=== PATIENT | male | born 1970 | race Caucasian/White ===

== ENCOUNTER 2022-08-05 12:14 | Emergency (ER) | payer BC, SELFPAY ==
[2022-08-05 12:19] VITALS: BP 175/90; PULSE 78; RESP 18; TEMP 36.6; O2SAT 98; BMI 24.3
--- NOTE | 2022-08-05 12:26 | ED.WOUNDLAC1 ---
HPI - Wound/Laceration General Chief Complaint: Wound/Laceration Stated Complaint: LACERATION Time Seen by Provider: 08/05/22 12:23 Source: patient Mode of arrival: walk-in Limitations: no limitations History of Present Illness HPI narrative: 52-year-old male presents for laceration to his right knee. He accidentally cut his knee when he tripped and his knee hit a non-running chainsaw. It's been a long time since his last tetanus shot, more than ten years. No other injuries were ssustained. He describes no significant pain. Related Data Home Medications Medication Instructions Recorded Confirmed No Known Home Medications 08/05/22 08/05/22 Allergies Allergy/AdvReac Type Severity Reaction Status Date / Time No Known Drug Allergies Allergy Verified 08/05/22 12:21 Review of Systems ROS Narrative A ten point review of systems is negative except as noted above. Exam Narrative Exam Narrative: Nurses note and vital signs reviewed and patient is not hypoxic. General: The patient appears well and in no apparent distress. Patient is resting comfortably on cart. Skin: Warm, dry, no pallor noted. There is no rash noted. Head: Normocephalic, atraumatic Eye: Normal conjunctiva, no drainage Ears, Nose, Mouth, and Throat: oral mucosa is moist. Nares patent. Cardiovascular: Regular Rate and Rhythm Respiratory: Patient is in no distress, no accessory muscle use, lungs are clear to auscultation, no wheezing, rales or rhonchi Back: non-tender GI: nontender Musculoskeletal: on the anterior right knee are three associated lacerations. Two are quite superficial and don't require closure. The 3rd is approximately 2 cm in length and is gaping slightly. No active bleeding or foreign body noted. Neurological: A&O, normal speech Psychiatric: Cooperative Constitutional Vital Signs - 24 hr 08/05/22 12:19 Temperature 98 F Pulse Rate [Monitor] 78 Respiratory Rate 18 Blood Pressure [Left Arm] 175/90 H Pulse Oximetry 98 Oxygen Delivery Method Room Air Course Vital Signs Vital signs: Vital Signs Temperature 98 F 08/05/22 12:19 Pulse Rate 78 08/05/22 12:19 Respiratory Rate 18 08/05/22 12:19 Blood Pressure 175/90 H 08/05/22 12:19 Pulse Oximetry 98 08/05/22 12:19 Oxygen Delivery Method Room Air 08/05/22 12:19 Temperature 98 F 08/05/22 12:19 Pulse Rate 78 08/05/22 12:19 Respiratory Rate 18 08/05/22 12:19 Blood Pressure 175/90 H 08/05/22 12:19 Pulse Oximetry 98 08/05/22 12:19 Oxygen Delivery Method Room Air 08/05/22 12:19 MDM - Wound/Laceration MDM Narrative Medical decision making narrative: the wound has been repaired. Sutures are to be removed in 7-10 days. Tetanus status updated today. Treatment diagnosis and follow-up were discussed with the patient. Differential Diagnosis Differential diagnosis: Likely laceration and other (skin avulsion, foreign body) Discharge Plan Discharge Chief Complaint: Wound/Laceration Clinical Impression: Laceration Patient Disposition: Home, Self-Care Time of Disposition Decision: 12:59 Condition: Good Mode of Transportation: Private Vehicle Prescriptions / Home Meds: No Action No Known Home Medications Instructions: Laceration (ED) Additional Instructions: sutures to be removed in 7-10 days. Stand Alone Forms: Portal Instructions Referrals: Physician,Non-Staff, MD [Primary Care Provider] - 1 week Procedures ED Laceration Laceration Laceration 1: Site: lower extremity Side (if applicable): right Size (cm): 2 Description: linear Depth: simple, single layer Anesthetic used: lidocaine 1% Anesthesia technique: local infiltration Amount (ml): 5 Pre-repair: wound explored and deep structures intact Skin layer closed with: other (Prolene) Size (cm): 4-0 Number of sutures: 4 Technique: simple, interrupted Additional comments: the patient tolerated the procedure well.
[2022-08-05] MEDS: ADACEL DIPH,PERTUSS(ACELL),TET VAC/PF 0.5 ML ADULT SYRINGE IM (12:32)
== END 2022-08-05 13:29 | disposition home or self-care (01) ==
PROVIDERS: Emergency Provider Emergency Medicine
DX: S81.011A Laceration without foreign body, right knee, initial encounter (principal); Z23 Encounter for immunization; W01.111A Fall on same level from slipping, tripping and stumbling with subsequent striking against power tool or machine, initial encounter
CPT/HCPCS: 12001; 90471; 90715; 99283

== ENCOUNTER 2024-05-19 16:53 | Emergency (ER) | payer OTHER, SELFPAY ==
[2024-05-19] VITALS (34 sets, daily range): BP systolic 126–168; BP diastolic 81–141; PULSE 80–117; TEMP 36.7; O2SAT 95–99; BMI 25.1
--- NOTE | 2024-05-19 17:03 | ECG_ITS ---
[facility] Test Date: 2024-05-19 Pat Name: AMANDA DAVIES SR Department: Room: - Gender: Male [employer]: : 1970 Requested By: [id number] Order Number: [id number] Reading MD: PEDRO BOYD M.D. Measurements Intervals [place] Rate: 111 P: 62 CT: 166 QRS: 55 QRSD: 88 T: 52 QT: 326 QTc: 392 Interpretive Statements 1120 Sinus tachycardia 9140 abnormal rhythm ECG No previous ECG available for comparison Electronically Signed On 05-19-2024 20:02:30 EDT by PEDRO BOYD M.D.
--- NOTE | 2024-05-19 17:04 | ED.GENADUL1 ---
HPI HPI - General Adult General Chief complaint: Arrhythmia/Palpitations Stated complaint: AFIB Time Seen by Provider: 05/19/24 16:54 History of Present Illness HPI narrative: 53-year-old male presents to the emergency for chief complaint of palpitations. He was driving home from [place] when he experienced a sensation that his chest was rocking and his heart rate was fast. 5 years ago he had been diagnosed with atrial fibrillation and had cardiac ablation. He has had no problems since then. He states he feels better now but the rocking sensation is gone. He does not take any medications and does not see a family doctor. Related Data Home Medications ?Medication ?Instructions ?Recorded ?Confirmed No Known Home Medications 08/05/22 08/05/22 Allergies Allergy/AdvReac Type Severity Reaction Status Date / Time No Known Drug Allergies Allergy Verified 08/05/22 12:21 Opioid HPI Opioid Management Most Recent Opioid Data: Last Pain Scale 2 08/05/22 12:27 08/05/22 Review of Systems ROS Narrative A ten point review of systems is negative except as noted above. Exam Narrative Exam Narrative: Nurses note and vital signs reviewed and patient is not hypoxic. General: The patient appears well and in no apparent distress. Patient is resting comfortably on cart. Skin: Warm, dry, no pallor noted. There is no rash noted. Head: Normocephalic, atraumatic Eye: Normal conjunctiva, no drainage Ears, Nose, Mouth, and Throat: oral mucosa is moist. Nares patent. Cardiovascular: Regular Rate and Rhythm, mildly tachycardic Respiratory: Patient is in no distress, no accessory muscle use, lungs are clear to auscultation, no wheezing, rales or rhonchi Back: non-tender GI: Soft and nontender Musculoskeletal: The patient has no evidence of calf tenderness, no pitting edema, symmetrical pulses noted bilaterally Neurological: A&O, normal speech Psychiatric: Cooperative Constitutional Vital Signs, click to edit/add: Last Vital Signs Temp 98.0 F 05/19/24 16:58 Pulse 90 05/19/24 18:40 Resp 14 05/19/24 18:40 BP 139/95 H 05/19/24 18:35 Pulse Ox 97 05/19/24 18:40 O2 Del Method Room Air 05/19/24 16:58 Course Vital Signs Vital signs: Vital Signs Temperature 98.0 F 05/19/24 16:58 Pulse Rate 117 H 05/19/24 16:58 Respiratory Rate 18 05/19/24 16:58 Blood Pressure 168/114 H 05/19/24 16:58 Pulse Oximetry 97 05/19/24 16:58 Oxygen Delivery Method Room Air 05/19/24 16:58 Temperature 98.0 F 05/19/24 16:58 Pulse Rate 90 05/19/24 18:40 Respiratory Rate 14 05/19/24 18:40 Blood Pressure 139/95 H 05/19/24 18:35 Pulse Oximetry 97 05/19/24 18:40 Oxygen Delivery Method Room Air 05/19/24 16:58 Medical Decision Making MDM Narrative Medical decision making narrative: The patient was in sinus tachycardia with a rate of about 115 upon arrival and that has since come down to the 80-90 range. Initial troponin was in the high normal range but then tripled to 175. He was given aspirin and heparin and I spoke to Dr. Benson and the patient will be transferred to [facility] with expectation for heart catheterization tomorrow. Treatment diagnosis and disposition were discussed with the patient. Differential Diagnosis Differential Diagnosis: Atrial fibrillation, atrial flutter, SVT, NSTEMI, STEMI Lab Data Lab results reviewed: Yes I reviewed the patient's lab results Labs: Lab Results 05/19/24 05/19/24 Range/Units 17:10 18:09 WBC 6.9 (4.0-11.0) 10^3/uL RBC 5.70 (4.70-6.10) 10^6/uL Hgb 16.6 (14.0-18.0) g/dL Hct 47.8 (42.0-54.0) % MCV 83.9 (80.0-94.0) fL MCH 29.1 (25.9-34.0) pg MCHC 34.7 (29.9-35.2) g/dL RDW 12.1 (11.0-15.0) % Plt Count 285 (150-450) 10^3/uL MPV 9.3 L (9.5-13.5) fL Neut % (Auto) 59.8 (43.0-75.0) % Lymph % (Auto) 28.4 (20.5-60.0) % [place] % (Auto) 9.8 (1.7-12.0) % Eos % (Auto) 1.6 (0.9-7.0) % Baso % (Auto) 0.4 (0.2-2.0) % Neut # (Auto) 4.1 (1.4-6.5) 10^3/uL Lymph # (Auto) 2.0 (1.2-3.8) 10^3/uL [place] # (Auto) 0.7 (0.3-0.8) 10^3/uL Eos # (Auto) 0.1 (0.0-0.7) 10^3/uL Baso # (Auto) 0.0 (0.0-0.1) 10^3/uL Abs Immat Gran (auto) 0.00 (0.00-0.03) 10^3/uL Imm/Tot Granulo (auto) 0.0 (0.0-0.5) % Sodium 141 (136-145) mmol/L Potassium 3.5 (3.5-5.1) mmol/L Chloride 104 (98-107) mmol/L Carbon Dioxide 31.4 (21.0-32.0) mmol/L Anion Gap 9.1 BUN 12.0 (7.0-18.0) mg/dL Creatinine 1.10 (0.70-1.30) mg/dL Est GFR ( Amer) >60 (>=60 mL/min/1.73m^2) Est GFR (Non-Af Amer) >60 (>=60 mL/min/1.73m^2) BUN/Creatinine Ratio 10.9 Glucose 94 (74-106) mg/dL Calcium 9.4 (8.5-10.1) mg/dL Troponin I High Sens 57.7 175.4 H* (4.0-76.1) pg/mL Imaging Data Chest x-ray: Radiologist's impression: No acute cardiopulmonary process ECG Data Attestation: I personally reviewed and interpreted this ECG as follows: (EKG on my interpretation shows sinus tachycardia without acute change, rate 111) Critical Care Time Critical Care Time Critical Care Time: Yes Total Critical Care Time: 40 Attestation: Due to the high probability of sudden and clinically significant deterioration in the patient's condition he/she required the highest level of my preparedness to intervene urgently I provided critical care time including documentation time, medication orders and management, reevaluation, vital sign assessment, ordering and reviewing of lab tests, ordering and reviewing of x-ray studies, and admission orders. Aggregate critical care time is 40 minutes including only time during which I was engaged in work directly related to his/her care and did not include time spent treating other patients simultaneously. Discharge Plan Discharge Chief Complaint: Arrhythmia/Palpitations Clinical Impression: Non-ST elevation MT (NSTEMI) Patient Disposition: [facility] Time of Disposition Decision: 18:46 Discharge Location: [facility] Condition: Fair Mode of Transportation: EMS
[2024-05-19 17:17] LABS: Basophils Percent Auto 0.4 % (0.2-2.0); Eosinophils Absolute Auto 0.1 10^3/uL (0.0-0.7); Eosinophils Percent Auto 1.6 % (0.9-7.0); Hematocrit 47.8 % (42.0-54.0); Hemoglobin 16.6 g/dL (14.0-18.0); Lymphocytes Percent Auto 28.4 % (20.5-60.0); Mean Corpuscular HGB Conc 34.7 g/dL (29.9-35.2); Mean Corpuscular Hemoglobin 29.1 pg (25.9-34.0); Mean Corpuscular Volume 83.9 fL (80.0-94.0); Mean Platelet Volume 9.3 fL (9.5-13.5); Monocytes Absolute Auto 0.7 10^3/uL (0.3-0.8); Monocytes Percent Auto 9.8 % (1.7-12.0); Neutrophils Absolute Auto 4.1 10^3/uL (1.4-6.5); Neutrophils Percent Auto 59.8 % (43.0-75.0); Platelet Count 285 10^3/uL (150-450); Red Cell Distribution Width 12.1 % (11.0-15.0); White Blood Count 6.9 10^3/uL (4.0-11.0)
[2024-05-19 17:37] LABS: Anion Gap 9.1; BUN Creatinine Ratio 10.9; Calcium 9.4 mg/dL (8.5-10.1); Carbon Dioxide 31.4 mmol/L (21.0-32.0); Chloride 104 mmol/L (98-107); Estimated GFR (African America >60 (>=60 mL/min/1.73m^2); Estimated GFR (Non-African Ame >60 (>=60 mL/min/1.73m^2); Glucose 94 mg/dL (74-106); Potassium 3.5 mmol/L (3.5-5.1); Sodium 141 mmol/L (136-145)
[2024-05-19 17:39] LABS: Troponin I High Sensitivity 57.7 pg/mL (4.0-76.1)
[2024-05-19 18:31] LABS: Troponin I High Sensitivity 175.4 pg/mL (4.0-76.1)
[2024-05-19 19:00] LABS: INR 0.99; Prothrombin Time 10.5 sec (9.0-11.6)
[2024-05-19 19:01] LABS: Partial Thromboplastin Time 30.1 sec (22.3-36.2)
[2024-05-19] MEDS: ASPIRIN 81 MG TAB.CHEW 324 MG PO (19:15)
[2024-05-19] MEDS: HEPARIN SODIUM (PORCINE) 5,000 UNIT/ML VIAL 4000 UNIT IV (19:16)
[2024-05-19] MEDS: HEPARIN SODIUM,PORCINE/D5W 25,000 UNIT/500 ML IV.SOLN 17.962 UNIT IV (19:17)
== END 2024-05-19 22:15 | disposition short-term general hospital (02) ==
PROVIDERS: Emergency Medicine; Emergency Provider Emergency Medicine
DX: I21.4 Non-ST elevation (NSTEMI) myocardial infarction (principal); I48.91 Unspecified atrial fibrillation
CPT/HCPCS: 36415; 71045; 80048; 84484; 85025; 85610; 85730; 93005; 96374; 99285; J1644

== ENCOUNTER 2024-06-30 06:01 | Outpatient (OUT) | payer OTHER, SELFPAY ==
--- OUTSIDE RECORDS SUMMARY | 2024-06-30 06:05 | XMS_ITS | CCD ---
Author Organization [facility] Care Team Providers Care Television Announcer Name Role Phone NO FAMILY, PHYSICIAN Primary Care Provider Unava ilable DO Jose Turk Attending Provider [phone] DO Shelby Steele Primary Care Provider Jose Turk Unavailable DO Shelby Steele Primary Care Provider [phone] DO Jose Turk Attending Provider Jose Turk Admitting Unavailable Sehlby Steele Primary Care Unavailable Jose Turk Attending Unavailable Jose Turk Admitting Unavailable NO FAMILY, PHYSICIAN Primary Care Unavailable Jose Turk Attending Unavailable Jose Turk Admitting Unavailable Shelby Steele Primary Care Unavailable Jose Turk Attending Unavailable Jose Turk Attending Unavailable Shelby Steele Primary Care Unavailable Jose Turk Admitting Unavailable Teri Lares Unavailable BEAU DEWITT Referring Unavailable SKYE SANCHEZ Admitting Unavailable MEREDITH DONIS Consulting Unavailable MEREDITH DONIS Attending Unavailable JORGE WHALEY Referring Unavailable MEREDITH DONIS Referring Unavailable MEREDITH DONIS Referring Unavailable ANGELI CONTRERAS Referring Unavailable LESLIE RODNEY Attending Unavailable Medications Current Medications Medication Drug Class(es) Dates Sig (Normalized) Sig (Original) oxyCODONE hydrochloride 5 mg oral capsule (1 source) Opioid Agonist Start: 03-20-2022 take 5 mg by mouth every four to six hours Oxycodone Active 5 MG PO EVERY 4-6 HOURS 30 March 20, 2022 Completed/Discontinued Medications Medication Drug Class(es) Dates Sig (Normalized) Sig (Original) naproxen 500 mg oral tablet (7 sources) Nonsteroidal Anti-inflammatory Drug take 1 tablet by mouth twice daily Naproxen 500 MG take 1 tablet Oral Twice a day for 30 Days Not-Taking triamcinolone acetonide 40 mg/ml injectable suspension (6 sources) Corticosteroid Start: 11-20-2021 Kenalog-40 Nov, 40 mg Problems Problem Classification Problem Date Documented Date Episodic/Chronic Acute myocardial infarction (2 sources) Non-ST elevation (NSTEMI) myocardial infarction; Translations: [Non-ST elevation (NSTEMI) myocardial infarction] Onset: 05-19-2024 Chronic Cardiac dysrhythmias (2 sources) Paroxysmal atrial fibrillation; Translations: [Paroxysmal atrial fibrillation] Onset: 05-19-2024 Chronic Disorders of lipid metabolism (2 sources) Mixed hyperlipidemia; Translations: [Mixed hyperlipidemia] Onset: 05-26-2024 Chronic Joint disorders and dislocations; trauma-related (12 sources) Derangement of left knee; Translations: [Unspecified internal derangement of left knee] Chronic Joint disorders and dislocations; trauma-related (4 sources) Other tear of lateral meniscus, current injury, left knee, initial encounter Episodic Nonspecific chest pain (2 sources) Chest pain, unspecified; Translations: [Chest pain, unspecified] Onset: 05-19-2024 Episodic Other injuries and conditions due to external causes (5 sources) Unspecified injury of left lower leg, initial encounter Episodic Other screening for suspected conditions (not mental disorders or infectious disease) (4 sources) Abnormal findings on diagnostic imaging of other parts of musculoskeletal system Episodic Residual codes; unclassified (1 source) History of arthroscopy of knee joint; Translations: [Other specified postprocedural states] 03-20-2022 Episodic Residual codes; unclassified (4 sources) Other specified postprocedural states; Translations: [Other specified postprocedural states] Onset: 03-20-2022 Episodic Unclassified (1 source) Other tear of medial meniscus, current injury, left knee, initial encounter; Translations: [Other tear of medial meniscus, current injury, left knee, initial encounter] Onset: 03-20-2022 Unclassified (1 source) Encounter for preprocedural laboratory examination; Translations: [Encounter for preprocedural laboratory examination] Onset: 03-09-2022 Unclassified (1 source) Unspecified internal derangement of left knee; Translations: [Unspecified internal derangement of left knee] Onset: 11-15-2021 Unclassified (1 source) Unspecified injury of left lower leg, initial encounter; Translations: [Unspecified injury of left lower leg, initial encounter] Onset: 11-08-2021 Results Test Name Value Interpretation Reference Range Facility 37on 05-26-2024 37 *Cut atorvastatin down to 40mg daily. You can cut your current prescription of 80mg in half. When this is used up, start the new prescription. *Increase metoprolol to 50mg daily. You can take 2 tablets of your current 25mg prescription until this is used up. *Have follow-up labs in 6-8 weeks. Normal [facility] Office Visiton 05-26-2024 Follow-up visit [id number] Fer Kuhn Sr. 1970 M Date Provider Department Center 05/26/2024 [facility] Family History Problem Relation Age of Onset COPD Mother Cancer Father Stroke Brother Family Status - Relation Status Age at Mother Father Sister Alive Brother Alive Level of Service:36451 DE OFFICE/OUTPATIENT ESTABLISHED MOD MDM 30 MIN Reason for Visit and Comments: Hospital Follow-up [832] Atrial Fibrillation [80] Normal [facility] 30on 05-21-2024 30 The patient is Moderately Stable - Low risk of patient condition declining or worsening The patient's goals for the shift include comfort and rest The clinical goals for the shift include stable VS Problem: Pain - Adult Goal: Verbalizes/displays adequate comfort level or baseline comfort level Outcome: Progressing Problem: Safety - Adult Goal: Free from fall injury Outcome: Progressing Problem: Discharge Planning Goal: Discharge to home or other facility with appropriate resources Outcome: Progressing Normal [facility] BASIC METABOLIC PANELon 05-12 Anion gap [Moles/Vol] 7 mmol/L Normal 7-20 [facility] Comment on above: Performed By: #### L [id number] #### [facility] ([facility]) [address] [place] [address] Calcium [Mass/Vol] 8.7 mg/dL Normal 8.6-10.3 [facility] Comment on above: Performed By: #### L [id number] #### [facility] ([facility]) [address] [place] [address] Chloride [Moles/Vol] 105 mmol/L Normal 98-107 [facility] Comment on above: Performed By: #### L [id number] #### [facility] ([facility]) [address] [place] [address] CO2 [Moles/Vol] 29 mmol/L Normal 21-31 [facility] Comment on above: Performed By: #### L [id number] #### [facility] ([facility]) [address] [place] [address] Creatinine [Mass/Vol] 1.14 mg/dL Normal 0.70-1.30 [facility] Comment on above: Performed By: #### L [id number] #### [facility] ([facility]) [address] [place] [address] GLOMERULAR FILTRATION RATE ML/MIN/1.73 SQ M.PREDICTED 76.4 mL/min/1.73m*2 Normal >60.0 [facility] Comment on above: Result Comment: The [facility]???s estimated glomerular filtration rate (eGFR) will no longer include consideration of race in its calculation. The National Kidney Foundation???s eGFR Task Force developed new recommendations for the estimation of the glomerular filtration rate in the [place] They recommend immediate implementation of the new equation refit without the race variable in all laboratories because the calculation does not include race. In addition to not including race in the calculation and reporting, it included diversity in its development, and has acceptable performance characteristics and potential consequences that do not disproportionately affect any one group of individuals. Performed By: #### L [id number] #### [facility] ([facility]) [address] [place] [address] Glucose [Mass/Vol] 79 mg/dL Normal 70-100 [facility] Comment on above: Performed By: #### L [id number] #### [facility] ([facility]) [address] [place] [address] Potassium [Moles/Vol] 4.1 mmol/L Normal 3.5-5.1 [facility] Comment on above: Performed By: #### L [id number] #### [facility] ([facility]) [address] [place] [address] Sodium [Moles/Vol] 137 mmol/L Normal 136-145 [facility] Comment on above: Performed By: #### L [id number] #### [facility] ([facility]) [address] [place] [address] Urea nitrogen [Mass/Vol] 17 mg/dL Normal 7-25 [facility] Comment on above: Performed By: #### L [id number] #### [facility] ([facility]) [address] [place] [address] UREA NITROGEN/CREATININE (MASS RATIO) IN SER/PLAS 14.9 Normal [facility] Comment on above: Performed By: #### L [id number] #### [facility] ([facility]) [address] [place] [address] MAGNESIUMon 05-21-2024 Magnesium [Mass/Vol] 1.9 mg/dL Normal 1.9-2.7 [facility] Comment on above: Performed By: #### L [id number] #### [facility] ([facility]) [address] [place] [address] 30on 05-20-2024 30 The patient is Moderately Stable - Low risk of patient condition declining or worsening The patient's goals for the shift include comfort, rest The clinical goals for the shift include VSS, therapeutic heparin level Over the shift, the patient did make progress toward the following goals. Problem: Cardiovascular - Adult Goal: Maintains optimal cardiac output and hemodynamic stability Outcome: Progressing Flowsheets (Taken 05/20/20241824) Maintains optimal cardiac output and hemodynamic stability: Monitor blood pressure and heart rate Monitor urine output and notify Licensed Independent Practitioner for values outside of normal range Assess for signs of decreased cardiac output Goal: Absence of cardiac dysrhythmias or at baseline Outcome: Progressing Flowsheets (Taken 05/20/20241824) Absence of cardiac dysrhythmias or at baseline: Monitor cardiac rate and rhythm Assess for signs of decreased cardiac output Administer antiarrhythmia medication and electrolyte replacement as ordered Normal [facility] ANESon 05-20-2024 ANES - Attestation signed by Jorge Whaley MD at 05/20/2024 7:16 PM Mr. Kuhn was seen and evaluated by me. I agree with above with the addition that he has upper and lower dentures in place and Blu's test nl R. I have discussed with him the expected risks and he understands and consents to proceed. Patient: Fer Kuhn Procedure Information Date/Time: 05/20/241655 Procedure: Coronary angiography Location: [facility] / [facility] (Cath) Providers: Jorge Whaley MD Clinical information reviewed: Allergies Meds Physical Exam Airway Mallampati: III Cardiovascular Rhythm: regular Rate: normal (-) murmur Dental Pulmonary (-) decreased breath sounds Abdominal (-) obese Anesthesia Plan ASA 3 other (Conscious Sedation) intravenous induction Anesthetic plan and risks discussed with patient. Use of blood products discussed with patient who consented to blood products. Plan discussed with attending. Additional Equipment Requests Normal [facility] ANTI-XA (HEPARIN LEVEL)on HEPARIN UNFRACTIONATED (U/ML) IN PPP BY CHROMOGENIC METHOD 0.41 IU/mL Normal 0.3-0.7 [facility] Comment on above: Order Comment: Check anti-Xa level every 6 hours while on heparin infusion, or per protocol. Result Comment: Check roxaban and Apixaban will interfere with the anti Xa assay used to monitor UFH and LMWH. Performed By: #### L [id number] #### [facility] ([facility]) [address] [place] [address] HEPARIN UNFRACTIONATED (U/ML) IN PPP BY CHROMOGENIC METHOD 0.28 IU/mL Low 0.3-0.7 [facility] Comment on above: Order Comment: Check anti-Xa level every 6 hours while on heparin infusion, or per protocol. Result Comment: Melissa roxaban and Apixaban will interfere with the anti Xa assay used to monitor UFH and LMWH. Performed By: #### L [id number] #### [facility] ([facility]) [address] [place] [address] HEPARIN UNFRACTIONATED (U/ML) IN PPP BY CHROMOGENIC METHOD 0.23 IU/mL Low 0.3-0.7 [facility] Comment on above: Order Comment: Check anti-Xa level every 6 hours while on heparin infusion, or per protocol. Result Comment: Check roxaban and Apixaban will interfere with the anti Xa assay used to monitor UFH and LMWH. Performed By: #### L [id number] #### [facility] ([facility]) [address] [place] [address] APTTon 05-20-2024 ACTIVATED PARTIAL THROMBOPLASTIN TIME IN PPP BY COAGULATION ASSAY 40.8 Seconds High 25.0-35.0 [facility] Comment on above: Order Comment: Basel ine aPTT before initiating heparin infusion. Result Comment: Clin ical significance of the APTT is questionable in the presence of heparin. Performed By: #### L [id number] #### [facility] ([facility]) [address] [place] [address] BASIC METABOLIC PANELon Anion gap [Moles/Vol] 7 mmol/L Normal 7-20 [facility] Comment on above: Performed By: #### L [id number] #### [facility] ([facility]) [address] [place] [address] Calcium [Mass/Vol] 8.5 mg/dL Low 8.6-10.3 [facility] Comment on above: Performed By: #### L [id number] #### [facility] ([facility]) [address] [place] [address] Chloride [Moles/Vol] 109 mmol/L High 98-107 [facility] Comment on above: Performed By: #### L [id number] #### [facility] ([facility]) [address] [place] [address] CO2 [Moles/Vol] 28 mmol/L Normal 21-31 [facility] Comment on above: Performed By: #### L [id number] #### [facility] ([facility]) [address] [place] [address] Creatinine [Mass/Vol] 0.93 mg/dL Normal 0.70-1.30 [facility] Comment on above: Performed By: #### L [id number] #### [facility] ([facility]) [address] [place] [address] GLOMERULAR FILTRATION RATE ML/MIN/1.73 SQ M.PREDICTED 97.6 mL/min/1.73m*2 Normal >60.0 [facility] Comment on above: Result Comment: The [facility]???s estimated glomerular filtration rate (eGFR) will no longer include consideration of race in its calculation. The National Kidney Foundation???s eGFR Task Force developed new recommendations for the estimation of the glomerular filtration rate in the [place] They recommend immediate implementation of the new equation refit without the race variable in all laboratories because the calculation does not include race. In addition to not including race in the calculation and reporting, it included diversity in its development, and has acceptable performance characteristics and potential consequences that do not disproportionately affect any one group of individuals. Performed By: #### L [id number] #### [facility] ([facility]) [address] [place] [address] Glucose [Mass/Vol] 94 mg/dL Normal 70-100 [facility] Comment on above: Performed By: #### L [id number] #### [facility] ([facility]) [address] [place] [address] Potassium [Moles/Vol] 4.0 mmol/L Normal 3.5-5.1 [facility] Comment on above: Performed By: #### L [id number] #### [facility] ([facility]) [address] [place] [address] Sodium [Moles/Vol] 140 mmol/L Normal 136-145 [facility] Comment on above: Performed By: #### L [id number] #### [facility] ([facility]) [address] [place] [address] Urea nitrogen [Mass/Vol] 17 mg/dL Normal 7-25 [facility] Comment on above: Performed By: #### L [id number] #### [facility] ([facility]) [address] [place] [address] UREA NITROGEN/CREATININE (MASS RATIO) IN SER/PLAS 18.3 Normal [facility] Comment on above: Performed By: #### L [id number] #### [facility] ([facility]) [address] [place] [address] CBCon 05-20-2024 Erythrocyte distribution width (RBC) [Ratio] 12.3 % Normal 11.5-15.0 [facility] Comment on above: Performed By: #### L [id number] #### [facility] ([facility]) [address] [place] [address] ERYTHROCYTE MEAN CORPUSCULAR HEMOGLOBIN CONCENTRATION (G/DL) BY AUTOMATED 33.7 g/dL Normal 32.0-35.0 [facility] Comment on above: Performed By: #### L [id number] #### [facility] ([facility]) [address] [place] [address] Hematocrit (Bld) [Volume fraction] 43.9 % Normal 39.0-50.0 [facility] Comment on above: Performed By: #### L [id number] #### [facility] ([facility]) [address] [place] [address] Hemoglobin (Bld) [Mass/Vol] 14.8 g/dL Normal 13.0-17.0 [facility] Comment on above: Performed By: #### L [id number] #### [facility] ([facility]) [address] [place] [address] MCH (RBC) [Entitic mass] 29.1 pg Normal 27.0-33.0 [facility] Comment on above: Performed By: #### L [id number] #### [facility] ([facility]) [address] [place] [address] MCV (RBC) [Entitic vol] 86.2 fL Normal 82.0-98.0 [facility] Comment on above: Performed By: #### L [id number] #### [facility] ([facility]) [address] [place] [address] PLATELETS (10*3/UL) IN BLOOD AUTOMATED COUNT 244 10*3/uL Normal 150-400 [facility] Comment on above: Performed By: #### L [id number] #### [facility] ([facility]) [address] [place] [address] RBC (Bld) [#/Vol] 5.09 10*6/uL Normal 4.20-5.70 [facility] Comment on above: Performed By: #### L [id number] #### [facility] ([facility]) [address] [place] [address] WBC (Bld) [#/Vol] 4.96 10*3/uL Normal 4.00-10.60 [facility] Comment on above: Performed By: #### L [id number] #### [facility] ([facility]) [address] [place] [address] CBC WITH AUTO DIFFERENTIALon 05-20-2024 Basophils (Bld) [#/Vol] 0.04 10*3/uL Normal 0.00-0.20 [facility] Comment on above: Performed By: #### L [id number] #### [facility] ([facility]) [address] [place] [address] Basophils/100 WBC (Bld) 0.7 % Normal 0.0-1.0 [facility] Comment on above: Performed By: #### L [id number] #### [facility] ([facility]) [address] [place] [address] Eosinophils (Bld) [#/Vol] 0.16 10*3/uL Normal 0.00-0.50 [facility] Comment on above: Performed By: #### L [id number] #### [facility] ([facility]) [address] [place] [address] Eosinophils/100 WBC (Bld) 2.7 % Normal 0.0-6.0 [facility] Comment on above: Performed By: #### L [id number] #### [facility] ([facility]) [address] [place] [address] Erythrocyte distribution width (RBC) [Ratio] 12.4 % Normal 11.5-15.0 [facility] Comment on above: Performed By: #### L [id number] #### [facility] ([facility]) [address] [place] [address] ERYTHROCYTE MEAN CORPUSCULAR HEMOGLOBIN CONCENTRATION (G/DL) BY AUTOMATED 34.5 g/dL Normal 32.0-35.0 [facility] Comment on above: Performed By: #### L [id number] #### [facility] ([facility]) [address] [place] [address] Hematocrit (Bld) [Volume fraction] 42.3 % Normal 39.0-50.0 [facility] Comment on above: Performed By: #### L [id number] #### [facility] ([facility]) [address] [place] [address] Hemoglobin (Bld) [Mass/Vol] 14.6 g/dL Normal 13.0-17.0 [facility] Comment on above: Performed By: #### L [id number] #### [facility] ([facility]) [address] [place] [address] Immature granulocytes (Bld) [#/Vol] 0.01 10*3/uL Normal 0.00-0.20 [facility] Comment on above: Performed By: #### L [id number] #### [facility] ([facility]) [address] [place] [address] Immature granulocytes/100 WBC (Bld) 0.2 % Normal 0.0-1.0 [facility] Comment on above: Performed By: #### L [id number] #### [facility] ([facility]) [address] [place] [address] Lymphocytes (Bld) [#/Vol] 2.03 10*3/uL Normal 1.20-4.00 [facility] Comment on above: Performed By: #### L [id number] #### [facility] ([facility]) [address] [place] [address] Lymphocytes/100 WBC (Bld) 34.8 % Normal 20.0-45.0 [facility] Comment on above: Performed By: #### L [id number] #### [facility] ([facility]) [address] [place] [address] MCH (RBC) [Entitic mass] 29.4 pg Normal 27.0-33.0 [facility] Comment on above: Performed By: #### L [id number] #### [facility] ([facility]) [address] [place] [address] MCV (RBC) [Entitic vol] 85.3 fL Normal 82.0-98.0 [facility] Comment on above: Performed By: #### L [id number] #### [facility] ([facility]) [address] [place] [address] Monocytes (Bld) [#/Vol] 0.56 10*3/uL Normal 0.10-1.00 [facility] Comment on above: Performed By: #### L [id number] #### [facility] ([facility]) [address] [place] [address] Monocytes/100 WBC (Bld) 9.6 % Normal 5.0-12.0 [facility] Comment on above: Performed By: #### L [id number] #### [facility] ([facility]) [address] [place] [address] Neutrophils (Bld) [#/Vol] 3.04 10*3/uL Normal 1.60-7.60 [facility] Comment on above: Performed By: #### L [id number] #### [facility] ([facility]) [address] [place] [address] Neutrophils/100 WBC (Bld) 52.0 % Normal 40.0-72.0 [facility] Comment on above: Performed By: #### L [id number] #### [facility] ([facility]) [address] [place] [address] NRBC (PER 100 WBCS) BY AUTOMATED COUNT 0.0 % Normal 0 [facility] Comment on above: Performed By: #### L [id number] #### [facility] ([facility]) [address] [place] [address] PLATELETS (10*3/UL) IN BLOOD AUTOMATED COUNT 254 10*3/uL Normal 150-400 [facility] Comment on above: Performed By: #### L [id number] #### [facility] ([facility]) [address] [place] [address] RBC (Bld) [#/Vol] 4.96 10*6/uL Normal 4.20-5.70 [facility] Comment on above: Performed By: #### L [id number] #### [facility] ([facility]) [address] [place] [address] WBC (Bld) [#/Vol] 5.84 10*3/uL Normal 4.00-10.60 [facility] Comment on above: Performed By: #### L [id number] #### [facility] ([facility]) [address] [place] [address] COMPREHENSIVE METABOLIC PANE Robert 05-20-2024 Albumin [Mass/Vol] 4.0 g/dL Normal 3.5-5.7 [facility] Comment on above: Performed By: #### L [id number] #### [facility] ([facility]) [address] [place] [address] ALP [Catalytic activity/Vol] 56 U/L Normal 34-104 [facility] Comment on above: Performed By: #### L [id number] #### [facility] ([facility]) [address] [place] [address] ALT [Catalytic activity/Vol] 21 U/L Normal 7-52 [facility] Comment on above: Performed By: #### L [id number] #### [facility] ([facility]) [address] [place] [address] Anion gap [Moles/Vol] 11 mmol/L Normal 7-20 [facility] Comment on above: Performed By: #### L [id number] #### [facility] ([facility]) [address] [place] [address] AST [Catalytic activity/Vol] 22 U/L Normal 13-39 [facility] Comment on above: Performed By: #### L [id number] #### [facility] ([facility]) [address] [place] [address] Bilirubin [Mass/Vol] 0.3 mg/dL Normal 0.3-1.0 [facility] Comment on above: Performed By: #### L [id number] #### [facility] ([facility]) [address] [place] [address] Calcium [Mass/Vol] 8.9 mg/dL Normal 8.6-10.3 [facility] Comment on above: Performed By: #### L [id number] #### [facility] ([facility]) [address] [place] [address] Chloride [Moles/Vol] 106 mmol/L Normal 98-107 [facility] Comment on above: Performed By: #### L [id number] #### [facility] ([facility]) [address] [place] [address] CO2 [Moles/Vol] 27 mmol/L Normal 21-31 [facility] Comment on above: Performed By: #### L [id number] #### [facility] ([facility]) [address] [place] [address] Creatinine [Mass/Vol] 0.95 mg/dL Normal 0.70-1.30 [facility] Comment on above: Performed By: #### L [id number] #### [facility] ([facility]) [address] [place] [address] GLOMERULAR FILTRATION RATE ML/MIN/1.73 SQ M.PREDICTED 95.1 mL/min/1.73m*2 Normal >60.0 [facility] Comment on above: Result Comment: The [facility]???s estimated glomerular filtration rate (eGFR) will no longer include consideration of race in its calculation. The National Kidney Foundation???s eGFR Task Force developed new recommendations for the estimation of the glomerular filtration rate in the [place] They recommend immediate implementation of the new equation refit without the race variable in all laboratories because the calculation does not include race. In addition to not including race in the calculation and reporting, it included diversity in its development, and has acceptable performance characteristics and potential consequences that do not disproportionately affect any one group of individuals. Performed By: #### L [id number] #### [facility] ([facility]) [address] [place] [address] Glucose [Mass/Vol] 94 mg/dL Normal 70-100 [facility] Comment on above: Performed By: #### L [id number] #### [facility] ([facility]) [address] [place] [address] Potassium [Moles/Vol] 3.7 mmol/L Normal 3.5-5.1 [facility] Comment on above: Performed By: #### L [id number] #### [facility] ([facility]) [address] [place] [address] Protein [Mass/Vol] 6.4 g/dL Normal 6.0-8.3 [facility] Comment on above: Performed By: #### L [id number] #### [facility] ([facility]) [address] [place] [address] Sodium [Moles/Vol] 140 mmol/L Normal 136-145 [facility] Comment on above: Performed By: #### L [id number] #### [facility] ([facility]) [address] [place] [address] Urea nitrogen [Mass/Vol] 16 mg/dL Normal 7-25 [facility] Comment on above: Performed By: #### L [id number] #### [facility] ([facility]) [address] [place] [address] UREA NITROGEN/CREATININE (MASS RATIO) IN SER/PLAS 16.8 Normal [facility] Comment on above: Performed By: #### L [id number] #### [facility] ([facility]) [address] [place] [address] CONSULTon 05-20-2024 CONSULT - Attestation signed by Wally Benson MD at 05/20/2024 7:28 PM By using the attestations below, the signing clinician agrees that I have read and verify that the documentation has been personally reviewed by me and ensure that the documentation accurately reflects the encounter. GC: I personally saw this patient on the day of the encounter, performed the lane portion(s) of the service and participated in the management and confirm the resident's documentation. Please note there may be an additional personal documentation from me. Additional Comments: Transferred from [facility] due to chest pain and palpitations Elevated high-sensitivity troponin concerning for NSTEMI Uncontrolled Hypertension as well Will proceed with coronary angiogram for CAD evaluation Given palpitations, will plan to discharge with 30-day event monitor and outpatient follow-up with [place] [facility] labs including CBC, CMP, troponin all personally reviewed EKG personally reviewed Cardiology Consult Note Reason for Consult: heart palpitation HPI: Fer Kuhn is a 53 y.o. male with history of Atrial fibrillation no on blood thinner, hx of cardioversion 6-7 years ago. Presenting to the hospital with chest palpitation. Patient reports that he has a monthly episodes of chest palpitation that lasts few seconds and resolve by their own, however yesterday patient endorse chest palpiation that lasted up to 2 hours, associated with chest pain and shortness of breath, patient didn't check his heart rate. Patient reports he drinks 2 big cups of coffee on daily basis. No hs of CAD, ischemic cardiomyopathy. Patient high sensitivity troponin 57-->175-->220-->138, EKG sinus rhythm Cardiology ROS: Review of Systems Constitutional: Negative for activity change and fatigue. HENT: Negative for rhinorrhea. Eyes: Negative for pain. Respiratory: Negative for cough. Cardiovascular: Positive for chest pain and palpitations. Gastrointestinal: Negative for blood in stool and constipation. Musculoskeletal: Negative for back pain, gait problem and myalgias. Neurological: Negative for numbness. Psychiatric/Behaviora l: Negative for behavioral problems. Past Medical History He has no past medical history on file. Surgical History He has no past surgical history on file. Social History He reports that he has never smoked. He has never used smokeless tobacco. No history on file for alcohol use and drug use. Family History No family history on file. Allergies Patient has no known allergies. Medications No current outpatient medications No medications prior to admission. Last Recorded Vitals Patient Vitals for the past 24 hrs: BP Temp Temp src Pulse Resp SpO2 Height Weight 05/20/24 0815 137/77 37 ???C (98.6 ???F) Temporal 70 11 98 % -- -- 05/20/24 0500 -- -- -- -- -- -- -- 73.9 kg (163 lb) 05/20/24 0400 111/78 36.2 ???C (97.1 ???F) Temporal 70 (!) 9 98 % -- -- 05/19/24 2341 139/81 36.3 ???C (97.4 ???F) Temporal 80 15 98 % 1.727 m (5' 7.99 ) 73.9 kg (163 lb) Physical Examination: Physical Exam Constitutional: General: He is not in acute distress. Appearance: Normal appearance. He is normal weight. HENT: Mouth/Throat: Mouth: Mucous membranes are moist. Pharynx: Oropharynx is clear. Cardiovascular: Rate and Rhythm: Normal rate and regular rhythm. Pulses: Normal pulses. Heart sounds: Normal heart sounds. No murmur heard. Pulmonary: Effort: No respiratory distress. Breath sounds: No stridor. Abdominal: General: There is no distension. Tenderness: There is no abdominal tenderness. Musculoskeletal: Right lower leg: No edema. Left lower leg: No edema. Skin: Coloration: Skin is not jaundiced or pale. Neurological: General: No focal deficit present. Mental Status: He is alert and oriented to person, place, and time. Relevant Lab Results Encounter Date: 05/19/24 ECG 12 lead Result Value Ventricular Rate 78 Atrial Rate 78 DE Interval 176 QRS DURATION 88 QT Interval 372 QTC CALCULATION(BAZETT) 424 P [place] 66 R-[place] 28 T Wave [place] 37 Impression Normal sinus rhythm Normal ECG No previous ECGs available Confirmed by Aditya Simmons ([id number]) on 05/20/2024 9:43:50 AM No results found for: CKTOTAL , CKMB , CKMBINDEX , TROPONINI No echocardiogram results found for the past 12 months No nuclear medicine results found for the past 12 months Relevant Imaging Results ECG 12 lead Normal sinus rhythm Normal ECG No previous ECGs available Confirmed by Aditya Simmons ([id number]) on 05/20/2024 9:43:[address] elevation Myocardial infarctoin, High sensitivity troponin peaked at 220. Heart palpitation, unknown rhythm concern about SVT vs Afib as the patient have it recurrent, underwent Cardioversion (more content not included)... Normal [facility] HIGH SENSITIVITY TROPONIN Io n 05-20-2024 HS TROPONIN I (NG/L) 64 ng/L Critically high <20 [facility] Comment on above: Performed By: #### L [id number] #### [facility] ([facility]) [address] [place] [address] HS TROPONIN I (NG/L) 91 ng/L Critically high <20 [facility] Comment on above: Performed By: #### L [id number] #### [facility] ([facility]) [address] [place] [address] HS TROPONIN I (NG/L) 138 ng/L Critically high <20 [facility] Comment on above: Performed By: #### L [id number] #### [facility] ([facility]) [address] [place] [address] HS TROPONIN I (NG/L) 220 ng/L Critically high <20 [facility] Comment on above: Performed By: #### L [id number] #### [facility] ([facility]) [address] [place] [address] HPon 05-20-2024 HP - Attestation signed by Jorge Whaley MD at 05/20/2024 7:17 PM Agree with above. I have personally spoken with and examined Mr. Kuhn. H&P reviewed. The patient was examined and there are no changes to the H&P. Proceed with CORS for NSTEMI. Hernán Cedeño MD PGY-5 [employer] Program Technician [facility] Pager # [phone] Normal [facility] LIPID PANELon 05-20-2024 CHOL/HDL 4.1 mg/dL Normal [facility] Comment on above: Performed By: #### L [id number] #### [facility] ([facility]) [address] [place] [address] Cholesterol [Mass/Vol] 152 mg/dL Normal 120-200 [facility] Comment on above: Performed By: #### L [id number] #### [facility] ([facility]) [address] [place] [address] Magnesium [Mass/Vol] 72 mg/dL Normal <150 [facility] Comment on above: Result Comment: TRIG LYCERIDE REFERENCE RANGE: 20 YEARS AND OLDER CARDIOVASCULAR RISK LESS THAN 150 mg/dL LOW RISK 150 TO 199 mg/dL BORDERLINE RISK 200 mg/dL AND GREATER HIGH RISK Performed By: #### L [id number] #### [facility] ([facility]) [address] [place] [address] Magnesium [Mass/Vol] 101 mg/dL Normal 0-160 [facility] Comment on above: Performed By: #### L [id number] #### [facility] ([facility]) [address] [place] [address] Magnesium [Mass/Vol] 37 mg/dL Normal 23-92 [facility] Comment on above: Performed By: #### L [id number] #### [facility] ([facility]) [address] [place] [address] NON HDL CHOL. (LDL+VLDL) 115 Normal [facility] Comment on above: Performed By: #### L [id number] #### [facility] ([facility]) [address] [place] [address] TOTAL VLDL-C 14 mg/dL Normal 0-40 [facility] Comment on above: Performed By: #### L [id number] #### [facility] ([facility]) [address] [place] [address] MAGNESIUMon 05-20-2024 Magnesium [Mass/Vol] 2.0 mg/dL Normal 1.9-2.7 [facility] Comment on above: Performed By: #### L [id number] #### [facility] ([facility]) [address] [place] [address] Magnesium [Mass/Vol] 2.0 mg/dL Normal 1.9-2.7 [facility] Comment on above: Performed By: #### L [id number] #### [facility] ([facility]) [address] [place] [address] PHOSPHORUSon 05-20-2024 Magnesium [Mass/Vol] 4.3 mg/dL Normal 2.5-5.0 [facility] Comment on above: Performed By: #### L [id number] #### [facility] ([facility]) [address] [place] [address] PROTIME-INRon 05-20-2024 INR IN PPP BY COAGULATION ASSAY 0.92 Normal 0.90-1.10 [facility] Comment on above: Result Comment: ACCC P RECOMMENDED INR FOR WARFARIN THERAPY CONDITION INR PROPHYLAXIS OF VENOUS THROMBOSIS 2-3 (HIGH-RISK SURGERY) TREATMENT OF VENOUS THROMBOSIS 2-3 TREATMENT OF PULMONARY EMBOLISM 2-3 PREVENTION OF SYSTEMIC EMBOLISM: 2-3 ACUTE MYOCARDIAL INFARCTION TISSUE HEART VALVES VALVULAR HEART DISEASE ATRIAL FIBRILLATION RECURRENT SYSTEMIC EMBOLISM MECHANICAL HEART VALVE 2.5-3.5 FROM: ORAL ANTICOAGULANTS. MECHANISM OF ACTION, CLINICAL EFFECTIVENESS, AND OPTIMAL THERAPEUTIC RANGE. CHEST 1995;108:231S-246S. Performed By: #### L [id number] #### [facility] ([facility]) [address] [place] [address] PROTHROMBIN TIME (PT) IN PPP BY COAGULATION ASSAY 12.4 Seconds Normal 12.3-14.8 [facility] Comment on above: Performed By: #### L [id number] #### [facility] ([facility]) [address] [place] [address] TSH3 REFLEX TO FT4on 025 THYROTROPIN (MIU/L) IN SER/PLAS BY DETECTION LIMIT <= 0.05 MIU/L 2.41 mIU/L Normal 0.34-5.60 [facility] Comment on above: Performed By: #### L [id number] #### [facility] ([facility]) [address] [place] [address] NURSNOTEon 05-19-2024 NURSNOTE The procedure writer received a call from Marcia (ER nurse in [facility]) at 2140. The patient arrived at their ER at 4PM today ambulating with complaints of SOB and was tachy at 117-120 bpm. The patient has a history of Afib and cardiac ablation. Troponin was at 57.7 and was then rechecked- 175.4. ASA 324mg was given, hep gtt was started at 900 units/hr, 18 mL/hr. The patient has the ff VS: DE-86, O2 Sat-96-98% RA, T-98.0, RR-14-20. The patient stated no home meds. A&O X4. IV site at RA-20g. Patient will be picked up at around 2200. Normal [facility] Albumin [Mass/volume] in Ser um or PlasmaOrdered By: Jose Turk on 03-09-2022 Albumin [Mass/Vol] 4.0 g/dL 3.2-5.5 [facility] Basophils Auto (Bld) [#/Vol] Ordered By: Jose Turk on 03-09-2022 Basophils (Bld) [#/Vol] 0.0 10*3/uL 0.0-0.2 [facility] Basophils/100 WBC Auto (Bld) Ordered By: Jose Turk on 03-09-2022 Basophils/100 WBC (Bld) 0.7 % . [facility] Complete Blood Count Auto Di ffon 03-09-2022 Basophils (Bld) [#/Vol] 0.0 10*3/uL Normal 0.0-0.2 [facility] Comment on above: Result Comment: PERF ORMED BY: [place] [address] PATHOLOGIST ELECTROPLATING TECHNICIAN KELLY CID M.D. Performed By: #### C MP, CBC #### [address] Basophils/100 WBC (Bld) 0.7 % Normal . [facility] Comment on above: Performed By: #### C MP, CBC #### [address] Eosinophils (Bld) [#/Vol] 0.0 10*3/uL Normal 0.0-0.45 [facility] Comment on above: Performed By: #### C MP, CBC #### [address] Eosinophils/100 WBC (Bld) 0.9 % Normal . [facility] Comment on above: Performed By: #### C MP, CBC #### [address] Erythrocyte distribution width (RBC) [Ratio] 13.1 % Normal 12.0-14.8 [facility] Comment on above: Performed By: #### C MP, CBC #### [address] Hematocrit (Bld) [Volume fraction] 43.5 % Normal 38.8-50.0 [facility] Comment on above: Performed By: #### C MP, CBC #### [address] Hemoglobin (Bld) [Mass/Vol] 14.8 g/dL Normal 13.0-17.0 [facility] Comment on above: Performed By: #### C MP, CBC #### [address] [place] [address] [place] Lymphocytes (Bld) [#/Vol] 1.1 10*3/uL Normal 1.00-4.8 [facility] Comment on above: Performed By: #### C MP, CBC #### [facility] [address] Lymphocytes/100 WBC (Bld) 24.5 % Normal . [facility] Comment on above: Performed By: #### C MP, CBC #### [address] MCH (RBC) [Entitic mass] 29.2 pg Normal 27.5-35.2 [facility] Comment on above: Performed By: #### C MP, CBC #### [address] MCV (RBC) [Entitic vol] 85.8 fL Normal 83.5-101 [facility] Comment on above: Performed By: #### C MP, CBC #### [address] Mean Corpuscular HGB Conc 34.0 g/dL Normal 32.5-35.6 [facility] Comment on above: Performed By: #### C MP, CBC #### [address] Monocytes (Bld) [#/Vol] 0.5 10*3/uL Normal 0.0-0.8 [facility] Comment on above: Performed By: #### C MP, CBC #### [place] [address] [place] Monocytes/100 WBC (Bld) 10.5 % Normal . [facility] Comment on above: Performed By: #### C MP, CBC #### [address] Neutrophils (Bld) [#/Vol] 2.9 10*3/uL Normal 1.8-7.7 [facility] Comment on above: Performed By: #### C MP, CBC #### [place] [id number] [place] Neutrophils/100 WBC (Bld) 63.4 % Normal . [facility] Comment on above: Performed By: #### C MP, CBC #### [address] NRBC% 0.1 /100{WBC} Normal 0-0.5 [facility] Comment on above: Performed By: #### C MP, CBC #### [address] Platelet mean volume (Bld) [Entitic vol] 7.9 fL Normal 6.6-10.1 [facility] Comment on above: Performed By: #### C MP, CBC #### [address] Platelets (Bld) [#/Vol] 247 10*3/uL Normal 150-450 [facility] Comment on above: Performed By: #### C MP, CBC #### [address] RBC (Bld) [#/Vol] 5.07 10*6/uL Normal 3.90-5.60 [facility] Comment on above: Performed By: #### C MP, CBC #### [address] WBC (Bld) [#/Vol] 4.6 10*3/uL Normal 4.1-10.5 [facility] Comment on above: Performed By: #### C MP, CBC #### [address] Comprehensive Metabolic Pane robert 03-09-2022 Albumin [Mass/Vol] 4.0 g/dL Normal 3.2-5.5 [facility] Comment on above: Performed By: #### C MP, CBC #### [address] Albumin/Globulin [Mass ratio] 1.5 {ratio} Normal [facility] Comment on above: Performed By: #### C MP, CBC #### [address] ALP [Catalytic activity/Vol] 51 U/L Normal 32-92 [facility] Comment on above: Result Comment: PERF ORMED BY: [place] [address] PATHOLOGIST ELECTROPLATING TECHNICIAN KELLY CID M.D. Performed By: #### C MP, CBC #### [address] ALT [Catalytic activity/Vol] 15 U/L Normal 10-60 [facility] Comment on above: Performed By: #### C MP, CBC #### [address] Anion gap [Moles/Vol] 10.3 mmol/L Normal 6.0-15.0 [facility] Comment on above: Performed By: #### C MP, CBC #### [address] AST [Catalytic activity/Vol] 18 U/L Normal 10-42 [facility] Comment on above: Performed By: #### C MP, CBC #### [place] [address] [place] Bilirubin [Mass/Vol] 0.7 mg/dL Normal 0.3-1.2 [facility] Comment on above: Performed By: #### C MP, CBC #### [place] [address] [place] Calcium [Mass/Vol] 9.2 mg/dL Normal 8.2-10.2 [facility] Comment on above: Performed By: #### C MP, CBC #### [facility] [address] [place] [address] [place] Chloride [Moles/Vol] 102 mmol/L Normal 95-114 [facility] Comment on above: Performed By: #### C MP, CBC #### [place] [address] [place] CO2 [Moles/Vol] 28.8 mmol/L Normal 22.0-30.0 [facility] Comment on above: Performed By: #### C MP, CBC #### [facility] [address] Creatinine [Mass/Vol] 0.85 mg/dL Normal 0.64-1.27 [facility] Comment on above: Performed By: #### C MP, CBC #### [address] Estimated GFR ( Sherri > 60 Normal [facility] Comment on above: Result Comment: GFR estimated reference range: According to KDOQI guidelines, <60 ml/min/1.73m2 is sufficient to diagnose a patient with chronic kidney disease. Performed By: #### C MP, CBC #### [address] Estimated GFR (Non- Am > 60 Normal [facility] Comment on above: Performed By: #### C MP, CBC #### [address] Globulin (S) [Mass/Vol] 2.6 g/dL Normal [facility] Comment on above: Performed By: #### C MP, CBC #### [address] Glucose [Mass/Vol] 91 mg/dL Normal 70-100 [facility] Comment on above: Result Comment: [place] Glucose Reference Range is dependent on time and content of last meal. Glucose of more than 200 mg/dL in a nonstressed, ambulatory subject supports the diagnosis of Diabetes Mellitus. ADA recommended reference range Performed By: #### C MP, CBC #### [address] Potassium [Moles/Vol] 4.1 mmol/L Normal 3.5-5.1 [facility] Comment on above: Performed By: #### C MP, CBC #### [address] Protein [Mass/Vol] 6.6 g/dL Normal 6.1-7.9 [facility] Comment on above: Performed By: #### C MP, CBC #### [facility] [address] Sodium [Moles/Vol] 137 mmol/L Normal 136-146 [facility] Comment on above: Performed By: #### C MP, CBC #### [facility] [address] Urea nitrogen [Mass/Vol] 10 mg/dL Normal 9-23 [facility] Comment on above: Performed By: #### C MP, CBC #### [facility] [address] Creatinine and Glomerular fi ltration rate.predicted panel (S/P/Bld)Ordered By: Jose Turk on 03-09-2022 Creatinine [Mass/Vol] 0.85 mg/dL 0.64-1.27 [facility] ECG 12 lead ECGon 03-09-2022 ECG 12 lead ECG [facility] [place] [address] [place] [address] Electrocardiograph Report Signed Patient: Fer Kuhn MR#: [id number] 88 : 1970 Acct:[id number] Age/Sex: 51 / M ADM Date: 03/09/22 Loc: Room: Type: [facility] Attending Dr: Jose Turk DO Ordering Provider: Jose Turk DO Date of Service: 03/09/22 ECG/ECG 12 lead ECG: Pre op Copies to: Test Reason : Blood Pressure : / mmHG Vent. Rate : 059 BPM Atrial Rate : 059 BPM P-R Int : 164 ms QRS Dur : 090 ms QT Int : 404 ms P-R-T Axes : 057 059 060 degrees QTc Int : 399 ms Sinus bradycardia Otherwise normal ECG No previous ECGs available Confirmed by CARLOS WINTERS MD ([id number]) on 03/09/2022 3:28:54 PM Referred By: JONATHAN Electronically Signed By:CARLOS WINTERS MD Transcribed By: MUS Signed By Carlos Winters MD 0 03/09/22 1528 [facility] Eosinophils Auto (Bld) [#/Vo l]Ordered By: Jose Turk on 03-09-2022 Eosinophils (Bld) [#/Vol] 0.0 10*3/uL 0.0-0.45 [facility] Eosinophils/100 WBC Auto (Bl d)Ordered By: Jose Turk on 03-09-2022 Eosinophils/100 WBC (Bld) 0.9 % . [facility] Erythrocyte distribution wid th Auto (RBC) [Ratio]Ordered By: Jose Turk on 03-09-2022 Erythrocyte distribution width (RBC) [Ratio] 13.1 % 12.0-14.8 [facility] Estimated glomerular filtrat ion rate (GFR) non- AmericanOrdered By: Jose Turk on 03-09-2022 GFR/1.73 sq M.predicted among non-blacks MDRD (S/P/Bld) [Vol rate/Area] > 60 mL/Min [facility] Globulin Calc (S) [Mass/Vol] Ordered By: Jose Turk on 03-09-2022 Globulin (S) [Mass/Vol] 2.6 g/dL [facility] Hematocrit Auto (Bld) [Volum e fraction]Ordered By: Jose Turk on 03-09-2022 Hematocrit (Bld) [Volume fraction] 43.5 % 38.8-50.0 [facility] Hemoglobin [Mass/volume] in BloodOrdered By: Jose Turk on 03-09-2022 Hemoglobin (Bld) [Mass/Vol] 14.8 g/dL 13.0-17.0 [facility] Leukocytes [#/volume] correc caitlyn for nucleated erythrocytes in Blood by Automated counOrdered By: Jose Turk on 03-09-2022 WBC corrected for nucl RBC Auto (Bld) [#/Vol] 4.6 10*3/uL 4.1-10.5 [facility] Lymphocytes Auto (Bld) [#/Vo l]Ordered By: Jose Turk on 03-09-2022 Lymphocytes (Bld) [#/Vol] 1.1 10*3/uL 1.00-4.8 [facility] Lymphocytes/100 WBC Auto (Bl d)Ordered By: Jose Turk on 03-09-2022 Lymphocytes/100 WBC (Bld) 24.5 % . [facility] MCH Auto (RBC) [Entitic mass ]Ordered By: Jose Turk on 03-09-2022 MCH (RBC) [Entitic mass] 29.2 pg 27.5-35.2 [facility] MCHC Auto (RBC) [Mass/Vol]Or dered By: Jose Turk on 03-09-2022 MCHC (RBC) [Mass/Vol] 34.0 g/dL 32.5-35.6 [facility] MCV Auto (RBC) [Entitic vol] Ordered By: Jose Turk on 03-09-2022 MCV (RBC) [Entitic vol] 85.8 fL 83.5-101 [facility] Monocytes Auto (Bld) [#/Vol] Ordered By: Jose Turk on 03-09-2022 Monocytes (Bld) [#/Vol] 0.5 10*3/uL 0.0-0.8 [facility] Monocytes/100 WBC Auto (Bld) Ordered By: Jose Turk on 03-09-2022 Monocytes/100 WBC (Bld) 10.5 % . [facility] Neutrophils Auto (Bld) [#/Vo l]Ordered By: Jose Turk on 03-09-2022 Neutrophils (Bld) [#/Vol] 2.9 10*3/uL 1.8-7.7 [facility] Neutrophils/100 WBC Auto (Bl d)Ordered By: Jose Turk on 03-09-2022 Neutrophils/100 WBC (Bld) 63.4 % . [facility] No Panel InformationOrdered By: Jose Turk on 03-09-2022 Estimated GFR () > 60 mL/Min [facility] Comment on above: GFR estimated refere nce range: According to KDOQI guidelines, <60 ml/min/1.73m2 is sufficient to diagnose a patient with chronic kidney disease. Pharmacy Creatinine Clearance (Chem N/A [facility] Nucleated erythrocytes [Pres ence] in Blood by Automated countOrdered By: Jose Turk on 03-09-2022 Nucleated RBC Auto Ql (Bld) 0.1 /100{WBC} 0-0.5 [facility] Platelet mean volume Auto (B ld) [Entitic vol]Ordered By: Jose Turk on 03-09-2022 Platelet mean volume (Bld) [Entitic vol] 7.9 fL 6.6-10.1 [facility] Platelets Auto (Bld) [#/Vol] Ordered By: Jose Turk on 03-09-2022 Platelets (Bld) [#/Vol] 247 10*3/uL 150-450 [facility] Protein [Mass/volume] in Ser um or PlasmaOrdered By: Jose Turk on 03-09-2022 Protein [Mass/Vol] 6.6 g/dL 6.1-7.9 [facility] RBC Auto (Bld) [#/Vol]Ordere d By: Jose Turk on 03-09-2022 RBC (Bld) [#/Vol] 5.07 10*6/uL 3.90-5.60 [facility] Serum or plasma alanine wall otransferase measurement without P-5'-P (enzymatic activiOrdered By: Jose Turk on 03-09-2022 ALT No additional P-5'-P [Catalytic activity/Vol] 15 U/L 10-60 [facility] Serum or plasma albumin/glob ulin mass ratioOrdered By: Jose Turk on 03-09-2022 Albumin/Globulin [Mass ratio] 1.5 {ratio} [facility] Serum or plasma alkaline ovidio sphatase measurement (enzymatic activity/volume)Ordered By: Jose Turk on 03-09-2022 ALP [Catalytic activity/Vol] 51 U/L 32-92 [facility] Serum or plasma anion gap de terminationOrdered By: Jose Turk on 03-09-2022 Anion gap [Moles/Vol] 10.3 mmol/L 6.0-15.0 [facility] Serum or plasma aspartate am inotransferase measurement (enzymatic activity/volume)Ordered By: Jose Turk on 03-09-2022 AST [Catalytic activity/Vol] 18 U/L 10-42 [facility] Serum or plasma calcium tray urement (mass/volume)Ordered By: Jose Turk on 03-09-2022 Calcium [Mass/Vol] 9.2 mg/dL 8.2-10.2 [facility] Serum or plasma chloride johanna surement (moles/volume)Ordered By: Jose Turk on 03-09-2022 Chloride [Moles/Vol] 102 mmol/L 95-114 [facility] Serum or plasma glucose tray urement (mass/volume)Ordered By: Jose uTrk on 03-09-2022 Glucose [Mass/Vol] 91 mg/dL 70-100 [facility] Comment on above: ADA recommended refe rence rangeRandom Glucose Reference Range is dependent on time and content of last meal. Glucose of more than 200 mg/dL in a nonstressed, ambulatory subject supports the diagnosis of Diabetes Mellitus. Serum or plasma potassium me asurement (moles/volume)Ordered By: Jose Turk on 03-09-2022 Potassium [Moles/Vol] 4.1 mmol/L 3.5-5.1 [facility] Serum or plasma sodium measu rement (moles/volume)Ordered By: Jose Turk on 03-09-2022 Sodium [Moles/Vol] 137 mmol/L 136-146 [facility] Serum or plasma total biliru bin measurement (mass/volume)Ordered By: Jose Turk on 03-09-2022 Bilirubin [Mass/Vol] 0.7 mg/dL 0.3-1.2 [facility] Serum or plasma total carbon dioxide measurement (moles/volume)Ordered By: Jose Turk on 03-09-2022 CO2 [Moles/Vol] 28.8 mmol/L 22.0-30.0 [facility] Serum or plasma urea nitroge n measurement (mass/volume)Ordered By: Jose Turk on 03-09-2022 Urea nitrogen [Mass/Vol] 10 mg/dL 9-23 [facility] WBC Auto (Bld) [#/Vol]Ordere d By: Jose Turk on 03-09-2022 WBC (Bld) [#/Vol] 4.6 10*3/uL 4.1-10.5 [facility] MR knee LT wo conon 11-16-19 MR knee LT wo con [address] [place] [address] MRI Report Signed Patient: Fer Kuhn MR#: [id number] 88 : 1970 Acct:[id number] Age/Sex: 51 / M ADM Date: 11/15/21 Loc: [facility] Room: Type: [facility] CLI Attending Dr: Jose Turk DO Copies to: Jose Turk DO Ordering Provider: Jose Turk DO Date of Service: 11/15/21 MR/MR knee LT wo con: Internal derangement of left knee MRI the LEFTknee without contrast TECHNIQUE: Multiplanar T1 and T2-weighted imaging of the knee obtained without contrast HISTORY: LEFT knee injury November 04. LEFT knee effusion drained. Continued LEFT knee pain. The large joint effusion identified. Anterior and posterior cruciate ligaments are intact.. Vertical tear of the inner portion of the body of the lateral meniscus identified.. No articular defect of the cartilage identified.. No osteochondral defect identified. Focal bone marrow edema of the subarticular region of the medial tibial plateau identified. Patellar ligament and quadriceps tendon are intact. Spine/partial tear of the medial collateral ligament complex with adjacent edema present. No signal abnormality of the musculature or subcutaneous tissues identified. MR/MR knee LT wo con IMPRESSION: Large joint effusion. Vertical tear of the inner portion of the body of the lateral meniscus. Intact ACL and medial meniscus. Impression dictated by: Bautista Rodriguez M.D.11/15/2021 5:48 PM Dictation Location: [place] [address] Transcribed By: [facility] 11/15/211747 Dictated By: Bautista Rodriguez DO 11/15/211741 Signed By: 11/15/211747 Normal [facility] MR knee LT wo con [facility] V I O Other MR knee LT wo con [facility] V I O Other MR knee LT wo con 1111 [facility] V I O Other MR knee LT wo con [address] V I O Other MR knee LT wo con MRI Report [facility] [employer] Other MR knee LT wo con Signed [facility] [employer] Other MR knee LT wo con Patient: Fer Kuhn MR#: [id number] [employer] Other MR knee LT wo con 88 [facility] [employer] Other MR knee LT wo con : 1970 Acct:[id number] [employer] Other MR knee LT wo con Age/Sex: 51 / M ADM Date: 11/15/21 [employer] Other MR knee LT wo con Loc: [facility] Room: Type : [facility] [employer] Other MR knee LT wo con Attending Dr: Jose Turk DO [employer] Other MR knee LT wo con Copies to: Jose Turk DO [employer] Other MR knee LT wo con Ordering Provider: Jose Turk DO [employer] Other MR knee LT wo con Date of Service: 11/15/21 [employer] Other MR knee LT wo con MR/MR knee LT wo con: Internal derangement of left knee [employer] Other MR knee LT wo con MRI the LEFTknee without contrast [employer] Other MR knee LT wo con TECHNIQUE: Multiplanar T1 and T2-weighted imaging of the knee obtained without contrast [employer] Other MR knee LT wo con HISTORY: LEFT knee injury November 04. LEFT knee effusion drained. Continued LEFT knee pain. [employer] Other MR knee LT wo con The large joint effusion identified. [employer] Other MR knee LT wo con Anterior and posterior cruciate ligaments are intact.. [employer] Other MR knee LT wo con Vertical tear of the inner portion of the body of the lateral meniscus identified.. [employer] Other MR knee LT wo con No articular defect of the cartilage identified.. [employer] Other MR knee LT wo con No osteochondral defect identified. [employer] Other MR knee LT wo con Focal bone marrow edema of the subarticular region of the medial tibial plateau identified. [employer] Other MR knee LT wo con Patellar ligament an d quadriceps tendon are intact. [employer] Other MR knee LT wo con Spine/partial tear o f the medial collateral ligament complex with adjacent edema present. [employer] Other MR knee LT wo con No signal abnormalit y of the musculature or subcutaneous tissues identified. [employer] Other MR knee LT wo con MR/MR knee LT wo con [employer] Other MR knee LT wo con IMPRESSION: Large joint effusion. Vertical tear of the inner portion of the body of the lateral [employer] Other MR knee LT wo con meniscus. Intact ACL and medial meniscus. [employer] Other MR knee LT wo con Impression dictated by: Bautista Rodriguez M.D.11/15/2021 5:48 PM [employer] Other MR knee LT wo con Dictation Location: [place] [address] [employer] Other MR knee LT wo con Transcribed By: ERIC 11/15/21 174 [employer] Other MR knee LT wo con Dictated By: Bautista Rodriguez DO 11/15/21 174 [employer] Other MR knee LT wo con Signed By: [employer] Other MR knee LT wo con 11/15/21 174 [facility] [employer] Other XR knee LT 3Von 11-08-2021 XR knee LT 3V [facility] [employer] Other XR knee LT 3V [facility] [employer] Other XR knee LT 3V 1111 [facility] [employer] Other XR knee LT [place] [address] [facility] V I [employer] Other XR knee LT 3V XRay Report [facility] [email or web address] Other XR knee LT 3V Signed [employer] Other XR knee LT 3V Patient: Fer Kuhn MR#: [id number] [facility] V I [employer] Other XR knee LT 3V [address] [place] [employer] Other XR knee LT 3V : 1970 Acct:[id number] [place] [employer] Other XR knee LT 3V Age/Sex: 51 / M ADM Date: 11/08/21 [place] [employer] Other XR knee LT 3V Loc: [facility] Room: Type : [facility] [employer] Other XR knee LT 3V Attending Dr: Jose Turk DO [employer] Other XR knee LT 3V Copies to: Jose Turk DO [employer] Other XR knee LT 3V Ordering Provider: Jose Turk DO [employer] Other XR knee LT 3V Date of Service: 11/08/21 [employer] Other XR knee LT 3V XR/XR knee LT 3V - NOT FOR ER USE: Injury of left knee, initial encounter [employer] Other XR knee LT 3V LEFT KNEE - 3 views No rt [employer] Other XR knee LT 3V CLINICAL HISTORY: Left knee pain, patient was running and fell. [employer] Other XR knee LT 3V COMPARISON: Left kne e series 10/16/2021 [employer] Other XR knee LT 3V FINDINGS: [employer] Other XR knee LT 3V Knee joint effusion. No acute bony process. Joint spaces are maintained. [employer] Other XR knee LT 3V XR/XR knee LT 3V - NOT FOR ER USE [employer] Other XR knee LT 3V IMPRESSION: [employer] Other XR knee LT 3V KNEE JOINT EFFUSION WITHOUT ACUTE BONY PROCESS OR SIGNIFICANT DEGENERATIVE CHANGE. [employer] Other XR knee LT 3V Impression dictated by: Sudeep Plummer Jr., D.O.11/08/2021 12:23 PM [employer] Other XR knee LT 3V Dictation Location: [place] [address] [employer] Other XR knee LT 3V Transcribed By: PWS 11/08/21 [facility] [employer] Other XR knee LT 3V Dictated By: Sudeep Plummer Jr, DO 11/08/21 [facility] [employer] Other XR knee LT 3V Signed By: [employer] Other XR knee LT 3V 11/08/21 [facility] [employer] Other XR knee LT 3V - NOT FOR ER U Serge 11-08-2021 XR knee LT 3V - NOT FOR ER USE [facility] [place] [address] [place] [id number] XRay Report Signed Patient: Fer Kuhn MR#: [id number] 87 : 1970 Acct:[id number] Age/Sex: 51 / M ADM Date: 11/08/21 Loc: [facility] Room: Type: [facility] Attending Dr: Joes Turk DO Copies to: Jose Turk DO Ordering Provider: Jose Turk DO Date of Service: 11/08/21 XR/XR knee LT 3V - NOT FOR ER USE: Injury of left knee, initial encounter LEFT KNEE - 3 views CLINICAL HISTORY: Left knee pain, patient was running and fell. COMPARISON: Left knee series 10/16/2021 FINDINGS: Knee joint effusion. No acute bony process. Joint spaces are maintained. XR/XR knee LT 3V - NOT FOR ER USE IMPRESSION: KNEE JOINT EFFUSION WITHOUT ACUTE BONY PROCESS OR SIGNIFICANT DEGENERATIVE CHANGE. Impression dictated by: Sudeep Plummer Jr., D.O.11/08/2021 12:23 PM Dictation Location: [place] [address] Transcribed By: [facility] 11/08/21 1223 Dictated By: Sudeep Plummer Jr, DO 11/08/21 1222 Signed By: 11/08/21 1223 [facility] ED Note-Physicianon 01-23-20 ED Note-Physician Basic Information Time Seen: Eric Brannon PA-C 01/18/2020 17:50 Chief Complaint HX DDD-pain midline spine for several weeks. Feels like discs are Slipping . Denies pain in legs or weakness. Walking in room. History of Present Illness 49-year-old thin male presents emergency department chief complaint of lumbosacral back pain that has been ongoing for the past several weeks. Patient denies any traumatic injury, states that every now and then he will throw out his back but this has been longer than normal. He denies any numbness tingling paresthesia to the lower extremities, denies any weakness. Denies any difficulty with urination or defecation. Denies other signs or symptoms of a cauda equina syndrome. States that he sees his PCP Dr. Daley, but has never seen him for his back pain. He states that it normally goes away on its own. Rates pain a 7 on a scale of 1-10. Review of Systems A 10 point review of systems is negative except as noted above. Medical and Surgical History: Reviewed and noted Social history: Lives at home Tobacco: Denies Physical Exam Vitals & Measurements T: 36.6 ?C (Oral) HR: 69(Peripheral) RR: 18 BP: 164/112 SpO2: 97% HT: 173.0 cm HT: 173 cm WT: 76.5 kg WT: 76.5 kg BMI: 25.56 General: Alert and oriented, No acute distress, Comfortable in bed. Eye: Pupils are equal, round and reactive to light, Extraocular movements are intact. HENT: Normocephalic. Neck: Supple, Non-tender, No jugular venous distention. Respiratory: Respirations are non-labored, Symmetrical chest wall expansion, No chest wall tenderness, no wheezing rhonchi rales or rubs noted.. Cardiovascular: Normal rate, Regular rhythm, Good pulses equal in all extremities. Gastrointestinal: Soft, Non-tender, Non-distended, Normal bowel sounds. Musculoskeletal: Tenderness across the lumbosacral region, no point tenderness noted to the lumbar vertebral bodies. Normal range of motion, Normal strength. Neurologic: Alert, Oriented, Normal sensory, Normal motor function. Cognition and Speech: Oriented, Speech clear and coherent. Psychiatric: Cooperative, Appropriate mood & affect. Integumentary: Warm, Dry, [place] [facility] Decision Making Plain film x-rays of the lumbar spine showed no acute bony abnormality, patient will be started on naproxen, [place] and Robaxin. He is to return should new problems develop other problems arise, otherwise follow-up with his PCP for recheck. Assessment/Plan 1. Lumbosacral pain (M54.5: Low back pain) Orders: XR Spine Lumbosacral 2 or 3 Views Disposition Plan Patient Discharge Condition Stable Discharge Disposition Discharge home Discharge Prescription List Prescriptions naproxen 500 mg Tab, 500 mg= 1 tab(s), Oral, BID [place] 325 mg-5 mg oral tablet, 1 tab(s), Oral, q6hr, PRN Robaxin-750 oral tablet, 750 mg= 1 tab(s), Oral, TID Follow-up With When Contact Information Riley Link In 3 days 01/21/2020 EST Mark Potter, [address] [place] [address]- Business (1) Additional Instructions: Patient Education Back Pain, Adult Problem List/Past Medical History Ongoing Smoker Historical Ankle fracture Calcaneus fracture Procedure/Surgical History Right inguinal herniorrhaphy with extra large ProLoop plug and (11/18/2015), Abdominal hernia, Acute pneumothorax. Medications Inpatient No active inpatient medications Home diltiazem 240 mg/24 hours oral tablet, extended release, 240 mg= 1 tab(s), Oral, PRN naproxen 500 mg Tab, 500 mg= 1 tab(s), Oral, BID [place] 325 mg-5 mg oral tablet, 1 tab(s), Oral, q6hr, PRN Robaxin-750 oral tablet, 750 mg= 1 tab(s), Oral, TID Allergies No Known Allergies Social History Alcohol - Denies Alcohol Use, 01/18/2020 Substance Abuse - Denies Substance Abuse, 11/11/2015 Tobacco - High Risk, 01/18/2020 Oral, 01/18/2020 Oral, 09/04/2015 Family History Cardiac arrhythmia: Father. Malignant lymphoma: Father. Lab Results No qualifying data available. Diagnostic Results XR Spine Lumbosacral 2 or 3 Views * Preliminary * 01/18/20 19:19:09 NEGATIVE: 3 view lumbosacral back, no acute fracture dislocation, degenerative changes Read By: Eric Brannon PA-C [facility] Comment on above: Result Comment: Elec tronically Signed By: Eric Brannon PA-C\.br\Date and Time Signed: 01/19/20 22:46 EST\.br\Electronically Co-Signed By: Pedro Mcbride DO\.br\Date and Time Co-Signed: 01/22/20 23:32 EST Coding Summary.on 01-20-2020 Coding Summary. CODING DATE: 01/20/2020 FINAL [facility] STATUS: Home (Routine DC) PAYOR: Hedy APC DESCRIPTION 5522 Level 2 Imaging without Contrast ADMIT DX: REASON FOR VISIT DX: M54.5 Low back pain FINAL DX: PRINCIPAL: M54.5 Low back pain SECONDARY: F17.220 Nicotine dependence, chewing tobacco, uncomplicated PYMT PROC APC STAT DESCRIPTION DOCTOR NAME DATE NOTE: The code number assigned matches the documented diagnosis and / or procedure in the patient's chart. However, the narrative phrase printed from the coding software may appear abbreviated, or result in slightly different terminology. Coded By: Grecai Bocanegra Date Saved: 01/20/2020 02:23 pm [facility] Discharge Instructionson Discharge Instructions [id number] 1.00CD:127 Normal [facility] XR Spine Lumbosacral 2 or 3 Viewson 01-19-2020 XR Spine Lumbosacral 2 or 3 Views Exam Date/Time: 01/18/2020 19:13 EST Reason for Exam: Pain, Non Traumatic Report IMPRESSION: NEGATIVE LUMBOSACRAL SPINE SERIES, EXCEPT FOR MILD DEGENERATIVE DISC DISEASE AT L5-S1. CLINICAL HISTORY: Pain, Non Traumatic COMPARISON: NONE FINDINGS: 3 views of the lumbosacral spine demonstrate no evidence of a fracture, subluxation, bone or joint abnormality, except for mild degenerative disc disease at L5-S1 and mild degenerative hypertrophic spurs from multiple lumbar vertebral bodies. There is mild scoliosis of the thoracolumbar junction. FINAL REPORT Dictated: 01/19/2020 7:58 am Ld Calle M.D. Signed (Electronic Signature): 01/19/2020 7:58 am Signed by: Ld Calle M.D. Transcribed by: RADHA Technologist: LUCIUS Normal [facility] Consent for Treatmenton Consent for Treatment [id number] .[id number]:127 Normal [facility] ED Clinical Summaryon 2019 ED Clinical Summary [place] [id number] ED Clinical Summary Person Information Name: FER KUHN Sherri/[facility] Age: 49 Years : 1970 Sex: Male Language: Chinese PCP: Riley Daley DO Marital Status: Visit Id: Visit Reason: Back pain; LOW BACK PAIN Speciality: Acuity: 4 Enc Type: Emergency Med Service: Emergency Arrival: 01/18/2020 17:34:38 Discharge: 01/18/2020 19:32:02 LOS: 000 01:58 Checkin: 01/18/2020 17:34:38 Checkout: 01/18/2020 19:32:02 Dispo Type: Home (Routine DC) EVENTS: Event Name Event Status Request Date/Time Start Date/Time Complete Date/Time Arrive Complete 01/18/2020 17:34:38 01/18/2020 17:34:38 01/18/2020 17:34:38 Document Home Meds Request 01/18/2020 17:34:38 Triage Complete 01/18/2020 17:34:38 01/18/2020 18:00:51 01/18/2020 18:00:51 Bed Assign Complete 01/18/2020 17:47:23 01/18/2020 17:47:23 01/18/2020 17:47:23 Dr Exam Complete 01/18/2020 17:47:23 01/18/2020 17:50:23 01/18/2020 17:50:23 RN Exam Complete 01/18/2020 17:47:23 01/18/2020 18:03:16 01/18/2020 18:03:16 Registration Complete 01/18/2020 17:50:23 01/18/2020 17:59:07 01/18/2020 17:59:07 Dr Exam Complete 01/18/2020 17:53:12 01/18/2020 17:53:12 01/18/2020 17:53:12 Reg Complete Request 01/18/2020 17:59:07 X-Ray Complete 01/18/2020 18:40:10 01/18/2020 18:58:37 01/18/2020 19:13:20 Wet Read Request 01/18/2020 19:13:20 Discharge Complete 01/18/2020 19:22:20 01/18/2020 19:32:12 01/18/2020 19:32:12 Transfer Complete 01/18/2020 19:32:12 01/18/2020 19:32:12 01/18/2020 19:32:12 ADDRESS: [address] [address] [facility] [id number] PHYS DOC NOTES: MEDICAL INFORMATION: Prescriptions Given: New Medications Printed Prescriptions acetaminophen-hydroco done ([place] 325 mg-5 mg oral tablet) 1 Tablets By Mouth every 6 hours as needed for pain. Refills: 0. methocarbamol (Robaxin-750 oral tablet) 1 Tablets By Mouth 3 times a day for 7 Days. Refills: 0. naproxen (naproxen 500 mg Tab) 1 Tablets By Mouth 2 times a day. with food. Refills: 0. Medications to Continue with No Changes Other Medications diltiazem (diltiazem 240 mg/24 hours oral tablet, extended release) 1 Tablets By Mouth as needed Other (see comment). PATIENT EDUCATION INFORMATION: Instructions: Back Pain, Adult Follow up: With: Address: When: Riley Potter, [address] [place] [address] Business (1) In 3 days 01/21/2020 DIAGNOSIS: 1:Lumbosacral pain Normal [facility] ED Note-Nursingon 01-18-2020 ED Note-Nursing Report recvd from ELLIS Han, care assumed at this time. Normal [facility] ED Patient Education Noteon 01-18-2020 ED Patient Education Note Family Medicine Back Pain, Adult Low back pain is very common. About 1 in 5 people have back pain.?The cause of low back pain is rarely dangerous. The pain often gets better over time.?About half of people with a sudden onset of back pain feel better in just 2 weeks. About 8 in 10 people feel better by 6 weeks. CAUSES Some common causes of back pain include: ? Strain of the muscles or ligaments supporting the spine. ? Wear and tear (degeneration) of the spinal discs. ? Arthritis. ? Direct injury to the back. DIAGNOSIS Most of the time, the direct cause of low back pain is not known.?However, back pain can be treated effectively even when the exact cause of the pain is unknown.?Answering your caregiver's questions about your overall health and symptoms is one of the most accurate ways to make sure the cause of your pain is not dangerous. If your caregiver needs more information, he or she may order lab work or imaging tests (X-rays or MRIs).?However, even if imaging tests show changes in your back, this usually does not require surgery. HOME CARE INSTRUCTIONS For many people, back pain returns.?Since low back pain is rarely dangerous, it is often a condition that people can learn to manage?on their own. ? Remain active. It is stressful on the back to sit or tipple engineer one place. Do not sit, drive, or tipple engineer one place for more than 30 minutes at a time. Take short walks on level surfaces as soon as pain allows.?Try to increase the length of time you walk each day. ? Do not stay in bed.?Resting more than 1 or 2 days can delay your recovery. ? Do not avoid exercise or work.?Your body is made to move.?It is not dangerous to be active, even though your back may hurt.?Your back will likely heal faster if you return to being active before your pain is gone. ? Pay attention to your body when you ?bend and lift. Many people have less discomfort?when lifting if they bend their knees, keep the load close to their bodies,?and avoid twisting. Often, the most comfortable positions are those that put less stress on your recovering back. ? Find a comfortable position to sleep. Use a firm mattress and lie on your side with your knees slightly bent. If you lie on your back, put a pillow under your knees. ? Only take zdbr-wtk-xdbzsdc or prescription medicines as directed by your caregiver. Lplr-kbl-zgjzkgf medicines to reduce pain and inflammation are often the most helpful.?Your caregiver may prescribe muscle relaxant drugs.?These medicines help dull your pain so you can more quickly return to your normal activities and healthy exercise. ? Put ice on the injured area. ? Put ice in a plastic bag. ? Place a towel between your skin and the bag. ? Leave the ice on for 15-20 minutes, 03-04 times a day for the first 2 to 3 days. After that, ice and heat may be alternated to reduce pain and spasms. ? Ask your caregiver about trying back exercises and gentle massage. This may be of some benefit. ? Avoid feeling anxious or stressed.?Stress increases muscle tension and can worsen back pain.?It is important to recognize when you are anxious or stressed and learn ways to manage it.?Exercise is a great option. SEEK MEDICAL CARE IF: ? You have pain that is not relieved with rest or medicine. ? You have pain that does not improve in 1 week. ? You have new symptoms. ? You are generally not feeling well. SEEK IMMEDIATE MEDICAL CARE IF: ? You have pain that radiates from your back into your legs. ? You develop new bowel or bladder control problems. ? You have unusual weakness or numbness in your arms or legs. ? You develop nausea or vomiting. ? You develop abdominal pain. ? You feel faint. Document Released: 01/28/2006 Document Revised: 07/29/2012 Document Reviewed: 06/01/2014 ExitCare? Patient Information ?2014 [employer]. This information is not intended to replace advice given to you by your health care provider. Make sure you discuss any questions you have with your health care provider. Normal [facility] ED Patient Summaryon 020 ED Patient Summary [address] [address] Patient Discharge Instructions Person Information Name: FER KUHN Age: 49 Years Arrival Date: 01/18/2020 17:34:38 Discharge Diagnosis: 1:Lumbosacral pain Primary Care Physician: Riley Daley DO Provider Information Primary Provider: Pedro Mcbride DO Advanced Bottom Hoop Driver:Eric Brannon PA-C The exam and treatment you received in the Emergency Department were for an urgent problem and are not intended as complete care. It is important that you follow up with a doctor, nurse practitioner, or physician?s hygiene assistant for ongoing care. If your symptoms become worse or you do not improve as expected and you are unable to reach your usual health care provider, you should return to the Emergency Department. We are available 24 hours a day. FER KUHN has been given the following list of patient education materials, prescriptions and follow-up instructions: Follow-up Instructions: With: Address: When: Riley Daley [address] [place] [address] Business (1) In 3 days 01/21/2020 In the event that this physician does not participate in your insurance network, please consult with your insurance company to find a nearby participating provider. Patient Education Materials: Back Pain, Adult A MESSAGE TO ALL PATIENTS REGARDING OPIOIDS PRESCRIPTION OPIOIDS: WHAT YOU NEED TO KNOW Prescription opioids can be used to help relieve bigypyit-aj-qlxalg pain and are often prescribed following a surgery or injury, or for certain health conditions. These medications can be an important part of the treatment but also come with serious risks. It is important to work with your healthcare provider to make sure you are getting the safest, most effective care. WHAT ARE THE RISKS AND SIDE EFFECTS OF OPIOID USE? Prescription opioids carry serious risks of addiction and overdose, especially with prolonged use. An opioid overdose, often marked by slowed breathing, can cause sudden . The use of prescription opioids can have a number of side effects as well, even when taken as directed: ? Tolerance?meaning you might need to take more of the medication for the same pain relief ? Physical dependence?meaning you have symptoms of withdrawal when a medication is stopped ? Increased sensitivity to pain ? Constipation ? Nausea, vomiting, and dry mouth ? Sleepiness and dizziness ? Confusion ? Depression ? Low levels of testosterone that can result in lower sex drive, energy, and strength ? Itching and sweating RISKS ARE GREATER WITH: ? History of drug misuse, substance use disorder, or overdose ? Mental health conditions (such as depression or anxiety) ? Sleep apnea ? Older age (65 years and older) ? Avoid alcohol while taking prescription opioids. Also, unless specifically advised by your health care provider, medications to avoid include: ? Benzodiazepines (such as Xanax or Valium) ? Muscle relaxants (such as Soma or Flexeril) ? Hypnotics (such as Ambien or Lunesta) ? Other prescription opioids KNOW YOUR OPTIONS Talk to your health care provider about ways to manage your pain that don?t involve prescription opioids. Some of these options may actually work better and have fewer risks and side effects. Options may include: ? Pain relievers such as acetaminophen, ibuprofen, and naproxen ? Some medication that are also used for depression or seizures ? Physical therapy and exercise ? Cognitive behavioral therapy, a psychological, goal-directed approach, in which patients learn how to modify physical, behavioral, and emotional triggers of pain and stress. IF YOU ARE PRESCRIBED OPIOIDS FOR PAIN: ? Never take opioids in greater amounts or more often than prescribed. ? Follow up with your primary health care provider. o Work together to create a plan on how to manage your pain. o Talk about ways to help manage your pain that don?t involve prescription opioids. o Talk about any and all concerns and side effects. ? Help prevent misuse and abuse o Never sell or share prescription opioids. o Never use another person?s prescription opioids. ? Store prescription opioids in a secure place and out of reach of others (this may include visitors, children, friends, and family). ? Safely dispose of unused prescription opioids: Find your community drug take-back program or your pharmacy mail-back program, or flush them down the toilet, following guidance from the Food and Drug Administration (www.fda.gov/Drugs/Re sourcesForYou). ? Visit www.cdc.gov/drugoverd ose to learn about the risks of opioids abuse and overdose. ? If you believe you may be struggling with addiction, tell your health skin care technician and ask for guidance or call [facility]?S National Helpline at 0-968-150-HELP. v Source: US Department of Health and Human Services/Center for Disease Control & Prevention [facility] Medications Given: Medication Dose Route No medications found. Medication Information: New Medications Printed Prescriptions acetaminophen-hydroco done ([place] 325 mg-5 mg oral tablet) 1 Tablets By Mouth every 6 hours as needed for pain. Refills: 0. methocarbamol (Robaxin-750 oral tablet) 1 Tablets By Mouth 3 times a day for 7 Days. Refills: 0. naproxen (naproxen 500 mg Tab) 1 Tablets By Mouth 2 times a day. with food. Refills: 0. Medications to Continue with No Changes Other Medications diltiazem (diltiazem 240 mg/24 hours oral tablet, extended release) 1 Tablets By Mouth as needed Other (see comment). Comment: Pharmacy Information: Thank you for choosing [facility] Patient Education Materials: Back Pain, Adult Low back pain is very common. About 1 in 5 people have back pain.?The cause of low back pain is rarely dangerous. The pain often gets better over time.?About half of people with a sudden onset of back pain feel better in just 2 weeks. About 8 in 10 people feel better by 6 weeks. CAUSES Some common causes of back pain include: ? Strain of the muscles or ligaments supporting the spine. ? Wear and tear (degeneration) of the spinal discs. ? Arthritis. ? Direct injury to the back. DIAGNOSIS Most of the time, the direct cause of low back pain is not known.?However, back pain can be treated effectively even when the exact cause of the pain is unknown.?Answering your caregiver's questions about your overall health and symptoms is one of the most accurate ways to make sure the cause of your pain is not dangerous. If your caregiver needs more information, he or she may order lab work or imaging tests (X-rays or MRIs).?However, even if imaging tests show changes in your back, this usually does not require surgery. HOME CARE INSTRUCTIONS For many people, back pain returns.?Since low back pain is rarely dangerous, it is often a condition that people can learn to manage?on their own. ? Remain active. It is stressful on the back to sit or tipple engineer one place. Do not sit, drive, or tipple engineer one place for more than 30 minutes at a time. Take short walks on level surfaces as soon as pain allows.?Try to increase the length of time you walk each day. ? Do not stay in bed.?Resting more than 1 or 2 days can delay your recovery. ? Do not avoid exercise or work.?Your body is made to move.?It is not dangerous to be active, even though your back may hurt.?Your back will likely heal faster if you return to being active before your pain is gone. ? Pay attention to your body when you ?bend and lift. Many people have less discomfort?when lifting if they bend their knees, keep the load close to their bodies,?and avoid twisting. Often, the most comfortable positions are those that put less stress on your recovering back. ? Find a comfortable position to sleep. Use a firm mattress and lie on your side with your knees slightly bent. If you lie on your back, put a pillow under your knees. ? Only take tcug-gsc-fzorivn or prescription medicines as directed by your caregiver. Ohkm-qfi-cjlazgs medicines to reduce pain and inflammation are often the most helpful.?Your caregiver may prescribe muscle relaxant drugs.?These medicines help dull your pain so you can more quickly return to your normal activities and healthy exercise. ? Put ice on the injured area. ? Put ice in a plastic bag. ? Place a towel between your skin and the bag. ? Leave the ice on for 15-20 minutes, 03-04 times a day for the first 2 to 3 days. After that, ice and heat may be alternated to reduce pain and spasms. ? Ask your caregiver about trying back exercises and gentle massage. This may be of some benefit. ? Avoid feeling anxious or stressed.?Stress increases muscle tension and can worsen back pain.?It is important to recognize when you are anxious or stressed and learn ways to manage it.?Exercise is a great option. SEEK MEDICAL CARE IF: ? You have pain that is not relieved with rest or medicine. ? You have pain that does not improve in 1 week. ? You have new symptoms. ? You are generally not feeling well. SEEK IMMEDIATE MEDICAL CARE IF: ? You have pain that radiates from your back into your legs. ? You develop new bowel or bladder control problems. ? You have unusual weakness or numbness in your arms or legs. ? You develop nausea or vomiting. ? You develop abdominal pain. ? You feel faint. Document Released: 01/28/2006 Document Revised: 07/29/2012 Document Reviewed: 06/01/2014 ExitCare? Patient Information ?2015 [employer] This information is not intended to replace advice given to you by your health care provider. Make sure you discuss any questions you have with your health care provider. KEKE Vazquez GARY L , have received the following patient education materials/instruction s and have verbalized understanding: Patient Education Materials: Back Pain, Adult Follow-up Instructions: With: Address: When: Riley Link [address], [address] [place] [address] Business (1) In 3 days 01/21/2020 Patient Signature Date Clinician/Nurse Signature Date 01/18/2020 19:32:14 Normal [facility] Vital Signs Date Time Vital Sign Value Performing Clinician Facility 05-02-2022 16:15-0400 Body height 172.72 cm Jose Turk Other [facility] Other 05-02-2022 16:15-0400 Body mass index (BMI) [Ratio] 24.33 kg/m2 Jose Turk Other [facility] Other 05-02-2022 16:15-0400 Body weight 72.58 kg Jose Turk Other [facility] Other 03-28-2022 15:15-0500 Body height 172.72 cm Jose Turk Other [facility] Other 03-28-2022 15:15-0500 Body mass index (BMI) [Ratio] 24.33 kg/m2 Jose Turk Other [facility] Other 03-28-2022 15:15-0500 Body weight 72.58 kg Jose Turk Other [facility] Other 03-20-2022 16:47-0500 Diastolic blood pressure 93 mm[Hg] DO Shelby Ivette Work Phone: [facility] 03-20-2022 16:47-0500 Heart rate 69 /min DO Shelby Ievtte Work Phone: [facility] 03-20-2022 16:47-0500 Respiratory rate 16 /min DO Shelby Ivette Work Phone: [facility] 03-20-2022 16:47-0500 SaO2% (BldA) [Mass fraction] 98 % DO Shelby Ivette Work Phone: [facility] 03-20-2022 16:47-0500 Systolic blood pressure 154 mm[Hg] DO Shelby Ivette Work Phone: [facility] 03-20-2022 15:34-0500 Body temperature 98 [degF] DO Shelby Ivette Work Phone: [facility] 03-20-2022 15:34-0500 Inhaled oxygen flow rate 8 L/min DO Shelby Ivette Work Phone: [facility] 03-20-2022 13:26-0500 Body height 171.45 cm DO Shelby Ivette Work Phone: [facility] 03-20-2022 13:26-0500 Body mass index (BMI) [Ratio] 24.8 kg/m2 DO Shelby Ivette Work Phone: [facility] 03-20-2022 13:26-0500 Body weight 73 kg DO Shelby Ivette Work Phone: [facility] 11-08-2021 10:30-0400 Body height 172.72 cm Jose Turk Other [facility] Other 11-08-2021 10:30-0400 Body mass index (BMI) [Ratio] 24.33 kg/m2 Jose Turk Other [facility] Other 11-08-2021 10:30-0400 Body weight 72.58 kg Jose Turk Other [facility] Other Encounters Encounter Date Encounter Type Care Provider Facility Start: 05-26-2024 End: 05-26-2024 ambulatory LESLIE RODNEY [facility] Start: 05-21-2024 Evaluation and management of inpatient JORGE WHALEY [facility] Start: 05-20-2024 Evaluation and management of inpatient MEREDITH [facility] Start: 05-20-2024 Evaluation and management of inpatient MEREDITH [facility] Start: 05-19-2024 End: 05-21-2024 Evaluation and management of inpatient BEAUKostas DEWITT [facility] Start: 05-02-2022 End: 05-02-2022 ambulatory Jose Turk Other [facility] Other Start: 05-02-2022 Postop follow up vis it related to original px Jose Jonathan [facility] Start: 04-17-2022 End: 04-17-2022 ambulatory Jose Turk Other [facility] Other Start: 04-17-2022 Postop follow up vis it related to original px Teri Lares [facility] Start: 04-17-2022 Telephone encounter Jose Turk [facility] Start: 03-28-2022 End: 03-28-2022 ambulatory Jose Turk Other [facility] Other Start: 03-28-2022 Postop follow up vis it related to original px Jose Jonathan [facility] Start: 03-20-2022 End: 03-20-2022 ambulatory Jose Turk Facility:[facility] Start: 03-20-2022 End: 03-20-2022 Admission to same day surgery center DO Shelby Ivette Work Phone: [facility] [place] Start: 03-20-2022 End: 03-20-2022 ambulatory DO Shelby C Ivette Work Phone: [facility] Work Phone: Start: 03-09-2022 End: 03-09-2022 ambulatory Jose Turk Facility:[facility] Start: 03-09-2022 End: 03-09-2022 Patient encounter procedure DO Shelby Ivette Work Phone: [facility] Work Phone: Start: 11-20-2021 End: 11-20-2021 ambulatory Jose Turk Other [facility] Other Start: 11-20-2021 Office outpatient visit 25 minutes Jose Turk [facility] Start: 11-15-2021 End: 11-15-2021 ambulatory Jose Turk Facility:[facility] Start: 11-15-2021 End: 11-15-2021 ambulatory PHYSICIAN NO [facility] Work Phone: Start: 11-15-2021 End: 11-15-2021 Patient encounter procedure PHYSICIAN NO [facility] [address] Start: 11-13-2021 End: 11-13-2021 ambulatory Jose Turk Other [facility] Other Start: 11-13-2021 Telephone encounter Jose Turk FP [facility] Start: 11-08-2021 Office outpatient ne w 45 minutes Jose Turk [facility] Start: 11-08-2021 End: 11-08-2021 ambulatory Jose Turk Facility:[facility] Start: 11-08-2021 End: 11-08-2021 ambulatory PHYSICIAN NO [facility] Work Phone: Start: 11-08-2021 End: 11-08-2021 Patient encounter procedure PHYSICIAN NO [facility] Procedures Date Procedure Procedure Detail Performing Clinician Start: 03-20-2022 Arthroscopy of knee DO Shelby Steele Work Phone: Start: 11-15-2021 MRI of left knee PHYSIC JES NO [facility] Start: 11-08-2021 X-ray of left knee PHYS ICIAN NO FAMILY Plan of Treatment Date Care Activity Detail Author Start: 03-20-2022 [facility] Start: 03-20-2022 [facility] Patient referral [facility] Work Phone: Immunizations Immunization Date Immunization Notes Care Provider Tamir perdue 12-30-2020 COVID-19 Ad26.COV2.S (Michelle) DO Shelby Steele Work Phone: [facility] Payers Date Payer Category Payer Private Health Insurance [id number] 2021 Self-pay 2021 Unknown [id number] Private Health Insurance [employer] [id number] Unknown [id number] Unknown [id number] Unknown [id number] Unknown [id number] Social History Date Type Detail Facility Tobacco smoking status NHIS Unknown if ever smoked [facility] Work Phone: Start: 1970 Sex Assigned At Male F [facility] Sex Assigned At Sex Assigned At Bir th [facility] Other Goals Date Patient Goal Desired Activity /State Clinical Notes 11-08-2021 to 05-26-2024 Note Date & Type Note Facility 05-26-2024 Note Patient here for a 4 days follow up from [facility] for A-Fib. Patient states it was undetermined if he had an RI. Per patient no one really spoke to him after the heart cath. Only during the heart cath he was told no damage to the heart. Per patient he is not taking the aspirin due to no one telling him he need to. Patient state every now and then he feels a slight flutter in his chest. Patient denies SOB, chest pain, swelling in his legs. Patient has a 30 day monitor on. Review of Systems Constitutional: Negative. [facility] 05-26-2024 Note Cardiovascular Medic ine [facility] SUBJECTIVE Chief Complaint Patient presents with Hospital Follow-up Atrial Fibrillation Fer Kuhn Sr. is a 54 y.o. male here for follow-up after his recent admission to [facility]. HPI PMHx: a.fib with hx of cardioversion, NSTEMI with normal cors, HTN, HLD He overall has been doing well since his recent admission. He previously had a couple episodes of palpitations that have been short lived, lasted 30 seconds to 5minutes and resolve on their own. No recent episodes since wearing the event monitor. Denies c/o CP, dyspnea, orthopnea, PND, LE edema, dizziness/LH, syncope, bleeding issues. He is currently wearing his 30 day event monitor. Discharge Summary Final Discharge Diagnosis: NSTEMI Paroxsymal atrial fibrillation Admission Diagnosis: Chest pain [R07.9] Hospital course: History of Present Illness Fer Kuhn is an 53 y.o. male who came from home with past medical history of atrial fibrillation presents as a direct admission from [facility] with a chief complaint of palpitations and shortness of breath. Patient reports a history of afib s/p cardioversion and is no longer on anticoagulation. States that from time to time he will get palpitations in his chest that only last for a few minutes at a time. States that today the palpitations lasted for over 2 hours and were associated with chest pain, lightheadedness, dizziness, fatigue and left neck pain. States that the palpitations had subsided by the time he got to the emergency department. Once there, chest x-ray was completed showing no acute process. Labs are completed showing WBC 6.9, RBC 5.7, hemoglobin 16.6, hematocrit 47.8, sodium 141, potassium 3.5, chloride 104, BUN 12, creatinine 1.1, calcium 9.4, troponin 57.7 with a repeat troponin of 175.4. Patient was started on a heparin drip and transferred to [facility] for higher level of care. Patient does report having a cardiac catheterization on 15 years ago which was negative for any ischemia. States that he does not take any medications at this time. During my examination, patient states that he is having fatigue and still some dull pain in his chest. Heparin drip is been initiated. Hospital Course Patient was admitted and cardiology was consulted. Patient proceeded with an echo and cardiac catherization and results are per below. His lipid panl is within normal limits. Did discuss case with cardiology after cardiac catherization and they recommended an event monitor, toprol 25mg a day, eliquis and high intensity statin. Patient will follow up with cardiology. Surgical, Invasive or Diagnostic Procedures Done During Admission: Cardiac Cath Clinical Presentation: 53 y.o. Male with history of atrial fibrillation and a rise in troponin concerning for a non-ST elevation RI Final Impression: 1) Normal coronary arteries Procedures Performed: coronary angiogram, conscious sedation, ultrasound guidance for vascular access Procedure Description: The patient was brought to the cardiac catheterization lab in a fasting state. Informed written consent was obtained. he was prepped and draped in usual sterile fashion over the right wrist and bilateral groins. Time-out was performed. he was given Versed and fentanyl for sedation. 1% lidocaine was infiltrated over the right radial artery. A 6-[place] Terumo Glidesheath slender was placed in right radial artery. Radial anti-vasospasm cocktail of verapamil 2.5 mg was administered through the sheath. All catheter exchanges were made over the [employer]oneer Torque guidewire. Coronary angiogram was performed with a JL3.5 to engage the left main and a JR5 to engage the RCA. Coronary angiogram was performed in multiple orthogonal views. All catheters and wires were removed. The right radial sheath was removed and a TR band was applied to obtain hemostasis. Specimens Removed: None Complications: None Coronary Angiogram: Left main: Normal LAD: Normal LCX: Normal RCA: Normal Patient Active Problem List Diagnosis Chest pain Paroxysmal A-fib (CMS/HCC) NSTEMI (non-ST elevated myocardial infarction) (CMS/HCC) Arthritis of foot Closed fracture of calcaneus Current smoker Past Medical History: Diagnosis Date Abnormal ECG Arrhythmia Atrial fibrillation (CMS/HCC) Hyperlipidemia Myocardial infarction (CMS/HCC) Family History Problem Relation Name Age of Onset COPD Mother Cancer Father Stroke Brother Social History Tobacco Use Smoking status: Never Smokeless tobacco: Never Tobacco comments: chew Substance Use Topics Drug use: Never No Known Allergies Review of Systems Constitutional: Negative for chills, decreased appetite, fever, malaise/fatigue and weight gain. Cardiovascular: Negative for chest pain, dyspnea on exertion, irregular heartbeat, leg swelling, near-syncope, orthopnea, palpitations, paroxysmal (more content not included)... [facility] 05-21-2024 Note Hospital Medicine Discharge Summary Final Discharge Diagnosis: NSTEMI type 1 Paroxsymal atrial fibrillation Admission Diagnosis: Chest pain [R07.9] Hospital course: History of Present Illness Fer Kuhn is an 53 y.o. male who came from home with past medical history of atrial fibrillation presents as a direct admission from [facility] with a chief complaint of palpitations and shortness of breath. Patient reports a history of afib s/p cardioversion and is no longer on anticoagulation. States that from time to time he will get palpitations in his chest that only last for a few minutes at a time. States that today the palpitations lasted for over 2 hours and were associated with chest pain, lightheadedness, dizziness, fatigue and left neck pain. States that the palpitations had subsided by the time he got to the emergency department. Once there, chest x-ray was completed showing no acute process. Labs are completed showing WBC 6.9, RBC 5.7, hemoglobin 16.6, hematocrit 47.8, sodium 141, potassium 3.5, chloride 104, BUN 12, creatinine 1.1, calcium 9.4, troponin 57.7 with a repeat troponin of 175.4. Patient was started on a heparin drip and transferred to [facility] for higher level of care. Patient does report having a cardiac catheterization on 15 years ago which was negative for any ischemia. States that he does not take any medications at this time. During my examination, patient states that he is having fatigue and still some dull pain in his chest. Heparin drip is been initiated. Hospital Course Patient was admitted and cardiology was consulted. Patient proceeded with an echo and cardiac catherization and results are per below. His lipid panl is within normal limits. Did discuss case with cardiology after cardiac catherization and they recommended an event monitor, toprol 25mg a day, eliquis and high intensity statin. Patient will follow up with cardiology. Surgical, Invasive or Diagnostic Procedures Done During Admission: Cardiac Cath Clinical Presentation: 53 y.o. Male with history of atrial fibrillation and a rise in troponin concerning for a non-ST elevation RI Final Impression: 1) Normal coronary arteries Procedures Performed: coronary angiogram, conscious sedation, ultrasound guidance for vascular access Procedure Description: The patient was brought to the cardiac catheterization lab in a fasting state. Informed written consent was obtained. he was prepped and draped in usual sterile fashion over the right wrist and bilateral groins. Time-out was performed. he was given Versed and fentanyl for sedation. 1% lidocaine was infiltrated over the right radial artery. A 6-[place] [employer] Glidesheath slender was placed in right radial artery. Radial anti-vasospasm cocktail of verapamil 2.5 mg was administered through the sheath. All catheter exchanges were made over the [employer] guidewire. Coronary angiogram was performed with a JL3.5 to engage the left main and a JR5 to engage the RCA. Coronary angiogram was performed in multiple orthogonal views. All catheters and wires were removed. The right radial sheath was removed and a TR band was applied to obtain hemostasis. Specimens Removed: None Complications: None Coronary Angiogram: Left main: Normal LAD: Normal LCX: Normal RCA: Normal Consultations During Admission: Cardiology Dear No primary care provider on file., Fer is advised to follow up with you within 1-2 weeks. Items to follow up in ambulatory setting: None Follow-up with: Cardiology Scheduled appointments: Future Appointments Date Time Provider Department Center 05/29/2024 3:40 PM Behzad Holguin MD [facility] [place] [facility] Your medication list START taking these medications Instructions Last Dose Given Next Dose Due apixaban 5 mg tablet Commonly known as: Eliquis Take 1 tablet (5 mg) by mouth two times daily. atorvastatin 80 mg tablet Commonly known as: Lipitor Take 1 tablet (80 mg) by mouth at bedtime. metoprolol succinate XL 25 mg 24 hr tablet Commonly known as: Toprol-XL Take 1 tablet (25 mg) by mouth in the morning. Do not crush or chew. Where to Get Your Medications These medications were sent to [facility] - [address] [place] [address] [place] [address], [facility] [address] apixaban 5 mg tablet atorvastatin 80 mg tablet metoprolol succinate XL 25 mg 24 hr tablet Fer has No Known Allergies. Disposition: Home or Self Care () Discharge Condition: Stable Code Status: Full Code Diagnostic Results Hematology: Results from last 7 days Lab Units 05/20/24 0556 05/20/24 0016 WBC AUTO 10*3/uL 4.96 5.84 HEMOGLOBIN g/dL 14.8 14.6 HEMATOCRIT % 43.9 42.3 MCV fL 86.2 85.3 PLATELETS AUTO 10*3/uL 244 254 INR -- 0.92 Chemistry: Results from last 7 days Lab Units 05/21/24 0505 05/20/24 0556 05/20/24 0016 (more content not included)... [facility] 05-20-2024 Note - cards consulted - cardiac cath today - currently on heparin drip [facility] 05-20-2024 Note - Patient reports hi story of A-fib s/p cardioversion, no longer on anticoagulation [facility] 05-20-2024 Note Hospital Medicine Daily Progress Note - 05/20/2024 1:09 PM; Room: [address] [place] [address] Admission: 05/19/2024 8:00 PM; Length of stay: 1 days THE HOSPITALIST TEAM PREFERS TO USE [employer] FOR NON-URGENT COMMUNICATION 7AM-7PM. IF I DO NOT RESPOND WITHIN 20 MINUTES OR URGENT MATTERS, PLEASE CALL THROUGH THE [facility]. FROM 7PM-7AM, PLEASE PAGE [phone](COVR). Code Status: Full Code Barriers to Discharge: cardiac cath Expected Discharge Date: 1 - 2 days Discharge Destination: home Overview Fer Kuhn is an 53 y.o. male who came from home with past medical history of atrial fibrillation presents as a direct admission from [facility] with a chief complaint of palpitations and shortness of breath. Patient reports a history of afib s/p cardioversion and is no longer on anticoagulation. States that from time to time he will get palpitations in his chest that only last for a few minutes at a time. States that today the palpitations lasted for over 2 hours and were associated with chest pain, lightheadedness, dizziness, fatigue and left neck pain. States that the palpitations had subsided by the time he got to the emergency department. Once there, chest x-ray was completed showing no acute process. Labs are completed showing WBC 6.9, RBC 5.7, hemoglobin 16.6, hematocrit 47.8, sodium 141, potassium 3.5, chloride 104, BUN 12, creatinine 1.1, calcium 9.4, troponin 57.7 with a repeat troponin of 175.4. Patient was started on a heparin drip and transferred to [facility] for higher level of care. Patient does report having a cardiac catheterization on 15 years ago which was negative for any ischemia. States that he does not take any medications at this time. During my examination, patient states that he is having fatigue and still some dull pain in his chest. Heparin drip is been initiated. Subjective Doing OK No complaints Cardiology at bedside as well Reports no chest pain this AM Physical Exam Visit Vitals BP 142/84 Pulse 63 Temp 37 ???C (98.6 ???F) (Temporal) Resp 12 Intake/Output Summary (Last 24 hours) at 05/20/2024 1309 Last data filed at 05/20/2024 0553 Gross per 24 hour Intake 63.46 ml Output -- Net 63.46 ml Physical Exam Constitutional: Appearance: Normal appearance. HENT: Head: Normocephalic. Mouth/Throat: Mouth: Mucous membranes are moist. Eyes: Extraocular Movements: Extraocular movements intact. Pupils: Pupils are equal, round, and reactive to light. Cardiovascular: Rate and Rhythm: Normal rate and regular rhythm. Pulmonary: Effort: Pulmonary effort is normal. Abdominal: General: Abdomen is flat. Musculoskeletal: General: No swelling. Skin: General: Skin is warm. Neurological: General: No focal deficit present. Mental Status: He is alert. Estimated body mass index is 24.79 kg/m??? as calculated from the following: Height as of this encounter: 1.727 m (5' 7.99 ). Weight as of this encounter: 73.9 kg (163 lb). Assessment and Plan Assessment & Plan NSTEMI (non-ST elevated myocardial infarction) ([facility]) - cards consulted - cardiac cath today - currently on heparin drip Paroxysmal A-fib ([facility]) - Patient reports history of A-fib s/p cardioversion, no longer on anticoagulation VTE Prophylaxis: IV heparin Scheduled Meds aspirin, 81 mg, oral, Daily atorvastatin, 80 mg, oral, Nightly metoprolol succinate XL, 25 mg, oral, Daily heparin, 0-28 Units/kg/hr, Last Rate: 17 Units/kg/hr (05/20/24 1237) Pertinent Investigations Hematology: Results from last 7 days Lab Units 05/20/24 0556 05/20/24 0016 WBC AUTO 10*3/uL 4.96 5.84 HEMOGLOBIN g/dL 14.8 14.6 HEMATOCRIT % 43.9 42.3 MCV fL 86.2 85.3 PLATELETS AUTO 10*3/uL 244 254 INR -- 0.92 Chemistry: Results from last 7 days Lab Units 05/20/24 0556 05/20/24 0016 SODIUM mmol/L 140 140 POTASSIUM mmol/L 4.0 3.7 CHLORIDE mmol/L 109* 106 CO2 mmol/L 28 27 BUN mg/dL 17 16 CREATININE mg/dL 0.93 0.95 GLUCOSE mg/dL 94 94 MAGNESIUM mg/dL 2.0 2.0 CALCIUM mg/dL 8.5* 8.9 PHOSPHORUS mg/dL -- 4.3 Results from last 7 days Lab Units 05/20/24 0016 AST U/L 22 ALT U/L 21 ALK PHOS U/L 56 BILIRUBIN TOTAL mg/dL 0.3 Historical Values: (Includes values prior to this admission) Lab Results Component Value Date TSH 2.41 05/20/2024 HDL 37 05/20/2024 LDL 115 05/20/2024 No results found for: [id number] , IRON , TIBC , C3 , C4 , HARMONY , CANCA , ASO , PSA , CEA , CA125 , CA199 , AFP , CA153 Imaging ECG 12 lead Normal sinus rhythm Normal ECG When compared with ECG of 20-MAY-2024 00:04, No significant change was found ECG 12 lead Normal sinus rhythm Normal ECG No previous ECGs available Confirmed by Aditya Simmons ([id number]) on 05/20/2024 9:43:50 AM Discharge Planning Expected Discharge Disposition: Home or Self Care () Signed Meredith Donis DO Hospital Medicine 05/20/2024 1:09 PM [facility] 05-20-2024 Note Case was discussed w [employer] on 05/19/2024. I agree with the history, physical, assessment, and plan of care. I discussed the findings and therapeutic plan. I agree with the documentation, except for any updates below. Emily Bustillo MD [facility] 05-19-2024 Note Hospital Medicine History and Physical 05/20/2024 12:00 AM THE HOSPITALIST TEAM PREFERS TO USE [employer] FOR NON-URGENT COMMUNICATION 7AM-7PM. IF I DO NOT RESPOND WITHIN 20 MINUTES OR URGENT MATTERS, PLEASE CALL THROUGH THE [facility]. FROM 7PM-7AM, PLEASE PAGE [phone](COVR). Chief Complaint Direct admission from [facility] with CP History of Present Illness Fer Kuhn is an 53 y.o. male who came from home with past medical history of atrial fibrillation presents as a direct admission from [facility] with a chief complaint of palpitations and shortness of breath. Patient reports a history of afib s/p cardioversion and is no longer on anticoagulation. States that from time to time he will get palpitations in his chest that only last for a few minutes at a time. States that today the palpitations lasted for over 2 hours and were associated with chest pain, lightheadedness, dizziness, fatigue and left neck pain. States that the palpitations had subsided by the time he got to the emergency department. Once there, chest x-ray was completed showing no acute process. Labs are completed showing WBC 6.9, RBC 5.7, hemoglobin 16.6, hematocrit 47.8, sodium 141, potassium 3.5, chloride 104, BUN 12, creatinine 1.1, calcium 9.4, troponin 57.7 with a repeat troponin of 175.4. Patient was started on a heparin drip and transferred to [facility] for higher level of care. Patient does report having a cardiac catheterization on 15 years ago which was negative for any ischemia. States that he does not take any medications at this time. During my examination, patient states that he is having fatigue and still some dull pain in his chest. Heparin drip is been initiated. Review of System and Physical Exam Heart Rate: [80] 80 Resp: [15] 15 BP: (139)/(81) 139/81 Physical Exam Vitals reviewed. Constitutional: Appearance: He is normal weight. HENT: Head: Normocephalic. Nose: Nose normal. Mouth/Throat: Pharynx: Oropharynx is clear. Eyes: Conjunctiva/sclera: Conjunctivae normal. Cardiovascular: Rate and Rhythm: Normal rate and regular rhythm. Heart sounds: Normal heart sounds. Pulmonary: Effort: Pulmonary effort is normal. Breath sounds: Normal breath sounds. Abdominal: General: Abdomen is flat. Bowel sounds are normal. Musculoskeletal: General: Normal range of motion. Skin: General: Skin is warm and dry. Capillary Refill: Capillary refill takes less than 2 seconds. Neurological: General: No focal deficit present. Mental Status: He is alert and oriented to person, place, and time. Mental status is at baseline. Psychiatric: Mood and Affect: Mood normal. Review of Systems Constitutional: Positive for fatigue. Negative for appetite change, chills, diaphoresis and fever. HENT: Negative for congestion and dental problem. Respiratory: Positive for chest tightness. Negative for shortness of breath. Cardiovascular: Positive for chest pain and palpitations. Gastrointestinal: Negative for abdominal pain, constipation, diarrhea, nausea and vomiting. Genitourinary: Negative for difficulty urinating and dysuria. Musculoskeletal: Negative for arthralgias and back pain. Skin: Negative for color change and pallor. Neurological: Positive for dizziness and light-headedness. Negative for seizures, syncope, facial asymmetry, speech difficulty, numbness and headaches. Psychiatric/Behavioral: Negative for agitation and behavioral problems. Assessment and Plan Assessment & Plan Chest pain Paroxysmal A-fib ([facility]) -Troponin at outside hospital 57-> 175, will continue to trend -Echocardiogram in a.m. -IV heparin drip -EKG shows normal sinus rhythm -N.p.o. for cardiac cath -Patient reports history of A-fib s/p cardioversion, no longer on anticoagulation -Denies drug use, occasional alcohol use, endorses snuff tobacco use VTE Prophylaxis: IV heparin ----- Focus of this inpatient stay will remain on problems that need acute care setting for care. We will review available studies and will order additional labs, imaging and other studies as appropriate. As needed medicines are ordered as appropriate. VTE Prophylaxis will be ordered as appropriate. Please see above for management plan for individual hospital problems. Home medications are reviewed and will be continued as appropriate. Patient will be continued to be followed during this hospital stay by a member of [facility]. Past Medical History No past medical history on file. Past Surgical History No past surgical history on file. Social History Social History Socioeconomic History Marital status: Spouse name: Not on file Number of children: Not on file Years of education: Not on file Highest education level: Not on file Occupational History Not on file Tobacco Use Smoking status: Not on file Smokeless tobacco: Not on file Substance and Sexual Activ (more content not included)... [facility] 05-02-2022 Evaluation note Encounter Date Diagnosis Assessment Notes Apr, Injury of left knee, initial encounter (ICD-10 - S89.92XA) Apr, Internal derangement of left knee (ICD-10 - M23.92) Fer is here now about 6 week s/p left knee arthroscopy. Partial medial meniscectomy and chondroplasty. ACL tear was noted. Physical exam is benign today. He is advancing well and having no issues with the knee. Once again I will allow him to return to activity as tolerated without restrictions. Discussed an ACL deficient knee and recommended limiting sporting and pivoting activities. He verbalized understanding. I will plan to see him back in another 2 to 3 months to see how he has progressed with work. Patient instructed on gentle motion exercise as well as quadriceps and hamstring strengthening exericse. Discussed use of ice and heat for pain relief as well as elevation of the leg to prevent swelling. Instructed patient to progress activity as tolerated Apr, Bone marrow edema (ICD-10 - R93.7) Apr, Other tear of lateral meniscus of left knee as current injury, initial encounter (ICD-10 - S83.282A) Apr, Other specified postprocedural states (ICD-10 - Z98.890) [facility] Other 03-07-2023 Evaluation note* Encounter Date Diagnosis Assessment Notes Treatment Notes Treatment Clinical Notes Apr, Injury of left knee, initial encounter (ICD-10 - S89.92XA) Apr, Internal derangement of left knee (ICD-10 - M23.92) Apr, Bone marrow edema (ICD-10 - R93.7) Apr, Other tear of latera l meniscus of left knee as current injury, initial encounter (ICD-10 - S83.282A) Apr, Other specified postprocedural states (ICD-10 - Z98.890) Patient appears to be progressing well. Instructed on use of NSAID and LORETA wrap today. Continue to monitor for signs of infection, signs and symptoms reviewed with patient. Call with questions/concern s. [facility] Other 02-15-2023 Evaluation note* Encounter Date Diagnosis Assessment Notes Treatment Notes Treatment Clinical Notes Mar, Injury of left knee, initial encounter (ICD-10 - S89.92XA) Mar, Internal derangement of left knee (ICD-10 - M23.92) Fer is here now 1 week s/p left knee arthroscopy. Partial medial meniscectomy and chondroplasty. ACL tear was noted. Doing well today and sutures were removed. Physical exam is benign. Would continue to advance activities as tolerated. He can take anti-inflammatorie s as needed. PT offered but declined. Recommended limiting any pivoting activities to the left knee as he is ACL deficient. Follow-up as needed if he has any issues Mar, Bone marrow edema (ICD-10 - R93.7) Mar, Other tear of lateral meniscus of left knee as current injury, initial encounter (ICD-10 - S83.282A) Instructed on application of Neosporin to incision to help dryness. Sutures removed today under sterile conditions. Patient tolerated well with no adverse reactions. May allow incision to get wet in clean running water, no lovelace/garcia/stre ams. Discussed with patient to progress activity as tolerated. Mar, Other specified postprocedural states (ICD-10 - Z98.890) Mar, Other See orders for this visit as documented in the electronic medical record. [facility] Other 02-07-2023 History general Narrative - Reported* Type Description Date Surgical History Foot Surgery Surgical History Arthroscopic partial left media l meniscectomy 03/20/2022 [facility] Other 10-10-2022 Evaluation note* Encounter Date Diagnosis Assessment Notes Treatment Notes Treatment Clinical Notes Nov, Injury of left knee, initial encounter (ICD-10 - S89.92XA) Nov, Internal derangement of left knee (ICD-10 - M23.92) Fer presents with left knee pain and recurrent effusion. MRI revealed bony edema and lateral meniscus tear. At this juncture we have discussed the findings and diagnosis as well as personally reviewed appropriate imaging and performed interpretation of related testing and examination with the patient in office today. Today we discussed continued conservative treatment with aspiration and cortical zone injection versus knee arthroscopy. He elects ongoing conservative treatment. Today under sterile technique using the superolateral portal we once again aspirated the knee revealing 45 cc of normal-appearing joint fluid and then injected the knee with 4 cc of Marcaine 1 cc of Kenalog, he tolerated this well. Compressive wrap was applied and I recommend continued compression as well as icing to the area over the next couple weeks. Continued limited activities over the next 2 to 3 weeks. If feeling okay after 3 weeks can return to normal activity slowly. Plan for follow-up in 4 to 6 weeks for recheck The patient has been involved in our cooperative treatment plan and agrees to move forward with treatment at this time. Patient was prepped under steril conditions. Patient was then aspirated of approximately 45 mls of normal joint fluid under sterile conditions we then performed a 1/1cc marcaine / kenalog cortisone injection into the knee joint under sterile technique. Patient tolerated the injection well without adverse reaction. Dressing and compression wrapping was applied to knee. Instructed patient to continue to use a compression wrap and crutches. Prescription for naproxen sent into patients pharmacy Nov, Bone marrow edema (ICD-10 - R93.7) Nov, Other tear of lateral meniscus of left knee as current injury, initial encounter (ICD-10 - S83.282A) Nov, Other See orders for this visit as documented in the electronic medical record. [facility] Other 09-28-2022 Evaluation note* Encounter Date Diagnosis Assessment Notes Treatment Notes Treatment Clinical Notes Oct, Injury of left knee, initial encounter (ICD-10 - S89.92XA) Oct, Internal derangement of left knee (ICD-10 - M23.92) Fer presents with left knee pain after twisting injury with concern for medial meniscus tear. At this juncture we have discussed the findings and diagnosis as well as personally reviewed appropriate imaging and performed interpretation of related testing and examination with the patient in office today. Prior medical notes from the ED and history have been reviewed. We discussed his effusion today and possible aspiration which she agrees to. Under sterile technique the patient's left knee was aspirated via the superolateral portal revealing approximately 50 cc of normal-appearing joint fluid and then injected with 5 cc of lidocaine for pain control. We will move forward with MRI of the knee to evaluate for meniscal pathology. He can follow-up after MRI is complete for further treatment The patient has been involved in our cooperative treatment plan and agrees to move forward with treatment at this time. I have concern for meniscal tear based on the history of this condition and physical exam findings. This condition could require surgical treatment. An MRI will be necessary to plan futher treatment. Patient was prepped and knee was aspirated of approximately 52 mls of normal appearing joint fluid under sterile conditions. 5 ml of lidocane was injected into the knee joint. Dressing was applied to knee. Instructed in application of icing. Call with questions/concerns . Oct, Other See orders for this visit as documented in the electronic medical record. [facility] Other Evaluation noteNo assessment information available [facility] [employer] Work Phone: Evaluation noteNo [employer] Other History general Narrative - Reported* Type Description Date Surgical History Foot Surgery [employer] [facility] O Other Hospital Discharge instructions Additional Instructions Orthopedic surgery knee arthroscopy discharge You are to maintain weightbearing as tolerated with range of motion as tolerated to your operative leg. You should elevate the injured extremity for the next 48 to 72 hours, as often as possible. You should ice the surgical area, 20 minutes with ice on and then 20 minutes off, for 3 hours a day for the first week. You may remove your postoperative dressing 48 hours after surgery and then keep your incisions covered with a Band-Aid. Take your medications as prescribed. You may take Tylenol or ibuprofen [id number] as instructed. You should take aspirin 81 mg twice daily for 3 weeks for DVT prophylaxis. If you have any increasing pain, fever chills, or abnormal drainage or surgical wound problems you should call the office. Your follow-up should be scheduled with Dr. Turk's office at [facility]. Please call to confirm your follow-up appointment. Dr. Jose Turk [facility] [address] [place] [id number] [phone] Work Phone: Summary Purpose Family History No Family History Records Found Relationship Condition Age at Onset Recorded Date/T cecy Not Specified Chronic obstructive pulmonary disease Un known Arthritis Unknown father Malignant neoplasm Unknown Advance Directives No Advanced Directives Records Found Advance Directive Response Recorded Date/ Time Advance Directives No November 13, 2021 3:05pm Advance Directive Response Recorded Date/ Time Advance Directives No November 13, 2021 2:05pm Chief Complaint and Reason for Visit Chief Complaint [id number] internal derangement lt knee Chief Complaint Knee Pain Knee Pain Additional Source Comments (unrecognized sect ion and content) No Status Records FoundNo Status Records FoundNo Status Records Found INFORMATION SOURCE (unrecogn ized section and content) DATE CREATED AUTHOR 01/24/2020 Awan LIFT12 [facility] DATE CREATED AUTHOR AUTHOR'S ORGANIZ ATION 04/12/2022 [facility] DATE CREATED AUTHOR AUTHOR'S ORGANIZ ATION 06/06/2024 [facility] Care Teams (unrecognized sec tion and content) Team Status: Inactive Member Role Status Dates PHYSICIAN NO FAMILY Primary Care Provider Active Jose Turk , DO Attending Provider Active Team Status: Active Member Role Status Dates PHYSICIAN NO FAMILY Primary Care Provider Active Team Status: Inactive Member Role Status Dates Jose Turk , Attending Provider Active Shelby Steele , DO Primary Care Provider Active Team Status: Active Member Role Status Dates Shelby Steele , DO Primary Care Provider Active Team Status: Inactive Member Role Status Dates Shelby Steele , DO Primary Care Provider Active Jose Turk , DO Attending Provider Active Goals (unrecognized section and content) Goals may be documented in a n alternate sectionGoals may be documented in an alternate sectionNo InformationNo InformationNo InformationNo InformationNo InformationNo InformationNo Information REASON FOR VISIT (unrecogniz ed section and content) knee swellingRecheck Left Kn eeReview MRI ResultsLeft Knee Injury- order xrays if patient didnt bring FOR RECORDS PERTAINING TO PATIENTS WHO ARE OR HAVE BEEN ENROLLED IN A CHEMICAL DEPENDENCY/SUBSTANCEABUSE PROGRAM, SOME INFORMATION MAY BE OMITTED. This clinical summary was aggregated from multiple sources. Caution should be exercised in using it in the provision of clinical care. This summary normalizes information from multiple sources, and as a consequence, information in this document may materially change the coding, format and clinical context of patient data. In addition, data may be omitted in some cases. CLINICAL DECISIONS SHOULD BE BASED ON THE PRIMARY CLINICAL RECORDS. [facility]. provides no warranty or guarantee of the accuracy or completeness of information in this document.
[2024-06-30 08:03] LABS: Alanine Aminotransferase 26 U/L (16-63); Albumin Level 3.4 g/dL (3.4-5.0); Alkaline Phosphatase 67 U/L (46-116); Anion Gap 9.2; Aspartate Amino Transferase 23 U/L (15-37); BUN Creatinine Ratio 19.8; Bilirubin Total 0.5 mg/dL (0.2-1.0); Calcium 8.8 mg/dL (8.5-10.1); Carbon Dioxide 31.8 mmol/L (21.0-32.0); Chloride 106 mmol/L (98-107); Chol HDL Ratio 2.8; Cholesterol 130 mg/dL (<=200); Estimated GFR (African America >60 (>=60 mL/min/1.73m^2); Estimated GFR (Non-African Ame >60 (>=60 mL/min/1.73m^2); Globulin 3.3 g/dL; Glucose 101 mg/dL (74-106); HDL Cholesterol 47 mg/dL (40-60); LDL Cholesterol Calculated 72.4 mg/dL; Sodium 143 mmol/L (136-145); Total Protein 6.7 g/dL (6.4-8.2); Triglycerides 53 mg/dL (<=150); VLDL CHOLESTEROL 10.6 mg/dL
== END 2024-06-30 06:02 | disposition home or self-care (01) ==
LOC: LAB 06:03
PROVIDERS: Visit Provider Nurse Practitioner Family
DX: E78.2 Mixed hyperlipidemia (principal)
CPT/HCPCS: 36415; 80053; 80061

== ENCOUNTER 2024-07-18 06:35 | Outpatient (OUT) | payer OTHER, SELFPAY ==
--- OUTSIDE RECORDS SUMMARY | 2024-07-14 09:15 | XMS_ITS | Encounter Summary ---
Author Organization [facility] Address [address] [place] [address] Care Team Providers Care Tab Builder Name Role Phone Unavailable Primary Care Provider Unavailabl e Encounter Details Date Type Department Care Team ([facility] st Contact Info) Description 07/14/2024 9:15 AM EDT Office Visit [facility] [address] [place] [address] Blayne Chase MD [address] [place] [phone] Paroxysmal A-fib (CMS/HCC) (Primary Dx) Social History Tobacco Use Types Packs/Day Years Used Date Smoking Tobacco: Never Smokeless Tobacco: Never Comments:chew Alcohol Use Standard Drinks/Week Comments Not Asked 0 (1 standard drink = 0.6 oz pur e alcohol) occasional C Utilities Answer Date Recorded In the past 12 months has e [employer], gas, oil, or water [facility] threatened to shut off services in your home? No 05/20/2024 Humiliation, Afraid, Rape, and Kick questionnair e Answer Date Recorded Within the last year, have y ou been afraid of your partner or ex-partner? No 05/20/2024 Emotionally Abused Not on file 05/20/2024 Physically Abused Not on file 05/20/2024 Sexually Abused Not on file 05/20/2024 Overall Financial Resource Strain (CARDIA) Answe r Date Recorded How hard is it for you to pa y for the very basics like food, housing, medical care, and heating? Not hard at all 05/20/2024 Transportation Answer Date Recorded In the past 12 months, has l ack of transportation kept you from medical appointments or from getting medications? No 05/20/2024 Lack of Transportation (Non-Medical) Not on file 05/20/2024 Housing Stability Vital Sign Answer Calvin e Recorded In the last 12 months, was t here a time when you were not able to pay the mortgage or rent on time? No 05/20/2024 Number of Times Moved in the Last Year Not on fi le 05/20/2024 At any time in the past 12 m [facility], were you homeless or living in a custodial (including now)? No 05/20/2024 Hunger Vital Sign Answer Date Recorded Within the past 12 months, y ou worried that your food would run out before you got the money to buy more. Never true 05/21/19 25 Ran Out of Food in the Last Year Not on file 05/20/2024 Sex and Gender Information Value Date Recorded Sex Assigned at Male 05/20/2024 12:53 PM EDT Gender Identity Male 05/20/2024 12:53 PM EDT Sexual Orientation Heterosexual or Straight 10/2024 3:04 PM EDT documented as of this encounter Last Filed Vital Signs Vital Sign Reading Time Taken Comments Blood Pressure 140/88 07/14/2024 9:20 AM EDT Pulse 66 07/14/2024 9:20 AM EDT Temperature - - Respiratory Rate - - Oxygen Saturation 97% 07/14/2024 9:20 AM EDT Inhaled Oxygen Concentration - - Weight 76.2 kg (168 lb) 07/14/2024 9:20 AM EDT Height 170.2 cm (5' 7 ) 07/14/2024 9:20 AM EDT Body Mass Index 26.31 07/14/2024 9:20 AM EDT documented in this encounter Progress Notes * Blayne Chase MD - 07/14/2024 9:15 AM EDT Images from the original note were not included. [place] Electrophysiology Consult Note [place] [facility] - [facility] Reason for visit: Atrial fibrillation HPI: Fer Kuhn is a 54 y.o. year old with past medical history of CAD with a history of non-STEMI with cath revealing no obstructive lesions, hypertension, hyperlipidemia who was recently admitted from [facility] to [facility] with a history of atrial fibrillation. He does report a previous history of cardioversion on 09/05/2015 at [facility]. It is unclear as to why he was not on any blood thinners. When I reviewed the records it appeared that his initial presentation to the [place] ED showed sinus tachycardia but given there was troponin elevation he was transferred to [facility]. EKG on presentation at [facility] was sinus. He did complain of occasional palpitations and following his discharge from [facility] was placed on a 30-day event monitor 30d event monitor shows evidence of sinus pause that occurred on 05/29/2024 at 12:25 PM as well as on Jun 18 2024 at 5:46 PM other than this few episodes of nonsustained ventricular tachycardia was seen. And nonsustained atrial tachycardia but no atrial fibrillation was noted. He was symptomatic with dizzinss and near syncope PAST MEDICAL HISTORY Pneumothorax Atrial fibrillation (HCC) 09/05/15 PAST SURGICAL HISTORY HERNIA REPAIR HX CARDIAC CATH 2009 Comment Normal arteries, per the patient ANKLE SURGERY HX Comment Left CARDIOVERSION 09/05/15 PMH: Past Medical History: Diagnosis Date Abnormal ECG Arrhythmia Atrial fibrillation (CMS/HCC) Hyperlipidemia Myocardial infarction (CMS/HCC) PSH: Past Surgical History: Procedure Laterality Date CARDIAC CATHETERIZATION SH: Social Determinants of Health Tobacco Use: Low Risk (07/14/2024) Patient History Smoking Tobacco Use: Never Smokeless Tobacco Use: Never Passive Exposure: Not on file Alcohol Use: Not on file Financial Resource Strain: Low Risk (05/20/2024) Overall Financial Resource Strain (CARDIA) Difficulty of Paying Living Expenses: Not hard at all Food Insecurity: No Food Insecurity (05/20/2024) Hunger Vital Sign Worried About Running Out of Food in the Last Year: Never true Ran Out of Food in the Last Year: Not on file Transportation Needs: No Transportation Needs (05/20/2024) Transportation Lack of Transportation (Medical): No Lack of Transportation (Non-Medical): Not on file Physical Activity: Not on file Stress: Not on file Social Connections: Not on file Intimate Partner Violence: Unknown (05/20/2024) Humiliation, Afraid, Rape, and Kick questionnaire Fear of Current or Ex-Partner: No Emotionally Abused: Not on file Physically Abused: Not on file Sexually Abused: Not on file Depression: Not on file Housing Stability: Low Risk (05/20/2024) Housing Stability Vital Sign Unable to Pay for Housing in the Last Year: No Number of Times Moved in the Last Year: Not on file Homeless in the Last Year: No Utilities: Not At Risk (05/20/2024) [facility] Utilities Threatened with loss of utilities: No Health Literacy: Not on file Allergies: No Known Allergies Weight: 76.2kg Visit Vitals BP 140/88 (BP Location: Left arm, Patient Position: Sitting) Pulse 66 Ht 1.702 m (5' 7 ) Wt 76.2 kg (168 lb) SpO2 97% BMI 26.31 kg/m?? Smoking Status Never BSA 1.9 m?? Meds: Current Outpatient Medications on File Prior to Visit Medication Sig Dispense Refill apixaban (Eliquis) 5 mg tablet Take 1 tablet (5 mg) by mouth two times daily. 180 tablet 3 metoprolol succinate XL (Toprol-XL) 50 mg 24 hr tablet Take 1 tablet (50 mg) by mouth in the morning. Do not crush or chew. 90 tablet 1 atorvastatin (Lipitor) 40 mg tablet Take 1 tablet (40 mg) by mouth in the morning. (Patient not taking: Reported on 07/14/2024) 90 tablet 3 No current facility-administered medications on file prior to visit. ROS: Review of Systems Cardiovascular: Positive for palpitations. Neurological: Positive for dizziness. Physical Exam: Constitutional General Appearance: well-nourished, well-developed, appears stated age Level of Distress: comfortable Eyes FANY Neck Neck: supple, trachea midline Carotid Arteries: bilateral normal upstroke, no bruits Jugular Veins: normal jugular venous pressure Thyroid: not enlarged Lungs Respiratory Effort: unlabored Chest Exam: normal curvature, no thoracic deformity Auscultation: clear, no wheezing, no rales, no rhonchi Cardiovascular Chest wall: Rate And Rhythm: regular Heart Sounds: normal S1, normal s2, no gallop Systolic Murmur: not heard Diastolic Murmur: not heard Extremities: no cyanosis, no edema, no peripheral signs of emboli Peripheral Pulses Radial Pulse: normal Abdomen Inspection and Palpation: soft, non distended, no bruit, non tender Neurologic Gait: normal gait Labs: @LABRESULTS@ Lab Results Component Value Date HDL 37 05/20/2024 LDL CALC 101 05/20/2024 TRIGLYCERIDES 72 05/20/2024 TSH 2.41 05/20/2024 EKG: Encounter Date: 05/19/24 ECG 12 lead Result Value Ventricular Rate 67 Atrial Rate 67 FL Interval 172 QRS DURATION 86 QT Interval 414 QTC CALCULATION(BAZETT) 437 P [place] 69 R-[place] 35 T Wave [place] 37 Impression Normal sinus rhythm Normal ECG Confirmed by Aditya Simmons ([id number]) on 05/20/2024 6:35:50 PM Echo: 05/20/2024 Stress test: Coronary angiogram: @CATH@ Diagnostic Imaging: No images are attached to the encounter. Assessment and Plan: - near syncope with 30d event monitor revealing 4s pause. 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 We discussed the possibility of a leadless pacemaker versus a dual-chamber conventional transvenous pacemaker. After detailed discussion the patient has opted to proceed with a dual-chamber transvenous pacemaker. -Diagnosis of atrial fibrillation: Patient has history of what appears to be paroxysmal atrial fibrillation with a recent admission for the above that did not confirm the diagnosis as so far the EKG and event monitor has not revealed any A-fib. - History of non-STEMI with normal coronaries - Hypertension - Hyperlipidemia I discussed the procedure in length with figures to the patient and went over the risks, benefits and alternatives of the PPM implantation procedure. I stated to the patient that the risk can be classified as major and minor complications. The minor include discomfort over the incision site, erythema. The major complications include pneumothorax, hemothorax, thromboembolism including DVT stroke systemic emboli endorgan damage and even . We also discussed the possibility of lead perforationleading to pericardial effusion or tamponade which may or may not require surgical intervention as well as the possibility of valve damage. Overall the risk of these complications ranged anywhere from 1-5%. Patient verbalized understanding and have agreed to proceed with the procedure. Blayne Chase MD Cardiac Electrophysiology [facility] documented in this encounter Plan of Treatment Upcoming Encounters Date Type Department Care Team (Late st Contact Info) Description 07/23/2024 3:00 PM EDT Hospital Encounter [facility] [address] [place] [address] Blayne Chase MD [address] [place] [address] Sinus pause 07/23/2024 3:00 PM EDT - 07/23/2024 4:00 PM EDT Surgery [facility] [address] [place] [address] Blayne Chase MD [address] [place] [address] Implant PPM [[id number]] documented as of this encounter Visit Diagnoses Diagnosis Paroxysmal A-fib (CMS/HCC)- Primary Sinus pause- Primary Sinus pause documented in this encounter
--- OUTSIDE RECORDS SUMMARY | 2024-07-18 06:38 | XMS_ITS | Referral Summary ---
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 [address] [place] [address] Nancy Russo MA Encounter for pre-operative examination; Sinus pause 07/14/2024 9:15 AM EDT Office Visit [facility] [address] [place] [address] Blayne Chase MD Paroxysmal A-fib (CMS/HCC) (Primary Dx) 07/09/[address] [facility] [address] [place] [address] Margarita Laura MA 05/26/2024 2:40 PM EDT Office Visit [facility] [address] [place] [address] Sandra Bynum CNP Paroxysmal A-fib (CMS/HCC) (Primary Dx); Mixed hyperlipidemia; NSTEMI (non-ST elevated myocardial infarction) (CMS/HCC); Primary hypertension 05/19/2024 8:00 PM EDT - 05/21/2024 1:26 PM EDT Hospital Encounter [facility] [address] [place] [id number] Milton Fitch MD Schwarz, Stephanie, DO Chest pain (Primary Dx); NSTEMI (non-ST elevated myocardial infarction) (CMS/HCC); Paroxysmal A-fib (CMS/HCC) Discharge Disposition: Home or Self Care (01) 05/20/2024 Travel 05/20/2024 4:56 PM EDT - 05/20/2024 5:56 PM EDT Surgery [facility] [address] [place] [phone] Jorge Whaley MD Coronary angiography [22946 (CPT )] from Last 3 Months Allergies No known active allergies Medications Medication Sig Dispensed Refills Start Date End Date Status atorvastatin (Lipitor) 40 mg tabletIndications:Mi xed hyperlipidemia Take 1 tablet (40 mg) by mouth in the morning. 90 tablet 3 05/26/2024 Active Additional Information Patient not taking.Reported on 07/14/2024 apixaban (Eliquis) 5 mg tabletIndications:Pa roxysmal A-fib (CMS/HCC) Take 1 tablet (5 mg) by mouth two times daily. 180 tablet 3 05/26/2024 6 Active metoprolol succinate XL (Toprol-XL) 50 mg 24 hr tabletIndications:Pa roxysmal A-fib (CMS/HCC) Take 1 tablet (50 mg) by mouth in the morning. Do not crush or chew. 90 tablet 1 05/26/2024 5 Active Active Problems Problem Noted Date Diagnosed Date Sinus pause 07/14/2024 Current smoker 05/26/2024 Overview (05/26/2024): Added secondary to documentation in Social History. Chest pain 05/19/2024 Paroxysmal A-fib 05/19/2024 Assessment & Plan (05/20/2024 1:39 PM EDT): - Patient reports history of A-fib s/p cardioversion, no longer on anticoagulation NSTEMI (non-ST elevated myocardial infarction) 0 05/19/2024 Assessment & Plan (05/20/2024 1:39 PM EDT): - cards consulted - cardiac cath today - currently on heparin drip Closed fracture of calcaneus 11/12/2011 Arthritis of foot 02/21/2010 Social History Tobacco Use Types Packs/Day Years Used Date Smoking Tobacco: Never Smokeless Tobacco: Never Tobacco Cessation:Counseling Given: Not Answered Comments:chew Alcohol Use Standard Drinks/Week Comments Not Asked 0 (1 standard drink = 0.6 oz pur e alcohol) occasional [facility] Utilities Answer Date Recorded In the past 12 months has th e electric, gas, oil, or water company threatened to shut off services in your [...] any time in the past 12 m [facility], were you homeless or living in a prison (including now)? No 05/20/2024 Hunger Vital Sign [...] Heterosexual or Straight 10/2024 3:04 PM EDT Last Filed Vital Signs Vital Sign Reading Time Taken Comments Blood Pressure 140/88 07/14/2024 9:20 AM EDT Pulse 66 07/14/2024 9:20 AM EDT Temperature 36.9 C (98.4 F) 05/21/2024 11:46 AM EDT Respiratory Rate 16 05/21/2024 11:46 AM EDT Oxygen Saturation 97% 07/14/2024 9:20 AM EDT Inhaled Oxygen Concentration - - Weight 76.2 kg (168 lb) 07/14/2024 9:20 AM EDT Height 170.2 cm (5' 7 ) 07/14/2024 9:20 AM EDT Body Mass Index 26.31 07/14/2024 9:20 AM EDT Plan of Treatment Upcoming Encounters Date Type Department Care Team (Late st Contact Info) Description 07/23/2024 3:00 PM EDT Hospital Encounter [facility] Lab [address] [place] [phone] Blayne Chase MD [address] [place] [address] Sinus pause 07/23/2024 3:00 PM EDT - 07/23/2024 4:00 PM EDT Surgery [facility] Lab [address] [place] [phone] Blayne Chase MD [address] [place] [phone] Implant PPM [[id number]] Procedures Procedure Name Priority Date/Time Associated Diagnosis Comments CARDIAC EVENT MONITOR Routine 05/21/2024 12:42 PM EDT NSTEMI (non-ST elevated myocardial infarction) (CMS/HCC) MAGNESIUM Routine 05/21/2024 5:05 AM EDT BASIC METABOLIC PANEL Routine 05/21/2024 5:05 AM EDT CORONARY ANGIOGRAPHY Routine 05/20/2024 7:36 PM EDT NSTEMI (non-ST elevated myocardial infarction) (CMS/HCC) ANTI-FACTOR XA Timed 05/20/2024 6:14 PM EDT HIGH SENSITIVITY TROPONIN I Timed 05/20/2024 6:14 PM EDT COMPLETE ECHO (TTE) Routine 05/20/2024 3 :25 PM EDT ECG 12-LEAD Routine 05/20/2024 1:01 PM EDT LAVENDER TOP Routine 05/20/2024 11:28 AM EDT EXTRA TUBES Routine 05/20/2024 11:28 AM EDT ANTI-FACTOR XA Timed 05/20/2024 11:28 AM EDT HIGH SENSITIVITY TROPONIN I Timed 05/20/2024 11:28 AM EDT LIPID PANEL Add-On 05/20/2024 5:56 AM EDT TSH3 REFLEX TO FT4 Add-On 05/20/2024 5: 56 AM EDT MAGNESIUM Add-On 05/20/2024 5:56 AM EDT CBC Routine 05/20/2024 5:56 AM EDT BASIC METABOLIC PANEL Routine 05/20/2024 5:56 AM EDT HIGH SENSITIVITY TROPONIN I Timed 05/20/2024 5:56 AM EDT ANTI-FACTOR XA Timed 05/20/2024 5:47 AM EDT CBC WITH AUTO DIFFERENTIAL STAT 05/20/2024 12:16 AM EDT APTT STAT 05/20/2024 12:16 AM EDT CBC AND DIFFERENTIAL STAT 05/20/2024 12:16 AM EDT PROTIME-INR STAT 05/20/2024 12:16 AM EDT HIGH SENSITIVITY TROPONIN I STAT 05/20/2024 12:16 AM EDT PHOSPHORUS STAT 05/20/2024 12:16 AM EDT MAGNESIUM STAT 05/20/2024 12:16 AM EDT COMPREHENSIVE METABOLIC PANEL STAT 05/20/2024 12:16 AM EDT ECG 12-LEAD STAT 05/20/2024 12:12 AM EDT from Last 3 Months Results * CARDIAC EVENT MONITOR - NO CHARGES (05/21/2024 12:42 PM EDT) Anatomical Region Laterality Modality Electrocardiogra phy 05/23/2024 12:3 0 PM EDT Narrative 06/23/2024 11:52 AM EDT 1 [facility] [address] [place] [address] (fax) Event [facility] Name: FER DAVIES Study Date: 05/23/2024 12:30 PM Date of : 1970 Location: [facility] Height: Age: 53 year(s) Patient Room: 3135 Weight: Gender: Male Patient Status: InPt BSA: Indication: Palpitations Examination: Event Recorder Conclusions -Most frequent symptomatic event: Chest Discomfort during Bradycardia (1/2 events). -Sinus rhythm had a prevalence of 99.98%, average per minute rate of 73 BPM, slowest per minute rate of 48 BPM, and fastest per minute rate of 145 BPM. -The slowest N-N interval within Bradycardia had rate of 37 BPM (1.6s), occurring on day 14 at 03:02. -Longest asystole with duration of 3.7 s (day 27 at 17:47). -Ventricular ectopic activity consisted of 192 episodes, of which 184 were single, 6 were couplets, 1 was triplet, 1 was longer run. Longest ventricular run with rate of 71 BPM (day 13 at 02:32). -Supraventricular ectopic activity consisted of 317 episodes, of which 293 were single, 13 were couplets, 3 were triplets, 8 were longer runs. The fastest episode of Supraventricular Tachycardia had 7 beats, lasting 3s with average rate of 119 BPM and the longest episode had 8 beats, lasting 4s with average rate of 103 BPM. Symptoms: Chest pain /chest discomfort Rhythm: Normal Sinus Rhythm, Sinus Bradycardia , Sinus Tachycardia, Pauses, Premature atrial complexes, Premature ventricular complexes, Idioventricular Rhythm, Supraventricular Tachycardia, atrial triplets, ventricular triplet Start of Examination: 05/23/2024 Recording Duration: 30 days Findings: The primary rhythm is sinus with an average heart rate of 73 bpm. During 2 symptomatic events,the strips showed sinus rhythm. Holter / Ambulatory ECG Average HR 73 bpm Time of Max. HR 18:17 day Time of Min. HR 02:42 day Time of Max.RR-Int. 17:47 day Max. HR 145 bpm Min. HR 48 bpm Max. RR Interval 4 sec VE / SVE VE Ectopics 206 VE Isolated Beats 184 VE Couplets 6 SVE Ectopics 369 SVE Isolated Beats 293 SVE Couplets 13 SVE Runs 8 Beats Longest SVE Run 8 Rate Longest SVE Run 103 bpm Time Longest SVE Run 03:03 day 28 Beats Fastest SVE Run 7 Rate Fastest SVE Run 119 bpm Time Fastest SVE Run 21:23 day 18 Procedure Staff Reading Group: [facility] Ordering Physician: JORGE WHALEY Vp Product Marketing: Cony Norton Procedure Note Zenaida Obrien MD - 06/23/2024 1 [facility] [address] [place] [address] [phone] (fax) [facility] Name: FER DAVIES Study Date: 05/23/2024 12:30 PM Date of : 1970 Location: [facility] Height: Age: 53 year(s) Patient Room: 3135 Weight: Gender: Male Patient Status: InPt BSA: Indication: Palpitations Examination: Event Recorder Conclusions -Most frequent symptomatic event: Chest Discomfort during Bradycardia (1/2 events). -Sinus rhythm had a prevalence of 99.98%, average per minute rate of 73 BPM, slowest per minute rate of 48 BPM, and fastest per minute rate of 145 BPM. -The slowest N-N interval within Bradycardia had rate of 37 BPM (1.6s), occurring on day 14 at 03:02. -Longest asystole with duration of 3.7 s ( at 17:47). -Ventricular ectopic activity consisted of 192 episodes, of which 184 were single, 6 were couplets, 1 was triplet, 1 was longer run. Longest ventricular run with rate of 71 BPM ( at 02:32). -Supraventricular ectopic activity consisted of 317 episodes, of which 293 were single, 13 were couplets, 3 were triplets, 8 were longer runs. The fastest episode of Supraventricular Tachycardia had 7 beats, lasting 3s with average rate of 119 BPM and the longest episode had 8 beats, lasting 4s with average rate of 103 BPM. Symptoms: Chest pain /chest discomfort Rhythm: Normal Sinus Rhythm, Sinus Bradycardia , Sinus Tachycardia, Pauses, Premature atrial complexes, Premature ventricular complexes, Idioventricular Rhythm, Supraventricular Tachycardia, atrial triplets, ventricular triplet Start of Examination: 05/23/2024 Recording Duration: 30 days Findings: The primary rhythm is sinus with an average heart rate of 73 bpm. During 2 symptomatic events,the strips showed sinus rhythm. Holter / Ambulatory ECG Average HR 73 bpm Time of Max. HR 18:17 Time of Min. HR 02:42 Time of Max.RR-Int. 17:47 Max. HR 145 bpm Min. HR 48 bpm Max. RR Interval 4 sec VE / SVE VE Ectopics 206 VE Isolated Beats 184 VE Couplets 6 SVE Ectopics 369 SVE Isolated Beats 293 SVE Couplets 13 SVE Runs 8 Beats Longest SVE Run 8 Rate Longest SVE Run 103 bpm Time Longest SVE Run 03:03 day 28 Beats Fastest SVE Run 7 Rate Fastest SVE Run 119 bpm Time Fastest SVE Run 21:23 day 18 Procedure Staff Reading Group: [facility] Ordering Physician: JORGE WHALEY Vp Product Marketing: Cony Norton Jorge Whaley MD CV CARDIAC SERVICE S PROCEDURES * Magnesium (05/21/2024 5:05 AM EDT) Only the most recent of3 resultswithin the time period is included. Magnesium 1.9 1.9 - 2.7 mg/dL 05/21/2024 5:47 AM EDT [facility] ([facility]) Blood Venous blood specimen / Unknown Arterial Line / Unknown 05/21/2024 5:05 AM EDT 05/21/2024 5:14 AM EDT Jorge Wahley MD LAB BLOOD ORDERABL ES [facility] ([facility]) [address] [place] [address] * Basic metabolic panel (05/21/2024 5:05 AM EDT) Only the most recent of2 resultswithin the time period is included. Sodium 137 136 - 145 mmol/L 05/21/2024 5:47 AM EDT [facility] ([facility]) Potassium 4.1 3.5 - 5.1 mmol/L 05/21/2024 5:47 AM EDT [facility] ([facility]) Chloride 105 98 - 107 mmol/L 05/21/2024 5:47 AM EDT [facility] ([facility]) CO2 29 21 - 31 mmol/L 05/21/2024 5:47 AM EDT [facility] ([facility]) BUN 17 7 - 25 mg/dL 05/21/2024 5:47 AM EDT [facility] ([facility]) Creatinine 1.14 0.70 - 1.30 mg/dL 05/21/2024 5:47 AM EDT [facility] ([facility]) Glucose 79 70 - 100 mg/dL 05/21/2024 5:47 AM EDT [facility] ([facility]) Calcium 8.7 8.6 - 10.3 mg/dL 05/21/2024 5:47 AM EDT [facility] ([facility]) Anion Gap 7 7 - 20 mmol/L 05/21/2024 5:47 AM EDT [facility] ([facility]) eGFR 76.4 >60.0 mL/min/1. 73m*2 05/21/2024 5:47 AM EDT [facility] ([facility]) Comment:The [facility] s estimated glomerular filtration rate (eGFR) will no longer include consideration of race in its calculation. The [employer] s eGFR Task Force developed new recommendations for [...] disproportionately affect any one group of individuals. BUN/Creatinine Ratio 14.9 05/12 5:47 AM EDT [facility] ([facility]) Blood Venous blood specimen / Unknown Arterial Line / Unknown 05/21/2024 5:05 AM EDT 05/21/2024 5:14 AM EDT Jorge Whaley MD LAB BLOOD ORDERABL ES [facility]) [address] [id number] * CORONARY ANGIOGRAPHY (05/20/2024 7:36 PM EDT) Anatomical Region Laterality Modality Other Narrative 05/20/2024 7:46 PM EDT PROCEDURE PHYSICIAN: Jorge Whaley MD Clinical Presentation: 53 y.o. Male with history of atrial fibrillation and a rise in troponin concerning for a non-ST elevation NC Final Impression: 1) Normal coronary arteries Procedures [...] infiltrated over the right radial artery. A 6-Hungarian Terumo Glidesheath slender was placed in right radial artery. Radial anti-vasospasm cocktail of verapamil 2.5 mg was administered through the sheath. All catheter exchanges were made over the Nodej[employer] Torque guidewire. Coronary angiogram was performed with [...] Normal LAD: Normal LCX: Normal RCA: Normal Study Details NSTEMI (non-ST elevated myocardial infarction) ([facility]) [I21.4] Meredith Donis DO CV CARDIAC CATH PRO CEDURES * (ABNORMAL) High Sensitivity Troponin I (05/20/2024 6:14 PM EDT) Only the most recent of4 resultswithin the time period is included. [facility] High Sensitivity Troponin I 64(HH) <20 ng/L 05/20/2024 7:20 PM EDT [facility] ([facility]) Blood Venous blood specimen / Unknown Arterial Line / Unknown 05/20/2024 6:14 PM EDT 05/20/2024 6:38 PM EDT Brandi Parker [facility] LAB BLOOD ORDERABLES [facility] ([facility]) [address] [place] [address] * Anti-Xa (Heparin Level) (05/20/2024 6:14 PM EDT) Only the most recent of3 resultswithin the time period is included. [facility] Anti-Xa (Heparin) 0.41 0.3 - 0.7 IU/mL 05/20/2024 6:53 PM EDT [facility] ([facility]) Comment:Rivaroxaban and Apix aban will interfere with the anti Xa assay used to monitor UFH and LMWH. Blood Venous blood specimen / Unknown Arterial Line / Unknown 05/20/2024 6:14 PM EDT 05/20/2024 6:29 PM EDT Milton Fitch MD LAB BLOOD ORDERABLES [facility] ([facility]) [address] [place] [address] * COMPLETE ECHO (TTE) (05/20/2024 3:25 PM EDT) Anatomical Region Laterality Modality Other 05/20/2024 3:06 PM EDT Narrative 05/20/2024 4:27 PM EDT 1 1 [facility] [address] [place] [address] (fax) Echocardiogram[facility] Name: FER DAVIES Study Date: 05/20/2024 03:06 PM B/P: 142 mmHg/84 mmHg HR: 65 bpm Date of : 1970 Location: [facility] Height: 68 in. Age: 53 year(s) Patient Room: 3135 Weight: 163 lb. Gender: Male Patient Status: InPt BSA: 1.87 m2 Indication: Chest Pain, NSTEMI/ACS suspected Examination: Echocardiogram (Complete) Image Quality: Good Patient Consent: Procedure explained to patient Conclusions Left Ventricle: The left ventricle is normal size. Global left ventricular systolic function is at lower limits of normal. EF range is estimated at 50 % -55 %. Left ventricular wall thickness is normal. No regional wall motion abnormality. Normal diastolic function. Right Ventricle: The right ventricle is normal in size. Normal right ventricular systolic function. Unable to assess right sided pressures due to lack of measurable tricuspid regurgitation. Left Atrium: The left atrium is normal in size. Overall Conclusions: No significant valvular abnormalities Measurements Left Ventricle Label Value Normal Value LVOTd 2.2 cm (19cm - 21cm) LVOT VTI 16.3 cm (18cm - 22cm) LVOT PGmax 2 mmHg LVDd, 2D 4.83 cm (4.2cm - 5.9cm) LVDs, 2D 3.57 cm (2.1cm - 4cm) IVSd, 2D 1.08 cm (0.6cm - 1.1cm) LVPWd, 2D 1.07 cm (0.6cm - 1cm) LV Mass, 2D ASE 189.79 g LV Mass Index, 2D ASE 101.5 g/m?? (50g/m?? - 102.4g/m??) RWT, MM 0.44 (0 - 0.42) LVSVI, 2D 29.9 ml/m2 LVOT PGmean 1 mmHg LVSV_LVOT 62 ml Right Ventricle Label Value Normal Value RVDd, 2D 3.84 cm (1.9cm - 3.8cm) TAPSE 2 cm Left Atrium Label Value Normal Value LA Volume, BP 47 ml (18ml - 58ml) LADs, 2D 3.8 cm (3cm - 4cm) LAESV index, BP 25.1 ml/m?? Right Atrium Label Value Normal Value RA Area 18.4 cm?? Aortic Valve Label Value Normal Value AV DVI 0.59 AV VTI 25.9 cm Mitral Valve Label Value Normal Value MV E Vmax 0.64 m/s MV A Vmax 0.69 m/s MV E/A 0.93 MV E/E' lateral 7.2 MV E' lateral 0.09 m/s Aorta Label Value Normal Value AoRoot, 2D 3.2 cm (1.4cm - 3.8cm) Valvular Assessment LVOT 0.7 - 1.1 m/sec Aortic Valve 1.0 - 1.7 m/sec Mitral Valve 0.6 - 1.3 m/sec Tricuspid Valve 0.3 - 0.7 m/sec Pulmonic Valve 0.6 - 0.9 m/sec Regurgitation No Trivial Trivial Mild Stenosis No No No No Max Velocity 0.70 m/sec 1.19 m/s 0.64 m/sec Max Gradient 6.00 mmHg Mean Gradient 3.00 mmHg Valve Area 2.2 cm?? Findings Left Ventricle: The left ventricle is normal size. Global left ventricular systolic function is at lower limits of normal. EF range is estimated at 50 % -55 %. Left ventricular wall thickness is normal. No regional wall motion abnormality. Normal diastolic function. Right Ventricle: The right ventricle is normal in size. Normal right ventricular systolic function. Unable to assess right sided pressures due to lack of measurable tricuspid regurgitation. Left Atrium: The left atrium is normal in size. Right Atrium: The right atrium is normal in size. Mitral Valve: The mitral valve is normal in mobility and thickness. Trivial mitral regurgitation. No mitral valve stenosis. Aortic Valve: The aortic valve is normal. No aortic valve regurgitation. No aortic valve stenosis. The aortic valve is trileaflet. Tricuspid Valve: Normal tricuspid valve. Trivial tricuspid regurgitation. No tricuspid valve stenosis. Pulmonic Valve: Normal pulmonary valve. Mild pulmonary regurgitation. No pulmonic valve stenosis. Aorta: The aortic root exhibits normal size. Great Vessels: IVC: The IVC is not visualized. Pericardium: No pericardial effusion. Procedure Staff Reading Group: [facility] Referring Physician: Carolyn Regalado MD Senior Nurse Manager: BRIAN Adame Ordering Physician: MEREDITH DONIS Procedure Note Juan Pablo Burgess MD - 05/20/2024 1 1 [facility] [address] [place] [address] [phone] (fax) Ech[facility]ogram[facility] Name: FER DAVIES Study Date: 05/20/2024 03:06 PM B/P: 142 mmHg/84 mmHg HR: 65 bpm Date of : 1970 Location: [facility] Height: 68 in. Age: 53 year(s) Patient Room: 3135 Weight: 163 lb. Gender: Male Patient Status: InPt BSA: 1.87 m2 Indication: Chest Pain, NSTEMI/ACS suspected Examination: Echocardiogram (Complete) Image Quality: Good Patient Consent: Procedure explained to patient Conclusions Left Ventricle: The left ventricle is normal size. Global left ventricular systolic function is at lower limits of normal. EF range is estimated at 50 % -55 %. Left ventricular wall thickness is normal. No regional wall motion abnormality. Normal diastolic function. Right Ventricle: The right ventricle is normal in size. Normal right ventricular systolic function. Unable to assess right sided pressures due to lack of measurable tricuspid regurgitation. Left Atrium: The left atrium is normal in size. Overall Conclusions: No significant valvular abnormalities Measurements Left Ventricle Label Value Normal Value LVOTd 2.2 cm (19cm - 21cm) LVOT VTI 16.3 cm (18cm - 22cm) LVOT PGmax 2 mmHg LVDd, 2D 4.83 cm (4.2cm - 5.9cm) LVDs, 2D 3.57 cm (2.1cm - 4cm) IVSd, 2D 1.08 cm (0.6cm - 1.1cm) LVPWd, 2D 1.07 cm (0.6cm - 1cm) LV Mass, 2D ASE 189.79 g LV Mass Index, 2D ASE 101.5 g/m?? (50g/m?? - 102.4g/m??) RWT, MM 0.44 (0 - 0.42) LVSVI, 2D 29.9 ml/m2 LVOT PGmean 1 mmHg LVSV_LVOT 62 ml Right Ventricle Label Value Normal Value RVDd, 2D 3.84 cm (1.9cm - 3.8cm) TAPSE 2 cm Left Atrium Label Value Normal Value LA Volume, BP 47 ml (18ml - 58ml) LADs, 2D 3.8 cm (3cm - 4cm) LAESV index, BP 25.1 ml/m?? Right Atrium Label Value Normal Value RA Area 18.4 cm?? Aortic Valve Label Value Normal Value AV DVI 0.59 AV VTI 25.9 cm Mitral Valve Label Value Normal Value MV E Vmax 0.64 m/s MV A Vmax 0.69 m/s MV E/A 0.93 MV E/E' lateral 7.2 MV E' lateral 0.09 m/s Aorta Label Value Normal Value AoRoot, 2D 3.2 cm (1.4cm - 3.8cm) Valvular Assessment LVOT 0.7 - 1.1 m/sec Aortic Valve 1.0 - 1.7 m/sec Mitral Valve 0.6 - 1.3 m/sec Tricuspid Valve 0.3 - 0.7 m/sec Pulmonic Valve 0.6 - 0.9 m/sec Regurgitation No Trivial Trivial Mild Stenosis No No No No Max Velocity 0.70 m/sec 1.19 m/s 0.64 m/sec Max Gradient 6.00 mmHg Mean Gradient 3.00 mmHg Valve Area 2.2 cm?? Findings Left Ventricle: The left ventricle is normal size. Global left ventricular systolic function is at lower limits of normal. EF range is estimated at 50 % -55 %. Left ventricular wall thickness is normal. No regional wall motion abnormality. Normal diastolic function. Right Ventricle: The right ventricle is normal in size. Normal right ventricular systolic function. Unable to assess right sided pressures due to lack of measurable tricuspid regurgitation. Left Atrium: The left atrium is normal in size. Right Atrium: The right atrium is normal in size. Mitral Valve: The mitral valve is normal in mobility and thickness. Trivial mitral regurgitation. No mitral valve stenosis. Aortic Valve: The aortic valve is normal. No aortic valve regurgitation. No aortic valve stenosis. The aortic valve is trileaflet. Tricuspid Valve: Normal tricuspid valve. Trivial tricuspid regurgitation. No tricuspid valve stenosis. Pulmonic Valve: Normal pulmonary valve. Mild pulmonary regurgitation. No pulmonic valve stenosis. Aorta: The aortic root exhibits normal size. Great Vessels: IVC: The IVC is not visualized. Pericardium: No pericardial effusion. Procedure Staff Reading Group: [facility] Referring Physician: Carolyn Regalado MD Senior Nurse Manager: BRIAN Adame Ordering Physician: MEREDITH DONIS Meredith Donis DO CV ECHO PROCEDURES * ECG 12 lead (05/20/2024 1:01 PM EDT) Only the most recent of2 resultswithin the time period is included. Ventricular Rate 67 BPM GE MUSE Atrial Rate 67 BPM GE MUSE GA Interval 172 ms GE MUSE QRS DURATION 86 ms GE MUSE QT Interval 414 ms GE MUSE QTC CALCULATION(BAZE TT) 437 ms GE MUSE P [place] 69 degrees GE MUSE R-[place] 35 degrees GE MUSE T Wave [place] 37 degrees GE MUSE 05/20/2024 12:4 6 PM EDT 05/20/2024 6:35 PM EDT Impressions GE MUSE - 05/20/2024 6:35 PM EDT Normal sinus rhythm Normal ECG Confirmed by Aditya Simmons ([id number]) on 05/20/2024 6:35:50 PM Narrative Procedure Note Zenaida Obrien MD - 05/20/2024 IMPRESSION: Normal sinus rhythm Normal ECG Confirmed by Aditya Simmons ([id number]) on 05/20/2024 6:35:50 PM Meredith Donis DO ECG ORDERABLES GE MUSE * Lavender Top (05/20/2024 11:28 AM EDT) Extra Tube Hold for add-ons. 05/20/2024 1:01 PM EDT [facility] ([facility]) Comment:Auto resulted. Blood Venous blood specimen / Unknown 05/20/2024 11:28 AM EDT 05/20/2024 11:51 AM EDT Meredith Donis DO LAB BLOOD ORDERABLE S Performing Organization Address [facility] Co de Phone Number [facility]) [address] [place] [address] * TSH3 Reflex to FT4 (05/20/2024 5:56 AM EDT) TSH 2.41 0.34 - 5.60 mIU/L 05/20/2024 9:26 AM EDT [facility]) Blood Venous blood specimen / Unknown Arterial Line / Unknown 05/20/2024 5:56 AM EDT 05/20/2024 5:56 AM EDT Wally Benson MD LAB BLOOD ORDERABLES Performing Organization Address City/[facility] Co de Phone Number [facility]) [address], [place] [phone] * CBC (05/20/2024 5:56 AM EDT) Auto WBC 4.96 4.00 - 10.60 10*3/uL 05/20/2024 6:30 AM EDT [facility] ([facility]) RBC 5.09 4.20 - 5.70 10*6/uL 05/20/2024 6:30 AM EDT [facility] ([facility]) Hemoglobin 14.8 13.0 - 17.0 g/dL 05/20/2024 6:30 AM EDT [facility] ([facility]) Hematocrit 43.9 39.0 - 50.0 % 05/20/2024 6:30 AM EDT [facility] ([facility]) MCV 86.2 82.0 - 98.0 fL 05/20/2024 6:30 AM EDT [facility] ([facility]) MCH 29.1 27.0 - 33.0 pg 05/20/2024 6:30 AM EDT [facility] ([facility]) MCHC 33.7 32.0 - 35.0 g/dL 05/20/2024 6:30 AM EDT [facility] ([facility]) RDW 12.3 11.5 - 15.0 % 05/20/2024 6:30 AM EDT [facility] ([facility]) Platelets 244 150 - 400 10*3/uL 05/20/2024 6:30 AM EDT [facility] ([facility]) Blood Venous blood specimen / Unknown Arterial Line / Unknown 05/20/2024 5:56 AM EDT 05/20/2024 5:56 AM EDT [facility]OD [facility]LES [facility] ([facility]) [address] [place] [address] * Lipid panel (05/20/2024 5:56 AM EDT) Triglycerides 72 <150 mg/dL 05/20/2024 9:26 AM EDT [facility] ([facility]) Comment: TRIGLYCERIDE REFERENCE RANGE: 20 YEARS AND OLDER CARDIOVASCULAR RISK LESS THAN 150 mg/dL LOW RISK 150 TO 199 mg/dL BORDERLINE RISK 200 mg/dL AND GREATER HIGH RISK Cholesterol 152 120 - 200 mg/dL 05/20/2024 9:26 AM EDT [facility] ([facility]) LDL Calculated 101 0 - 160 mg/dL 05/20/2024 9:26 AM EDT [facility] ([facility]) HDL 37 23 - 92 mg/dL 05/20/2024 9:26 AM EDT [facility] ([facility]) Non HDL Cholesterol 115 05/20/2024 9:26 AM EDT [facility] ([facility]) Total VLDL-C 14 0 - 40 mg/dL 05/20/2024 9:26 AM EDT [facility] ([facility]) Cholesterol/HDL Ratio 4.1 mg/dL 05/20/2024 9:26 AM EDT [facility] ([facility]) Blood Venous blood specimen / Unknown Arterial Line / Unknown 05/20/2024 5:56 AM EDT 05/20/2024 5:56 AM EDT Meredith Donis DO LAB BLOOD ORDERABLE S Performing Organization Address City/State/[facility] Co de Phone Number [facility] ([facility]) [address] [place] [address] * CBC auto differential (05/20/2024 12:16 AM EDT) Auto WBC 5.84 4.00 - 10.60 10*3/uL 05/20/2024 1:26 AM EDT [facility] ([facility]) RBC 4.96 4.20 - 5.70 10*6/uL 05/20/2024 1:26 AM EDT [facility] ([facility]) Hemoglobin 14.6 13.0 - 17.0 g/dL 05/20/2024 1:26 AM EDT [facility] ([facility]) Hematocrit 42.3 39.0 - 50.0 % 05/20/2024 1:26 AM EDT [facility] ([facility]) MCV 85.3 82.0 - 98.0 fL 05/20/2024 1:26 AM EDT [facility] ([facility]) MCH 29.4 27.0 - 33.0 pg 05/20/2024 1:26 AM EDT [facility] ([facility]) MCHC 34.5 32.0 - 35.0 g/dL 05/20/2024 1:26 AM T [facility] ([facility]) RDW 12.4 11.5 - 15.0 % 05/20/2024 1:26 AM T [facility] ([facility]) Neutrophils % 52.0 40.0 - 72.0 % 05/20/2024 1:26 AM T [facility] ([facility]) Lymphocytes % 34.8 20.0 - 45.0 % 05/20/2024 1:26 AM EDT [facility] ([facility]) Monocytes % 9.6 5.0 - 12.0 % 05/20/2024 1:26 AM EDT [facility] ([facility]) Eosinophils % 2.7 0.0 - 6.0 % 05/20/2024 1:26 AM [facility] ([facility]) Basophils % 0.7 0.0 - 1.0 % 05/20/2024 1:26 AM T [facility] ([facility]) Neutrophils Absolute 3.04 1.60 - 7.60 10*3/uL 05/20/2024 1:26 AM EDT [facility] ([facility]) Lymphocytes Absolute 2.03 1.20 - 4.00 10*3/uL 05/20/2024 1:26 AM T [facility] ([facility]) Monocytes Absolute 0.56 0.10 - 1.00 10*3/uL 05/20/2024 1:26 AM [facility] ([facility]) Eosinophils Absolute 0.16 0.00 - 0.50 10*3/uL 05/20/2024 1:26 AM T [facility] ([facility]) Basophils Absolute 0.04 0.00 - 0.20 10*3/uL 05/20/2024 1:26 AM T [facility] ([facility]) Platelets 254 150 - 400 10*3/uL 05/20/2024 1:26 AM [facility] ([facility]) nRBC % 0.0 0 % 05/20/2024 1:26 AM [facility] ([facility]) Immature Granulocytes % 0.2 0.0 - 1.0 % 05/20/2024 1:26 AM T [facility] ([facility]) Immature Granulocytes Absolute 0.01 0.00 - 0.20 10*3/uL 05/20/2024 1:26 AM EDT [facility] ([facility]) Blood Venous blood specimen / Unknown Arterial Line / Unknown 05/20/2024 12:16 AM EDT 05/20/2024 1:04 AM EDT Brandi Parker [facility] LAB BLOOD ORDERABLES Performing Organization Address City/[facility] Co de Phone Number [facility]) [address], [place] [id number] * (ABNORMAL) aPTT - baseline (05/20/2024 12:16 AM EDT) aPTT 40.8(H) 25.0 - 35.0 Seconds 05/20/2024 2:12 AM EDT [facility] ([facility]) Comment:Clinical significanc e of the APTT is questionable in the presence of heparin. Blood Venous blood specimen / Unknown Arterial Line / Unknown 05/20/2024 12:16 AM EDT 05/20/2024 12:50 AM EDT [facility] BLOOD ORDERABLES Performing Organization Address [facility] Co de Phone Number [facility]) [address] [place] [address] * Protime-INR (05/20/2024 12:16 AM EDT) Protime 12.4 12.3 - 14.8 Seconds 05/20/2024 2:11 AM EDT [facility]) INR 0.92 0.90 - 1.10 05/20/2024 2:11 AM EDT [facility] ([facility]) Comment: ACCCP RECOMMENDED INR FOR [place]FAR[place] THERAPY CONDITION INR PROPHYLAXIS OF VENOUS THROMBOSIS 2-3 (HIGH-RISK SURGERY) TREATMENT OF VENOUS THROMBOSIS 2-3 TREATMENT OF PULMONARY EMBOLISM 2-3 PREVENTION OF SYSTEMIC EMBOLISM: 2-3 ACUTE MYOCARDIAL INFARCTION TISSUE HEART VALVES VALVULAR HEART DISEASE ATRIAL FIBRILLATION RECURRENT SYSTEMIC EMBOLISM MECHANICAL HEART VALVE 2.5-3.5 FROM: ORAL ANTICOAGULANTS. MECHANISM OF ACTION, CLINICAL EFFECTIVENESS, AND OPTIMAL THERAPEUTIC RANGE. CHEST 1995;108:[id number]. Blood Venous blood specimen / Unknown Arterial Line / Unknown 05/20/2024 12:16 AM EDT 05/20/2024 12:50 AM EDT [employer] [facility] LAB BLOOD ORDERABLES Performing Organization Address City/[facility]/ZIP Co de Phone Number [facility]) [address] [place] [address] * Phosphorus (05/20/2024 12:16 AM EDT) Phosphorus 4.3 2.5 - 5.0 mg/dL 05/20/2024 2:02 AM EDT [facility] ([facility]) Blood Venous blood specimen / Unknown Arterial Line / Unknown 05/20/2024 12:16 AM EDT 05/20/2024 1:04 AM EDT [employer] [facility] LAB BLOOD ORDERABLES [facility]) [address] [place] [address] * Comprehensive metabolic panel (05/20/2024 12:16 AM EDT) Sodium 140 136 - 145 mmol/L 05/20/2024 2:02 AM EDT [facility]) Potassium 3.7 3.5 - 5.1 mmol/L 05/20/2024 2:02 AM [facility] ([facility]) Chloride 106 98 - 107 mmol/L 05/20/2024 2:02 AM [facility] ([facility]) CO2 27 21 - 31 mmol/L 05/20/2024 2:02 AM [facility] ([facility]) Anion Gap 11 7 - 20 mmol/L 05/20/2024 2:02 AM [facility] ([facility]) BUN 16 7 - 25 mg/dL 05/20/2024 2:02 AM [facility] ([facility]) Creatinine 0.95 0.70 - 1.30 mg/dL 05/20/2024 2:02 AM [facility] ([facility]) BUN/Creatinine Ratio 16.8 10/2024 2:02 AM [facility] ([facility]) Glucose 94 70 - 100 mg/dL 05/20/2024 2:02 AM [facility] ([facility]) Calcium 8.9 8.6 - 10.3 mg/dL 05/20/2024 2:02 AM [facility] ([facility]) AST 22 13 - 39 U/L 05/20/2024 2:02 AM [facility] ([facility]) ALT (SGPT) 21 7 - 52 U/L 05/20/2024 2:02 AM [facility] ([facility]) Alkaline Phosphatase 56 34 - 104 U/L 05/20/2024 2:02 AM [facility] ([facility]) Total Protein 6.4 6.0 - 8.3 g/dL 05/20/2024 2:02 AM [facility] ([facility]) Albumin 4.0 3.5 - 5.7 g/dL 05/20/2024 2:02 AM [facility] ([facility]) Total Bilirubin 0.3 0.3 - 1.0 mg/dL 05/20/2024 2:02 AM [facility] ([facility]) eGFR 95.1 >60.0 mL/min/1. 73m*2 05/20/2024 2:02 AM [facility] ([facility]) Comment:The [facility] s estimated glomerular filtration rate (eGFR) will no longer include consideration of race in its calculation. The [employer] s eGFR Task Force developed new recommendations for [...] disproportionately affect any one group of individuals. Blood Venous blood specimen / Unknown Arterial Line / Unknown 05/20/2024 12:16 AM EDT 05/20/2024 1:04 AM EDT Brandi Keith [facility] LAB BLOOD ORDERABLES [facility] ([facility]) [address] [place] [address] from Last 3 Months Advance Directives * Full Code (Latest Code Status on File) Date Activated Date Inactivated Comments 05/19/2024 11:57 PM 05/21/2024 3:26 PM
--- OUTSIDE RECORDS SUMMARY | 2024-07-18 06:38 | XMS_ITS | Encounter Summary ---
Author Organization [facility] Address [address] [place] [address] Care Team Providers Care Lockstitch Front Maker Name Role Phone Unavailable Primary Care Provider Unavailabl e Encounter Details Date Type Department Care Team (Late st Contact Info) Description 07/09/2024 Telephone [facility] [address] [place] [address] Margarita Laura MA Social History Tobacco Use Types Packs/Day Years Used Date Smoking Tobacco: Never Smokeless Tobacco: Never Comments:chew Alcohol Use Standard Drinks/Week Comments Not Asked 0 (1 standard drink = 0.6 oz pur e alcohol) occasional [facility] Utilities Answer Date Recorded In the [...] time in the past 12 m [facility], were you homeless or living in a skilled nursing (including now)? No 05/20/2024 Hunger Vital Sign [...] PM EDT documented as of this encounter Miscellaneous Notes * Telephone Encounter - Margarita Laura MA - 07/09/2024 4:32 PM EDT Images from the original note were not included. Regarding lab results from 06/30/2024: Sandra Bynum, [employer] Margarita Laura MA Please let him know his labs look good. Normal kidney and liver function. Cholesterol levels are well controlled. Continue atorvastatin at 40mg daily. Thanks! Jovita WILLS on his VM. documented in this encounter Plan of Treatment Upcoming Encounters Date Type Department Care Team (Late st Contact Info) Description 07/23/2024 3:00 PM EDT Hospital Encounter [facility] [address] [place] [phone] Blayne Chase MD [address] [place] [address] Sinus pause 07/23/2024 3:00 PM EDT - 07/23/2024 4:00 PM EDT Surgery [facility] [place] [facility] [address] [place] [address] Blayne Chase MD [address] [place] [phone] Implant PPM [[id number]] documented as of this encounter Visit Diagnoses Not on filedocumented in this encounter
--- OUTSIDE RECORDS SUMMARY | 2024-07-18 06:38 | XMS_ITS | CCD ---
Author Organization [facility] Care Team Providers Care General Worker Name Role Phone NO FAMILY, PHYSICIAN Primary Care Provider Unava ilable DO Jose Turk Attending Provider DO Shelby Steele Primary Care Provider Jose Turk Unavailable DO Shelby Steele Primary Care Provider DO Jose Turk Attending Provider Jose Turk Admitting Unavailable Shelby Steele Primary Care Unavailable Jose Turk Attending Unavailable Jose Turk Admitting Unavailable NO FAMILY, PHYSICIAN Primary Care Unavailable Jose Turk Attending Unavailable Jose Turk Admitting Unavailable Shelby Steele Primary Care Unavailable Jose Turk Attending Unavailable Jose Turk Attending Unavailable Shelby Steele Primary Care Unavailable Jose Turk Admitting Unavailable Teri Lares Unavailable MEREDITH DONIS Referring Unavailable MEREDITH DONIS Referring Unavailable ANGELI CONTRERAS Referring Unavailable BEAU DEWITT Referring Unavailable SKYE SANCHEZ Admitting Unavailable MEREDITH DONIS Attending Unavailable MEREDITH DONIS Consulting Unavailable JOSE R RICO Attending Unavailable LESLIE BYNUM Attending Unavailable JORGE WHALEY Referring Unavailable Medications Current Medications Medication Drug Class(es) [...] suspension (6 sources) Corticosteroid Start: 11-20-2021 Kenalog-40 10 Nov, 2021 40 mg Problems Problem Classification Problem Date [...] Test Name Value Interpretation Reference Range Facility Office Visiton 07-14-2024 Follow-up visit [id number] Amanda Davies Sr. 1970 M [facility] Provider Department Center 07/14/2024 JOSE R FOSTER MIRANDA Betancourt [facility] Family History Problem Relation Age of Onset COPD Mother Cancer Father Stroke Brother Family Status - Relation Status Age at Mother Father Sister Alive Brother Alive Level of Service:13312 [place] OFFICE/OUTPATIENT NEW MODERATE MDM 45 MINUTES [facility] Orders Onlyon 07-14-2024 Orders Only [id number] Amanda Davies Sr. 1970 [facility] Provider Department Center 07/14/2024 DAMI CRAWFORD MIRANDA [facility] Family History Problem Relation Age of Onset COPD Mother Cancer Father Stroke Brother Family Status - Relation Status Age at Mother Father Sister Alive Brother Alive [facility] 36on 07-09-2024 36 Regarding lab result s from 06/30/2024: Leslie Bynum, JOSE Laura MA Please let him know his labs look good. Normal kidney and liver function. Cholesterol levels are well controlled. Continue atorvastatin at 40mg daily. Thanks! Jovita WILLS on his VM. [facility] 37on 05-26-2024 37 *Cut atorvastatin down to 40mg daily. You can cut your current prescription of 80mg in half. When this is used up, start the new prescription. *Increase metoprolol to 50mg daily. You can take 2 tablets of your current 25mg prescription until this is used up. *Have follow-up labs in 6-8 weeks. [facility] Office Visiton 05-26-2024 Follow-up visit [id number] Amanda Davies Sr. 1970 [facility] Provider Department Center 05/26/2024 LESLIE MCFADDEN CARD [facility] Family History Problem Relation Age of Onset COPD Mother Cancer Father Stroke Brother Family Status - Relation Status Age at Mother Father Sister Alive Brother Alive Level of Service:32792 [place] OFFICE/OUTPATIENT ESTABLISHED MOD MDM 30 MIN Reason for Visit and Comments: Hospital Follow-up [832] Atrial Fibrillation [80] Normal [facility] 30on 05-21-2024 30 The patient is [...] facility with appropriate resources Outcome: Progressing Normal [facility] BASIC METABOLIC PANELon 05-12 Anion gap [Moles/Vol] 7 mmol/L Normal 7-20 [facility] Comment on above: Performed By: #### L [id number] #### [facility] (AKER) [address] [place] [address] Calcium [Mass/Vol] 8.7 mg/dL Normal 8.6-10.3 [facility] Comment on above: Performed By: #### L [id number] #### [facility] (AKER) [address] [place] [address] Chloride [Moles/Vol] 105 mmol/L Normal 98-107 [facility] Comment on above: Performed By: #### L [id number] #### [facility] (BEAKER) [address] [place] [address] CO2 [Moles/Vol] 29 mmol/L Normal 21-31 [facility] Comment on above: Performed By: #### L [id number] #### [facility] (BEAKER) [address] [place] [address] Creatinine [Mass/Vol] 1.14 mg/dL Normal 0.70-1.30 [facility] Comment on above: Performed By: #### L [id number] #### [facility] ([facility]) [address] [place] [address] GLOMERULAR FILTRATION RATE ML/MIN/1.73 SQ M.PREDICTED 76.4 mL/min/1.73m*2 Normal >60.0 [facility] Comment on above: Result Comment: The [facility]???s estimated glomerular filtration rate (eGFR) will [...] group of individuals. Performed By: #### L [id number] #### [facility] ([facility]) [address] [place] [address] Glucose [Mass/Vol] 79 mg/dL Normal 70-100 [facility] Comment on above: Performed By: #### L [id number] #### [facility] ([facility]) [address] [place] [address] Potassium [Moles/Vol] 4.1 mmol/L Normal 3.5-5.1 [facility] Comment on above: Performed By: #### L [id number] #### [facility] ([facility]) [address] [place] [address] Sodium [Moles/Vol] 137 mmol/L Normal 136-145 [facility] Comment on above: Performed By: #### L [id number] #### [facility] ([facility]) [address] [place] [address] Urea nitrogen [Mass/Vol] 17 mg/dL Normal 7-25 [facility] Comment on above: Performed By: #### L [id number] #### [facility] ([facility]) [address] [place] [address] UREA NITROGEN/CREATININE (MASS RATIO) IN SER/PLAS 14.9 Normal [facility] Comment on above: Performed By: #### L [id number] #### [facility] (BEAKER) [address] [place] [address] MAGNESIUMon 05-21-2024 Magnesium [Mass/Vol] 1.9 mg/dL Normal 1.9-2.7 [facility] Comment on above: Performed By: #### L [id number] #### [facility] (BEAKER) [address] [place] [address] 30on 05-20-2024 30 The patient is Moderately [...] medication and electrolyte replacement as ordered Normal [facility] ANESon 05-20-2024 ANES - Attestation signed by Jorge Whaley MD at 05/20/2024 7:16 PM Mr. Davies was seen and evaluated by me. I agree with above with the addition that he has upper and lower dentures in place and Blu's test nl R. I have discussed with him the expected risks and he understands and consents to proceed. Patient: Amanda Davies Procedure Information Date/Time: 05/20/241655 Procedure: Coronary angiography Location: [facility] AUTOMOTIVE ENGINEERING TECHNICIAN 3 / [facility] (Cath) Providers: Jorge Whaley MD Clinical information reviewed: [employer] Physical Exam Airway Mallampati: III Cardiovascular Rhythm: regular Rate: normal (-) murmur Dental Pulmonary (-) decreased breath sounds Abdominal (-) obese Anesthesia Plan ASA 3 other (Conscious Sedation) intravenous induction Anesthetic plan and risks discussed with patient. Use of blood products discussed with patient who consented to blood products. Plan discussed with attending. Additional Equipment Requests Normal [facility] ANTI-XA (HEPARIN LEVEL)on HEPARIN UNFRACTIONATED (U/ML) IN PPP BY CHROMOGENIC METHOD 0.41 IU/mL Normal 0.3-0.7 [facility] Comment on above: Order Comment: Check anti-Xa level every 6 hours while on heparin infusion, or per protocol. Result Comment: [place] roxaban and Apixaban will interfere with the anti Xa assay used to monitor UFH and LMWH. Performed By: #### L [id number] #### [facility] (BEAKER) [address] [place] [address] HEPARIN UNFRACTIONATED (U/ML) IN PPP BY CHROMOGENIC METHOD 0.28 IU/mL Low 0.3-0.7 [facility] Comment on above: Order Comment: Check anti-Xa level every 6 hours while on heparin infusion, or per protocol. Result Comment: [place] roxaban and Apixaban will interfere with the anti Xa assay used to monitor UFH and LMWH. Performed By: #### L [id number] #### [facility] (BEAKER) [address] [place] [address] HEPARIN UNFRACTIONATED (U/ML) IN PPP BY CHROMOGENIC METHOD 0.23 IU/mL Low 0.3-0.7 [facility] Comment on above: Order Comment: Check anti-Xa level every 6 hours while on heparin infusion, or per protocol. Result Comment: [place] roxaban and Apixaban will interfere with the anti Xa assay used to monitor UFH and LMWH. Performed By: #### L [id number] #### [facility] ([facility]) [address] [place] [address] APTTon 05-20-2024 ACTIVATED PARTIAL THROMBOPLASTIN TIME IN PPP BY COAGULATION ASSAY 40.8 Seconds High 25.0-35.0 [facility] Comment on above: Order Comment: Basel ine aPTT before initiating heparin infusion. Result Comment: Clin ical significance of the APTT is questionable in the presence of heparin. Performed By: #### L [id number] ####[facility] ([facility])[address] [facility] [address] BASIC METABOLIC PANELon Anion gap [Moles/Vol] 7 mmol/L Normal 7-20 [facility] Comment on above: Performed By: #### L [id number] #### [facility] ([facility]) [address] [place] [address] Calcium [Mass/Vol] 8.5 mg/dL Low 8.6-10.3 [facility] Comment on above: Performed By: #### L [id number] #### [facility] ([facility]) [address] [place] [address] Chloride [Moles/Vol] 109 mmol/L High 98-107 [facility] Comment on above: Performed By: #### L [id number] #### [facility] ([facility] [address] [address] CO2 [Moles/Vol] 28 mmol/L Normal 21-31 [facility] Comment on above: Performed By: #### L [id number] #### [facility] ([facility] [address] [place] [address] Creatinine [Mass/Vol] 0.93 mg/dL Normal 0.70-1.30 [facility] Comment on above: Performed By: #### L [id number] #### [facility] ([facility]) [address] [place] [address] GLOMERULAR FILTRATION RATE ML/MIN/1.73 SQ M.PREDICTED 97.6 mL/min/1.73m*2 Normal >60.0 [facility] Comment on above: Result Comment: The [facility]???s estimated glomerular filtration rate (eGFR) will [...] group of individuals. Performed By: #### L [id number] #### [facility] ([facility]) [address] [place] [address] Glucose [Mass/Vol] 94 mg/dL Normal 70-100 [facility] Comment on above: Performed By: #### L [id number] #### [facility] ([facility]) [address] [place] [address] Potassium [Moles/Vol] 4.0 mmol/L Normal 3.5-5.1 [facility] Comment on above: Performed By: #### L [id number] #### [facility] ([facility]) [address] [place] [address] Sodium [Moles/Vol] 140 mmol/L Normal 136-145 [facility] Comment on above: Performed By: #### L [id number] #### [facility] ([facility]) [address] [place] [address] Urea nitrogen [Mass/Vol] 17 mg/dL Normal 7-25 [facility] Comment on above: Performed By: #### L [id number] #### [facility] ([facility] [address] [place] [address] UREA NITROGEN/CREATININE (MASS RATIO) IN SER/PLAS 18.3 Normal [facility] Comment on above: Performed By: #### L [id number] #### [facility] ([facility]) [address] [place] [address] CBCon 05-20-2024 Erythrocyte distribution width (RBC) [Ratio] 12.3 % Normal 11.5-15.0 [facility] Comment on above: Performed By: #### L [id number] #### [facility] ([facility]) [address] [place] [address] ERYTHROCYTE MEAN CORPUSCULAR HEMOGLOBIN CONCENTRATION (G/DL) BY AUTOMATED 33.7 g/dL Normal 32.0-35.0 [facility] Comment on above: Performed By: #### L [id number] #### [facility] ([facility]) [address] [place] [address] Hematocrit (Bld) [Volume fraction] 43.9 % Normal 39.0-50.0 [facility] Comment on above: Performed By: #### L [id number] #### [facility] ([facility]) [address] [place] [address] Hemoglobin (Bld) [Mass/Vol] 14.8 g/dL Normal 13.0-17.0 [facility] Comment on above: Performed By: #### L [id number] #### [facility] ([facility]) [address] [place] [address] MCH (RBC) [Entitic mass] 29.1 pg Normal 27.0-33.0 [facility] Comment on above: Performed By: #### L [id number] #### [facility] ([facility]) [address] [place] [address] MCV (RBC) [Entitic vol] 86.2 fL Normal 82.0-98.0 [facility] Comment on above: Performed By: #### L [id number] #### [facility] ([facility]) [address] [place] [address] PLATELETS (10*3/UL) IN BLOOD AUTOMATED COUNT 244 10*3/uL Normal 150-400 [facility] Comment on above: Performed By: #### L [id number] #### [facility] ([facility]) [address] [place] [address] RBC (Bld) [#/Vol] 5.09 10*6/uL Normal 4.20-5.70 [facility] Comment on above: Performed By: #### L [id number] #### [facility] ([facility]) [address] [place] [address] WBC (Bld) [#/Vol] 4.96 10*3/uL Normal 4.00-10.60 [facility] Comment on above: Performed By: #### L [id number] #### [facility] ([facility]) [address] [place] [address] CBC WITH AUTO DIFFERENTIALon 05-20-2024 Basophils (Bld) [#/Vol] 0.04 10*3/uL Normal 0.00-0.20 [facility] Comment on above: Performed By: #### L [id number] #### [facility] ([facility]) [address] [place] [address] Basophils/100 WBC (Bld) 0.7 % Normal 0.0-1.0 [facility] Comment on above: Performed By: #### L [id number] #### [facility] ([facility]) [address] [address] Eosinophils (Bld) [#/Vol] 0.16 10*3/uL Normal 0.00-0.50 [facility] Comment on above: Performed By: #### L [id number] #### [facility] ([facility]) [address] [place] [address] Eosinophils/100 WBC (Bld) 2.7 % Normal 0.0-6.0 [facility] Comment on above: Performed By: #### L [id number] #### [facility] ([facility]) [address] [place] [address] Erythrocyte distribution width (RBC) [Ratio] 12.4 % Normal 11.5-15.0 [facility] Comment on above: Performed By: #### L [id number] #### [facility] ([facility]) [address] [place] [address] ERYTHROCYTE MEAN CORPUSCULAR HEMOGLOBIN CONCENTRATION (G/DL) BY AUTOMATED 34.5 g/dL Normal 32.0-35.0 [facility] Comment on above: Performed By: #### L [id number] #### [facility] ([facility]) [address] [place] [address] Hematocrit (Bld) [Volume fraction] 42.3 % Normal 39.0-50.0 [facility] Comment on above: Performed By: #### L [id number] #### [facility] ([facility]) [address] [place] [address] Hemoglobin (Bld) [Mass/Vol] 14.6 g/dL Normal 13.0-17.0 [facility] Comment on above: Performed By: #### L [id number] #### [facility] ([facility]) [address] [place] [address] Immature granulocytes (Bld) [#/Vol] 0.01 10*3/uL Normal 0.00-0.20 [facility] Comment on above: Performed By: #### L [id number] #### [facility] ([facility]) [address] [place] [address] Immature granulocytes/100 WBC (Bld) 0.2 % Normal 0.0-1.0 [facility] Comment on above: Performed By: #### L [id number] #### [facility] ([facility]) [address] [place] [address] Lymphocytes (Bld) [#/Vol] 2.03 10*3/uL Normal 1.20-4.00 [facility] Comment on above: Performed By: #### L [id number] #### [facility] (BEAKER) [address] [place] [address] Lymphocytes/100 WBC (Bld) 34.8 % Normal 20.0-45.0 [facility] Comment on above: Performed By: #### L [id number] #### [facility] (BEAKER) [address] [place] [address] MCH (RBC) [Entitic mass] 29.4 pg Normal 27.0-33.0 [facility] Comment on above: Performed By: #### L [id number] #### [facility] [address] [place] [address] MCV (RBC) [Entitic vol] 85.3 fL Normal 82.0-98.0 [facility] Comment on above: Performed By: #### L [id number] #### [facility] [address] [place] [address] Monocytes (Bld) [#/Vol] 0.56 10*3/uL Normal 0.10-1.00 [facility] Comment on above: Performed By: #### L [id number] #### [facility] (BEAKER) [address] [place] [address] Monocytes/100 WBC (Bld) 9.6 % Normal 5.0-12.0 [facility] Comment on above: Performed By: #### L [id number] #### [facility] (BEAKER) [address] [place] [address] Neutrophils (Bld) [#/Vol] 3.04 10*3/uL Normal 1.60-7.60 [facility] Comment on above: Performed By: #### L [id number] #### [facility] (BEAKER) [address] [place] [address] Neutrophils/100 WBC (Bld) 52.0 % Normal 40.0-72.0 [facility] Comment on above: Performed By: #### L [id number] #### [facility] (BEAKER) [address] [place] [address] NRBC (PER 100 WBCS) BY AUTOMATED COUNT 0.0 % Normal 0 [facility] Comment on above: Performed By: #### L [id number] #### [facility] ([facility]) [address] [place] [address] PLATELETS (10*3/UL) IN BLOOD AUTOMATED COUNT 254 10*3/uL Normal 150-400 [facility] Comment on above: Performed By: #### L [id number] #### [facility] ([facility]) [address] [place] [address] RBC (Bld) [#/Vol] 4.96 10*6/uL Normal 4.20-5.70 [facility] Comment on above: Performed By: #### L [id number] #### [facility] ([facility]) [address] [place] [address] WBC (Bld) [#/Vol] 5.84 10*3/uL Normal 4.00-10.60 [facility] Comment on above: Performed By: #### L [id number] #### [facility] ([facility]) [address] [place] [address] COMPREHENSIVE METABOLIC PANE Robert 05-20-2024 Albumin [Mass/Vol] 4.0 g/dL Normal 3.5-5.7 [facility] Comment on above: Performed By: #### L [id number] ####[facility] ([facility])[address] [place] [address] ALP [Catalytic activity/Vol] 56 U/L Normal 34-104 [facility] Comment on above: Performed By: #### L [id number] ####[facility] ([facility])[address] [place] [address] ALT [Catalytic activity/Vol] 21 U/L Normal 7-52 [facility] Comment on above: Performed By: #### L [id number] ####[facility] ([facility])[address] [place] [address] Anion gap [Moles/Vol] 11 mmol/L Normal 7-20 [facility] Comment on above: Performed By: #### L [id number] ####[facility] ([facility])[address] [place] [address] AST [Catalytic activity/Vol] 22 U/L Normal 13-39 [facility] Comment on above: Performed By: #### L [id number] ####[facility] ([facility])[address] [place] [address] Bilirubin [Mass/Vol] 0.3 mg/dL Normal 0.3-1.0 [facility] Comment on above: Performed By: #### L [id number] ####[facility] ([facility])[address] [place] [address] Calcium [Mass/Vol] 8.9 mg/dL Normal 8.6-10.3 [facility] Comment on above: Performed By: #### L [id number] ####[facility] ([facility])[address] [place] [address] Chloride [Moles/Vol] 106 mmol/L Normal 98-107 [facility] Comment on above: Performed By: #### L [id number] ####[facility] ([facility])[address] [place] [address] CO2 [Moles/Vol] 27 mmol/L Normal 21-31 [facility] Comment on above: Performed By: #### L [id number] ####[facility] ([facility])[address] [place] [address] Creatinine [Mass/Vol] 0.95 mg/dL Normal 0.70-1.30 [facility] Comment on above: Performed By: #### L [id number] ####[facility] ([facility])[address] [place] [address] GLOMERULAR FILTRATION RATE ML/MIN/1.73 SQ M.PREDICTED 95.1 mL/min/1.73m*2 Normal >60.0 [facility] Comment on above: Result Comment: The [facility]???s estimated glomerular filtration rate (eGFR) will [...] group of individuals. Performed By: #### L [id number] ####[facility] ([facility])[address] [place] [address] Glucose [Mass/Vol] 94 mg/dL Normal 70-100 [facility] Comment on above: Performed By: #### L [id number] ####[facility] ([facility])[address] [place] [address] Potassium [Moles/Vol] 3.7 mmol/L Normal 3.5-5.1 [facility] Comment on above: Performed By: #### L [id number] ####[facility] (BEAKER)[address] [place] [address] Protein [Mass/Vol] 6.4 g/dL Normal 6.0-8.3 [facility] Comment on above: Performed By: #### L [id number] ####[facility] (BEAKER)[address] [place] [address] Sodium [Moles/Vol] 140 mmol/L Normal 136-145 [facility] Comment on above: Performed By: #### L [id number] ####[facility] (BEAKER)[address] [place] [address] Urea nitrogen [Mass/Vol] 16 mg/dL Normal 7-25 [facility] Comment on above: Performed By: #### L [id number] ####[facility] (BEAKER)[address] [place] [address] UREA NITROGEN/CREATININE (MASS RATIO) IN SER/PLAS 16.8 Normal [facility] Comment on above: Performed By: #### L [id number] ####[facility] ([facility])[address] [place] [address] CONSULTon 05-20-2024 CONSULT - Attestation signed by [...] documentation from me. Additional Comments: Transferred from [facility] due to chest pain and palpitations Elevated high-sensitivity troponin concerning for NSTEMI Uncontrolled Hypertension as well Will proceed with coronary angiogram for CAD evaluation Given palpitations, will plan to discharge with 30-day event monitor and outpatient follow-up with [place] cardiology labs including CBC, CMP, troponin all personally reviewed EKG personally reviewed Cardiology Consult Note Reason for Consult: heart palpitation HPI: Amanda Davies is a 53 y.o. male with history [...] Value Ventricular Rate 78 Atrial Rate 78 [place] Interval 176 QRS DURATION 88 QT Interval 372 QTC CALCULATION(BAZETT) 424 P [place] 66 R-[place] 28 T Wave [place] 37 Impression Normal sinus rhythm Normal ECG [...] underwent Cardioversion (more content not included)... Normal [facility] HIGH SENSITIVITY TROPONIN Io n 05-20-2024 HS TROPONIN I (NG/L) 64 ng/L Critically high <20 [facility] Comment on above: Performed By: #### L [id number] #### [facility] (BEAKER) [address] [place] [address] HS TROPONIN I (NG/L) 91 ng/L Critically high <20 [facility] Comment on above: Performed By: #### L [id number] #### [facility] (BEAKER) [address] [place] [address] HS TROPONIN I (NG/L) 138 ng/L Critically high <20 [facility] Comment on above: Performed By: #### L [id number] #### [facility] (BEAKER) [address] [place] [address] HS TROPONIN I (NG/L) 220 ng/L Critically high <20 [facility] Comment on above: Performed By: #### L [id number] ####[facility] ([email or web address])[address] [place] [address] HPon 05-20-2024 HP - Attestation signed by Jorge Whaley MD at 05/20/2024 7:17 PM Agree with above. I have personally spoken with and examined Mr. Davies. H&P reviewed. The patient was examined and there are no changes to the H&P. Proceed with CORS for NSTEMI. Hernán Cedeño MD PGY-5 [employer] Ann[employer]cer [facility] Pager # [phone] Normal [facility] LIPID PANELon 05-20-2024 CHOL/HDL 4.1 mg/dL Normal [facility] Comment on above: Performed By: #### L [id number] #### [facility] ([email or web address]) [address] [place] [address] Cholesterol [Mass/Vol] 152 mg/dL Normal 120-200 Un [facility] Comment on above: Performed By: #### L [id number] #### [facility] ([email or web address]) [address] [place] [address] Magnesium [Mass/Vol] 72 mg/dL Normal <150 [facility] Comment on above: Result Comment: TRIG LYCERIDE REFERENCE RANGE: 20 YEARS AND OLDER CARDIOVASCULAR RISK LESS THAN 150 mg/dL LOW RISK 150 TO 199 mg/dL BORDERLINE RISK 200 mg/dL AND GREATER HIGH RISK Performed By: #### L [id number] #### [facility] (BEAKER) [address] [place] [address] Magnesium [Mass/Vol] 101 mg/dL Normal 0-160 [facility] Comment on above: Performed By: #### L [id number] #### [facility] ([facility] [address] [place] [address] Magnesium [Mass/Vol] 37 mg/dL Normal 23-92 [facility] Comment on above: Performed By: #### L [id number] #### [facility] ([facility] [address] [place] [address] NON HDL CHOL. (LDL+VLDL) 115 Normal [facility] Comment on above: Performed By: #### L [id number] #### [facility] ([facility] [address] [place] [address] TOTAL VLDL-C 14 mg/dL Normal 0-40 [facility] Comment on above: Performed By: #### L [id number] #### [facility] ([facility] [address] [place] [address] MAGNESIUMon 05-20-2024 Magnesium [Mass/Vol] 2.0 mg/dL Normal 1.9-2.7 [facility] Comment on above: Performed By: #### L [id number] #### [facility] ([facility] [address] [place] [address] Magnesium [Mass/Vol] 2.0 mg/dL Normal 1.9-2.7 [facility] Comment on above: Performed By: #### L [id number] #### [facility] ([facility] [address] [place] [address] PHOSPHORUSon 05-20-2024 Magnesium [Mass/Vol] 4.3 mg/dL Normal 2.5-5.0 [facility] Comment on above: Performed By: #### L [id number] #### [facility] ([facility] [address] [place] [address] PROTIME-INRon 05-20-2024 INR IN PPP BY COAGULATION ASSAY 0.92 Normal 0.90-1.10 [facility] Comment on above: Result Comment: ACCC [...] RANGE. CHEST 1995;108:[id number]. Performed By: #### L [id number] ####[facility] [place] [address] PROTHROMBIN TIME (PT) IN PPP BY COAGULATION ASSAY 12.4 Seconds Normal 12.3-14.8 [facility] Comment on above: Performed By: #### L [id number] ####[facility] [place] [address] TSH3 REFLEX TO FT4on 025 THYROTROPIN (MIU/L) IN SER/PLAS BY DETECTION LIMIT <= 0.05 MIU/L 2.41 mIU/L Normal 0.34-5.60 [facility] Comment on above: Performed By: #### L [id number] #### [facility] [address] [place] [address] NURSNOTEon 05-19-2024 NURSNOTE The credit underwriter received a call from Marcia (ER nurse in [facility]) at [phone]. The patient arrived at their ER at 4PM today ambulating with complaints of SOB and was tachy at 117-120 bpm. The patient has a history of Afib and cardiac ablation. Troponin was at 57.7 and was then rechecked- 175.4. ASA 324mg was given, hep gtt was started at 900 units/hr, 18 mL/hr. The patient has the ff VS: NY-86, O2 Sat-96-98% RA, T-98.0, RR-14-20. The patient stated no home meds. A&O X4. IV site at RA-20g. Patient will be picked up at around 2200. Normal [facility] Albumin [Mass/volume] in Ser um or PlasmaOrdered By: Jose Turk on 03-09-2022 Albumin [Mass/Vol] 4.0 g/dL 3.2-5.5 [facility] Basophils Auto (Bld) [#/Vol] Ordered By: Jose Turk on 03-09-2022 Basophils (Bld) [#/Vol] 0.0 10*3/uL 0.0-0.2 [facility] Basophils/100 WBC Auto (Bld) Ordered By: Jose Turk on 03-09-2022 Basophils/100 WBC (Bld) 0.7 % . [facility] Complete Blood Count Auto Di ffon 03-09-2022 Basophils (Bld) [#/Vol] 0.0 10*3/uL Normal 0.0-0.2 [facility] Comment on above: Result Comment: PERF ORMED BY: [place] [address] PATHOLOGIST DIRECTOR OF EXHIBIT DEVELOPMENT KELLY CID M.D. Performed By: #### C MP, CBC #### [facility] [address] [place] [address] Basophils/100 WBC (Bld) 0.7 % Normal . [facility] Comment on above: Performed By: #### C MP, CBC #### [facility] [address] [place] [address] Eosinophils (Bld) [#/Vol] 0.0 10*3/uL Normal 0.0-0.45 [facility] Comment on above: Performed By: #### C MP, CBC #### [facility] [address] Eosinophils/100 WBC (Bld) 0.9 % Normal . [facility] Comment on above: Performed By: #### C MP, CBC #### [facility] [address] Erythrocyte distribution width (RBC) [Ratio] 13.1 % Normal 12.0-14.8 [facility] Comment on above: Performed By: #### C MP, CBC #### [facility] [address] Hematocrit (Bld) [Volume fraction] 43.5 % Normal 38.8-50.0 [facility] Comment on above: Performed By: #### C MP, CBC #### [address] Hemoglobin (Bld) [Mass/Vol] 14.8 g/dL Normal 13.0-17.0 [facility] Comment on above: Performed By: #### C MP, CBC #### [address] Lymphocytes (Bld) [#/Vol] 1.1 10*3/uL Normal 1.00-4.8 [facility] Comment on above: Performed By: #### C MP, CBC #### [place] [address] [place] Lymphocytes/100 WBC (Bld) 24.5 % Normal . [facility] Comment on above: Performed By: #### C MP, CBC #### [facility] [address] [place] [address] [place] MCH (RBC) [Entitic mass] 29.2 pg Normal 27.5-35.2 [facility] Comment on above: Performed By: #### C MP, CBC #### [address] MCV (RBC) [Entitic vol] 85.8 fL Normal 83.5-[address] [facility] Comment on above: Performed By: #### C MP, CBC #### [facility] [address] Mean Corpuscular HGB Conc 34.0 g/dL Normal 32.5-35.6 [facility] Comment on above: Performed By: #### C MP, CBC #### [facility] [address] [place] [address] [place] Monocytes (Bld) [#/Vol] 0.5 10*3/uL Normal 0.0-0.8 [facility] Comment on above: Performed By: #### C MP, CBC #### [facility] [address] [place] [address] [place] Monocytes/100 WBC (Bld) 10.5 % Normal . [facility] Comment on above: Performed By: #### C MP, CBC #### [facility] [address] [place] [address] [place] Neutrophils (Bld) [#/Vol] 2.9 10*3/uL Normal 1.8-7.7 [facility] Comment on above: Performed By: #### C MP, CBC #### [facility] [address] [place] [address] [place] Neutrophils/100 WBC (Bld) 63.4 % Normal . [facility] Comment on above: Performed By: #### C MP, CBC #### [facility] [address] [place] [address] [place] NRBC% 0.1 /100{WBC} Normal 0-0.5 [facility] Comment on above: Performed By: #### C MP, CBC #### [facility] [address] [place] [id number] [place] Platelet mean volume (Bld) [Entitic vol] 7.9 fL Normal 6.6-10.1 [facility] Comment on above: Performed By: #### C MP, CBC #### [facility] [address] [place] [id number] [place] Platelets (Bld) [#/Vol] 247 10*3/uL Normal 150-450 [facility] Comment on above: Performed By: #### C MP, CBC #### [address] RBC (Bld) [#/Vol] 5.07 10*6/uL Normal 3.90-5.60 [facility] Comment on above: Performed By: #### C MP, CBC #### [address] WBC (Bld) [#/Vol] 4.6 10*3/uL Normal 4.1-10.5 [facility] Comment on above: Performed By: #### C MP, CBC #### [address] Comprehensive Metabolic Pane robert 03-09-2022 Albumin [Mass/Vol] 4.0 g/dL Normal 3.2-5.5 [facility] Comment on above: Performed By: #### C MP, CBC #### [address] Albumin/Globulin [Mass ratio] 1.5 {ratio} Normal [facility] Comment on above: Performed By: #### C MP, CBC #### [address] ALP [Catalytic activity/Vol] 51 U/L Normal 32-92 [facility] Comment on above: Result Comment: PERF ORMED BY: [place] [address] PATHOLOGIST DIRECTOR OF EXHIBIT DEVELOPMENT KELLY CID M.D. Performed By: #### C MP, CBC #### [address] ALT [Catalytic activity/Vol] 15 U/L Normal 10-60 [facility] Comment on above: Performed By: #### C MP, CBC #### [address] Anion gap [Moles/Vol] 10.3 mmol/L Normal 6.0-15.0 [facility] Comment on above: Performed By: #### C MP, CBC #### [facility] [address] [place] [id number] [place] AST [Catalytic activity/Vol] 18 U/L Normal 10-42 [facility] Comment on above: Performed By: #### C MP, CBC #### [facility] [address] [place] [id number] [facility] Bilirubin [Mass/Vol] 0.7 mg/dL Normal 0.3-1.2 [facility] Comment on above: Performed By: #### C MP, CBC #### [facility] [address] Calcium [Mass/Vol] 9.2 mg/dL Normal 8.2-10.2 [facility] Comment on above: Performed By: #### C MP, CBC #### [address] Chloride [Moles/Vol] 102 mmol/L Normal 95-114 [facility] Comment on above: Performed By: #### C MP, CBC #### [facility] [address] [place] [address] [place] CO2 [Moles/Vol] 28.8 mmol/L Normal 22.0-30.0 [facility] Comment on above: Performed By: #### C MP, CBC #### [address] Creatinine [Mass/Vol] 0.85 mg/dL Normal 0.64-1.27 [facility] Comment on above: Performed By: #### C MP, CBC #### [facility] [address] [place] [address] [place] Estimated GFR ( Sherri > 60 Normal [facility] Comment on above: Result Comment: GFR estimated reference range: According to KDOQI guidelines, <60 ml/min/1.73m2 is sufficient to diagnose a patient with chronic kidney disease. Performed By: #### C MP, CBC #### [place] [address] [place] Estimated GFR (Non- Am > 60 Normal [facility] Comment on above: Performed By: #### C MP, CBC #### [address] Globulin (S) [Mass/Vol] 2.6 g/dL Normal [facility] Comment on above: Performed By: #### C MP, CBC #### [address] Glucose [Mass/Vol] 91 mg/dL Normal 70-100 [facility] Comment on above: Result Comment: [place] Glucose Reference Range is dependent on time and content of last meal. Glucose of more than 200 mg/dL in a nonstressed, ambulatory subject supports the diagnosis of Diabetes Mellitus. ADA recommended reference range Performed By: #### C MP, CBC #### [address] Potassium [Moles/Vol] 4.1 mmol/L Normal 3.5-5.1 [facility] Comment on above: Performed By: #### C MP, CBC #### [address] Protein [Mass/Vol] 6.6 g/dL Normal 6.1-7.9 [facility] Comment on above: Performed By: #### C MP, CBC #### [address] Sodium [Moles/Vol] 137 mmol/L Normal 136-146 [facility] Comment on above: Performed By: #### C MP, CBC #### [place] [address] [place] Urea nitrogen [Mass/Vol] 10 mg/dL Normal 9-23 [facility] Comment on above: Performed By: #### C MP, CBC #### [place] [address] [place] Creatinine and Glomerular fi ltration rate.predicted panel (S/P/Bld)Ordered By: Jose Turk on 03-09-2022 Creatinine [Mass/Vol] 0.85 mg/dL 0.64-1.27 [facility] ECG 12 lead ECGon 03-09-2022 ECG 12 lead ECG [facility] [place] [address] Electrocardiograph Report Signed Patient: Amanda Davies MR#: [id number] [birth year] : 1970 Acct:[id number] Age/Sex: 51 / M ADM Date: 03/09/22 Loc: PS Room: Type: [facility] Attending Dr: Jose Turk DO Ordering Provider: [...] ECGs available Confirmed by CARLOS WINTERS MD ([facility]) on 03/09/2022 3:28:54 PM Referred By: JONATHAN Electronically Signed By:CARLOS WINTERS MD Transcribed By: MUS Signed By Carlos Winters MD 0 03/09/22 1528 Normal [facility] Eosinophils Auto (Bld) [#/Vo l]Ordered By: Jose Turk on 03-09-2022 Eosinophils (Bld) [#/Vol] 0.0 10*3/uL 0.0-0.45 [facility] Eosinophils/100 WBC Auto (Bl d)Ordered By: Jose Turk on 03-09-2022 Eosinophils/100 WBC (Bld) 0.9 % . [facility] Erythrocyte distribution wid th Auto (RBC) [Ratio]Ordered By: Jose Turk on 03-09-2022 Erythrocyte distribution width (RBC) [Ratio] 13.1 % 12.0-14.8 [facility] Estimated glomerular filtrat ion rate (GFR) non- AmericanOrdered By: Jose Turk on 03-09-2022 GFR/1.73 sq M.predicted among non-blacks MDRD (S/P/Bld) [Vol rate/Area] > 60 mL/Min [facility] Globulin Calc (S) [Mass/Vol] Ordered By: Jose Turk on 03-09-2022 Globulin (S) [Mass/Vol] 2.6 g/dL [facility] Hematocrit Auto (Bld) [Volum e fraction]Ordered By: Jose Turk on 03-09-2022 Hematocrit (Bld) [Volume fraction] 43.5 % 38.8-50.0 [facility] Hemoglobin [Mass/volume] in BloodOrdered By: Jose Turk on 03-09-2022 Hemoglobin (Bld) [Mass/Vol] 14.8 g/dL 13.0-17.0 [facility] Leukocytes [#/volume] correc caitlyn for nucleated erythrocytes in Blood by Automated counOrdered By: Jose Turk on 03-09-2022 WBC corrected for nucl RBC Auto (Bld) [#/Vol] 4.6 10*3/uL 4.1-10.5 [facility] Lymphocytes Auto (Bld) [#/Vo l]Ordered By: Jose Turk on 03-09-2022 Lymphocytes (Bld) [#/Vol] 1.1 10*3/uL 1.00-4.8 [facility] Lymphocytes/100 WBC Auto (Bl d)Ordered By: Jose Turk on 03-09-2022 Lymphocytes/100 WBC (Bld) 24.5 % . [facility] MCH Auto (RBC) [Entitic mass ]Ordered By: Jose Turk on 03-09-2022 MCH (RBC) [Entitic mass] 29.2 pg 27.5-35.2 [facility] MCHC Auto (RBC) [Mass/Vol]Or dered By: Jose Turk on 03-09-2022 MCHC (RBC) [Mass/Vol] 34.0 g/dL 32.5-35.6 [facility] MCV Auto (RBC) [Entitic vol] Ordered By: Jose Turk on 03-09-2022 MCV (RBC) [Entitic vol] 85.8 fL 83.5-[address] [facility] Monocytes Auto (Bld) [#/Vol] Ordered By: Jose Turk on 03-09-2022 Monocytes (Bld) [#/Vol] 0.5 10*3/uL 0.0-0.8 [facility] Monocytes/100 WBC Auto (Bld) Ordered By: Jose Turk on 03-09-2022 Monocytes/100 WBC (Bld) 10.5 % . [facility] Neutrophils Auto (Bld) [#/Vo l]Ordered By: Jose Turk on 03-09-2022 Neutrophils (Bld) [#/Vol] 2.9 10*3/uL 1.8-7.7 [facility] Neutrophils/100 WBC Auto (Bl d)Ordered By: Jose Turk on 03-09-2022 Neutrophils/100 WBC (Bld) 63.4 % . [facility] No Panel InformationOrdered By: Jose Turk on 03-09-2022 Estimated GFR () > 60 mL/Min [facility] Comment on above: GFR estimated refere nce range: According to KDOQI guidelines, <60 ml/min/1.73m2 is sufficient to diagnose a patient with chronic kidney disease. Pharmacy Creatinine Clearance (Chem N/A [facility] Nucleated erythrocytes [Pres ence] in Blood by Automated countOrdered By: Jose Turk on 03-09-2022 Nucleated RBC Auto Ql (Bld) 0.1 /100{WBC} 0-0.5 [facility] Platelet mean volume Auto (B ld) [Entitic vol]Ordered By: Jose Turk on 03-09-2022 Platelet mean volume (Bld) [Entitic vol] 7.9 fL 6.6-10.1 [facility] Platelets Auto (Bld) [#/Vol] Ordered By: Jose Turk on 03-09-2022 Platelets (Bld) [#/Vol] 247 10*3/uL 150-450 [facility] Protein [Mass/volume] in Ser um or PlasmaOrdered By: Jose Turk on 03-09-2022 Protein [Mass/Vol] 6.6 g/dL 6.1-7.9 [facility] RBC Auto (Bld) [#/Vol]Ordere d By: Jose Turk on 03-09-2022 RBC (Bld) [#/Vol] 5.07 10*6/uL 3.90-5.60 [facility] Serum or plasma alanine wall otransferase measurement without P-5'-P (enzymatic activiOrdered By: Jose Turk on 03-09-2022 ALT No additional P-5'-P [Catalytic activity/Vol] 15 U/L 10-60 [facility] Serum or plasma albumin/glob ulin mass ratioOrdered By: Jose Turk on 03-09-2022 Albumin/Globulin [Mass ratio] 1.5 {ratio} [facility] Serum or plasma alkaline ovidio sphatase measurement (enzymatic activity/volume)Ordered By: Jose Turk on 03-09-2022 ALP [Catalytic activity/Vol] 51 U/L 32-92 [facility] Serum or plasma anion gap de terminationOrdered By: Jose Turk on 03-09-2022 Anion gap [Moles/Vol] 10.3 mmol/L 6.0-15.0 [facility] Serum or plasma aspartate am inotransferase measurement (enzymatic activity/volume)Ordered By: Jose Turk on 03-09-2022 AST [Catalytic activity/Vol] 18 U/L 10-42 [facility] Serum or plasma calcium tray urement (mass/volume)Ordered By: Jose Turk on 03-09-2022 Calcium [Mass/Vol] 9.2 mg/dL 8.2-10.2 [facility] Serum or plasma chloride johanna surement (moles/volume)Ordered By: Jose Turk on 03-09-2022 Chloride [Moles/Vol] 102 mmol/L 95-114 [facility] Serum or plasma glucose tray urement (mass/volume)Ordered By: Jose Turk on 03-09-2022 Glucose [Mass/Vol] 91 mg/dL 70-100 [facility] Comment on above: ADA recommended refe rence rangeRandom Glucose Reference Range is dependent on time and content of last meal. Glucose of more than 200 mg/dL in a nonstressed, ambulatory subject supports the diagnosis of Diabetes Mellitus. Serum or plasma potassium me asurement (moles/volume)Ordered By: Jose Turk on 03-09-2022 Potassium [Moles/Vol] 4.1 mmol/L 3.5-5.1 [facility] Serum or plasma sodium measu rement (moles/volume)Ordered By: Jose Turk on 03-09-2022 Sodium [Moles/Vol] 137 mmol/L 136-146 [facility] Serum or plasma total biliru bin measurement (mass/volume)Ordered By: Jose Turk on 03-09-2022 Bilirubin [Mass/Vol] 0.7 mg/dL 0.3-1.2 [facility] Serum or plasma total carbon dioxide measurement (moles/volume)Ordered By: Jose Turk on 03-09-2022 CO2 [Moles/Vol] 28.8 mmol/L 22.0-30.0 [facility] Serum or plasma urea nitroge n measurement (mass/volume)Ordered By: Jose Turk on 03-09-2022 Urea nitrogen [Mass/Vol] 10 mg/dL - [facility] WBC Auto (Bld) [#/Vol]Ordere d By: Jose Turk on 03-09-2022 WBC (Bld) [#/Vol] 4.6 10*3/uL 4.1-10.5 [facility] MR knee LT wo conon 11-16-19 [place] [address] MRI Report Signed Patient: Amanda Davies MR#: [id number] 87 : 1970 Acct:[id number] Age/Sex: 51 / M ADM Date: 11/15/21 Loc: [facility]: [facility] Attending Dr: Jose Turk DO Copies to: [...] Bautista Rodriguez M.D.11/15/2021 5:48 PM Dictation Location: [place] [address] Transcribed By: [facility] 11/15/211747 Dictated By: Bautista Rodriguez DO 11/15/211741 Signed By: 11/15/211747 [facility] MR knee LT wo con [facility] [employer] Other MR knee LT wo con [facility] [employer] Other MR knee LT wo con [address] [facility] [employer] Other [place] [address] [employer] Other MR knee LT wo con MRI Report [employer] Other MR knee LT wo con Signed [employer] Other MR knee LT wo con Patient: Amanda Davies MR#: [id number] [employer] Other MR knee LT wo con 87 [employer] Other MR knee LT wo con : 1970 Acct:[id number] [employer] Other MR knee LT wo con Age/Sex: 51 / M ADM Date: 11/15/21 [employer] Other MR knee LT wo con [facility] [employer] Other MR knee LT wo con Attending Dr: Jose Turk DO [employer] Other MR knee LT wo con Copies to: Jose Turk DO [employer] Other MR knee LT wo con Ordering Provider: Jose Turk DO [employer] Other MR knee LT wo con Date of Service: 11/15/21 [employer] Other MR knee LT wo con MR/MR knee LT wo con: Internal derangement of left knee [employer] Other MR knee LT wo con MRI the LEFTknee without contrast [employer] Other MR knee LT wo con TECHNIQUE: Multiplanar T1 and T2-weighted imaging of the knee obtained without contrast [employer] Other MR knee LT wo con HISTORY: LEFT knee injury November 04. LEFT knee effusion drained. Continued LEFT knee pain. [employer] Other MR knee LT wo con The large joint effusion identified. [employer] Other MR knee LT wo con Anterior and posterior cruciate ligaments are intact.. [employer] Other MR knee LT wo con Vertical tear of the inner portion of the body of the lateral meniscus identified.. [employer] Other MR knee LT wo con No articular defect of the cartilage identified.. [employer] Other MR knee LT wo con No osteochondral defect identified. [employer] Other MR knee LT wo con Focal bone marrow edema of the subarticular region of the medial tibial plateau identified. [employer] Other MR knee LT wo con Patellar ligament an d quadriceps tendon are intact. [employer] Other MR knee LT wo con Spine/partial tear o f the medial collateral ligament complex with adjacent edema present. [employer] Other MR knee LT wo con No signal abnormalit y of the musculature or subcutaneous tissues identified. [employer] Other MR knee LT wo con MR/MR knee LT wo con [place] [employer] Other MR knee LT wo con IMPRESSION: Large joint effusion. Vertical tear of the inner portion of the body of the lateral [employer] Other MR knee LT wo con meniscus. Intact ACL and medial meniscus. [employer] Other MR knee LT wo con Impression dictated by: Bautista Rodriguez M.D.11/15/2021 5:48 PM [employer] Other MR knee LT wo con Dictation Location: [place] [address] [employer] Other MR knee LT wo con Transcribed By: PWS 11/15/21 [facility] [employer] Other MR knee LT wo con Dictated By: Bautista Rodriguez DO 11/15/21 [facility] [employer] Other MR knee LT wo con Signed By: [employer] Other MR knee LT wo con 11/15/21 [facility] [employer] Other XR knee LT 3Von 11-08-2021 XR knee LT 3V [facility] [employer] Other XR knee LT 3V [facility] [employer] Other XR knee LT 3V [address] [place] [address] [employer] Other XR knee LT 3V [address] [employer] Other XR knee LT 3V XRay Report [employer] Other XR knee LT 3V Signed [employer] Other XR knee LT 3V Patient: Amanda Davies MR#: [id number] [employer] Other XR knee LT 3V 88 [employer] Other XR knee LT 3V : 1970 Acct:[id number] [employer] Other XR knee LT 3V Age/Sex: 51 / M ADM Date: 11/08/21 [employer] Other XR knee LT 3V Loc: [facility] Room: [facility] : [facility] [employer] Other XR knee LT 3V Attending Dr: Jose Turk DO [employer] Other XR knee LT 3V Copies to: Jose Turk DO [employer] Other XR knee LT 3V Ordering Provider: Jose Turk DO [employer] Other XR knee LT 3V Date of Service: 11/08/21 [employer] Other XR knee LT 3V XR/XR knee LT 3V - NOT FOR ER USE: Injury of left knee, initial encounter [employer] Other XR knee LT 3V LEFT KNEE - 3 views No [employer] Other XR knee LT 3V CLINICAL HISTORY: Left knee pain, patient was running and fell. [employer] Other XR knee LT 3V COMPARISON: Left kne e series 10/16/2021 [employer] Other XR knee LT 3V FINDINGS: [employer] Other XR knee LT 3V Knee joint effusion. No acute bony process. Joint spaces are maintained. [employer] Other XR knee LT 3V XR/XR knee LT 3V - NOT FOR ER USE [employer] Other XR knee LT 3V IMPRESSION: [employer] Other XR knee LT 3V KNEE JOINT EFFUSION WITHOUT ACUTE BONY PROCESS OR SIGNIFICANT DEGENERATIVE CHANGE. [employer] Other XR knee LT 3V Impression dictated by: Sudeep Plummer Jr., D.O.11/08/2021 12:23 PM [employer] Other XR knee LT 3V Dictation Location: RADIO-PC-09 [place] [employer] Other XR knee LT 3V Transcribed By: ERIC 11/08/21 1223 [employer] Other XR knee LT 3V Dictated By: Sudeep Plummer Jr, DO 11/08/21 122 [employer] Other XR knee LT 3V Signed By: [employer] Other XR knee LT 3V 11/08/21 1223 [employer] Other XR knee LT 3V - NOT FOR ER U Serge 11-08-2021 XR knee LT 3V - NOT FOR ER USE [facility] [place] [address] [place] [address] XRay Report Signed Patient: Amanda Davies MR#: [id number] 88 : 1970 Acct:[id number] Age/Sex: 51 / M ADM Date: 11/08/21 [facility] [facility] [place]: Type: [facility] Attending Dr: Jose Turk DO Copies to: [...] Plummer Jr., D.O.11/08/2021 12:23 PM Dictation Location: RADIO-PC-09 Transcribed By: PWS 11/08/21 1223 Dictated By: Sudeep Plummer Jr, DO 11/08/21 1222 Signed By: 11/08/21 1223 Normal [facility] ED Note-Physicianon 01-23-20 ED Note-Physician Basic Information Time Seen: [place] TOMAS Eric 01/18/2020 17:50 Chief Complaint HX DDD-pain midline [...] Appropriate mood & affect. Integumentary: Warm, Dry, [place] Medical Decision Making Plain film x-rays of the lumbar spine showed no acute bony abnormality, patient will be started on naproxen, [place] and Robaxin. He is to return should new problems develop other problems arise, otherwise follow-up with his PCP for recheck. Assessment/Plan 1. Lumbosacral pain (M54.5: Low back pain) Orders: XR Spine Lumbosacral 2 or 3 Views Disposition Plan Patient Discharge Condition Stable Discharge Disposition Discharge home Discharge Prescription List Prescriptions naproxen 500 mg Tab, 500 mg= 1 tab(s), Oral, BID Ur[place] 325 mg-5 mg oral tablet, 1 tab(s), Oral, q6hr, PRN Robaxin-750 oral tablet, 750 mg= 1 tab(s), Oral, TID Follow-up With When Contact Information Riley Link In 3 days 01/21/2020 EST [address] [place] [address]- Business (1) Additional Instructions: Patient Education Back [...] Tab, 500 mg= 1 tab(s), Oral, BID Ur[place] 325 mg-5 mg oral tablet, 1 tab(s), [...] degenerative changes Read By: Eric Brannon PA-C Normal [facility] Comment on above: Result Comment: Elec tronically Signed By: Eric Brannon PA-C\\.br\\Date and Time Signed: 01/19/20 22:46 EST\\.br\\Electronically Co-Signed By: Pedro Mcbride DO\\.br\\Date and Time Co-Signed: 01/22/20 23:32 EST Coding Summary.on 01-20-2020 Coding Summary. CODING DATE: 01/20/2020 FINAL [facility] STATUS: Home (Routine DC) PAYOR: Hedy [...] result in slightly different terminology. Coded By: Grecia Bocanegra Date Saved: 01/20/2020 02:23 pm [facility] Discharge Instructionson Discharge Instructions [id number] 1.00CD:127 Normal [facility] XR Spine Lumbosacral 2 or 3 [...] M.D. Transcribed by: RADHA Technologist: LUCIUS Normal [facility] Consent for Treatmenton Consent for Treatment [id number] .00CD:127 Normal [facility] ED Clinical Summaryon 2019 ED Clinical Summary [place] [id number] ED Clinical Summary Person Information Name: AMANDA DAVIES [facility] Age: 49 Years : 1970 Sex: Male Language: Welsh PCP: Riley Daley DO Marital Status: Visit [...] 19:32:12 01/18/2020 19:32:12 01/18/2020 19:32:12 ADDRESS: [address] [facility] [id number] PHYS DOC NOTES: MEDICAL INFORMATION: Prescriptions Given: New Medications Printed Prescriptions acetaminophen-hydroco done ([place] 325 mg-5 mg oral tablet) 1 Tablets [...] Adult Follow up: With: Address: When: Riley Link [address] [facility] [address] [place] [address] Business (1) In 3 days 01/21/2020 DIAGNOSIS: 1:Lumbosacral pain Normal [facility] ED Note-Nursingon 01-18-2020 ED Note-Nursing Report recvd from ELLIS Han, care assumed at this time. 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 Do not sit, drive, or maintenance shop laborer one place for more than 30 minutes [...] pillow under your knees. ? Only take rels-brs-ohwistk or prescription medicines as directed by your caregiver. Dnql-ago-jqyvall medicines to reduce pain and inflammation are [...] Document Reviewed: 06/01/2014 ExitCare? Patient Information ?2015 [employer]. This information is not intended to replace advice given to you by your health care provider. Make sure you discuss any questions you have with your health care provider. Normal [facility] ED Patient Summaryon 020 ED Patient Summary [place] [id number] Patient Discharge Instructions Person Information Name: AMANDA DAVIES Age: 49 Years Arrival Date: 01/18/2020 17:34:38 Discharge Diagnosis: 1:Lumbosacral pain Primary Care Physician: Riley Daley DO Provider Information Primary Provider: Pedro Mcbride DO Advanced Straightedge Machine Operator Helper:Eric Brannon PA-C The exam and treatment you received in the Emergency Department were for an urgent problem and are not intended as complete care. It is important that you follow up with a doctor, nurse practitioner, or physician?s financial administrative assistant for ongoing care. If your symptoms become worse or you do not improve as expected and you are unable to reach your usual health care provider, you should return to the Emergency Department. We are available 24 hours a day. ESTRELLAISA AMANDA Kulkarni has been given the following list of patient education materials, prescriptions and follow-up instructions: Follow-up Instructions: With: Address: When: Riley [address], [facility] [address] [facility] [address] [employer] (1) In 3 days 01/21/2020 In the event that this physician does not participate in your insurance network, please consult with your insurance company to find a nearby participating provider. Patient Education Materials: Back Pain, Adult A MESSAGE TO ALL PATIENTS REGARDING OPIOIDS PRESCRIPTION OPIOIDS: WHAT YOU NEED TO KNOW Prescription opioids can be used to help relieve eabpigpm-ho-djvlsa pain and are often prescribed following a [...] be struggling with addiction, tell your health children's zoo caretaker and ask for guidance or call [facility] National Helpline at 9-942-549-GPQL. v Source: US Department of Health and Human Services/Center for Disease Control & Prevention [facility] Medications Given: Medication Dose Route No medications found. Medication Information: New Medications Printed Prescriptions acetaminophen-hydroco done ([place] 325 mg-5 mg oral tablet) 1 Tablets [...] Comment: Pharmacy Information: Thank you for choosing 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 Do not sit, drive, or maintenance shop laborer one place for more than 30 minutes [...] pillow under your knees. ? Only take wwzd-pna-difbyon or prescription medicines as directed by your caregiver. Ipbs-lpv-ggufzff medicines to reduce pain and inflammation are [...] Document Reviewed: 06/01/2014 ExitCare? Patient Information ?2014 [employer]. This information is not intended to replace advice given to you by your health care provider. Make sure you discuss any questions you have with your health care provider. IKEKE GARY L , have received the following patient education materials/instruction s and have verbalized understanding: Patient Education Materials: Back Pain, Adult Follow-up Instructions: With: Address: When: Riley Link [address] [facility] [place] [address] Business (1) In 3 days 01/21/2020 Patient Signature Date Clinician/Nurse Signature Date 01/18/2020 19:32:14 Normal [facility] Vital Signs Date Time Vital Sign Value Performing Clinician Facility 05-02-2022 16:15-0400 Body height 172.72 cm Jose Turk Other [employer] Other 05-02-2022 16:15-0400 Body mass index (BMI) [Ratio] 24.33 kg/m2 Jose Turk Other [employer] Other 05-02-2022 16:15-0400 Body weight 72.58 kg Jose Turk Other [employer] Other 03-28-2022 15:15-0500 Body height 172.72 cm Jose Turk Other [employer] Other 03-28-2022 15:15-0500 Body mass index (BMI) [Ratio] 24.33 kg/m2 Jose Turk Other [employer] Other 03-28-2022 15:15-0500 Body weight 72.58 kg Jose Turk Other [facility] [employer] Other 03-20-2022 16:47-0500 Diastolic blood pressure 93 mm[Hg] DO Shelby Ivette Work Phone: [facility] 03-20-2022 16:47-0500 Heart rate 69 /min DO Shelby Ivette Work Phone: [facility] 03-20-2022 16:47-0500 Respiratory rate 16 /min DO Shelby Ivette Work Phone: [facility] 03-20-2022 16:47-0500 SaO2% (BldA) [Mass fraction] 98 % DO Shelby Ivette Work Phone: [facility] 03-20-2022 16:47-0500 Systolic blood pressure 154 mm[Hg] DO Shelby Ivette Work Phone: [facility] 03-20-2022 15:34-0500 Body temperature 98 [degF] DO Shelby Ivette Work Phone: [facility] 03-20-2022 15:34-0500 Inhaled oxygen flow rate 8 L/min DO Shelby Ivette Work Phone: [facility] 03-20-2022 13:26-0500 Body height 171.45 cm DO Shelby Ivette Work Phone: [facility] 03-20-2022 13:26-0500 Body mass index (BMI) [Ratio] 24.8 kg/m2 DO Shelby Ivette Work Phone: [facility] 03-20-2022 13:26-0500 Body weight 73 kg DO Shelby Ivette Work Phone: [facility] 11-08-2021 10:30-0400 Body height 172.72 cm Jose Turk Other [employer] Other 11-08-2021 10:30-0400 Body mass index (BMI) [Ratio] 24.33 kg/m2 Jose Turk Other [employer] Other 11-08-2021 10:30-040 Body weight 72.58 kg Joes Turk Other [employer] Other Encounters Encounter Date Encounter Type Care Provider Facility Start: 07-14-2024 End: 07-14-2024 ambulatory JOSE R [facility] Start: 05-26-2024 End: 05-26-2024 [facility] Start: 05-21-2024 Evaluation and management of inpatient GREGDELBERT JUDD [facility] Start: 05-20-2024 Evaluation and management of inpatient MEREDITH [facility] Start: 05-20-2024 Evaluation and management of inpatient MEREDITH [facility] Start: 05-19-2024 End: 05-21-2024 Evaluation and management of inpatient BEAU DEWITT [facility] Start: 05-02-2022 End: 05-02-2022 ambulatory Jose Turk Other [employer] Other Start: 05-02-2022 Postop follow up vis it related to original px Jose Turk [facility] Start: 04-17-2022 End: 04-17-2022 ambulatory Jose Turk Other [employer] Other Start: 04-17-2022 Postop follow up vis it related to original px Teri Lares [facility] Start: 04-17-2022 Telephone encounter Jose [facility]EN [facility] Start: 03-28-2022 End: 03-28-2022 ambulatory Jose Turk Other [employer] Other Start: 03-28-2022 Postop follow up vis it related to original px Jose Turk [facility] Start: 03-20-2022 End: 03-20-2022 ambulatory Jose Turk Facility:[facility] Start: 03-20-2022 End: 03-20-2022 Admission to same day surgery center DO Shelby Ivette Work Phone: [facility] [place] Start: 03-20-2022 End: 03-20-2022 ambulatory DO Shelby C Ivette Work Phone: [facility] Work Phone: Start: 03-09-2022 End: 03-09-2022 ambulatory Jose Turk Facility:[facility] Start: 03-09-2022 End: 03-09-2022 Patient encounter procedure DO Shelby Ivette Work Phone: [facility] Work Phone: Start: 11-20-2021 End: 11-20-2021 ambulatory Jose Turk Other [employer] Other Start: 11-20-2021 Office outpatient visit 25 minutes Jose Turk [facility] Start: 11-15-2021 End: 11-15-2021 ambulatory Jose Turk Facility:[facility] Start: 11-15-2021 End: 11-15-2021 ambulatory PHYSICIAN NO [facility] Work Phone: Start: 11-15-2021 End: 11-15-2021 Patient encounter procedure PHYSICIAN NO [facility] [address] Start: 11-13-2021 End: 11-13-2021 ambulatory Jose Turk Other [employer] Other Start: 11-13-2021 Telephone encounter Jose Jonathan [facility] Start: 11-08-2021 Office outpatient ne w 45 minutes [facility] Start: 11-08-2021 End: 11-08-2021 ambulatory Jose Turk Facility:[facility] Start: 11-08-2021 End: 11-08-2021 ambulatory PHYSICIAN NO [facility] Work Phone: Start: 11-08-2021 End: 11-08-2021 Patient encounter procedure PHYSICIAN NO [facility] Procedures Date Procedure Procedure Detail Performing Clinician Start: 03-20-2022 Arthroscopy of knee DO Shelby Steele Work Phone: Start: 11-15-2021 MRI of left knee PHYSIC JES NO FAMILY Start: 11-08-2021 X-ray of left knee PHYS ICIAN NO FAMILY Plan of Treatment Date Care Activity Detail Author Start: 03-20-2022 [facility] Start: 03-20-2022 [facility] Patient referral [facility] Work Phone: Immunizations Immunization Date Immunization Notes Care Provider Fa [facility] 12-30-2020 COVID-19 Ad26.COV2.S (Michelle) DO Shelby Stelee Work Phone: [facility] Payers Date Payer Category Payer Private Health Insurance [id number] 2021 Self-pay 2021 Unknown [id number] Private Health Insurance [employer] [id number] Unknown [id number] Unknown [id number] Unknown [id number] Unknown [id number] Social History Date Type Detail Facility Tobacco smoking status NHIS Unknown if ever smoked [facility] Work Phone: Start: 1970 Sex Assigned At Male [facility] Sex Assigned At Sex Assigned At Bir th [facility] [employer] Other Goals Date Patient Goal Desired Activity /State Clinical Notes 11-08-2021 to 07-14-2024 Note Date & Type Note Facility 07-14-2024 Note DE Electrophysiology Consult Note [place] Cardiology - [facility] Reason for visit: Atrial fibrillation HPI: Amanda Davies Neha is a 54 y.o. year old with past medical history of CAD with a history of non-STEMI with cath revealing no obstructive lesions, hypertension, hyperlipidemia who was recently admitted from [facility] to [facility] with a history of atrial fibrillation. He does report a previous history of cardioversion on 09/05/2015 at [facility]. It is unclear as to why he was not on any blood thinners. When I reviewed the records it appeared that his initial presentation to the [facility] ED showed sinus tachycardia but given there was troponin elevation he was transferred to [facility]. EKG on presentation at [facility] was sinus. He did complain of occasional palpitations and following his discharge from [facility] was placed on a 30-day event [...] Year: No Utilities: Not At Risk (05/20/2024) [facility] Utilities Threatened with loss of utilities: No Health Literacy: Not on file Allergies: No Known Allergies Weight: 76.2kg Visit Vitals BP 140/88 (BP Location: Left arm, Patient Position: Sitting) Pulse 66 Ht 1.702 m (5' 7 ) Wt 76.2 kg (168 lb) SpO2 97% BMI 26.31 kg/m??? Smoking Status Never BSA 1.9 m??? Meds: Current Outpatient Medications on File Prior [...] Component Value Date HDL 37 05/20/2024 LDL KIMBERLEE (more content not included)... [facility] 05-26-2024 Note Cardiovascular Medic ine [facility] SUBJECTIVE Chief Complaint Patient presents with Hospital Follow-up Atrial Fibrillation Amanda Davies Sr. is a 54 y.o. male here for follow-up after his recent admission to [facility]. HPI PMHx: a.fib with hx of [...] [R07.9] Hospital course: History of Present Illness Amanda Davies is an 53 y.o. male who came from home with past medical history of atrial fibrillation presents as a direct admission from [facility] with a chief complaint of palpitations and [...] on a heparin drip and transferred to [facility] for higher level of care. Patient [...] in troponin concerning for a non-ST elevation OR Final Impression: 1) Normal coronary arteries Procedures [...] infiltrated over the right radial artery. A 6-[employer]rian [employer] Glidesheath slender was placed in right radial artery. Radial anti-vasospasm cocktail of verapamil 2.5 mg was administered through the sheath. All catheter exchanges were made over the [email or web address] guidewire. Coronary angiogram was performed with a [...] Problem List Diagnosis Chest pain Paroxysmal A-fib (CMS/[facility]) NSTEMI (non-ST elevated myocardial infarction) (CMS/[facility]) Arthritis of foot Closed fracture of calcaneus [...] orthopnea, palpitations, paroxysmal (more content not included)... [facility] 05-26-2024 Note Patient here for a 4 days follow up from [facility] for A-Fib. Patient states it was undetermined if he had an OR. Per patient no one really spoke to [...] monitor on. Review of Systems Constitutional: Negative. [facility] 05-21-2024 Note Hospital Medicine Discharge Summary Final Discharge Diagnosis: NSTEMI type 1 Paroxsymal atrial fibrillation Admission Diagnosis: Chest pain [R07.9] Hospital course: History of Present Illness Amanda Davies is an 53 y.o. male who came from home with past medical history of atrial fibrillation presents as a direct admission from [facility] with a chief complaint of palpitations and [...] on a heparin drip and transferred to [facility] for higher level of care. Patient [...] in troponin concerning for a non-ST elevation OR Final Impression: 1) Normal coronary arteries Procedures [...] infiltrated over the right radial artery. A 6-[employer] Glidesheath slender was placed in right radial artery. Radial anti-vasospasm cocktail of verapamil 2.5 mg was administered through the sheath. All catheter exchanges were made over the [email or web address] guidewire. Coronary angiogram was performed with a [...] Dear No primary care provider on file., Amanda is advised to follow up with you within 1-2 weeks. Items to follow up in ambulatory setting: None Follow-up with: Cardiology Scheduled appointments: Future Appointments Date Time Provider Department Center 05/29/2024 3:40 PM Behzad Holguin MD [facility] Your medication list START taking these [...] Medications These medications were sent to [facility] [place] [address] [address] [place] [address] [place] [address], [facility] [address] apixaban 5 mg tablet atorvastatin 80 mg tablet metoprolol succinate XL 25 mg 24 hr tablet Amanda has No Known Allergies. Disposition: Home or [...] [id number] 05/20/24 0016 (more content not included)... [facility] 05-20-2024 Note - cards consulted - cardiac cath today - currently on heparin drip [facility] 05-20-2024 Note - Patient reports hi story of A-fib s/p cardioversion, no longer on anticoagulation [facility] 05-20-2024 Note Hospital Medicine Daily Progress Note - 05/20/2024 1:09 PM; Room: [address] [place] [address] Admission: 05/19/2024 8:00 PM; Length of stay: 1 days THE HOSPITALIST TEAM PREFERS TO USE [employer] FOR NON-URGENT COMMUNICATION 7AM-7PM. IF I DO NOT RESPOND WITHIN 20 MINUTES OR URGENT MATTERS, PLEASE CALL THROUGH THE [employer]. FROM 7PM-7AM, PLEASE PAGE [phone](COVR). Code Status: Full Code Barriers to Discharge: cardiac cath Expected Discharge Date: 1 - 2 days Discharge Destination: home Overview Amanda Davies is an 53 y.o. male who came from home with past medical history of atrial fibrillation presents as a direct admission from [facility] with a chief complaint of palpitations and [...] on a heparin drip and transferred to [facility] for higher level of care. Patient [...] & Plan NSTEMI (non-ST elevated myocardial infarction) ([facility] [facility]) - cards consulted - cardiac cath today - currently on heparin drip Paroxysmal A-fib ([facility]) - Patient reports history of A-fib s/p [...] LDL 115 05/20/2024 No results found for: [id number] , IRON , TIBC , C3 , [...] Self Care () Signed Meredith Donis DO [facility] 05/20/2024 1:09 PM [facility] 05-20-2024 Note Case was discussed w [facility] the [facility] on 05/19/2024. I agree with the history, physical, assessment, and plan of care. I discussed the findings and therapeutic plan. I agree with the documentation, except for any updates below. Emily Bustillo MD [facility] 05-19-2024 Note Hospital Medicine History and Physical 05/20/2024 12:00 AM THE HOSPITALIST TEAM PREFERS TO USE [employer] CHAT FOR NON-URGENT COMMUNICATION 7AM-7PM. IF I DO NOT RESPOND WITHIN 20 MINUTES OR URGENT MATTERS, PLEASE CALL THROUGH THE [employer]. FROM 7PM-7AM, PLEASE PAGE [phone](COVR). Chief Complaint Direct admission from [facility] with CP History of Present Illness Amanda Davies is an 53 y.o. male who came from home with past medical history of atrial fibrillation presents as a direct admission from [facility] with a chief complaint of palpitations and [...] on a heparin drip and transferred to [facility] for higher level of care. Patient [...] Assessment & Plan Chest pain Paroxysmal A-fib (CMS/HCC) -Troponin at outside hospital 57-> 175, will [...] this hospital stay by a member of [facility]. Past Medical History No past medical [...] and Sexual Activ (more content not included)... [facility] 05-02-2022 Evaluation note Encounter Date Diagnosis Assessment Notes Apr, Injury of left knee, initial encounter (ICD-10 - S89.92XA) Apr, Internal derangement of left knee (ICD-10 - M23.92) Amanda is here now about 6 week s/p [...] Other specified postprocedural states (ICD-10 - Z98.890) [employer] Other 03-07-2023 Evaluation note* Encounter Date Diagnosis [...] reviewed with patient. Call with questions/concern s. [employer] Other 02-15-2023 Evaluation note* Encounter Date Diagnosis Assessment Notes Treatment Notes Treatment Clinical Notes Mar, Injury of left knee, initial encounter (ICD-10 - S89.92XA) Mar, Internal derangement of left knee (ICD-10 - M23.92) Amanda is here now 1 week s/p left [...] as documented in the electronic medical record. [employer] Other 02-07-2023 History general Narrative - Reported* Type Description Date Surgical History Foot Surgery Surgical History Arthroscopic partial left media l meniscectomy 03/20/2022 [employer] Other 10-10-2022 Evaluation note* Encounter Date Diagnosis Assessment Notes Treatment Notes Treatment Clinical Notes Nov, Injury of left knee, initial encounter (ICD-10 - S89.92XA) Nov, Internal derangement of left knee (ICD-10 - M23.92) Amanda presents with left knee pain and recurrent [...] as documented in the electronic medical record. [employer] Other 09-28-2022 Evaluation note* Encounter Date Diagnosis Assessment Notes Treatment Notes Treatment Clinical Notes Oct, Injury of left knee, initial encounter (ICD-10 - S89.92XA) Oct, Internal derangement of left knee (ICD-10 - M23.92) Amanda presents with left knee pain after twisting [...] as documented in the electronic medical record. [employer] Other Evaluation noteNo assessment information available [facility] Work Phone: Evaluation noteNo InformationNortChildren[facility] [employer] Other History general Narrative - Reported* Type Description Date Surgical History Foot Surgery [facility] [employer] Other Hospital Discharge instructions Additional Instructions Orthopedic [...] prescribed. You may take Tylenol or ibuprofen [id number] as instructed. You should take aspirin 81 mg twice daily for 3 weeks for DVT prophylaxis. If you have any increasing pain, fever chills, or abnormal drainage or surgical wound problems you should call the office. Your follow-up should be scheduled with Dr. Turk's office at [facility]. Please call to confirm your follow-up appointment. Dr. Jose Turk [facility] [address] [place] [address] [facility] Work Phone: Summary Purpose Family History No [...] section and content) DATE CREATED AUTHOR 01/24/2020 [facility] DATE CREATED AUTHOR AUTHOR'S ORGANIZ ATION 04/12/2022 [facility] DATE CREATED AUTHOR AUTHOR'S ORGANIZ ATION 07/17/2024 [facility] Care Teams (unrecognized sec tion and content) Team Status: Inactive Member Role Status Dates PHYSICIAN NO FAMILY Primary Care Provider Active Jose Turk , DO Attending Provider Active Team Status: Active Member Role Status Dates PHYSICIAN NO FAMILY Primary Care Provider Active Team Status: Inactive Member Role Status Dates Jose Turk , DO Attending Provider Active Shelby Steele , DO [...] BE BASED ON THE PRIMARY CLINICAL RECORDS. [employer] provides no warranty or guarantee of the accuracy or completeness of information in this document."
--- OUTSIDE RECORDS SUMMARY | 2024-07-18 06:38 | XMS_ITS | Encounter Summary ---
Author Organization [facility] Address [address] [place] [address] Care Team Providers Care Endodontic Assistant Name Role Phone Unavailable Primary Care Provider Unavailabl e Encounter Details Date Type Department Care Team (Late st Contact Info) Description 07/14/2024 Orders Only [facility] at [facility] [address] [place] [address] Nancy Russo MA Encounter for pre-operative examination; Sinus pause Social History Tobacco Use Types Packs/Day Years Used Date Smoking Tobacco: Never Smokeless Tobacco: Never Comments:chew Alcohol Use Standard Drinks/Week Comments Not Asked 0 (1 standard drink = 0.6 oz pur e alcohol) occasional [facility] Utilities Answer Date Recorded In the past 12 months has th e electric, gas, oil, or water [employer] threatened to shut off services in your [...] any time in the past 12 m [facility], were you homeless or living in a fpc (including now)? No 05/20/2024 Hunger Vital Sign [...] PM EDT documented as of this encounter Plan of Treatment Upcoming Encounters Date Type Department Care Team (Late st Contact Info) Description 07/23/2024 3:00 PM EDT Hospital Encounter [facility] Heart [facility] [address] [place] [phone] Blayne Chase MD [address] [place] [address] Sinus pause 07/23/2024 3:00 PM EDT - 07/23/2024 4:00 PM EDT Surgery Pending sale to [facility] [address] [place] [phone] Blayne Chase MD [address] [place] [phone] 305- Implant PPM [[id number]] Scheduled Orders Name Type Priority Associated Diagnoses Orde r Schedule Basic metabolic panel Lab Routine Encounter for pre-operative examination Expected: 07/14/2024 (Approximate), Expires: 07/14/2025 CBC and differential Lab Routine Encounter for pre-operative examination Expected: 07/14/2024 (Approximate), Expires: 07/14/2025 documented as of this encounter Visit Diagnoses Diagnosis Encounter for pre-operative examination Sinus pause Sinus pause- Primary Sinus pause documented in this encounter
--- OUTSIDE RECORDS SUMMARY | 2024-07-18 06:38 | XMS_ITS | Clinical Summary ---
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 Encounters Date Type Department Care Team Description 07/14/2024 9:15 AM EDT Office Visit [facility] [address] [place] [address] Blayne Chase MD Paroxysmal A-fib (CMS/HCC) (Primary Dx) 07/14/2024 Orders Only [facility] [address] [place] [address] Nancy Russo MA Encounter for pre-operative examination; Sinus pause 07/09/2024 Telephone [facility] [address] [place] [address] Margarita Laura MA 05/26/2024 2:40 PM EDT Office Visit [facility] [address] [place] [address] Sandra Bynum CNP Paroxysmal A-fib (CMS/HCC) (Primary Dx); Mixed hyperlipidemia; NSTEMI (non-ST elevated myocardial infarction) (CMS/HCC); Primary hypertension 05/20/2024 4:56 PM EDT - 05/20/2024 5:56 PM EDT Surgery [facility] Heart and V[facility] Center Vascular Lab [address] [place] [address] Jorge Whaley MD Coronary angiography [[id number] (CPT )] 05/20/2024 Travel 05/19/2024 8:00 PM EDT - 05/21/2024 1:26 PM EDT Hospital Encounter [facility] [address] [place] [address] Milton Fitch MD Schwarz, Stephanie, DO Chest pain (Primary Dx); NSTEMI (non-ST elevated myocardial infarction) (CMS/HCC); Paroxysmal A-fib (CMS/HCC) Discharge Disposition: Home or Self Care (01) from Last 3 Months Family History Medical History Relation Name Comments Stroke Brother Cancer Father COPD Mother Relation Name Status Comments Brother Alive Father Mother Sister Alive Social History Tobacco Use Types Packs/Day Years Used Date Smoking Tobacco: Never Smokeless Tobacco: Never Tobacco Cessation:Counseling Given: Not Answered Comments:chew Alcohol Use Standard Drinks/Week Comments Not Asked 0 (1 standard drink = 0.6 oz pur e alcohol) occasional [facility] Utilities Answer Date Recorded In the past 12 months has th e [employer], gas, oil, or water [employer] threatened to shut off services in your [...] any time in the past 12 m [facility], were you homeless or living in a senior living (including now)? No 05/20/2024 Hunger Vital Sign [...] Description 07/23/2024 3:00 PM EDT Hospital Encounter [facility] Vascular Lab [address] [place] [id number] Blayne Chase MD [address] [place] [address] Sinus pause 07/23/2024 3:00 PM EDT - 07/23/2024 4:00 PM EDT Surgery [facility] Vascular Lab [address] [place] [address] Blayne Chase MD [address] [place] [address] Implant PPM [[id number]] Health Maintenance Due Date Last Done Comments CT Colonography 1969 Colonoscopy 1969 Colorectal Cancer Screening 1969 FIT-DNA 1969 FIT 1969 FOBT 1969 Sigmoidoscopy 1969 Pneumococcal Vaccine: Pediat rics (0 to 5 Years) and At-Risk Patients (6 to 64 Years) (1 of 2 - PCV) 05/26/1975 02/06/2011 Depression Screening 1981 Hepatitis B Vaccines (1 of 3 - 19+ 3-dose series) 1988 Adult Tetanus 05/26/1991 Zoster Vaccines (1 of 2) 05/26/2019 Influenza Vaccine (Season Ended) 2024 12/16/19 15 HIB Vaccines Aged Out No longer eligi ble based on patient's age to complete this topic HPV Vaccines Aged Out No longer eligi ble based on patient's age to complete this topic IPV Vaccines Aged Out No longer eligi ble based on patient's age to complete this topic Meningococcal B Vaccine Aged Out No l onger eligible based on patient's age to complete this topic Meningococcal Vaccine Aged Out No yee faheem eligible based on patient's age to complete this topic Rotavirus Vaccines Aged Out No longer eligible based on patient's age to complete this topic Procedures Procedure Name Priority Date/Time Associated Diagnosis [...] EDT Narrative 06/23/2024 11:52 AM EDT 1 [facility] Heart Station [address] [place] [address] [phone] (fax) Event Recorder-[facility] Name: [facility] Study Date: 05/23/2024 12:30 PM Date of : 1970 Location: [facility] Height: Age: 53 year(s) Patient Room: 3135 [...] bpm Time Longest SVE Run 03:03 day Beats Fastest SVE Run 7 Rate Fastest SVE Run 119 bpm Time Fastest SVE Run 21:23 day 18 Procedure Staff Reading Group: [facility] Ordering Physician: JORGE WHALEY Heading Matcher And Assembler: Cony Norton Procedure Note Zenaida Obrien MD - 06/23/2024 1 [facility] Heart Station [address] [place] [address] [phone] (fax) Event [facility] Name: [facility] Study Date: 05/23/2024 12:30 PM Date of : 1970 Location: [facility] Height: Age: 53 year(s) Patient Room: 3135 [...] of 37 BPM (1.6s), occurring on day at 03:02. -Longest asystole with duration of [...] HR 18:17 Time of Min. HR 02:42 day Time of Max.RR-Int. 17:47 Max. HR 145 [...] 21:23 day 18 Procedure Staff Reading Group: [facility] Ordering Physician: JORGE WHALEY Heading Matcher And Assembler: Cony Norton Jorge Whaley MD CV CARDIAC SERVICE S PROCEDURES * Magnesium (05/21/2024 5:05 AM EDT) Only the most recent of3 resultswithin the time period is included. Magnesium 1.9 1.9 - 2.7 mg/dL 05/21/2024 5:47 AM EDT [facility] ([place]) Blood Venous blood specimen / Unknown Arterial Line / Unknown 05/21/2024 5:05 AM EDT 05/21/2024 5:14 AM EDT Jorge Whaley MD LAB BLOOD ORDERABL ES [facility] ([facility]) [address] [place] [address] * Basic metabolic panel (05/21/2024 5:05 AM EDT) Only the most recent of2 resultswithin the time period is included. Sodium 137 136 - 145 mmol/L 05/21/2024 5:47 AM EDT [facility] ([facility]) Potassium 4.1 3.5 - 5.1 mmol/L 05/21/2024 5:47 AM EDT [facility] ([facility]) Chloride 105 98 - 107 mmol/L 05/21/2024 5:47 AM EDT [facility] ([facility]) CO2 29 21 - 31 mmol/L 05/21/2024 5:47 AM EDT [facility] ([facility]) BUN 17 7 - 25 mg/dL 05/21/2024 5:47 AM EDT [facility] ([facility]) Creatinine 1.14 0.70 - 1.30 mg/dL 05/21/2024 5:47 AM EDT [facility] ([facility]) Glucose 79 70 - 100 mg/dL 05/21/2024 5:47 AM EDT [facility] ([facility]) Calcium 8.7 8.6 - 10.3 mg/dL 05/21/2024 5:47 AM EDT [facility] ([facility]) Anion Gap 7 7 - 20 mmol/L 05/21/2024 5:47 AM EDT [facility] ([facility]) eGFR 76.4 >60.0 mL/min/1. 73m*2 05/21/2024 5:47 AM EDT [facility] ([facility]) Comment:[facility] s estimated glomerular filtration rate (eGFR) [...] BUN/Creatinine Ratio 14.9 05/12 5:47 AM EDT [facility] ([facility]) Blood Venous blood specimen / Unknown Arterial Line / Unknown 05/21/2024 5:05 AM EDT 05/21/2024 5:14 AM EDT Jorge Wahley MD LAB BLOOD ORDERABL ES [facility] ([facility]) [address] [place] [address] * CORONARY ANGIOGRAPHY (05/20/2024 7:36 PM EDT) Anatomical Region Laterality Modality Other Narrative 05/20/2024 7:46 PM EDT PROCEDURE PHYSICIAN: Jorge Whaley MD Clinical Presentation: 53 y.o. Male with history of atrial fibrillation and a rise in troponin concerning for a non-ST elevation [place] Final Impression: 1) Normal coronary arteries Procedures [...] infiltrated over the right radial artery. A 6-Prydeinig Terumo Glidesheath slender was placed in right [...] Study Details NSTEMI (non-ST elevated myocardial infarction) ([facility]) [I21.4] Meredith Donis DO CV CARDIAC CATH PRO CEDURES * (ABNORMAL) High Sensitivity Troponin I (05/20/2024 6:14 PM EDT) Only the most recent of4 resultswithin the time period is included. High Sensitivity Troponin I 64(HH) <20 ng/L 05/20/2024 7:20 PM EDT [facility] ([facility]) Blood Venous blood specimen / Unknown Arterial Line / Unknown 05/20/2024 6:14 PM EDT 05/20/2024 6:38 PM EDT Brandi Parker CNP LAB BLOOD ORDERABLES Performing Organization Address City/[facility]/ZIP Co de Phone Number [facility]) [address] [place] [address] * Anti-Xa (Heparin Level) (05/20/2024 6:14 PM EDT) Only the most recent of3 resultswithin the time period is included. Anti-Xa (Heparin) 0.41 0.3 - 0.7 IU/mL 05/20/2024 6:53 PM EDT [facility] ([facility]) Comment:Rivaroxaban and Apix aban will interfere with the anti Xa assay used to monitor UFH and LMWH. Blood Venous blood specimen / Unknown Arterial Line / Unknown 05/20/2024 6:14 PM EDT 05/20/2024 6:29 PM EDT Milton Fitch MD LAB BLOOD ORDERABLES Performing Organization Address City/[facility]/ZIP Co de Phone Number [facility]) [address] [place] [address] * COMPLETE ECHO (TTE) (05/20/2024 3:25 PM EDT) Anatomical Region Laterality Modality Other 05/20/2024 3:06 PM EDT Narrative 05/20/2024 4:27 PM EDT 1 1 [facility] Heart Station [address] [place] [address] [phone] (fax) Echocardiogram-[facility] Name: [facility] Study Date: 05/20/2024 03:06 PM B/P: 142 mmHg/84 mmHg HR: 65 bpm Date of : 1970 Location: [facility] Height: 68 in. Age: 53 year(s) Patient [...] No pericardial effusion. Procedure Staff Reading Group: [facility] Referring Physician: Carolyn Regalado MD Medicare Compliance Auditor: BRIAN Adame Ordering Physician: MEREDITH DONIS Procedure Note Juan Pablo Burgess MD - 05/20/2024 1 1 [facility] Heart Station [address] [place] [address] [phone] (fax) Echocardiogram-[facility] Name: [facility] Study Date: 05/20/2024 03:06 PM B/P: 142 mmHg/84 mmHg HR: 65 bpm Date of : 1970 Location: [facility] Height: 68 in. Age: 53 year(s) Patient [...] No pericardial effusion. Procedure Staff Reading Group: [facility] Referring Physician: Carolyn Regalado MD Medicare Compliance Auditor: BRIAN Adame Ordering Physician: MEREDITH DONIS Meredith Donis DO CV ECHO PROCEDURES * ECG 12 lead (05/20/2024 1:01 PM EDT) Only the most recent of2 resultswithin the time period is included. Ventricular Rate 67 BPM GE MUSE Atrial Rate 67 BPM GE MUSE MA Interval 172 ms GE MUSE QRS DURATION 86 ms GE MUSE QT Interval 414 ms GE MUSE QTC CALCULATION(BAZE TT) 437 ms GE MUSE P [place] 69 degrees GE MUSE R-[place] 35 degrees GE MUSE T Wave [place] 37 degrees GE MUSE 05/20/2024 12:4 6 [...] Hold for add-ons. 05/20/2024 1:01 PM EDT [facility] ([facility]) Comment:Auto resulted. Blood Venous blood specimen / Unknown 05/20/2024 11:28 AM EDT 05/20/2024 11:51 AM EDT Meredith Donis DO LAB BLOOD ORDERABLE S [facility]) [address], [place] [id number] * TSH3 Reflex to FT4 (05/20/2024 5:56 AM EDT) TSH 2.41 0.34 - 5.60 mIU/L 05/20/2024 9:26 AM EDT [facility] ([facility]) Blood Venous blood specimen / Unknown Arterial Line / Unknown 05/20/2024 5:56 AM EDT 05/20/2024 5:56 AM EDT Wally Benson MD LAB BLOOD ORDERABLES [facility] ([facility]) [address] [place] [address] * CBC (05/20/2024 5:56 AM EDT) Auto WBC 4.96 4.00 - 10.60 10*3/uL 05/20/2024 6:30 AM EDT [facility] ([facility]) RBC 5.09 4.20 - 5.70 10*6/uL 05/20/2024 6:30 AM EDT [facility] ([facility]) Hemoglobin 14.8 13.0 - 17.0 g/dL 05/20/2024 6:30 AM EDT [facility] ([facility]) Hematocrit 43.9 39.0 - 50.0 % 05/20/2024 6:30 AM EDT [facility] ([facility]) MCV 86.2 82.0 - 98.0 fL 05/20/2024 6:30 AM EDT [facility] ([facility]) MCH 29.1 27.0 - 33.0 pg 05/20/2024 6:30 AM EDT [facility] ([facility]) MCHC 33.7 32.0 - 35.0 g/dL 05/20/2024 6:30 AM EDT [facility] ([facility]) RDW 12.3 11.5 - 15.0 % 05/20/2024 6:30 AM EDT [facility] ([facility]) Platelets 244 150 - 400 10*3/uL 05/20/2024 6:30 AM EDT [facility] ([facility]) Blood Venous blood specimen / Unknown Arterial Line / Unknown 05/20/2024 5:56 AM EDT 05/20/2024 5:56 AM EDT Brandi Parker [facility] LAB BLOOD ORDERABLES [facility] ([facility]) [address] [place] [address] * Lipid panel (05/20/2024 5:56 AM EDT) Triglycerides 72 <150 mg/dL 05/20/2024 9:26 AM EDT [facility] ([facility]) Comment: TRIGLYCERIDE REFERENCE RANGE: 20 YEARS AND OLDER CARDIOVASCULAR RISK LESS THAN 150 mg/dL LOW RISK 150 TO 199 mg/dL BORDERLINE RISK 200 mg/dL AND GREATER HIGH RISK Cholesterol 152 120 - 200 mg/dL 05/20/2024 9:26 AM EDT [facility] ([facility]) LDL Calculated 101 0 - 160 mg/dL 05/20/2024 9:26 AM EDT [facility] ([facility]) HDL 37 23 - 92 mg/dL 05/20/2024 9:26 AM EDT [facility] ([facility]) Non HDL Cholesterol 115 05/20/2024 9:26 AM EDT [facility] ([facility]) Total VLDL-C 14 0 - 40 mg/dL 05/20/2024 9:26 AM EDT [facility] ([facility]) Cholesterol/HDL Ratio 4.1 mg/dL 05/20/2024 9:26 AM EDT [facility] ([facility]) Blood Venous blood specimen / Unknown Arterial Line / Unknown 05/20/2024 5:56 AM EDT 05/20/2024 5:56 AM EDT Meredith Donis DO LAB BLOOD ORDERABLE S [facility] ([facility]) [address] [place] [address] * CBC auto differential (05/20/2024 12:16 AM EDT) Auto WBC 5.84 4.00 - 10.60 10*3/uL 05/20/2024 1:26 AM EDT [facility] ([facility]) RBC 4.96 4.20 - 5.70 10*6/uL 05/20/2024 1:26 AM EDT [facility] ([facility]) Hemoglobin 14.6 13.0 - 17.0 g/dL 05/20/2024 1:26 AM EDT [facility] ([facility]) Hematocrit 42.3 39.0 - 50.0 % 05/20/2024 1:26 AM EDT [facility] ([facility]) MCV 85.3 82.0 - 98.0 fL 05/20/2024 1:26 AM EDT [facility] ([facility]) MCH 29.4 27.0 - 33.0 pg 05/20/2024 1:26 AM EDT [facility] ([facility]) MCHC 34.5 32.0 - 35.0 g/dL 05/20/2024 1:26 AM EDT [facility] ([facility]) RDW 12.4 11.5 - 15.0 % 05/20/2024 1:26 AM EDT [facility] ([facility]) Neutrophils % 52.0 40.0 - 72.0 % 05/20/2024 1:26 AM EDT [facility] ([facility]) Lymphocytes % 34.8 20.0 - 45.0 % 05/20/2024 1:26 AM EDT [facility] ([facility]) Monocytes % 9.6 5.0 - 12.0 % 05/20/2024 1:26 AM EDT [facility] ([facility]) Eosinophils % 2.7 0.0 - 6.0 % 05/20/2024 1:26 AM EDT [facility] ([facility]) Basophils % 0.7 0.0 - 1.0 % 05/20/2024 1:26 AM EDT [facility] ([facility]) Neutrophils Absolute 3.04 1.60 - 7.60 10*3/uL 05/20/2024 1:26 AM EDT [facility] ([facility]) Lymphocytes Absolute 2.03 1.20 - 4.00 10*3/uL 05/20/2024 1:26 AM EDT [facility] ([facility]) Monocytes Absolute 0.56 0.10 - 1.00 10*3/uL 05/20/2024 1:26 AM EDT [facility] ([facility]) Eosinophils Absolute 0.16 0.00 - 0.50 10*3/uL 05/20/2024 1:26 AM EDT [facility] ([facility]) Basophils Absolute 0.04 0.00 - 0.20 10*3/uL 05/20/2024 1:26 AM EDT [facility] ([facility]) Platelets 254 150 - 400 10*3/uL 05/20/2024 1:26 AM EDT [facility] ([facility]) nRBC % 0.0 0 % 05/20/2024 1:26 AM EDT [facility] ([facility]) Immature Granulocytes % 0.2 0.0 - 1.0 % 05/20/2024 1:26 AM EDT [facility] ([facility]) Immature Granulocytes Absolute 0.01 0.00 - 0.20 10*3/uL 05/20/2024 1:26 AM EDT [facility]) Blood Venous blood specimen / Unknown Arterial Line / Unknown 05/20/2024 12:16 AM EDT 05/20/2024 1:04 AM EDT Brandi Parker [facility] BLOOD ORDERABLES [facility]) [address] [place] [address] * (ABNORMAL) aPTT - baseline (05/20/2024 12:16 AM EDT) aPTT 40.8(H) 25.0 - 35.0 Seconds 05/20/2024 2:12 AM EDT [facility] ([facility]) Comment:Clinical significanc e of the APTT is questionable in the presence of heparin. Blood Venous blood specimen / Unknown Arterial Line / Unknown 05/20/2024 12:16 AM EDT 05/20/2024 12:50 AM EDT Brandi Parker [facility] BLOOD ORDERABLES [facility] ([facility]) [address] [place] [address] * Protime-INR (05/20/2024 12:16 AM EDT) Protime 12.4 12.3 - 14.8 Seconds 05/20/2024 2:11 AM EDT [facility] ([facility]) INR 0.92 0.90 - 1.10 05/20/2024 2:11 AM EDT [facility] ([facility]) Comment: ACCCP RECOMMENDED INR FOR [...] AM EDT 05/20/2024 12:50 AM EDT [facility] Performing Organization Address City/[facility]/ZIP Co de Phone Number [facility]) [address] [place] [address] * Phosphorus (05/20/2024 12:16 AM EDT) Phosphorus 4.3 2.5 - 5.0 mg/dL 05/20/2024 2:02 AM EDT [facility] ([facility]) Blood Venous blood specimen / Unknown Arterial Line / Unknown 05/20/2024 12:16 AM EDT 05/20/2024 1:04 AM EDT [facility] Performing Organization Address City/[facility]/ZIP Co de Phone Number [facility]) [address] [place] [address] * Comprehensive metabolic panel (05/20/2024 12:16 AM EDT) Sodium 140 136 - 145 mmol/L 05/20/2024 2:02 AM EDT [facility] ([facility]) Potassium 3.7 3.5 - 5.1 mmol/L 05/20/2024 2:02 AM EDT [facility] ([facility]) Chloride 106 98 - 107 mmol/L 05/20/2024 2:02 AM EDT [facility] ([facility]) CO2 27 21 - 31 mmol/L 05/20/2024 2:02 AM EDT [facility] ([facility]) Anion Gap 11 7 - 20 mmol/L 05/20/2024 2:02 AM EDT [facility] ([facility]) BUN 16 7 - 25 mg/dL 05/20/2024 2:02 AM EDT [facility] ([facility]) Creatinine 0.95 0.70 - 1.30 mg/dL 05/20/2024 2:02 AM EDT [facility] ([facility]) BUN/Creatinine Ratio 16.8 04/10/2024 2:02 AM EDT [facility] ([facility]) Glucose 94 70 - 100 mg/dL 05/20/2024 2:02 AM EDT [facility] ([facility]) Calcium 8.9 8.6 - 10.3 mg/dL 05/20/2024 2:02 AM EDT [facility] ([facility]) AST 22 13 - 39 U/L 05/20/2024 2:02 AM EDT [facility] ([facility]) ALT (SGPT) 21 7 - 52 U/L 05/20/2024 2:02 AM EDT [facility] ([facility]) Alkaline Phosphatase 56 34 - 104 U/L 05/20/2024 2:02 AM EDT [facility] ([facility]) Total Protein 6.4 6.0 - 8.3 g/dL 05/20/2024 2:02 AM EDT [facility] ([facility]) Albumin 4.0 3.5 - 5.7 g/dL 05/20/2024 2:02 AM EDT [facility] ([facility]) Total Bilirubin 0.3 0.3 - 1.0 mg/dL 05/20/2024 2:02 AM EDT [facility] ([facility]) eGFR 95.1 >60.0 mL/min/1. 73m*2 05/20/2024 2:02 AM T [facility] ([facility]) Comment:[facility] s estimated glomerular filtration rate (eGFR) [...] EDT 05/20/2024 1:04 AM EDT Brandi Parker [facility] BLOOD ORDERABLES [facility] ([facility]) [address] [place] [address] from Last 3 Months Advance Directives * Full Code (Latest Code Status on File) Date Activated Date Inactivated Comments 05/19/2024 11:57 PM 05/21/2024 3:26 PM
[2024-07-18 07:01] LABS: Basophils Percent Auto 0.5 % (0.2-2.0); Eosinophils Absolute Auto 0.2 10^3/uL (0.0-0.7); Eosinophils Percent Auto 2.7 % (0.9-7.0); Hematocrit 41.4 % (42.0-54.0); Hemoglobin 14.2 g/dL (14.0-18.0); Immature Granulocytes Abs Auto 0.01 10^3/uL (0.00-0.03); Immature Granulocytes Pct Auto 0.2 % (0.0-0.5); Lymphocytes Absolute Auto 1.7 10^3/uL (1.2-3.8); Lymphocytes Percent Auto 30.2 % (20.5-60.0); Mean Corpuscular HGB Conc 34.3 g/dL (29.9-35.2); Mean Corpuscular Hemoglobin 29.3 pg (25.9-34.0); Mean Corpuscular Volume 85.5 fL (80.0-94.0); Mean Platelet Volume 9.3 fL (9.5-13.5); Monocytes Absolute Auto 0.5 10^3/uL (0.3-0.8); Monocytes Percent Auto 9.7 % (1.7-12.0); Neutrophils Absolute Auto 3.1 10^3/uL (1.4-6.5); Neutrophils Percent Auto 56.7 % (43.0-75.0); Platelet Count 255 10^3/uL (150-450); Red Blood Count 4.84 10^6/uL (4.70-6.10); Red Cell Distribution Width 12.3 % (11.0-15.0); White Blood Count 5.5 10^3/uL (4.0-11.0)
[2024-07-18 07:27] LABS: BUN Creatinine Ratio 18.3; Calcium 8.9 mg/dL (8.5-10.1); Chloride 105 mmol/L (98-107); Estimated GFR (African America >60 (>=60 mL/min/1.73m^2); Estimated GFR (Non-African Ame >60 (>=60 mL/min/1.73m^2); Glucose 130 mg/dL (74-106); Potassium 4.1 mmol/L (3.5-5.1); Sodium 142 mmol/L (136-145)
[2024-07-18 07:31] LABS: Carbon Dioxide 33.1 mmol/L (21.0-32.0)
== END 2024-07-18 06:36 | disposition home or self-care (01) ==
LOC: LAB 06:36
PROVIDERS: Visit Provider Internal Medicine Cardiovascular Disease
DX: Z01.812 Encounter for preprocedural laboratory examination (principal); Z01.818 Encounter for other preprocedural examination
CPT/HCPCS: 36415; 80048; 85025

== ENCOUNTER 2024-07-24 13:30 | Outpatient (OUT) | payer OTHER, SELFPAY ==
--- OUTSIDE RECORDS SUMMARY | 2024-07-14 09:15 | XMS_ITS | Encounter Summary ---
Author Organization [facility] Address [address] [place] [address] Care Team Providers Care Hearing Instrument Specialist Name Role Phone Unavailable Primary Care Provider Unavailabl e Encounter Details Date Type Department Care Team ([facility] st Contact Info) Description 07/14/2024 9:15 AM EDT Office Visit [facility] [address] [place] [address] Blayne Chase MD [address] [place] [phone] Paroxysmal A-fib (CMS/HCC) (Primary Dx) Social History Tobacco Use Types Packs/Day Years Used Date Smoking Tobacco: Never Smokeless Tobacco: Never Comments:chew Alcohol Use Standard Drinks/Week Comments Not Asked 0 (1 standard drink = 0.6 oz pur e alcohol) occasional C Utilities Answer Date Recorded In the past 12 months has e [employer], gas, oil, or water [employer] threatened to shut off services in your [...] any time in the past 12 m [facility], were you homeless or living in a nursing home (including now)? No 05/20/2024 Hunger Vital Sign Answer Date Recorded Within the past 12 months, y ou worried that your food would run out before you got the money to buy more. Never true 05/21/19 25 Ran Out of Food in the Last Year Not on file 05/20/2024 Sex and Gender Information Value Date Recorded Sex Assigned at Male 05/20/2024 12:53 PM EDT Legal Sex Male 10:43 PM EDT Gender Identity Male 05/20/2024 12:53 [...] from the original note were not included. [place] [facility] Consult [place] [facility] Reason for visit: Atrial fibrillation HPI: Fer Shad Kuhn Sr. is a 54 y.o. year old with past medical history of CAD with a history of non-STEMI with cath revealing no obstructive lesions, hypertension, hyperlipidemia who was recently admitted from [facility] to [facility] with a history of atrial fibrillation. He does report a previous history of cardioversion on 09/05/2015 at [facility]. It is unclear as to why he was not on any blood thinners. When I reviewed the records it appeared that his initial presentation to the [place] ED showed sinus tachycardia but given there was troponin elevation he was transferred to [facility]. EKG on presentation at [facility] was sinus. He did complain of occasional palpitations and following his discharge from [facility] was placed on a 30-day event monitor [...] Year: No Utilities: Not At Risk (05/20/2024) [facility] Utilities Threatened with loss of utilities: [...] Value Ventricular Rate 67 Atrial Rate 67 ND Interval 172 QRS DURATION 86 QT Interval 414 QTC CALCULATION(BAZETT) 437 P [place] 69 R-[place] 35 T Wave [place] 37 Impression Normal sinus rhythm Normal ECG [...] the procedure. Blayne Chase MD Cardiac Electrophysiology [facility] documented in this encounter Plan of Treatment Upcoming Encounters Date Type Department Care Team (Late st Contact Info) Description 08/03/2024 9:00 AM EDT Office Visit [facility] [address] [place] [phone] Brannon Saul MD [address] [facility] [address] [facility] [place] [phone] documented as of this encounter Visit Diagnoses Diagnosis Paroxysmal A-fib (CMS/HCC)- Primary documented in this encounter
--- OUTSIDE RECORDS SUMMARY | 2024-07-23 06:50 | XMS_ITS | Encounter Summary ---
Author Organization 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 Name Role Phone Unavailable Primary Care Provider Unavailabl e Reason for Referral * (Routine) - Pending Review Specialty Diagnoses / Procedures Referred By Contac t Referred To Contact Procedures ECG 12 lead Blayne Chase MD [address] [place] [address] Phone: tel: fax: Referral ID Status Reason Start Date Expiration Date V isits Requested Visits Authorized [id number] Pending Review 07/23/2024 07/23/2025 1 1 * (Routine) - Pending Review Specialty Diagnoses / Procedures Referred By Contac t Referred To Contact Diagnoses Chest pain Procedures ECG 12 lead Blayne Chase MD [address] [place] [address] Phone: tel: fax: Referral ID Status Reason Start Date Expiration Date V isits Requested Visits Authorized [id number] Pending Review 07/23/2024 07/23/2025 1 1 * (Routine) - Pending Review Specialty Diagnoses / Procedures Referred By Contac t Referred To Contact Procedures ECG 12 lead Blayne Chase MD [address] [place] [address] Phone: tel: fax: Referral ID Status Reason Start Date Expiration Date V isits Requested Visits Authorized [id number] Pending Review 07/23/2024 07/23/2025 1 1 Reason for Visit * Auth/Cert (Routine) Specialty Diagnoses / Procedures Referred By Contchrissie t Referred To Contact Diagnoses Sinus pause Sinus pause [I45.5] Procedures NM OFFICE/OUTPT VISIT,PROCEDURE ONLY NM INS NEW/RPLCMT PRM PM W/TRANSV ELTRD ATRIAL&VENT NM PMKR, DUAL, RATE-RESP NM LEAD, PMKR, OTHER THAN TRANS Implant PPM Blayne Chase MD [address] [place] [address] Phone: tel: fax: [facility] [address] [place] [address] Phone: tel: fax: Referral ID Status Reason Start Date Expiration Date Visits Re quested Visits Authorized [id number] 1 1 Encounter Details Date Type Department Care Team (Late st Contact Info) Description 07/23/2024 6:50 AM EDT - 07/23/2024 1:37 PM EDT Hospital Encounter [facility] [address] [place] [address] Blayne Chase MD [address] [place] [address] Chest pain (Primary Dx); Sinus pause Discharge Disposition: Home or Self Care () Social History Tobacco Use Types Packs/Day Years Used Date Smoking Tobacco: Never Smokeless Tobacco: Never Comments:chew Alcohol Use Standard Drinks/Week Comments Not Asked 0 (1 standard drink = 0.6 oz pur e alcohol) occasional C Utilities Answer Date Recorded In the past 12 months has e electric, gas, oil, or water Imagry threatened to shut off services in your [...] time in the past 12 m [facility], were you homeless or living in a fci (including now)? No 05/20/2024 Hunger Vital Sign [...] Sign Reading Time Taken Comments Blood Pressure 169/95 07/23/2024 1:15 PM EDT Pulse 61 07/23/2024 1:15 PM EDT Temperature - - Respiratory Rate 12 07/23/2024 1:15 PM EDT Oxygen Saturation 99% 07/23/2024 1:15 PM EDT Inhaled Oxygen Concentration - - Weight - - Height - - Body Mass Index - - documented in this encounter Discharge Instructions * Attachments The following attachments cannot be sent through Care Everywhere. * Moderate Conscious Sedation Adult Care After (Djiboutian) * Pacemaker Implantation Adult Care After ([place]jiboutian) documented in this encounter Medications at Time of Discharge apixaban (Eliquis) 5 mg tabletIndications:Pa roxysmal A-fib (CMS/HCC) Take 1 tablet (5 mg) by mouth two times daily. 180 tablet 3 05/26/2024 6 atorvastatin (Lipitor) 40 mg tabletIndications:Mi xed hyperlipidemia Take 1 tablet (40 mg) by mouth in the morning. 90 tablet 3 05/26/2024 6 metoprolol succinate XL (Toprol-XL) 50 mg 24 hr tabletIndications:Pa roxysmal A-fib (CMS/HCC) Take 1 tablet (50 mg) by mouth in the morning. Do not crush or chew. 90 tablet 1 05/26/2024 5 documented as of this encounter H&P Notes * Blayne Chase MD - 07/23/2024 9:12 AM EDT Images from the original note were not included. [place] [facility] Consult Note [place] [facility] - [facility] Reason for visit: Atrial fibrillation HPI: Fer Kulkarni Hattie Paez is a 54 y.o. year old with past medical history of CAD with a history of non-STEMI with cath revealing no obstructive lesions, hypertension, hyperlipidemia who was recently admitted from [facility] to [facility] with a history of atrial fibrillation. He does report a previous history of cardioversion on 09/05/2015 at [facility]. It is unclear as to why he wasnot on any blood thinners. When I reviewed the records it appeared that his initial presentation [facility] ED showed sinus tachycardia but given there was troponin elevation he was transferred to [facility]. EKG on presentation at [facility] was sinus. He did complain of occasional palpitations and following his discharge from [facility] was placed on a 30-day [...] Procedure Laterality Date CARDIAC CATHETERIZATION SH: Social Drivers of Health Tobacco Use: Low Risk (07/14/2024) [...] Year: No Utilities: Not At Risk (05/20/2024) [facility] Utilities Threatened with loss of utilities: No Health Literacy: Not on file Allergies: No Known Allergies Weight: 76.2kg Visit Vitals BP (!) 170/91 Pulse 60 Resp 16 SpO2 100% Smoking Status Never Meds: No current facility-administered medications on file prior to encounter. Current Outpatient Medications on File Prior to Encounter Medication Sig Dispense Refill apixaban (Eliquis) 5 mg tablet Take 1 tablet (5 mg) by mouth two times daily. 180 tablet 3 atorvastatin (Lipitor) 40 mg tablet Take 1 tablet (40 mg) by mouth in the morning. 90 tablet 3 metoprolol succinate XL (Toprol-XL) 50 mg 24 hr tablet Take 1 tablet (50 mg) by mouth in the morning. Do not crush or chew. 90 tablet 1 ROS: Review of Systems Cardiovascular: Positive for [...] 05/20/2024 TSH 2.41 05/20/2024 EKG: Encounter Date: 07/23/24 ECG 12 lead Result Value Ventricular Rate 50 Atrial Rate 50 NM Interval 188 QRS DURATION 88 QT Interval 420 QTC CALCULATION(BAZETT) 382 P [place] 55 R-[place] 30 T Wave [place] 26 Impression Sinus bradycardia Otherwise normal ECG When compared with ECG of 20-MAY-2024 12:46, No significant change was found Echo: 05/20/2024 Stress test: Coronary angiogram: @CATH@ [...] the procedure. Blayne Chase MD Cardiac Electrophysiology [facility] documented in this encounter Procedure Notes * Blayne Chase MD - 07/23/2024 11:49 AM EDT DUAL CHAMBER PACEMAKER IMPLANT PROCEDURE NOTE DATE OF PROCEDURE: 07/23/24 PERFORMING PHYSICIAN: Dr. Blayne Chase CONSENT: Patient LOCATION: EP Lab PROCEDURE PERFORMED: 1. Implantation of pacemaker ([employer]) 2. Ultrasound guided venous access INDICATIONS: 1. Sinus node dysfunction. 2. Symptomatic sinus bradycardia. PROCEDURAL SEDATION: Versed and Fentanyl. Moderate sedation was administered by the sedation nurse under my supervision and noted in the CVL log. Intraprocedural face to face sedation time: 115min. Monitoring: Cardiac telemetry, Blood pressure, continuous pulse oxymetry. FLUOROSCOPY TIME: 7.6min/ 36mGray. EBL: 15cc SPECIMEN REMOVED: None PREPARATION: 54year old with past medical history of CAD with a history of non- STEMI with cath revealing no obstructive lesions, hypertension, hyperlipidemia who was recently admitted from [facility] to [facility] with a history of atrial fibrillation. He does report a previous history of cardioversion on 09/05/2015 at [facility]. 30d event monitor shows evidence of sinus pause that occurred on 05/29/2024 at 12:25 PM as well as on Jun 18 2024 at 5:46 PM with symptomatic with dizzinss and near syncope. After discussion, the plan was made to proceed with pacemaker. PROCEDURAL DETAILS: Patient was placed in trendelenberg position and ultrasound was used to evaluate the patency of left axillary vein and for venous access. Left axillary venous access was obtained using modified seldinger technique using a 5 Frisian micro-puncture needle on two occasions and 0.35 wires were placed. Local infiltration of 1% Lidocaine was performed, and an incision was created in the left upper chest. Dissection was then performed using cautery down to the fascial plane above the muscle. The belly of the pectoralis was identified and with gentle blunt dissection a small pocketwas created for the device below the muscle. 9 Frisian Safesheaths were placed over the wire. An acti ve fixation [employer] pacing lead was then delivered through the 9Fsheath via the SPCC sheath to the right ventricle. After confirmation of lead position on orthogonal views (WOODS and ESTONIAN) to confirm septal position, the screw was activated, and the lead was placed in the right ventricular mid cavity towards the septum. The plan to to advance the lead with observation of QRS to target a left fascicular capture. The sheath was split. After confirmation of good sensing parameters, injury pattern and pacing thresholds, 10V pacing was done and no diaphragmatic stimulation was noted. It wasthen secured in the pocket using three 1-0 Silk sutures. Then an active fixation [employer] l ead was delivered through the 6Fsheath to the right atrial appendage. Patient was noted to go into Afib and after a 15min wait, the patient was cardioverted to sinus with 360J. After confirmation of lead position on orthogonal views (WOODS and ESTONIAN), the screw was activated. Good sensing parameters, injury pattern and pacing thresholds, the lead was then tested using Lambert's maneuver. 10V pacing was done and no diaphragmatic stimulation was noted. It was then secured in the pocket using three 1-0 Silk sutures. Pocket hemostasis was secured, and it was then copiously and vigorously irrigated with antibiotic solution. The leads were attached to the generator and then wrapped under the device and the device was tacked to underlying muscle and placed in the pocket. The pocket was closed in layers: muscle: 1-0 silk, subcutaneous layer using 2-0 Vicryl; skin using 3-0 absorbable monofilament suture. Glue was applied and Tegaderm dressing was placed on top. Lead parameters were then recheckedthrough the device as noted below. The patient was returned to the short stay room for post procedural observation. No immediate procedural complications were noted. POST PROCEDURE EXAM: Patient was hemodynamically stable. COMPLICATIONS: None. IMPRESSION: 1. Successful dual chamber pacemaker with excellent pacing and sensing parameters. RECOMMENDATIONS: 1. Occlusive dressing to be removed after 2 weeks. 2. Do not wet the incision for 7 days. 3. No lifting heavy weights using arm on the same side x 3weeks 4. Do not lift elbow above the shoulder on the same side for 4-6 weeks. 5. No driving for 1 month. 6. F/u in device clinic 1 week from discharge or sooner for any concerns. Blayne Chase MD Cardiac Electrophysiology documented in this encounter Nursing Notes * Teri Rivera RN - 07/23/2024 1:27 PM EDT RN educated pt on d/c instructions. This included: site care, limited physical activity, resume normal diet, future appointments, medications, and moderate sedation instructions. RN educated pt on when to notify physician and when to go to the hospital. RN provided pt with arm sling and educated pt on importance of not lifting arm above 90 degrees, weight bearing more than 5lbs, and driving for the next 4 weeks. RN encouraged pt to voice any questions or concerns, and answered any questions or concerns if pt verbalized. Pt was wheeled off of unit with all of belongings. * Teri Rivera RN - 07/23/2024 7:31 AM EDT CHG wipes and betadine nasal swabs completed. documented in this encounter Miscellaneous Notes * Pre-Sedation Documentation - Blayne Chase MD - 07/23/2024 9:13 AM EDT Patient: Fer Kulkarni Hattie García. Procedure Information Date/Time: 07/23/24829 Procedure: Implant PPM Location: [facility] TRANSFERRER 1 EP / [facility] (Cath) Providers: Blayne Chase MD Clinical information reviewed: Allergies Meds Physical Exam Airway Mallampati: II TM distance: >3 FB Neck ROM: full Cardiovascular Dental Pulmonary Neurological Abdominal Anesthesia Plan ASA 3 CSE Anesthetic plan and risks discussed with patient. Use of blood products discussed with patient who. Additional Equipment Requests documented in this encounter Plan of Treatment Upcoming Encounters Date Type Department Care Team (Late st Contact Info) Description 08/03/2024 9:00 AM EDT Office Visit [facility] Heart at [facility] [address] [place] [address] Brannon Saul MD [address] [facility] [address] [facility] [place] [place] [address] Scheduled Orders Name Type Priority Associated Diagnoses Orde r Schedule XR chest 2 views Imaging Routine Chest pain Expected: 07/23/2024, Expires: 07/23/2025 ECG 12 lead ECG Routine Chest pain Expected: 07/23/2024 (Approximate), Expires: 07/23/2025 documented as of this encounter Procedures Procedure Name Priority Date/Time Associated Diagnosis Comments ECG 12-LEAD Routine 07/23/2024 12:01 PM EDT IMPLANT PPM Routine 07/23/2024 11:26 AM EDT Sinus pause ECG 12-LEAD Routine 07/23/2024 7:46 AM EDT documented in this encounter Results * ECG 12 lead (07/23/2024 12:01 PM EDT) Ventricular Rate 57 BPM GE MUSE Atrial Rate 57 BPM GE MUSE NM Interval 164 ms GE MUSE QRS DURATION 108 ms GE MUSE QT Interval 414 ms GE MUSE QTC CALCULATION(BAZE TT) 402 ms GE MUSE P Bridge[place] 49 degrees GE MUSE R-[place] -16 degrees GE MUSE T Wave [place] 51 degrees GE MUSE 07/23/2024 11:4 7 AM EDT 07/23/2024 1:02 PM EDT Impressions GE MUSE - 07/23/2024 1:02 PM EDT Atrial-sensed ventricular-paced rhythm Abnormal ECG When compared with ECG of 23-JUL-2024 07:39, (unconfirmed) Electronic ventricular pacemaker has replaced Sinus rhythm Confirmed by Tip DESHPANDE, L.S. (2) on 07/23/2024 1:02:39 PM Narrative Procedure Note Karley Deshpande MD - 07/23/2024 IMPRESSION: Atrial-sensed ventricular-paced rhythm Abnormal ECG When compared with ECG of 23-JUL-2024 07:39, (unconfirmed) Electronic ventricular pacemaker has replaced Sinus rhythm Confirmed by Tip DESHPANDE, L.S. (2) on 07/23/2024 1:02:39 PM Blayne Chase MD ECG ORDERABLES Final Result GE MUSE * IMPLANT PPM (07/23/2024 11:26 AM EDT) Anatomical Region Laterality Modality Other Impressions 07/23/2024 11:47 AM EDT 1. Successful dual chamber pacemaker with excellent pacing and sensing parameters. RECOMMENDATIONS: 1. Occlusive dressing to be removed after 2 weeks. 2. Do not wet the incision for 7 days. 3. No lifting heavy weights using arm on the same side x 3weeks 4. Do not lift elbow above the shoulder on the same side for 4-6 weeks. 5. No driving for 1 month. 6. F/u in device clinic 1 week from discharge or sooner for any concerns. Blayne Chase MD Cardiac Electrophysiology Narrative 07/23/2024 11:47 AM EDT Images from the original result were not included. DUAL CHAMBER PACEMAKER IMPLANT PROCEDURE NOTE DATE OF PROCEDURE: 07/23/24 PERFORMING PHYSICIAN: Dr. Blayne Chase CONSENT: Patient LOCATION: EP Lab PROCEDURE PERFORMED: 1. Implantation of pacemaker ([employer]) 2. Ultrasound guided venous access INDICATIONS: 1. Sinus node dysfunction. 2. Symptomatic sinus bradycardia. PROCEDURAL SEDATION: Versed and Fentanyl. Moderate sedation was administered by the sedation nurse under my supervision and noted in the CVL log. Intraprocedural face to face sedation time: 115min. Monitoring: Cardiac telemetry, Blood pressure, continuous pulse oxymetry. FLUOROSCOPY TIME: 7.6min/ 36mGray. EBL: 15cc SPECIMEN REMOVED: None PREPARATION: 54year old with past medical history of CAD with a history of non-STEMI with cath revealing no obstructive lesions, hypertension, hyperlipidemia who was recently admitted from [facility] to [facility] with a history of atrial fibrillation. He does report a previous history of cardioversion on 09/05/2015 at [facility]. 30d event monitor shows evidence of sinus pause that occurred on 05/29/2024 at 12:25 PM as well as on Jun 18 2024 at 5:46 PM with symptomatic with dizzinss and near syncope. After discussion, the plan was made to proceed with pacemaker. PROCEDURAL DETAILS: Patient was placed in trendelenberg position and ultrasound was used to evaluate the patency of left axillary vein and for venous access. Left axillary venous access was obtained using modified seldinger technique using a 5 Frisian micro-puncture needle on two occasions and 0.35 wires were placed. Local infiltration of 1% Lidocaine was performed, and an incision was created in the left upper chest. Dissection was then performed using cautery down to the fascial plane above the muscle. The belly of the pectoralis was identified and with gentle blunt dissection a small pocket was created for the device below the muscle. 9 Frisian Safesheaths were placed over the wire. An active fixation [employer] pacing lead was then delivered through the 9Fsheath via the SPCC sheath to the right ventricle. After confirmation of lead position on orthogonal views (WOODS and ESTONIAN) to confirm septal position, the screw was activated, and the lead was placed in the right ventricular mid cavity towards the septum. The plan to to advance the lead with observation of QRS to target a left fascicular capture. The sheath was split. After confirmation of good sensing parameters, injury pattern and pacing thresholds, 10V pacing was done and no diaphragmatic stimulation was noted. It was then secured in the pocket using three 1-0 Silk sutures. Then an active fixation [employer] lead was delivered through the 6Fsheath to the right atrial appendage. Patient was noted to go into Afib and after a 15min wait, the patient was cardioverted to sinus with 360J. After confirmation of lead position on orthogonal views (WOODS and ESTONIAN), the screw was activated. Good sensing parameters, injury pattern and pacing thresholds, the lead was then tested using Lambert's maneuver. 10V pacing was done and no diaphragmatic stimulation was noted. It was then secured in the pocket using three 1-0 Silk sutures. Pocket hemostasis was secured, and it was then copiously and vigorously irrigated with antibiotic solution. The leads were attached to the generator and then wrapped under the device and the device was tacked to underlying muscle and placed in the pocket. The pocket was closed in layers: muscle: 1-0 silk, subcutaneous layer using 2-0 Vicryl; skin using 3-0 absorbable monofilament suture. Glue was applied and Tegaderm dressing was placed on top. Lead parameters were then rechecked through the device as noted below. The patient was returned to the short stay room for post procedural observation. No immediate procedural complications were noted. POST PROCEDURE EXAM: Patient was hemodynamically stable. COMPLICATIONS: None. us Blayne Chase MD CV ELECTROPHYSIOLOGY PROCEDURES Final Result * ECG 12 lead (07/23/2024 7:46 AM EDT) [facility] Ventricular Rate 50 BPM GE MUSE Atrial Rate 50 BPM GE MUSE NM Interval 188 ms GE MUSE QRS DURATION 88 ms GE MUSE QT Interval 420 ms GE MUSE QTC CALCULATION(BAZE TT) 382 ms GE MUSE P [place] 55 degrees GE MUSE R-[place] 30 degrees GE MUSE T Wave [place] 26 degrees GE MUSE 07/23/2024 7:39 AM EDT 07/23/2024 12:40 PM EDT Impressions GE MUSE - 07/23/2024 12:40 PM EDT Sinus bradycardia Otherwise normal ECG When compared with ECG of 20-MAY-2024 12:46, No significant change was found Confirmed by Tip DESHPANDE, L.S. (2) on 07/23/2024 12:40:12 PM Narrative Procedure Note Karley Deshpande MD - 07/23/2024 IMPRESSION: Sinus bradycardia Otherwise normal ECG When compared with ECG of 20-MAY-2024 12:46, No significant change was found Confirmed by Tip DESHPANDE, L.S. (2) on 07/23/2024 12:40:12 PM Blayne Chase MD ECG ORDERABLES Final Result [facility] COLUNGA documented in this encounter Visit Diagnoses Diagnosis Sinus pause- Primary Sinus pause Chest pain Unspecified chest pain Sinus pause documented in this encounter Admitting Diagnoses Diagnosis Sinus pause documented in this encounter Active and Recently Administered Medications Times are shown in EDT. Scheduled Medication Order 07/21/2024 07/22/2024 07/23/2024 ceFAZolin (Ancef) 1,000 mg, gentamicin (Garamycin) 80 mg in sodium chloride irrigation solution 0.9 % 500 mL IRRIGATION (COMPLETED) irrigation, Once, On Makenna 07/23/24 at 0930, For 1 dose, Intraprocedure, Indication: Surgical Prophylaxis 0930 (Due)1100 (Give n - Provider: Blayne Chase MD) ceFAZolin in dextrose (iso-os) (Ancef) IVPB 2 g (COMPLETED) 2 g, intravenous, at 100 mL/hr, Administer over 30 Minutes, Once, On Makenna 07/23/24 at 0700, For 1 dose, Preprocedure, Administer within 60 minutes of incision. Duplex bag - activate before hanging., Suspected Indication (Select all that apply): Surgical Prophylaxis 0700 (Due)0921 (New Bag - Provider: Lupe Verdugo RN) PRN Medication Order 07/21/2024 07/22/2024 07/23/2024 diphenhydrAMINE (BENADryl) injection (CANCELED) As needed, Starting on Makenna 07/23/24 at 0950, Intraprocedure 0950 (Given - Provid er: Lupe Verdugo RN)1052 (Given - Provider: Lupe Verdugo RN) fentaNYL (Sublimaze) injection (CANCELED) As needed, Starting on Makenna 25 at 0920, Intraprocedure 0920 (Given - Provid er: Lupe Verdugo RN)0946 (Given - Provider: Lupe Verdugo RN)0954 (Canceled Entry - Provider: Lupe Verdugo RN)0955 (Given - Provider: Lupe Verdugo RN)1030 (Given - Provider: Lupe Verdugo RN)1046 (Given - Provider: Lupe Verdugo RN)1054 (Given - Provider: Lupe Verdugo RN) lidocaine (PF) (Xylocaine) 10 mg/mL (1 %) injection (CANCELED) As needed, Starting on Makenna 07/23/24 at 0944, Intraprocedure 0944 (Given - Provid er: Blyane Chase MD)1045 (Given - Provider: Blayne Chase MD) midazolam (Versed) injection (CANCELED) As needed, Starting on Makenna 07/23/24 at 0920, Intraprocedure 0920 (Given - Provid er: Lupe Verdugo RN)0936 (Given - Provider: Lupe Verdugo RN)1016 (Given - Provider: Lupe Verdugo RN)1030 (Given - Provider: Lupe Verdugo RN)1032 (Given - Provider: Lupe Verdugo RN)1044 (Given - Provider: Lupe Verdugo RN)1051 (Given - Provider: Lupe Verdugo RN)1105 (Given - Provider: Lupe Verdugo RN) sodium chloride 0.9 % infusion (COMPLETED) Continuous PRN, Starting on Makenna 07/23/24 at 0921, Intraprocedure 0921 (New Bag - Prov ider: Lupe Verdugo RN)0948 (Rate/Dose Change - Provider: Lupe Verdugo RN - Comment: iv fluid bolus)1000 (Rate/Dose Change - Provider: Lupe Verdugo RN) documented in this encounter
--- OUTSIDE RECORDS SUMMARY | 2024-07-23 08:30 | XMS_ITS | Encounter Summary ---
Author Organization [facility] Address [address] [place] [address] [place] [address] Care Team Providers Care Pump Erector Name Role Phone Unavailable Primary Care Provider Unavailabl e Reason for Visit * Auth/Cert (Routine) Specialty Diagnoses / Procedures Referred By Vera bro Referred To Contact Diagnoses Sinus pause Sinus pause [I45.5] Procedures OR OFFICE/OUTPT VISIT,PROCEDURE ONLY OR INS NEW/RPLCMT PRM PM W/TRANSV ELTRD ATRIAL&VENT OR PMKR, DUAL, RATE-RESP OR LEAD, PMKR, OTHER THAN TRANS Implant PPM Blayne Chase MD [address] [place] [phone] Phone: tel: fax: [facility] Heart [facility] [address] [place] [phone] Phone: tel: fax: Referral ID Status Reason Start Date Expiration Date Visits Re quested Visits Authorized [id number] 1 1 Encounter Details Date Type Department Care Team (Late st Contact Info) Description 07/23/2024 8:30 AM EDT - 07/23/2024 9:30 AM EDT Surgery [facility] Heart [facility] [address] [place] [address] Blayne Chase MD [address] [place] [phone] Implant PPM [[id number]] Social History Tobacco Use Types Packs/Day Years Used Date Smoking Tobacco: Never Smokeless Tobacco: Never Comments:chew Alcohol Use Standard Drinks/Week Comments Not Asked 0 (1 standard drink = 0.6 oz pur e alcohol) occasional [facility] Utilities Answer Date Recorded In the [...] any time in the past 12 m [facility], were you homeless or living in a half-way (including now)? No 05/20/2024 Hunger Vital Sign [...] Sign Reading Time Taken Comments Blood Pressure 167/78 07/23/2024 9:21 AM EDT Pulse 49 07/23/2024 9:21 AM EDT Temperature - - Respiratory Rate 12 07/23/2024 9:21 AM EDT Oxygen Saturation 100% 07/23/2024 9:21 AM EDT Inhaled Oxygen Concentration - - Weight - - Height - - Body Mass Index - - documented in this encounter Discharge Instructions * Attachments The following attachments cannot be sent through Care Everywhere. * Moderate Conscious Sedation Adult Care After (Romanian) * Pacemaker Implantation Adult Care After (Romanian) documented in this encounter Medications at Time of Discharge apixaban (Eliquis) 5 mg tabletIndications:Pa roxysmal A-fib (CMS/HCC) Take 1 tablet (5 mg) by mouth two times daily. 180 tablet 3 05/26/2024 atorvastatin (Lipitor) 40 mg tabletIndications:Mi xed hyperlipidemia [...] from the original note were not included. [place] [facility] [place] [facility] - [facility] Reason for visit: Atrial fibrillation HPI: Fer Kulkarni Hattie Paez is a 54 y.o. year old with past medical history of CAD with a history of non-STEMI with cath revealing no obstructive lesions, hypertension, hyperlipidemia who was recently admitted from [facility] to [facility] with a history of atrial fibrillation. He does report a previous history of cardioversion on 09/05/2015 at [facility]. It is unclear as to why he was not on any blood thinners. When I reviewed the records it appeared that his initial presentation to the [facility] showed sinus tachycardia but given there was troponin elevation he was transferred to [facility]. EKG on presentation at [facility] was sinus. He did complain of occasional palpitations and following his discharge from [facility] was placed on a 30-day event [...] Year: No Utilities: Not At Risk (05/20/2024) [facility] Utilities Threatened with loss of utilities: [...] Value Ventricular Rate 50 Atrial Rate 50 OR Interval 188 QRS DURATION 88 QT Interval 420 QTC CALCULATION(BAZETT) 382 P [place] 55 R-[place] 30 T Wave [place] 26 Impression Sinus bradycardia Otherwise normal ECG [...] the procedure. Blayne Chase MD Cardiac Electrophysiology [facility] documented in this encounter Procedure Notes * Blayne Chase MD - 07/23/2024 11:49 AM EDT DUAL CHAMBER PACEMAKER IMPLANT PROCEDURE NOTE DATE OF PROCEDURE: 07/23/24 PERFORMING PHYSICIAN: Dr. Blayne Chase CONSENT: Patient LOCATION: EP Lab PROCEDURE PERFORMED: 1. Implantation of pacemaker ([employer]) 2. Ultrasound guided venous access INDICATIONS: [...] hypertension, hyperlipidemia who was recently admitted from [facility] to [facility] with a history of atrial fibrillation. He does report a previous history of cardioversion on 09/05/2015 at [facility]. 30d event monitor shows evidence of sinus [...] using modified seldinger technique using a 5 [place] micro-puncture needle on two occasions and 0.35 [...] for the device below the muscle. 9 [place] Safesheaths were placed over the wire. An acti ve fixation [employer] pacing lead was then delivered through the 9Fsheath via the SPCC sheath to the right ventricle. After confirmation of lead position on orthogonal views (WOODS and KAZAKH) to confirm septal position, the screw was [...] 1-0 Silk sutures. Then an active fixation [employer] l ead was delivered through the 6Fsheath to the right atrial appendage. Patient was noted to go into Afib and after a 15min wait, the patient was cardioverted to sinus with 360J. After confirmation of lead position on orthogonal views (WOODS and KAZAKH), the screw was activated. Good sensing parameters, [...] - 07/23/2024 9:13 AM EDT Patient: Fer Kuhn Sr. Procedure Information Date/Time: 07/23/2430 Procedure: Implant PPM Location: [facility] TIE LOADER 1 / [facility] (Cath) Providers: Blayne Chase MD [...] Description 08/03/2024 9:00 AM EDT Office Visit [facility] [address] [place] [address] Brannon Saul MD [address] [facility] 1 [facility] [place] [address] Scheduled Orders Name Type Priority [...] MUSE Atrial Rate 57 BPM GE MUSE OR Interval 164 ms GE MUSE QRS DURATION 108 ms GE MUSE QT Interval 414 ms GE MUSE QTC CALCULATION(BAZE TT) 402 ms GE MUSE P [place] 49 degrees GE MUSE R-[place] -16 degrees GE MUSE T Wave [place] 51 degrees GE MUSE 07/23/2024 11:4 7 [...] Lab PROCEDURE PERFORMED: 1. Implantation of pacemaker ([employer]) 2. Ultrasound guided venous access INDICATIONS: [...] hypertension, hyperlipidemia who was recently admitted from [facility] to [facility] with a history of atrial fibrillation. He does report a previous history of cardioversion on 09/05/2015 at [facility]. 30d event monitor shows evidence of sinus [...] using modified seldinger technique using a 5 [place] micro-puncture needle on two occasions and 0.35 [...] for the device below the muscle. 9 [place] Safesheaths were placed over the wire. An active fixation [employer] pacing lead was then delivered through the 9Fsheath via the SPCC sheath to the right ventricle. After confirmation of lead position on orthogonal views (WOODS and KAZAKH) to confirm septal position, the screw was [...] 1-0 Silk sutures. Then an active fixation [employer] lead was delivered through the 6Fsheath to the right atrial appendage. Patient was noted to go into Afib and after a 15min wait, the patient was cardioverted to sinus with 360J. After confirmation of lead position on orthogonal views (WOODS and KAZAKH), the screw was activated. Good sensing parameters, [...] ECG 12 lead (07/23/2024 7:46 AM EDT) [facility] Ventricular Rate 50 BPM GE MUSE Atrial Rate 50 BPM GE MUSE OR Interval 188 ms GE MUSE QRS DURATION 88 ms GE MUSE QT Interval 420 ms GE MUSE QTC CALCULATION(BAZE TT) 382 ms GE MUSE P [place] 55 degrees GE MUSE R-[place] 30 degrees GE MUSE T Wave [place] 26 degrees GE MUSE 07/23/2024 7:39 AM [...] DESHPANDE, L.S. (2) on 07/23/2024 12:40:12 PM us Blayne Chase MD ECG ORDERABLES Final Result KHOA COLUNGA documented in this encounter Visit Diagnoses Diagnosis Sinus pause- Primary Sinus pause Chest pain Unspecified chest pain Sinus pause documented in this encounter Admitting Diagnoses Diagnosis Sinus pause documented in this encounter Administered Medications Inactive Administered Medications - up to 3 most recent administrations Medication Order MAR Action Action Date Dose Rate Site ceFAZolin (Ancef) 1,000 mg, gentamicin (Garamycin) 80 mg in sodium chloride irrigation solution 0.9 % 500 mL IRRIGATION irrigation, Once, On Maken[place] 07/23/24 at 0930, For 1 dose, Intraprocedure, Indication: Surgical Prophylaxis Given 07/23/2024 11:00 AM EDT 500 mL ceFAZolin in dextrose (iso-os) (Ancef) IVPB 2 g 2 g, intravenous, at 100 mL/hr, Administer over 30 Minutes, Once, On Maken[place] 07/23/24 at 0700, For 1 dose, Preprocedure, Administer within 60 minutes of incision. Duplex bag - activate before hanging., Suspected Indication (Select all that apply): Surgical Prophylaxis New Bag 07/23/2024 9:21 AM EDT 2 g diphenhydrAMINE (BENADryl) injection As needed, Starting on Maken[place] 07/23/24 at 0950, Intraprocedure Given 07/23/2024 10:52 AM EDT 25 mg Given 07/23/2024 9:50 AM EDT 25 mg fentaNYL (Sublimaze) injection As needed, Starting on [place] 07/23/24 at 0920, Intraprocedure Given 07/23/2024 10:54 AM EDT 12.5 mcg Given 07/23/2024 10:46 AM EDT 12.5 mcg Given 07/23/2024 10:30 AM EDT 25 mcg lidocaine (PF) (Xylocaine) 10 mg/mL (1 %) injection As needed, Starting on Maken[place] 07/23/24 at 0944, Intraprocedure Given 07/23/2024 10:45 AM EDT 10 mL Given 07/23/2024 9:44 AM EDT 20 mL midazolam (Versed) injection As needed, Starting on [place] 07/23/24 at 0920, Intraprocedure Given 07/23/2024 11:05 AM EDT 0.5 mg Given 07/23/2024 10:51 AM EDT 0.5 mg Given 07/23/2024 10:44 AM EDT 0.5 mg sodium chloride 0.9 % infusion Continuous PRN, Starting on Maken[place] 07/23/24 at 0921, Intraprocedure Rate/Dose Change 07/23/2024 10:00 AM EDT 50 mL/hr 50 mL/hr Rate/Dose Change 07/23/2024 9:48 AM EDT 500 mL/hr 500 mL/ hr New Bag 07/23/2024 9:21 AM EDT 50 mL/hr 50 mL/hr documented in this encounter Active and Recently [...] 0944, Intraprocedure 0944 (Given - Provid er: Blayne Chase MD)1045 (Given - Provider: Blayne Chase [...]
--- OUTSIDE RECORDS SUMMARY | 2024-07-24 13:38 | XMS_ITS | Encounter Summary ---
Author Organization [facility] Address [address] [place] [address] Care Team Providers Care Cargo Surveyor Name Role Phone Unavailable Primary Care Provider Unavailabl e Encounter Details Date Type Department Care Team (Late st Contact Info) Description 07/20/2024 Orders Only [facility] Heart at [facility] [address] [place] [address] Brannon Saul MD [address] [facility] [place] [address] [facility] [place] [place] [address] Social History Tobacco Use Types Packs/Day Years Used Date Smoking Tobacco: Never Smokeless Tobacco: Never Comments:chew Alcohol Use Standard Drinks/Week Comments Not Asked 0 (1 standard drink = 0.6 oz pur e alcohol) occasional [facility] Utilities Answer Date Recorded In the [...] time in the past 12 m [facility], were you homeless or living in a alf (including now)? No 05/20/2024 Hunger Vital Sign [...] Description 08/03/2024 9:00 AM EDT Office Visit [place] [address] [place] [address] Brannon Saul MD [address] [facility] 1 [facility] [place] [place] [address] documented as of this encounter Procedures Procedure Name Priority Date/Time Associated Diagnosis Comments CBC Routine 07/18/2024 8:56 AM EDT B-TYPE NATRIURETIC PEPTIDE Routine 07/18/2024 8:56 AM EDT documented in this encounter Results * B-type natriuretic peptide (07/18/2024 8:56 AM EDT) Blood Venous blood specimen / Unknown Blayne Chase MD LAB BLOOD ORDERABLES Final Resul t * CBC (07/18/2024 8:56 AM EDT) Blood Venous blood specimen / Unknown Blayne Chase MD LAB BLOOD ORDERABLES Final Resul t documented in this encounter Visit Diagnoses Not on filedocumented in this encounter
--- OUTSIDE RECORDS SUMMARY | 2024-07-24 13:38 | XMS_ITS | Encounter Summary ---
Author Organization [facility] Address [address] [place] [address] Care Team Providers Care Vest Maker Name Role Phone Unavailable Primary Care Provider Unavailabl e Encounter Details Date Type Department Care Team (Late st Contact Info) Description 07/14/2024 Orders Only [facility] Heart at [facility] [address] [place] [address] Nancy Russo MA Encounter for pre-operative examination; Sinus pause Social History Tobacco Use Types Packs/Day Years Used Date Smoking Tobacco: Never Smokeless Tobacco: Never Comments:chew Alcohol Use Standard Drinks/Week Comments Not Asked 0 (1 standard drink = 0.6 oz pur e alcohol) occasional [facility] Utilities Answer Date Recorded In the past 12 months has th e electric, gas, oil, or water [employer] threatened to shut off services in your [...] time in the past 12 m [facility], were you homeless or living in a [...] Description 08/03/2024 9:00 AM EDT Office Visit [facility] Heart [facility] [address] [place] [address] Brannon Salu MD [address] [place] [address] [facility] [place] [place] [phone] Scheduled Orders Name Type Priority Associated Diagnoses Orde r Schedule Basic metabolic panel Lab Routine Encounter for pre-operative examination Expected: 07/14/2024 (Approximate), Expires: 07/14/2025 CBC and differential Lab Routine Encounter for pre-operative examination Expected: 07/14/2024 (Approximate), Expires: 07/14/2025 documented as of this encounter Visit Diagnoses Diagnosis Encounter for pre-operative examination Sinus pause documented in this encounter
--- OUTSIDE RECORDS SUMMARY | 2024-07-24 13:38 | XMS_ITS | Encounter Summary ---
Author Organization [facility] Address [address] [place] [address] Care Team Providers Care Web Merchandiser Name Role Phone Unavailable Primary Care Provider Unavailabl e Encounter Details Date Type Department Care Team (Latest Contact Info) Description 07/23/2024 Travel Social History Tobacco Use Types Packs/Day Years [...] any time in the past 12 m [facility], were you homeless or living in a long-term (including now)? No 05/20/2024 Hunger Vital Sign [...] Description 08/03/2024 9:00 AM EDT Office Visit [facility] [place] [address] [place] [address] Brannon Saul MD [address] [place] [address] [facility] [place] [phone] documented as of this encounter Visit Diagnoses Not on filedocumented in this encounter
--- OUTSIDE RECORDS SUMMARY | 2024-07-24 13:38 | XMS_ITS | Clinical Summary ---
Author Organization [facility] Address [address] [place] [address] Care Team Providers Care Road Machinery Inspector Name Role Phone Unavailable Primary Care Provider Unavailabl e Social History Tobacco Use Types Packs/Day Years Used Date Smoking Tobacco: Never Assessed Sex and Gender Information Value Date Recorded Sex Assigned at Not on file Legal Sex Male 7:11 PM EDT Gender Identity Not on file Sexual Orientation Not on file Plan of Treatment Not on file
--- OUTSIDE RECORDS SUMMARY | 2024-07-24 13:38 | XMS_ITS | Clinical Summary ---
Author Organization [facility] Address [address] [place] [address] Care Team Providers Care Paleontology Teacher Name Role Phone Unavailable Primary Care Provider Unavailabl e Allergies No known active allergies Medications atorvastatin (Lipitor) 40 mg tabletIndications:M ixed hyperlipidemia Take 1 tablet (40 mg) by mouth in the morning. 90 tablet 3 5 05/27/19 26 Active apixaban (Eliquis) 5 mg tabletIndications:P aroxysmal A-fib (CMS/HCC) Take 1 tablet (5 mg) by mouth two times daily. 180 tablet 3 5 05/27/19 26 Active metoprolol succinate XL (Toprol-XL) 50 mg 24 hr tabletIndications:P aroxysmal A-fib (CMS/HCC) Take 1 tablet (50 mg) by mouth in the morning. Do not crush or chew. 90 tablet 1 5 11/23/19 25 Active Active Problems Problem Noted Date Diagnosed [...] Encounters Date Type Department Care Team Description 07/23/2024 8:30 AM EDT - 07/23/2024 9:30 AM EDT Surgery [facility] Heart [facility] Vascular [place] [facility] [address] [place] [address] Blayne Chase MD Implant PPM [[id number]] 07/23/2024 6:50 AM EDT - 07/23/2024 1:37 PM EDT Hospital Encounter [facility] Vascular Lab [address] [place] [address] Blayne Chase MD Chest pain (Primary Dx); Sinus pause Discharge Disposition: Home or Self Care () 07/23/2024 Travel 07/20/2024 Orders Only [facility] [address] [facility] [place] [address] Brannon Saul MD 07/14/2024 9:15 AM EDT Office Visit [facility] [address] [facility] [place] [address] Blayne Chase MD Paroxysmal A-fib (CMS/HCC) (Primary Dx) 07/14/2024 Orders Only [facility] [address] [place] [address] Nancy Russo MA Encounter for pre-operative examination; Sinus pause 07/09/2024 Telephone [facility] [address] [facility] [place] [id number] Margarita Laura MA 05/26/2024 2:40 PM EDT Office Visit [facility] [address] [facility] [place] [address] Sandra Bynum CNP Paroxysmal A-fib (CMS/HCC) (Primary Dx); Mixed hyperlipidemia; NSTEMI (non-ST elevated myocardial infarction) ([facility]/HCC); Primary hypertension 05/20/2024 4:56 PM EDT - 05/20/2024 5:56 PM EDT Surgery [facility] Vascular Lab [address] [place] [address] Jorge Whaley MD Coronary angiography [[id number] (CPT )] 05/20/2024 Travel 05/19/2024 8:00 PM EDT - 05/21/2024 1:26 PM EDT Hospital Encounter [facility] [address] [place] [address] Milton Fitch MD Schwarz, Stephanie, DO Chest pain (Primary Dx); NSTEMI (non-ST elevated myocardial infarction) ([facility]); Paroxysmal A-fib ([facility]) Discharge Disposition: Home or Self Care (01) [...] = 0.6 oz pur e alcohol) occasional [employer] Utilities Answer Date Recorded In the past 12 months has th e [employer]ger[employer], gas, oil, or water [employer]ola threatened to shut off services in your [...] in the past 12 m [facility], were you homeless or living in a mcc (including now)? No 05/20/2024 Hunger Vital Sign [...] Pulse 61 07/23/2024 1:15 PM EDT Temperature 36.9 C (98.4 F) 05/21/2024 11:46 AM EDT Respiratory Rate 12 07/23/2024 1:15 PM EDT [...] Description 08/03/2024 9:00 AM EDT Office Visit [facility] [address] [place] [address] Brannon Saul MD [address] [facility] [place] [address] Health Maintenance Due Date Last Done Comments CT Colonography 1969 Colonoscopy 1969 Colorectal Cancer Screening 1970 FIT-DNA 1970 FIT 1970 FOBT 1969 Sigmoidoscopy 1969 Depression Screening 1981 Hepatitis B Vaccines (1 of 3 - 19+ 3-dose series) 1988 Pneumococcal Vaccine: Pediat rics (0 to 5 Years) and At-Risk Patients (6 to 64 Years) (1 of 2 - PCV) 1988 02/06/2011 Adult Tetanus 05/26/1991 Zoster Vaccines (1 of [...] on patient's age to complete this topic Medical Devices Implanted Type Area Master Cosmetologist Device Identifier Shelf Expiration Date Model / Serial / Lot Ingevity Implanted:Qty : 1 on 07/23/2024 by Blayne Chase MD at [facility] Lead N/A: Chest [employer] [id number] 06/16/2026 [id number] / [id number] / Ingevity Implanted:Qty : 1 on 07/23/2024 by Blayne Chase MD at [facility] Lead N/A: Chest [employer] [id number] 04/30/2026 [id number] / [id number] / Kamlesh Corey,Mri Dr Romero - [id number] - [id number] Implanted:Qty : 1 on 07/23/2024 by Blayne Chase MD at [facility] Pacemaker N/A: Chest [employer] [id number] 06/08/2026 [id number] / [id number] / Procedures Procedure Name Priority Date/Time Associated Diagnosis Comments ECG 12-LEAD Routine 07/23/2024 12:01 PM EDT IMPLANT PPM Routine 07/23/2024 11:26 AM EDT Sinus pause ECG 12-LEAD Routine 07/23/2024 7:46 AM EDT B-TYPE NATRIURETIC PEPTIDE Routine 07/18/2024 8:56 AM EDT CBC Routine 07/18/2024 8:56 AM EDT CARDIAC EVENT MONITOR Routine 05/21/2024 12:42 PM [...] EDT from Last 3 Months Results * ECG 12 lead (07/23/2024 12:01 PM EDT) Only the most recent of4 resultswithin the time period is included. Ventricular Rate 57 BPM GE MUSE Atrial Rate 57 BPM GE MUSE WV Interval 164 ms GE MUSE QRS DURATION 108 ms GE MUSE QT Interval 414 ms GE MUSE QTC CALCULATION(BAZE TT) 402 ms GE MUSE P [place] 49 degrees GE MUSE R-[place] -16 degrees GE MUSE T Wave [place] 51 degrees GE MUSE 07/23/2024 11:4 7 AM EDT 07/23/2024 1:02 PM EDT Impressions GE MUSE - 07/23/2024 1:02 PM EDT Atrial-sensed ventricular-paced rhythm Abnormal ECG When compared with ECG of 23-JUL-2024 07:39, (unconfirmed) Electronic ventricular pacemaker has replaced Sinus rhythm Confirmed by Tip DANIELLE, L.S. (2) on 07/23/2024 1:02:39 PM Narrative Procedure Note Karley Danielle MD - 07/23/2024 IMPRESSION: Atrial-sensed ventricular-paced rhythm Abnormal ECG When compared with ECG of 23-JUL-2024 07:39, (unconfirmed) Electronic ventricular pacemaker has replaced Sinus rhythm Confirmed by Tip DANIELLE, L.S. (2) on 07/23/2024 1:02:39 PM Blayne [...] Lab PROCEDURE PERFORMED: 1. Implantation of pacemaker ([employer]) 2. Ultrasound guided venous access INDICATIONS: [...] hypertension, hyperlipidemia who was recently admitted from [facility] to [facility] with a history of atrial fibrillation. He does report a previous history of cardioversion on 09/05/2015 at [facility]. 30d event monitor shows evidence of sinus [...] using modified seldinger technique using a 5 Marshallese micro-puncture needle on two occasions and 0.35 [...] for the device below the muscle. 9 Marshallese Safesheaths were placed over the wire. An active fixation [employer] pacing lead was then delivered through the 9Fsheath via the SPCC sheath to the right ventricle. After confirmation of lead position on orthogonal views (WOODS and OCCITAN) to confirm septal position, the screw was [...] 1-0 Silk sutures. Then an active fixation [employer] lead was delivered through the 6Fsheath to the right atrial appendage. Patient was noted to go into Afib and after a 15min wait, the patient was cardioverted to sinus with 360J. After confirmation of lead position on orthogonal views (WOODS and OCCITAN), the screw was activated. Good sensing parameters, [...] MD CV ELECTROPHYSIOLOGY PROCEDURES Final Result * CBC (07/18/2024 8:56 AM EDT) Only the most recent of2 resultswithin the time period is included. Blood Venous blood specimen / Unknown us Blayne Chase MD LAB BLOOD ORDERABLES Final Resul t * B-type natriuretic peptide (07/18/2024 8:56 AM EDT) Blood Venous blood specimen / Unknown us Blayne Chase MD LAB BLOOD ORDERABLES Final Resul t * CARDIAC EVENT MONITOR - NO CHARGES (05/21/2024 12:42 PM EDT) Anatomical Region Laterality Modality Electrocardiogra phy 05/23/2024 12:3 0 PM EDT Narrative 06/23/2024 11:52 AM EDT 1 MD Heart and Vascular Center [facility] Heart Station [address] [place] [address] [phone] (fax) Event Recorder-[facility] Name: FER DAVIES Study Date: 05/23/2024 12:30 PM Date of : 1970 Location: [facility] Height: Age: 53 year(s) Patient Room: 3135 [...] 21:23 day 18 Procedure Staff Reading Group: MD Cardiovascular Group Ordering Physician: JORGE WHALEY Zipper Slide Attacher: Cony Norton Procedure Note Zenaida Obrien MD - 06/23/2024 1 MD [facility] V[facility] Center [facility] Heart Station [address] [place] [address] (fax) Event [facility] Name: FER DAVIES Study Date: 05/23/2024 12:30 PM Date of : 1970 Location: [facility] Height: Age: 53 year(s) Patient Room: 3135 [...] rate of 37 BPM (1.6s), occurring on at 03:02. -Longest asystole with duration of [...] bpm Time of Max. HR 18:17 day 17 Time of Min. HR 02:42 day Time [...] 21:23 day 18 Procedure Staff Reading Group: MD Cardiovascular Group Ordering Physician: JORGE WHALEY Zipper Slide Attacher: Cony Norton Jorge Whaley MD CV CARDIAC SERVICES PROCED URES Final Result * Magnesium (05/21/2024 5:05 AM EDT) Only the most recent of3 resultswithin the time period is included. Magnesium 1.9 1.9 - 2.7 mg/dL 05/21/2024 5:47 AM EDT [facility] H[facility]PITAL LAB ([facility]) Blood Venous blood specimen / Unknown Arterial Line / Unknown 05/21/2024 5:05 AM EDT 05/21/2024 5:14 AM EDT us Jorge Whaley MD LAB BLOOD ORDERABLES Final Result [facility] ([facility]) [address] [place] [address] * Basic metabolic panel (05/21/2024 5:05 AM EDT) Only the most recent of2 resultswithin the time period is included. Sodium 137 136 - 145 mmol/L 05/21/2024 5:47 AM EDT [facility] ([facility]) Potassium 4.1 3.5 - 5.1 mmol/L 05/21/2024 5:47 AM EDT [facility] ([facility]) Chloride 105 98 - 107 mmol/L 05/21/2024 5:47 AM EDT [facility] ([facility]) CO2 29 21 - 31 mmol/L 05/21/2024 5:47 AM EDT [facility] ([facility]) BUN 17 7 - 25 mg/dL 05/21/2024 5:47 AM EDT [facility] ([facility]) Creatinine 1.14 0.70 - 1.30 mg/dL 05/21/2024 5:47 AM EDT [facility] ([facility]) Glucose 79 70 - 100 mg/dL 05/21/2024 5:47 AM EDT [facility] ([facility]) Calcium 8.7 8.6 - 10.3 mg/dL 05/21/2024 5:47 AM EDT [facility] ([facility]) Anion Gap 7 7 - 20 mmol/L 05/21/2024 5:47 AM EDT [facility] ([facility]) eGFR 76.4 >60.0 mL/min/1. 73m*2 05/21/2024 5:47 AM EDT [facility] ([facility]) Comment:[facility] s estimated glomerular filtration rate [...] BUN/Creatinine Ratio 14.9 05/12 5:47 AM EDT [facility] ([facility]) Blood Venous blood specimen / Unknown Arterial Line / Unknown 05/21/2024 5:05 AM EDT 05/21/2024 5:14 AM EDT us Jorge Whaley MD LAB BLOOD ORDERABLES Final Result [facility] ([facility]) [address] [place] [address] * CORONARY ANGIOGRAPHY (05/20/2024 7:36 PM EDT) [...] infiltrated over the right radial artery. A 6-Marshallese Terumo Glidesheath slender was placed in right [...] Study Details NSTEMI (non-ST elevated myocardial infarction) ([facility]) [I21.4] Meredith Donis DO CV CARDIAC CATH PROCEDURES Final Result * (ABNORMAL) High Sensitivity Troponin I (05/20/2024 6:14 PM EDT) Only the most recent of4 resultswithin the time period is included. High Sensitivity Troponin I 64(HH) <20 ng/L 05/20/2024 7:20 PM EDT [facility] ([facility]) Blood Venous blood specimen / Unknown Arterial Line / Unknown 05/20/2024 6:14 PM EDT 05/20/2024 6:38 PM EDT Brandi Parker CNP LAB BLOOD ORDERABLES Final Resu lt Performing Organization Address [facility] Co de Phone Number [facility]) [address] [place], [place] [id number] * Anti-Xa (Heparin Level) (05/20/2024 6:14 PM EDT) Only the most recent of3 resultswithin the time period is included. Anti-Xa (Heparin) 0.41 0.3 - 0.7 IU/mL 05/20/2024 6:53 PM EDT [facility] ([facility]) Comment:Rivaroxaban and Apix aban will interfere with the anti Xa assay used to monitor UFH and LMWH. Blood Venous blood specimen / Unknown Arterial Line / Unknown 05/20/2024 6:14 PM EDT 05/20/2024 6:29 PM EDT Milton Fitch MD LAB BLOOD ORDERABLES Final Resul t Performing Organization Address [facility]/ZIP Co de Phone Number [facility]) [address] [place] [address] * COMPLETE ECHO (TTE) (05/20/2024 3:25 PM EDT) Anatomical Region Laterality Modality Other 05/20/2024 3:06 PM EDT Narrative 05/20/2024 4:27 PM EDT 1 1 MD Heart and Vascular Center [facility] Heart Station [address] [place] [address] [phone] (fax) Echocardiogram-[facility] Name: FER DAVIES Study Date: 05/20/2024 03:06 PM B/P: 142 mmHg/84 mmHg HR: 65 bpm Date of : 1970 Location: [facility] Height: 68 in. Age: 53 year(s) Patient [...] No pericardial effusion. Procedure Staff Reading Group: MD Cardiovascular Group Referring Physician: Carolyn Regalado MD Overlay Operator: BRIAN Adame Ordering Physician: MEREDITH DONIS Procedure Note Juan Pablo Burgess MD - 05/20/2024 1 1 MD Heart and Vascular Center [facility] Heart Station [address] [place] [address] [phone] (fax) Echocardiogram-[facility] Name: FER DAVIES Study Date: 05/20/2024 03:06 PM B/P: 142 mmHg/84 mmHg HR: 65 bpm Date of : 1970 Location: [facility] Height: 68 in. Age: 53 year(s) Patient [...] No pericardial effusion. Procedure Staff Reading Group: MD Cardiovascular Group Referring Physician: Carolyn Regalado MD Overlay Operator: BRIAN Adame Ordering Physician: MEREDITH DONIS us Meredith Donis DO CV ECHO PROCEDURES Final Re sult * Lavender Top (05/20/2024 11:28 AM EDT) Pathologist [facility] Extra Tube Hold for add-ons. 05/20/2024 1:01 PM EDT [facility] ([facility]) Comment:Auto resulted. Blood Venous blood specimen / Unknown 05/20/2024 11:28 AM EDT 05/20/2024 11:51 AM EDT us Meredith Donis DO LAB BLOOD ORDERABLES Final Result [facility]) [address] [place] [address] * TSH3 Reflex to FT4 (05/20/2024 5:56 AM EDT) TSH 2.41 0.34 - 5.60 mIU/L 05/20/2024 9:26 AM EDT [facility] ([facility]) Blood Venous blood specimen / Unknown Arterial Line / Unknown 05/20/2024 5:56 AM EDT 05/20/2024 5:56 AM EDT us Wally Benson MD LAB BLOOD ORDERABLES Final Resul t [facility]) [address] [place] [address] * Lipid panel (05/20/2024 5:56 AM EDT) Triglycerides 72 <150 mg/dL 05/20/2024 9:26 AM EDT [facility] ([facility]) Comment: TRIGLYCERIDE REFERENCE RANGE: 20 YEARS AND OLDER CARDIOVASCULAR RISK LESS THAN 150 mg/dL LOW RISK 150 TO 199 mg/dL BORDERLINE RISK 200 mg/dL AND GREATER HIGH RISK Cholesterol 152 120 - 200 mg/dL 05/20/2024 9:26 AM EDT [facility] ([facility]) LDL Calculated 101 0 - 160 mg/dL 05/20/2024 9:26 AM EDT [facility] ([facility]) HDL 37 23 - 92 mg/dL 05/20/2024 9:26 AM EDT [facility] ([facility]) Non HDL Cholesterol 115 05/20/2024 9:26 AM EDT [facility] ([facility]) Total VLDL-C 14 0 - 40 mg/dL 05/20/2024 9:26 AM EDT [facility] ([facility]) Cholesterol/HDL Ratio 4.1 mg/dL 05/20/2024 9:26 AM EDT [facility] ([facility]) Blood Venous blood specimen / Unknown Arterial Line / Unknown 05/20/2024 5:56 AM EDT 05/20/2024 5:56 AM EDT us Meredith Donis DO LAB BLOOD ORDERABLES Final Result [facility]) [address] [place] [address] * CBC auto differential (05/20/2024 12:16 AM EDT) Auto WBC 5.84 4.00 - 10.60 10*3/uL 05/20/2024 1:26 AM EDT [facility] ([facility]) RBC 4.96 4.20 - 5.70 10*6/uL 05/20/2024 1:26 AM EDT [facility] ([facility]) Hemoglobin 14.6 13.0 - 17.0 g/dL 05/20/2024 1:26 AM EDT [facility] ([facility]) Hematocrit 42.3 39.0 - 50.0 % 05/20/2024 1:26 AM EDT [facility] ([facility]) MCV 85.3 82.0 - 98.0 fL 05/20/2024 1:26 AM EDT [facility] ([facility]) MCH 29.4 27.0 - 33.0 pg 05/20/2024 1:26 AM EDT [facility] ([facility]) MCHC 34.5 32.0 - 35.0 g/dL 05/20/2024 1:26 AM EDT [facility] ([facility]) RDW 12.4 11.5 - 15.0 % 05/20/2024 1:26 AM T [facility] ([facility]) Neutrophils % 52.0 40.0 - 72.0 % 05/20/2024 1:26 AM [facility] ([facility]) Lymphocytes % 34.8 20.0 - 45.0 % 05/20/2024 1:26 AM EDT [facility] ([facility]) Monocytes % 9.6 5.0 - 12.0 % 05/20/2024 1:26 AM T [facility] ([facility]) Eosinophils % 2.7 0.0 - 6.0 % 05/20/2024 1:26 AM [facility] ([facility]) Basophils % 0.7 0.0 - 1.0 % 05/20/2024 1:26 AM [facility] ([facility]) Neutrophils Absolute 3.04 1.60 - 7.60 10*3/uL 05/20/2024 1:26 AM EDT [facility] ([facility]) Lymphocytes Absolute 2.03 1.20 - 4.00 10*3/uL 05/20/2024 1:26 AM EDT [facility] ([facility]) Monocytes Absolute 0.56 0.10 - 1.00 10*3/uL 05/20/2024 1:26 AM EDT [facility] ([facility]) Eosinophils Absolute 0.16 0.00 - 0.50 10*3/uL 05/20/2024 1:26 AM EDT [facility] ([facility]) Basophils Absolute 0.04 0.00 - 0.20 10*3/uL 05/20/2024 1:26 AM EDT [facility] ([facility]) Platelets 254 150 - 400 10*3/uL 05/20/2024 1:26 AM EDT [facility] ([facility]) nRBC % 0.0 0 % 05/20/2024 1:26 AM EDT [facility] ([facility]) Immature Granulocytes % 0.2 0.0 - 1.0 % 05/20/2024 1:26 AM EDT [facility] ([facility]) Immature Granulocytes Absolute 0.01 0.00 - 0.20 10*3/uL 05/20/2024 1:26 AM EDT [facility] ([facility]) Blood Venous blood specimen / Unknown Arterial Line / Unknown 05/20/2024 12:16 AM EDT 05/20/2024 1:04 AM EDT [facility] LAB BLOOD ORDERABLES Final Resu lt Performing Organization Address [facility]/ZIP Co de Phone Number [facility]) [address] [place] [address] * (ABNORMAL) aPTT - baseline (05/20/2024 12:16 AM EDT) [facility] aPTT 40.8(H) 25.0 - 35.0 Seconds 05/20/2024 2:12 AM EDT [facility]) Comment:Clinical significanc e of the APTT is questionable in the presence of heparin. Blood Venous blood specimen / Unknown Arterial Line / Unknown 05/20/2024 12:16 AM EDT 05/20/2024 12:50 AM EDT [facility] LAB BLOOD ORDERABLES Final Resu lt [facility]) [address] [place] [address] * Protime-INR (05/20/2024 12:16 AM EDT) [facility] Protime 12.4 12.3 - 14.8 Seconds 05/20/2024 2:11 AM EDT [facility] ([facility]) INR 0.92 0.90 - 1.10 05/20/2024 2:11 AM EDT [facility] ([facility]) Comment: ACCCP RECOMMENDED INR FOR [...] EDT 05/20/2024 12:50 AM EDT Brandi Parker [facility] LAB BLOOD ORDERABLES Final Resu lt [facility] ([facility]) [address] [place] [address] * Phosphorus (05/20/2024 12:16 AM EDT) Phosphorus 4.3 2.5 - 5.0 mg/dL 05/20/2024 2:02 AM EDT [facility] ([facility]) Blood Venous blood specimen / Unknown Arterial Line / Unknown 05/20/2024 12:16 AM EDT 05/20/2024 1:04 AM EDT us Brandi Parker WANIGAN CLERK LAB BLOOD ORDERABLES Final Resu lt [facility] ([facility]) [address] [place], [place] [id number] * Comprehensive metabolic panel (05/20/2024 12:16 AM EDT) Sodium 140 136 - 145 mmol/L 05/20/2024 2:02 AM EDT [facility] ([facility]) Potassium 3.7 3.5 - 5.1 mmol/L 05/20/2024 2:02 AM EDT [facility] ([facility]) Chloride 106 98 - 107 mmol/L 05/20/2024 2:02 AM EDT [facility] ([facility]) CO2 27 21 - 31 mmol/L 05/20/2024 2:02 AM EDT [facility] ([facility]) Anion Gap 11 7 - 20 mmol/L 05/20/2024 2:02 AM EDT [facility] ([facility]) BUN 16 7 - 25 mg/dL 05/20/2024 2:02 AM EDT [facility] ([facility]) Creatinine 0.95 0.70 - 1.30 mg/dL 05/20/2024 2:02 AM EDT [facility] ([facility]) BUN/Creatinine Ratio 16.8 04/10/2024 2:02 AM EDT [facility] ([facility]) Glucose 94 70 - 100 mg/dL 05/20/2024 2:02 AM EDT [facility] ([facility]) Calcium 8.9 8.6 - 10.3 mg/dL 05/20/2024 2:02 AM EDT [facility] ([facility]) AST 22 13 - 39 U/L 05/20/2024 2:02 AM EDT [facility] ([facility]) ALT (SGPT) 21 7 - 52 U/L 05/20/2024 2:02 AM EDT [facility] ([facility]) Alkaline Phosphatase 56 34 - 104 U/L 05/20/2024 2:02 AM EDT [facility] ([facility]) Total Protein 6.4 6.0 - 8.3 g/dL 05/20/2024 2:02 AM EDT [facility] ([facility]) Albumin 4.0 3.5 - 5.7 g/dL 05/20/2024 2:02 AM EDT [facility] ([facility]) Total Bilirubin 0.3 0.3 - 1.0 mg/dL 05/20/2024 2:02 AM EDT [facility] ([facility]) eGFR 95.1 >60.0 mL/min/1. 73m*2 05/20/2024 2:02 AM EDT [facility] ([facility]) Comment:[facility] s estimated glomerular filtration rate [...] 12:16 AM EDT 05/20/2024 1:04 AM EDT us Brandi Thomasjess [facility] BLOOD ORDERABLES Final Resu lt [facility] ([facility]) [address], [place] [id number] from Last 3 Months Insurance [employer] Advance Directives * Full Code (Latest Code Status on File) Date Activated Date Inactivated Comments 05/19/2024 11:57 PM 05/21/2024 3:26 PM
--- OUTSIDE RECORDS SUMMARY | 2024-07-24 13:38 | XMS_ITS | Referral Summary ---
Author Organization [facility] 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 Name Role Phone Unavailable Primary Care Provider Unavailabl e Encounters Date Type Department Care Team Description 07/23/2024 Travel 07/23/2024 8:30 AM EDT - 07/23/2024 9:30 AM EDT Surgery [facility] [place] [facility] [address] [place] [address] Blayne Chase MD Implant PPM [[id number]] 07/23/2024 6:50 AM EDT - 07/23/2024 1:37 PM EDT Hospital Encounter [facility] V[facility] Lab [address] [place] [address] Blayne Chase MD Chest pain (Primary Dx); Sinus pause Discharge Disposition: Home or Self Care (01) 07/20/[address] [facility] [address] [place] [address] Brannon Saul MD 07/14/[address] [facility] [address] [place] [address] Nancy Russo MA Encounter for pre-operative examination; Sinus pause 07/14/2024 9:15 AM EDT Office Visit [facility] [address] [place] [address] Blayne Chase MD Paroxysmal A-fib (CMS/HCC) (Primary Dx) 07/09/[address] [facility] [address] [place] [address] Margarita Laura MA 05/26/2024 2:40 PM EDT Office Visit [facility] [address] [place] [address] Sandra Bynum CNP Paroxysmal A-fib (CMS/HCC) (Primary Dx); Mixed hyperlipidemia; NSTEMI (non-ST elevated myocardial infarction) (CMS/HCC); Primary hypertension 05/19/2024 8:00 PM EDT - 05/21/2024 1:26 PM EDT Hospital Encounter [facility] [address] [place] [phone] Milton Fitch MD Schwarz, Stephanie, DO Chest pain (Primary Dx); NSTEMI (non-ST elevated myocardial infarction) (CMS/HCC); Paroxysmal A-fib (CMS/HCC) Discharge Disposition: Home or Self Care (01) 05/20/2024 Travel 05/20/2024 4:56 PM EDT - 05/20/2024 5:56 PM EDT Surgery [facility] V[facility] Lab [address] [place] [phone] Jorge Whaley MD Coronary angiography [27632 (CPT )] from Last 3 Months Allergies No known active allergies Medications atorvastatin (Lipitor) 40 mg tabletIndications:M ixed hyperlipidemia Take 1 tablet (40 mg) by mouth in the morning. 90 tablet 3 5 05/27/19 Active apixaban (Eliquis) 5 mg tabletIndications:P aroxysmal A-fib (CMS/HCC) Take 1 tablet (5 mg) by mouth two times daily. 180 tablet 3 5 05/27/19 Active metoprolol succinate XL (Toprol-XL) 50 mg [...] = 0.6 oz pur e alcohol) occasional [employer] Answer Date Recorded In the past [...] time in the past 12 m [facility], were you homeless or living in [...] Description 08/03/2024 9:00 AM EDT Office Visit [facility] [address] [place] [address] Brannon Saul MD [address] [place] [phone] Medical Devices Implanted Type Area Seat Scooper Machine Device Identifier Shelf Expiration Date Model / Serial / Lot Ingevity Implanted:Qty : 1 on 07/23/2024 by Blayne Chase MD at [facility] Lead N/A: Chest [employer] [id number] 06/16/2026 [id number] / [id number] / Ingevity Implanted:Qty : 1 on 07/23/2024 by Blayne Chase MD at [facility] Lead N/A: Chest [employer] [id number] 04/30/2026 [id number] / [id number] / Pacer,Accolad e,Mri Dr Romero - [id number] - [id number] Implanted:Qty : 1 on 07/23/2024 by Blayne Chase MD at [facility] Pacemaker N/A: Chest [employer] [id number] 06/08/2026 [id number] / [id number] / Procedures Procedure Name Priority Date/Time Associated [...] MUSE Atrial Rate 57 BPM GE MUSE UT Interval 164 ms GE MUSE QRS DURATION 108 ms GE MUSE QT Interval 414 ms GE MUSE QTC CALCULATION(BAZE TT) 402 ms GE MUSE P Hazel Hurst 49 degrees GE MUSE R-Hazel Hurst -16 degrees GE MUSE T Wave Hazel Hurst 51 degrees GE MUSE 07/23/2024 11:4 7 [...] Lab PROCEDURE PERFORMED: 1. Implantation of pacemaker ([employer]) 2. Ultrasound guided venous access INDICATIONS: [...] hypertension, hyperlipidemia who was recently admitted from [facility] to [facility] with a history of atrial fibrillation. He does report a previous history of cardioversion on 09/05/2015 at [facility]. 30d event monitor shows evidence of [...] using modified seldinger technique using a 5 [place] micro-puncture needle on two occasions and 0.35 [...] for the device below the muscle. 9 [place] Citizen Safesheaths were placed over the wire. An active fixation [employer] pacing lead was then delivered through the 9Fsheath via the SPCC sheath to the right ventricle. After confirmation of lead position on orthogonal views (WOODS and MAORI) to confirm septal position, the screw was [...] 1-0 Silk sutures. Then an active fixation [employer] lead was delivered through the 6Fsheath to the right atrial appendage. Patient was noted to go into Afib and after a 15min wait, the patient was cardioverted to sinus with 360J. After confirmation of lead position on orthogonal views (WOODS and MAORI), the screw was activated. Good sensing parameters, [...] EDT Narrative 06/23/2024 11:52 AM EDT [facility] Heart Station [address] [place] [address] [phone] (fax) Event [facility] Name: FER DAVIES Study Date: 05/23/2024 12:30 PM Date of : 1970 Location: [facility] Height: Age: 53 year(s) Patient Room: [...] 21:23 day 18 Procedure Staff Reading Group: [facility] Ordering Physician: JORGE WHALEY Cellular Plastics Cutter: Cony Norton Procedure Note Zenaida Obrien MD - 06/23/2024 1 [facility] Heart Station [address] [place] [address] [phone] (fax) Event [facility] Name: FER DAVIES Study Date: 05/23/2024 12:30 PM Date of : 1970 Location: [facility] Height: Age: 53 year(s) Patient Room: [...] run with rate of 71 BPM (day at 02:32). -Supraventricular ectopic activity consisted of [...] 21:23 day 18 Procedure Staff Reading Group: [facility] Ordering Physician: JORGE WHALEY Cellular Plastics Cutter: Cony Norton Jorge Whaley MD CV CARDIAC SERVICES PROCED URES Final Result * Magnesium (05/21/2024 5:05 AM EDT) Only the most recent of3 resultswithin the time period is included. Magnesium 1.9 1.9 - 2.7 mg/dL 05/21/2024 5:47 AM EDT [facility] ([facility]) Blood Venous blood specimen / Unknown Arterial Line / Unknown 05/21/2024 5:05 AM EDT 05/21/2024 5:14 AM EDT Jorge Whaley MD LAB BLOOD ORDERABLES Final Result [facility] ([facility]) [address] [place] [address] * Basic metabolic panel (05/21/2024 5:05 AM EDT) Only the most recent of2 resultswithin the time period is included. Sodium 137 136 - 145 mmol/L 05/21/2024 5:47 AM EDT [facility] ([facility]) Potassium 4.1 3.5 - 5.1 mmol/L 05/21/2024 5:47 AM EDT [facility] ([facility]) Chloride 105 98 - 107 mmol/L 05/21/2024 5:47 AM EDT [facility] ([facility]) CO2 29 21 - 31 mmol/L 05/21/2024 5:47 AM EDT [facility] ([facility]) BUN 17 7 - 25 mg/dL 05/21/2024 5:47 AM EDT [facility] ([facility]) Creatinine 1.14 0.70 - 1.30 mg/dL 05/21/2024 5:47 AM EDT [facility] ([facility]) Glucose 79 70 - 100 mg/dL 05/21/2024 5:47 AM EDT [facility] ([facility]) Calcium 8.7 8.6 - 10.3 mg/dL 05/21/2024 5:47 AM EDT [facility] ([facility]) Anion Gap 7 7 - 20 mmol/L 05/21/2024 5:47 AM EDT [facility] ([facility]) eGFR 76.4 >60.0 mL/min/1. 73m*2 05/21/2024 5:47 AM EDT [facility] ([facility]) Comment:[facility] s estimated glomerular filtration rate (eGFR) will [...] BUN/Creatinine Ratio 14.9 05/12 5:47 AM EDT [facility] ([facility]) Blood Venous blood specimen / Unknown Arterial Line / Unknown 05/21/2024 5:05 AM EDT 05/21/2024 5:14 AM EDT us Jorge Whaley MD LAB BLOOD ORDERABLES Final Result [facility]) [address] [place], [place] [id number] * CORONARY ANGIOGRAPHY (05/20/2024 7:36 PM EDT) Anatomical Region Laterality Modality Other Narrative 05/20/2024 7:46 PM EDT PROCEDURE PHYSICIAN: Jorge Whaley MD Clinical Presentation: 53 y.o. Male with history of atrial fibrillation and a rise in troponin concerning for a non-ST elevation [place] Final Impression: 1) Normal coronary arteries Procedures [...] infiltrated over the right radial artery. A 6-[place] [employer] Glidesheath slender was placed in right radial artery. Radial anti-vasospasm cocktail of verapamil 2.5 mg was administered through the sheath. All catheter exchanges were made over the [employer] guidewire. Coronary angiogram was performed with a [...] Study Details NSTEMI (non-ST elevated myocardial infarction) ([facility]) [I21.4] Meredith Donis DO CV CARDIAC CATH PROCEDURES Final Result * (ABNORMAL) High Sensitivity Troponin I (05/20/2024 6:14 PM EDT) Only the most recent of4 resultswithin the time period is included. [facility] High Sensitivity Troponin I 64(HH) <20 ng/L 05/20/2024 7:20 PM EDT [facility] ([facility]) Blood Venous blood specimen / Unknown Arterial Line / Unknown 05/20/2024 6:14 PM EDT 05/20/2024 6:38 PM EDT Brandi Parker [facility] LAB BLOOD ORDERABLES Final Resu lt [facility] ([facility]) [address] [place] [address] * Anti-Xa (Heparin Level) (05/20/2024 6:14 PM EDT) Only the most recent of3 resultswithin the time period is included. [facility] Anti-Xa (Heparin) 0.41 0.3 - 0.7 IU/mL 05/20/2024 6:53 PM EDT [facility] ([facility]) Comment:Rivaroxaban and Apix aban will interfere with the anti Xa assay used to monitor UFH and LMWH. Blood Venous blood specimen / Unknown Arterial Line / Unknown 05/20/2024 6:14 PM EDT 05/20/2024 6:29 PM EDT Milton Fitch MD LAB BLOOD ORDERABLES Final Resul t [facility] ([facility]) [address] [place] [address] * COMPLETE ECHO (TTE) (05/20/2024 3:25 PM EDT) Anatomical Region Laterality Modality Other 05/20/2024 3:06 PM EDT Narrative 05/20/2024 4:27 PM EDT 1 1 [facility] Heart Station [address] [place] [address] (fax) Echocardiogram-[facility] Name: FER DAVIES Study Date: 05/20/2024 03:06 PM B/P: 142 mmHg/84 mmHg HR: 65 bpm Date of : 1970 Location: [facility] Height: 68 in. Age: 53 year(s) [...] No pericardial effusion. Procedure Staff Reading Group: [facility] Referring Physician: Carolyn Regalado MD Sock Lining Stitcher: BRIAN Adame Ordering Physician: MEREDITH DONIS Procedure Note Juan Pablo Burgess MD - 05/20/2024 1 1 [facility] Heart Station [address] [place] [address] [phone] (fax) E[facility] Name: FER DAVIES Study Date: 05/20/2024 03:06 PM B/P: 142 mmHg/84 mmHg HR: 65 bpm Date of : 1970 Location: [facility] Height: 68 in. Age: 53 year(s) [...] No pericardial effusion. Procedure Staff Reading Group: [facility] Referring Physician: Carolyn Regalado MD Sock Lining Stitcher: BRIAN Adame Ordering Physician: MEREDITH DONIS us Meredith Donis DO CV ECHO PROCEDURES Final Re sult * Lavender Top (05/20/2024 11:28 AM EDT) Extra Tube Hold for add-ons. 05/20/2024 1:01 PM EDT [facility] ([facility]) Comment:Auto resulted. Blood Venous blood specimen / Unknown 05/20/2024 11:28 AM EDT 05/20/2024 11:51 AM EDT us Meredith Donis DO LAB BLOOD ORDERABLES Final Result [facility] ([facility]) [address] [place] [address] * TSH3 Reflex to FT4 (05/20/2024 5:56 AM EDT) Pathologist [facility] TSH 2.41 0.34 - 5.60 mIU/L 05/20/2024 9:26 AM EDT [facility] ([facility]) Blood Venous blood specimen / Unknown Arterial Line / Unknown 05/20/2024 5:56 AM EDT 05/20/2024 5:56 AM EDT us Wally Benson MD LAB BLOOD ORDERABLES Final Resul t [facility]) [address] [place] [address] * Lipid panel (05/20/2024 5:56 AM EDT) Pathologist [facility] Triglycerides 72 <150 mg/dL 05/20/2024 9:26 AM EDT [facility] ([facility]) Comment: TRIGLYCERIDE REFERENCE RANGE: 20 YEARS AND OLDER CARDIOVASCULAR RISK LESS THAN 150 mg/dL LOW RISK 150 TO 199 mg/dL BORDERLINE RISK 200 mg/dL AND GREATER HIGH RISK Cholesterol 152 120 - 200 mg/dL 05/20/2024 9:26 AM EDT [facility] ([facility]) LDL Calculated 101 0 - 160 mg/dL 05/20/2024 9:26 AM EDT [facility] ([facility]) HDL 37 23 - 92 mg/dL 05/20/2024 9:26 AM EDT [facility] ([facility]) Non HDL Cholesterol 115 05/20/2024 9:26 AM EDT [facility] ([facility]) Total VLDL-C 14 0 - 40 mg/dL 05/20/2024 9:26 AM EDT [facility] ([facility]) Cholesterol/HDL Ratio 4.1 mg/dL 05/20/2024 9:26 AM EDT [facility] ([facility]) Blood Venous blood specimen / Unknown Arterial Line / Unknown 05/20/2024 5:56 AM EDT 05/20/2024 5:56 AM EDT us Meredith Donis DO LAB BLOOD ORDERABLES Final Result [facility] ([facility]) [address] [place] [address] * CBC auto differential (05/20/2024 12:16 AM EDT) Auto WBC 5.84 4.00 - 10.60 10*3/uL 05/20/2024 1:26 AM EDT [facility] ([facility]) RBC 4.96 4.20 - 5.70 10*6/uL 05/20/2024 1:26 AM EDT [facility] ([facility]) Hemoglobin 14.6 13.0 - 17.0 g/dL 05/20/2024 1:26 AM EDT [facility] ([facility]) Hematocrit 42.3 39.0 - 50.0 % 05/20/2024 1:26 AM EDT [facility] ([facility]) MCV 85.3 82.0 - 98.0 fL 05/20/2024 1:26 AM EDT [facility] ([facility]) MCH 29.4 27.0 - 33.0 pg 05/20/2024 1:26 AM EDT [facility] ([facility]) MCHC 34.5 32.0 - 35.0 g/dL 05/20/2024 1:26 AM EDT [facility] ([facility]) RDW 12.4 11.5 - 15.0 % 05/20/2024 1:26 AM EDT [facility] ([facility]) Neutrophils % 52.0 40.0 - 72.0 % 05/20/2024 1:26 AM EDT [facility] ([facility]) Lymphocytes % 34.8 20.0 - 45.0 % 05/20/2024 1:26 AM EDT [facility] ([facility]) Monocytes % 9.6 5.0 - 12.0 % 05/20/2024 1:26 AM EDT [facility] ([facility]) Eosinophils % 2.7 0.0 - 6.0 % 05/20/2024 1:26 AM EDT [facility] ([facility]) Basophils % 0.7 0.0 - 1.0 % 05/20/2024 1:26 AM EDT [facility] ([facility]) Neutrophils Absolute 3.04 1.60 - 7.60 10*3/uL 05/20/2024 1:26 AM EDT [facility] ([facility]) Lymphocytes Absolute 2.03 1.20 - 4.00 10*3/uL 05/20/2024 1:26 AM EDT [facility] ([facility]) Monocytes Absolute 0.56 0.10 - 1.00 10*3/uL 05/20/2024 1:26 AM EDT [facility] ([facility]) Eosinophils Absolute 0.16 0.00 - 0.50 10*3/uL 05/20/2024 1:26 AM EDT [facility] ([facility]) Basophils Absolute 0.04 0.00 - 0.20 10*3/uL 05/20/2024 1:26 AM EDT [facility] ([facility]) Platelets 254 150 - 400 10*3/uL 05/20/2024 1:26 AM EDT [facility] ([facility]) nRBC % 0.0 0 % 05/20/2024 1:26 AM EDT [facility] ([facility]) Immature Granulocytes % 0.2 0.0 - 1.0 % 05/20/2024 1:26 AM EDT [facility] ([facility]) Immature Granulocytes Absolute 0.01 0.00 - 0.20 10*3/uL 05/20/2024 1:26 AM EDT [facility] ([facility]) Blood Venous blood specimen / Unknown Arterial Line / Unknown 05/20/2024 12:16 AM EDT 05/20/2024 1:04 AM EDT us Brandi Parker [facility] BLOOD ORDERABLES Final Resu lt [facility] ([facility]) [address] [place] [address] * (ABNORMAL) aPTT - baseline (05/20/2024 12:16 AM EDT) aPTT 40.8(H) 25.0 - 35.0 Seconds 05/20/2024 2:12 AM EDT [facility] ([facility]) Comment:Clinical significanc e of the APTT is questionable in the presence of heparin. Blood Venous blood specimen / Unknown Arterial Line / Unknown 05/20/2024 12:16 AM EDT 05/20/2024 12:50 AM EDT Brandi Parker [facility] BLOOD ORDERABLES Final Resu lt [facility] ([facility]) [address] [place] [address] * Protime-INR (05/20/2024 12:16 AM EDT) Protime 12.4 12.3 - 14.8 Seconds 05/20/2024 2:11 AM EDT [facility] ([facility]) INR 0.92 0.90 - 1.10 05/20/2024 2:11 AM EDT [facility] ([facility]) Comment: [facility] RECOMMENDED INR FOR WARFARIN THERAPY [...] 12:16 AM EDT 05/20/2024 12:50 AM EDT [facility] BLOOD ORDERABLES Final Resu lt [facility]) [address] [place] [address] * Phosphorus (05/20/2024 12:16 AM EDT) Phosphorus 4.3 2.5 - 5.0 mg/dL 05/20/2024 2:02 AM EDT [facility] ([facility]) Blood Venous blood specimen / Unknown Arterial Line / Unknown 05/20/2024 12:16 AM EDT 05/20/2024 1:04 AM EDT [facility] LAB BLOOD ORDERABLES Final Resu lt Performing Organization Address City/[facility]/ZIP Co de Phone Number [facility] ([facility]) [address] [place] [address] * Comprehensive metabolic panel (05/20/2024 12:16 AM EDT) Sodium 140 136 - 145 mmol/L 05/20/2024 2:02 AM EDT [facility] ([facility]) Potassium 3.7 3.5 - 5.1 mmol/L 05/20/2024 2:02 AM EDT [facility] ([facility]) Chloride 106 98 - 107 mmol/L 05/20/2024 2:02 AM EDT [facility] ([facility]) CO2 27 21 - 31 mmol/L 05/20/2024 2:02 AM EDT [facility] ([facility]) Anion Gap 11 7 - 20 mmol/L 05/20/2024 2:02 AM EDT [facility] ([facility]) BUN 16 7 - 25 mg/dL 05/20/2024 2:02 AM EDT [facility] ([facility]) Creatinine 0.95 0.70 - 1.30 mg/dL 05/20/2024 2:02 AM EDT [facility] ([facility]) BUN/Creatinine Ratio 16.8 10/2024 2:02 AM [facility] ([facility]) Glucose 94 70 - 100 mg/dL 05/20/2024 2:02 AM [facility] ([facility]) Calcium 8.9 8.6 - 10.3 mg/dL 05/20/2024 2:02 AM [facility] ([facility]) AST 22 13 - 39 U/L 05/20/2024 2:02 AM [facility] ([facility]) ALT (SGPT) 21 7 - 52 U/L 05/20/2024 2:02 AM [facility] ([facility]) Alkaline Phosphatase 56 34 - 104 U/L 05/20/2024 2:02 AM [facility] ([facility]) Total Protein 6.4 6.0 - 8.3 g/dL 05/20/2024 2:02 AM [facility] ([facility]) Albumin 4.0 3.5 - 5.7 g/dL 05/20/2024 2:02 AM [facility] ([facility]) Total Bilirubin 0.3 0.3 - 1.0 mg/dL 05/20/2024 2:02 AM [facility] ([facility]) eGFR 95.1 >60.0 mL/min/1. 73m*2 05/20/2024 2:02 AM [facility] ([facility]) Comment:[facility] s estimated glomerular filtration rate (eGFR) will [...] 05/20/2024 1:04 AM EDT us Brandi Parker [employer] LAB BLOOD ORDERABLES Final Resu lt [facility] ([facility]) [address] [place] [address] from Last 3 Months Insurance [employer] Advance Directives * Full Code (Latest Code Status on File) Date Activated Date Inactivated Comments 05/19/2024 11:57 PM 05/21/2024 3:26 PM
--- NOTE | 2024-07-24 13:42 | XR_ITS ---
[address] [address] Patient Name: AMANDA DAVIES SR MRN: [id number] date: 1970 Sex: M Assigned Patient Location: [facility] Current Patient Location: [facility] Accession/Order Number: [id number] Exam Date: 07/24/2024 14:08 Report Date: 07/24/2024 14:09 At the request of: JOSE R RICO MD Procedure: XR chest 2V PA AND LATERAL CHEST: CLINICAL HISTORY: Chest Pain. Follow-up pacemaker COMPARISON: 05/19/2024 A new dual-lead pacemaker is visualized on the left. The leads appear intact and in appropriate position. There is slight elevation of the right hemidiaphragm. There is no focal parenchymal consolidation, effusion or pneumothorax. The cardiac, hilar and mediastinal silhouettes are within normal limits. There is no vascular congestion. The visualized bony structures are osteopenic . XR/XR chest 2V IMPRESSION: SATISFACTORY APPEARANCE OF PACEMAKER. NO ACUTE FINDINGS. Impression dictated by: Bernice Dinh M.D. 07/24/2024 2:09 PM Dictation Location: [place] [address] Electronically authenticated by: [id number] Y Date: 07/24/2024 14:09
--- OUTSIDE RECORDS SUMMARY | 2024-07-24 13:52 | XMS_ITS | CCD ---
Author Organization [facility] Care Team Providers Care Mortgage Loan Coordinator Name Role Phone NO FAMILY, PHYSICIAN Primary Care Provider Unava ilable DO Jose Turk Attending Provider DO Shelby Steele Primary Care Provider [phone] Jose Turk Unavailable DO Shelby Steele Primary Care Provider [phone] DO Jose Turk Attending Provider Jose Turk [...] Active 5 MG PO EVERY 4-6 HOURS 09 09March 20, 2022 Completed/Discontinued Medications Medication Drug Class(es) [...] Range Facility Office Visiton 07-14-2024 Follow-up visit [id number] Amanda Davies Sr. 1970 M [facility] Provider Department Center 07/14/2024 JOSE R FOSTER MIRANDA Betancourt [facility] Family History Problem Relation Age of Onset COPD Mother Cancer Father Stroke Brother Family Status - Relation Status Age at Mother Father Sister Alive Brother Alive Level of Service:41461 MA OFFICE/OUTPATIENT NEW MODERATE MDM 45 MINUTES [facility] Orders Onlyon 07-14-2024 Orders Only [id number] Amanda Davies Sr. 1970 [facility] Provider Department Center 07/14/2024 DAMI CRAWFORD MIRANDA [facility] Family History Problem Relation Age of Onset COPD Mother Cancer Father Stroke Brother Family Status - Relation Status Age at Mother Father Sister Alive Brother Alive [facility] 36on 07-09-2024 36 Regarding lab result s from 06/30/2024: Leslie Bynum, JOSE Laura MA Please let him know his labs look good. Normal kidney and liver function. Cholesterol levels are well controlled. Continue atorvastatin at 40mg daily. Thanks! Jovita WILLS on his VM. [facility] 37on 05-26-2024 37 *Cut atorvastatin down to 40mg daily. You can cut your current prescription of 80mg in half. When this is used up, start the new prescription. *Increase metoprolol to 50mg daily. You can take 2 tablets of your current 25mg prescription until this is used up. *Have follow-up labs in 6-8 weeks. [facility] Office Visiton 05-26-2024 Follow-up visit [id number] Amanda Davies Sr. 1970 [facility] Provider Department Center 05/26/2024 LESLIE MCFADDEN CARD [facility] Family History Problem Relation Age of Onset COPD Mother Cancer Father Stroke Brother Family Status - Relation Status Age at Mother Father Sister Alive Brother Alive Level of Service:[id number] MA OFFICE/OUTPATIENT ESTABLISHED MOD MDM 30 MIN Reason for Visit and Comments: Hospital Follow-up [832] Atrial Fibrillation [80] Normal [facility] 30on 05-21-2024 30 The patient is Moderately [...] facility with appropriate resources Outcome: Progressing Normal [facility] BASIC METABOLIC PANELon 05-12 Anion gap [Moles/Vol] 7 mmol/L Normal 7-20 [facility] Comment on above: Performed By: #### L [id number] #### [facility] (AKER) [address] [place] [address] Calcium [Mass/Vol] 8.7 mg/dL Normal 8.6-10.3 [facility] Comment on above: Performed By: #### L [id number] #### [facility] (AKER) [address] [place] [address] Chloride [Moles/Vol] 105 mmol/L Normal 98-107 [facility] Comment on above: Performed By: #### L [id number] #### [facility] (BEAKER) [address] [place] [address] CO2 [Moles/Vol] 29 mmol/L Normal 21-31 [facility] Comment on above: Performed By: #### L [id number] #### [facility] (BEAKER) [address] [place] [address] Creatinine [Mass/Vol] 1.14 mg/dL Normal 0.70-1.30 [facility] Comment on above: Performed By: #### L [id number] #### [facility] ([facility]) [address] [place] [address] GLOMERULAR FILTRATION RATE ML/MIN/1.73 SQ M.PREDICTED 76.4 mL/min/1.73m*2 Normal >60.0 [facility] Comment on above: Result Comment: The [facility]???s estimated glomerular filtration rate (eGFR) will no [...] group of individuals. Performed By: #### L [id number] #### [facility] ([facility]) [address] [place] [address] Glucose [Mass/Vol] 79 mg/dL Normal 70-100 [facility] Comment on above: Performed By: #### L [id number] #### [facility] ([facility]) [address] [place] [address] Potassium [Moles/Vol] 4.1 mmol/L Normal 3.5-5.1 [facility] Comment on above: Performed By: #### L [id number] #### [facility] ([facility]) [address] [place] [address] Sodium [Moles/Vol] 137 mmol/L Normal 136-145 [facility] Comment on above: Performed By: #### L [id number] #### [facility] ([facility]) [address] [facility] [place] [address] Urea nitrogen [Mass/Vol] 17 mg/dL Normal 7-25 [facility] Comment on above: Performed By: #### L [id number] #### [facility] ([facility]) [address] [facility] [place] [address] UREA NITROGEN/CREATININE (MASS RATIO) IN SER/PLAS 14.9 Normal [facility] Comment on above: Performed By: #### L [id number] #### [facility] (BEAKER) [address] [place] [address] MAGNESIUMon 05-21-2024 Magnesium [Mass/Vol] 1.9 mg/dL Normal 1.9-2.7 [facility] Comment on above: Performed By: #### L [id number] #### [facility] (BEAKER) [address] [place] [address] 30on 05-20-2024 30 The patient is Moderately [...] medication and electrolyte replacement as ordered Normal [facility] ANESon 05-20-2024 ANES - Attestation signed by [...] Coronary angiography Location: [facility] TYPE INSPECTOR 3 / [facility] (Cath) Providers: Jorge Whaley MD Clinical information reviewed: Subtextual Meds Physical Exam Airway Mallampati: III Cardiovascular Rhythm: regular Rate: normal (-) murmur Dental Pulmonary (-) decreased breath sounds Abdominal (-) obese Anesthesia Plan ASA 3 other (Conscious Sedation) intravenous induction Anesthetic plan and risks discussed with patient. Use of blood products discussed with patient who consented to blood products. Plan discussed with attending. Additional Equipment Requests Normal [facility] ANTI-XA (HEPARIN LEVEL)on HEPARIN UNFRACTIONATED (U/ML) IN PPP BY CHROMOGENIC METHOD 0.41 IU/mL Normal 0.3-0.7 [facility] Comment on above: Order Comment: Check anti-Xa level every 6 hours while on heparin infusion, or per protocol. Result Comment: Meilssa roxaban and Apixaban will interfere with the anti Xa assay used to monitor UFH and LMWH. Performed By: #### L [id number] #### [facility] (BEAKER) [address] [place] [address] HEPARIN UNFRACTIONATED (U/ML) IN PPP BY CHROMOGENIC METHOD 0.28 IU/mL Low 0.3-0.7 [facility] Comment on above: Order Comment: Check anti-Xa level every 6 hours while on heparin infusion, or per protocol. Result Comment: Melissa roxaban and Apixaban will interfere with the anti Xa assay used to monitor UFH and LMWH. Performed By: #### L [id number] #### [facility] (BEAKER) [address] [place] [address] HEPARIN UNFRACTIONATED (U/ML) IN PPP BY CHROMOGENIC METHOD 0.23 IU/mL Low 0.3-0.7 [facility] Comment on above: Order Comment: Check anti-Xa level every 6 hours while on heparin infusion, or per protocol. Result Comment: Exeter roxaban and Apixaban will interfere with the anti Xa assay used to monitor UFH and LMWH. Performed By: #### L [id number] #### [facility] ([facility]) [address] [place] [address] APTTon 05-20-2024 ACTIVATED PARTIAL THROMBOPLASTIN TIME IN PPP BY COAGULATION ASSAY 40.8 Seconds High 25.0-35.0 [facility] Comment on above: Order Comment: Basel ine aPTT before initiating heparin infusion. Result Comment: Clin ical significance of the APTT is questionable in the presence of heparin. Performed By: #### L [id number] ####[facility] ([facility])[address] [place] [address] BASIC METABOLIC PANELon Anion gap [Moles/Vol] 7 mmol/L Normal 7-20 [facility] Comment on above: Performed By: #### L [id number] #### [facility] ([facility]) [address] [place] [address] Calcium [Mass/Vol] 8.5 mg/dL Low 8.6-10.3 [facility] Comment on above: Performed By: #### L [id number] #### [facility] ([facility]) [address] [place] [address] Chloride [Moles/Vol] 109 mmol/L High 98-107 [facility] Comment on above: Performed By: #### L [id number] #### [facility] [address] [address] CO2 [Moles/Vol] 28 mmol/L Normal 21-31 [facility] Comment on above: Performed By: #### L [id number] #### [facility] ([facility] [address] [place] [address] Creatinine [Mass/Vol] 0.93 mg/dL Normal 0.70-1.30 [facility] Comment on above: Performed By: #### L [id number] #### [facility] ([facility]) [address] [place] [address] GLOMERULAR FILTRATION RATE ML/MIN/1.73 SQ M.PREDICTED 97.6 mL/min/1.73m*2 Normal >60.0 [facility] Comment on above: Result Comment: The [facility]???s estimated glomerular filtration rate (eGFR) will no [...] group of individuals. Performed By: #### L [id number] #### [facility] ([facility]) [address] [place] [address] Glucose [Mass/Vol] 94 mg/dL Normal 70-100 [facility] Comment on above: Performed By: #### L [id number] #### [facility] ([facility]) [address] [place] [address] Potassium [Moles/Vol] 4.0 mmol/L Normal 3.5-5.1 [facility] Comment on above: Performed By: #### L [id number] #### [facility] ([facility]) [address] [place] [address] Sodium [Moles/Vol] 140 mmol/L Normal 136-145 [facility] Comment on above: Performed By: #### L [id number] #### [facility] ([facility]) [address] [place] [address] Urea nitrogen [Mass/Vol] 17 mg/dL Normal 7-25 [facility] Comment on above: Performed By: #### L [id number] #### [facility] ([facility] [address] [place] [address] UREA NITROGEN/CREATININE (MASS RATIO) IN SER/PLAS 18.3 Normal [facility] Comment on above: Performed By: #### L [id number] #### [facility] ([facility]) [address] [place] [address] CBCon 05-20-2024 Erythrocyte distribution width (RBC) [Ratio] 12.3 % Normal 11.5-15.0 [facility] Comment on above: Performed By: #### L [id number] #### [facility] ([facility]) [address] [place] [address] ERYTHROCYTE MEAN CORPUSCULAR HEMOGLOBIN CONCENTRATION (G/DL) BY AUTOMATED 33.7 g/dL Normal 32.0-35.0 [facility] Comment on above: Performed By: #### L [id number] #### [facility] ([facility]) [address] [place] [address] Hematocrit (Bld) [Volume fraction] 43.9 % Normal 39.0-50.0 [facility] Comment on above: Performed By: #### L [id number] #### [facility] ([facility]) [address] [place] [address] Hemoglobin (Bld) [Mass/Vol] 14.8 g/dL Normal 13.0-17.0 [facility] Comment on above: Performed By: #### L [id number] #### [facility] ([facility]) [address] [place] [address] MCH (RBC) [Entitic mass] 29.1 pg Normal 27.0-33.0 [facility] Comment on above: Performed By: #### L [id number] #### [facility] ([facility]) [address] [place] [address] MCV (RBC) [Entitic vol] 86.2 fL Normal 82.0-98.0 [facility] Comment on above: Performed By: #### L [id number] #### [facility] ([facility]) [address] [place] [address] PLATELETS (10*3/UL) IN BLOOD AUTOMATED COUNT 244 10*3/uL Normal 150-400 [facility] Comment on above: Performed By: #### L [id number] #### [facility] ([facility]) [address] [place] [address] RBC (Bld) [#/Vol] 5.09 10*6/uL Normal 4.20-5.70 [facility] Comment on above: Performed By: #### L [id number] #### [facility] ([facility]) [address] [place] [address] WBC (Bld) [#/Vol] 4.96 10*3/uL Normal 4.00-10.60 [facility] Comment on above: Performed By: #### L [id number] #### [facility] ([facility]) [address] [facility] [place] [address] CBC WITH AUTO DIFFERENTIALon 05-20-2024 Basophils (Bld) [#/Vol] 0.04 10*3/uL Normal 0.00-0.20 [facility] Comment on above: Performed By: #### L [id number] #### [facility] ([facility]) [address] [place] [address] Basophils/100 WBC (Bld) 0.7 % Normal 0.0-1.0 [facility] Comment on above: Performed By: #### L [id number] #### [facility] ([facility]) [address] [place] [address] Eosinophils (Bld) [#/Vol] 0.16 10*3/uL Normal 0.00-0.50 [facility] Comment on above: Performed By: #### L [id number] #### [facility] ([facility]) [address] [place] [address] Eosinophils/100 WBC (Bld) 2.7 % Normal 0.0-6.0 [facility] Comment on above: Performed By: #### L [id number] #### [facility] ([facility]) [address] [place] [address] Erythrocyte distribution width (RBC) [Ratio] 12.4 % Normal 11.5-15.0 [facility] Comment on above: Performed By: #### L [id number] #### [facility] ([facility]) [address] [place] [address] ERYTHROCYTE MEAN CORPUSCULAR HEMOGLOBIN CONCENTRATION (G/DL) BY AUTOMATED 34.5 g/dL Normal 32.0-35.0 [facility] Comment on above: Performed By: #### L [id number] #### [facility] ([facility]) [address] [place] [address] Hematocrit (Bld) [Volume fraction] 42.3 % Normal 39.0-50.0 [facility] Comment on above: Performed By: #### L [id number] #### [facility] ([facility]) [address] [place] [address] Hemoglobin (Bld) [Mass/Vol] 14.6 g/dL Normal 13.0-17.0 [facility] Comment on above: Performed By: #### L [id number] #### [facility] ([facility]) [address] [place] [address] Immature granulocytes (Bld) [#/Vol] 0.01 10*3/uL Normal 0.00-0.20 [facility] Comment on above: Performed By: #### L [id number] #### [facility] ([facility]) [address] [place] [address] Immature granulocytes/100 WBC (Bld) 0.2 % Normal 0.0-1.0 [facility] Comment on above: Performed By: #### L [id number] #### [facility] ([facility]) [address] [place] [address] Lymphocytes (Bld) [#/Vol] 2.03 10*3/uL Normal 1.20-4.00 [facility] Comment on above: Performed By: #### L [id number] #### [facility] (BEAKER) [address] [place] [address] Lymphocytes/100 WBC (Bld) 34.8 % Normal 20.0-45.0 [facility] Comment on above: Performed By: #### L [id number] #### [facility] (BEAKER) [address] [place] [address] MCH (RBC) [Entitic mass] 29.4 pg Normal 27.0-33.0 [facility] Comment on above: Performed By: #### L [id number] #### [facility] ([facility] [address] [place] [address] MCV (RBC) [Entitic vol] 85.3 fL Normal 82.0-98.0 [facility] Comment on above: Performed By: #### L [id number] #### [facility] ([facility] [address] [place] [address] Monocytes (Bld) [#/Vol] 0.56 10*3/uL Normal 0.10-1.00 [facility] Comment on above: Performed By: #### L [id number] #### [facility] (BEAKER) [address] [place] [address] Monocytes/100 WBC (Bld) 9.6 % Normal 5.0-12.0 [facility] Comment on above: Performed By: #### L [id number] #### [facility] (BEAKER) [address] [place] [address] Neutrophils (Bld) [#/Vol] 3.04 10*3/uL Normal 1.60-7.60 [facility] Comment on above: Performed By: #### L [id number] #### [facility] (BEAKER) [address] [place] [address] Neutrophils/100 WBC (Bld) 52.0 % Normal 40.0-72.0 [facility] Comment on above: Performed By: #### L [id number] #### [facility] (BEAKER) [address] [place] [address] NRBC (PER 100 WBCS) BY AUTOMATED COUNT 0.0 % Normal 0 [facility] Comment on above: Performed By: #### L [id number] #### [facility] ([facility]) [address] [place] [address] PLATELETS (10*3/UL) IN BLOOD AUTOMATED COUNT 254 10*3/uL Normal 150-400 [facility] Comment on above: Performed By: #### L [id number] #### [facility] ([facility]) [address] [place] [address] RBC (Bld) [#/Vol] 4.96 10*6/uL Normal 4.20-5.70 [facility] Comment on above: Performed By: #### L [id number] #### [facility] ([facility]) [address] [place] [address] WBC (Bld) [#/Vol] 5.84 10*3/uL Normal 4.00-10.60 [facility] Comment on above: Performed By: #### L [id number] #### [facility] ([facility]) [address] [place] [address] COMPREHENSIVE METABOLIC PANE Robert 05-20-2024 Albumin [Mass/Vol] 4.0 g/dL Normal 3.5-5.7 [facility] Comment on above: Performed By: #### L [id number] ####[facility] ([facility])[address] [place] [address] ALP [Catalytic activity/Vol] 56 U/L Normal 34-104 [facility] Comment on above: Performed By: #### L [id number] ####[facility] ([facility])[address] [place] [address] ALT [Catalytic activity/Vol] 21 U/L Normal 7-52 [facility] Comment on above: Performed By: #### L [id number] ####[facility] ([facility])[address] [place] [address] Anion gap [Moles/Vol] 11 mmol/L Normal 7-20 [facility] Comment on above: Performed By: #### L [id number] ####[facility] ([facility])[address] [place] [address] AST [Catalytic activity/Vol] 22 U/L Normal 13-39 [facility] Comment on above: Performed By: #### L [id number] ####[facility] ([facility])[address] [place] [address] Bilirubin [Mass/Vol] 0.3 mg/dL Normal 0.3-1.0 [facility] Comment on above: Performed By: #### L [id number] ####[facility] ([facility])[address] [place] [address] Calcium [Mass/Vol] 8.9 mg/dL Normal 8.6-10.3 [facility] Comment on above: Performed By: #### L [id number] ####[facility] ([facility])[address] [place] [address] Chloride [Moles/Vol] 106 mmol/L Normal 98-107 [facility] Comment on above: Performed By: #### L [id number] ####[facility] ([facility])[address] [place] [address] CO2 [Moles/Vol] 27 mmol/L Normal 21-31 [facility] Comment on above: Performed By: #### L [id number] ####[facility] ([facility])[address] [place] [address] Creatinine [Mass/Vol] 0.95 mg/dL Normal 0.70-1.30 [facility] Comment on above: Performed By: #### L [id number] ####[facility] ([facility])[address] [place] [address] GLOMERULAR FILTRATION RATE ML/MIN/1.73 SQ M.PREDICTED 95.1 mL/min/1.73m*2 Normal >60.0 [facility] Comment on above: Result Comment: The [facility]???s estimated glomerular filtration rate (eGFR) will no [...] of individuals. Performed By: #### L [id number] ####[facility] ([facility])[address] [place] [address] Glucose [Mass/Vol] 94 mg/dL Normal 70-100 [facility] Comment on above: Performed By: #### L [id number] ####[facility] ([facility])[address] [place] [address] Potassium [Moles/Vol] 3.7 mmol/L Normal 3.5-5.1 [facility] Comment on above: Performed By: #### L [id number] ####[facility] (BEAKER)[address] [place] [address] Protein [Mass/Vol] 6.4 g/dL Normal 6.0-8.3 [facility] Comment on above: Performed By: #### L [id number] ####[facility] (BEAKER)[address] [place] [address] Sodium [Moles/Vol] 140 mmol/L Normal 136-145 [facility] Comment on above: Performed By: #### L [id number] ####[facility] (BEAKER)[address] [place] [address] Urea nitrogen [Mass/Vol] 16 mg/dL Normal 7-25 [facility] Comment on above: Performed By: #### L [id number] ####[facility] (BEAKER)[address] [place] [address] UREA NITROGEN/CREATININE (MASS RATIO) IN SER/PLAS 16.8 Normal [facility] Comment on above: Performed By: #### L [id number] ####[facility] (RIKY)[address] [place] [address] CONSULTon 05-20-2024 CONSULT - Attestation signed by [...] documentation from me. Additional Comments: Transferred from [facility] due to chest pain and palpitations Elevated high-sensitivity troponin concerning for NSTEMI Uncontrolled Hypertension as well Will proceed with coronary angiogram for CAD evaluation Given palpitations, will plan to discharge with 30-day event monitor and outpatient follow-up with [place] [facility] labs including CBC, CMP, troponin all [...] Value Ventricular Rate 78 Atrial Rate 78 MA Interval 176 QRS DURATION 88 QT Interval 372 QTC CALCULATION(BAZETT) 424 P [place] 66 R-[place] 28 T Wave [place] 37 Impression Normal sinus rhythm Normal ECG [...] underwent Cardioversion (more content not included)... Normal [facility] HIGH SENSITIVITY TROPONIN Io n 05-20-2024 HS TROPONIN I (NG/L) 64 ng/L Critically high <20 [facility] Comment on above: Performed By: #### L [id number] #### [facility] (BEAKER) [address] [place] [address] HS TROPONIN I (NG/L) 91 ng/L Critically high <20 [facility] Comment on above: Performed By: #### L [id number] #### [facility] (BEAKER) [address] [place] [address] HS TROPONIN I (NG/L) 138 ng/L Critically high <20 [facility] Comment on above: Performed By: #### L [id number] #### [facility] (BEAKER) [address] [place] [address] HS TROPONIN I (NG/L) 220 ng/L Critically high <20 [facility] Comment on above: Performed By: #### L [id number] ####[facility] (scoo mobility)[address] [facility] [place] [address] HPon 05-20-2024 HP - Attestation signed by Jorge Whaley MD at 05/20/2024 7:17 PM Agree with above. I have personally spoken with and examined Mr. Davies. H&P reviewed. The patient was examined and there are no changes to the H&P. Proceed with [facility]ORS for NSTEMI. Hernán Cedeño MD PGY-5 Modeling And Simulation Analyst [facility] Pager # [phone] Normal [facility] LIPID PANELon 05-20-2024 CHOL/HDL 4.1 mg/dL Normal [facility] Comment on above: Performed By: #### L [id number] #### [facility] (scoo mobility) [address] [place] [address] Cholesterol [Mass/Vol] 152 mg/dL Normal 120-[address] [facility] Comment on above: Performed By: #### L [id number] #### [facility] (scoo mobility) [address] [place] [address] Magnesium [Mass/Vol] 72 mg/dL Normal <150 [facility] Comment on above: Result Comment: TRIG LYCERIDE REFERENCE RANGE: 20 YEARS AND OLDER CARDIOVASCULAR RISK LESS THAN 150 mg/dL LOW RISK 150 TO 199 mg/dL BORDERLINE RISK 200 mg/dL AND GREATER HIGH RISK Performed By: #### L [id number] #### [facility] (BEAKER) [address] [place] [address] Magnesium [Mass/Vol] 101 mg/dL Normal 0-160 [facility] Comment on above: Performed By: #### L [id number] #### [facility] [address] [place] [address] Magnesium [Mass/Vol] 37 mg/dL Normal 23-92 [facility] Comment on above: Performed By: #### L [id number] #### [facility] [address] [place] [address] NON HDL CHOL. (LDL+VLDL) 115 Normal [facility] Comment on above: Performed By: #### L [id number] #### [facility] [address] [place] [address] TOTAL VLDL-C 14 mg/dL Normal 0-40 [facility] Comment on above: Performed By: #### L [id number] #### [facility] [address] [place] [address] MAGNESIUMon 05-20-2024 Magnesium [Mass/Vol] 2.0 mg/dL Normal 1.9-2.7 [facility] Comment on above: Performed By: #### L [id number] #### [facility] [address] [place] [address] Magnesium [Mass/Vol] 2.0 mg/dL Normal 1.9-2.7 [facility] Comment on above: Performed By: #### L [id number] #### [facility] [address] [place] [address] PHOSPHORUSon 05-20-2024 Magnesium [Mass/Vol] 4.3 mg/dL Normal 2.5-5.0 [facility] Comment on above: Performed By: #### L [id number] #### [facility] ([facility] [address] [place] [address] PROTIME-INRon 05-20-2024 INR IN PPP BY COAGULATION ASSAY 0.92 Normal 0.90-1.10 [facility] Comment on above: Result Comment: ACCC P [...] CHEST 1995;[id number]. Performed By: #### L [id number] ####[facility] [place] [address] PROTHROMBIN TIME (PT) IN PPP BY COAGULATION ASSAY 12.4 Seconds Normal 12.3-14.8 [facility] Comment on above: Performed By: #### L [id number] ####[facility] [place] [address] TSH3 REFLEX TO FT4on 025 THYROTROPIN (MIU/L) IN SER/PLAS BY DETECTION LIMIT <= 0.05 MIU/L 2.41 mIU/L Normal 0.34-5.60 [facility] Comment on above: Performed By: #### L [id number] #### [facility] [address] [place] [address] NURSNOTEon 05-19-2024 NURSNOTE The lyric writer received a call from Marcia (ER nurse in [facility]) at 2140. The patient arrived at their ER at 4PM today ambulating with complaints of SOB and was tachy at 117-120 bpm. The patient has a history of Afib and cardiac ablation. Troponin was at 57.7 and was then rechecked- 175.4. ASA 324mg was given, hep gtt was started at 900 units/hr, 18 mL/hr. The patient has the ff VS: MA-86, O2 Sat-96-98% RA, T-98.0, RR-14-20. The patient stated no home meds. A&O X4. IV site at RA-20g. Patient will be picked up at around 2200. Normal [facility] Albumin [Mass/volume] in Ser um or PlasmaOrdered By: Jose Turk on 03-09-2022 Albumin [Mass/Vol] 4.0 g/dL 3.2-5.5 [facility] Basophils Auto (Bld) [#/Vol] Ordered By: Jose Turk on 03-09-2022 Basophils (Bld) [#/Vol] 0.0 10*3/uL 0.0-0.2 [facility] Basophils/100 WBC Auto (Bld) Ordered By: Jose Turk on 03-09-2022 Basophils/100 WBC (Bld) 0.7 % . [facility] Complete Blood Count Auto Di ffon 03-09-2022 Basophils (Bld) [#/Vol] 0.0 10*3/uL Normal 0.0-0.2 [facility] Comment on above: Result Comment: PERF ORMED BY: [place] [address] PATHOLOGIST SAP FUNCTIONAL ANALYST KELLY CID M.D. Performed By: #### C MP, CBC #### [facility] [address] [place] [address] Basophils/100 WBC (Bld) 0.7 % Normal . [facility] Comment on above: Performed By: #### C MP, CBC #### [facility] [address] [place] [address] Eosinophils (Bld) [#/Vol] 0.0 10*3/uL Normal 0.0-0.45 [facility] Comment on above: Performed By: #### C MP, CBC #### [facility] [address] Eosinophils/100 WBC (Bld) 0.9 % Normal . [facility] Comment on above: Performed By: #### C MP, CBC #### [facility] [address] Erythrocyte distribution width (RBC) [Ratio] 13.1 % Normal 12.0-14.8 [facility] Comment on above: Performed By: #### C MP, CBC #### [facility] [address] Hematocrit (Bld) [Volume fraction] 43.5 % Normal 38.8-50.0 [facility] Comment on above: Performed By: #### C MP, CBC #### [address] Hemoglobin (Bld) [Mass/Vol] 14.8 g/dL Normal 13.0-17.0 [facility] Comment on above: Performed By: #### C MP, CBC #### [address] Lymphocytes (Bld) [#/Vol] 1.1 10*3/uL Normal 1.00-4.8 [facility] Comment on above: Performed By: #### C MP, CBC #### [place] [address] [place] Lymphocytes/100 WBC (Bld) 24.5 % Normal . [facility] Comment on above: Performed By: #### C MP, CBC #### [facility] [address] [place] [address] [place] MCH (RBC) [Entitic mass] 29.2 pg Normal 27.5-35.2 [facility] Comment on above: Performed By: #### C MP, CBC #### [address] MCV (RBC) [Entitic vol] 85.8 fL Normal 83.5-101 [facility] Comment on above: Performed By: #### C MP, CBC #### [facility] [address] Mean Corpuscular HGB Conc 34.0 g/dL Normal 32.5-35.6 [facility] Comment on above: Performed By: #### C MP, CBC #### [facility] [address] [place] [address] [place] Monocytes (Bld) [#/Vol] 0.5 10*3/uL Normal 0.0-0.8 [facility] Comment on above: Performed By: #### C MP, CBC #### [facility] [address] [place] [address] [place] Monocytes/100 WBC (Bld) 10.5 % Normal . [facility] Comment on above: Performed By: #### C MP, CBC #### [facility] [address] [place] [address] [place] Neutrophils (Bld) [#/Vol] 2.9 10*3/uL Normal 1.8-7.7 [facility] Comment on above: Performed By: #### C MP, CBC #### [facility] [address] [place] [address] [place] Neutrophils/100 WBC (Bld) 63.4 % Normal . [facility] Comment on above: Performed By: #### C MP, CBC #### [facility] [address] [place] [address] [place] NRBC% 0.1 /100{WBC} Normal 0-0.5 [facility] Comment on above: Performed By: #### C MP, CBC #### [facility] [address] [place] [id number] [place] Platelet mean volume (Bld) [Entitic vol] 7.9 fL Normal 6.6-10.1 [facility] Comment on above: Performed By: #### C MP, CBC #### [facility] [address] [place] [id number] [place] Platelets (Bld) [#/Vol] 247 10*3/uL Normal 150-450 [facility] Comment on above: Performed By: #### C MP, CBC #### [address] RBC (Bld) [#/Vol] 5.07 10*6/uL Normal 3.90-5.60 [facility] Comment on above: Performed By: #### C MP, CBC #### [address] WBC (Bld) [#/Vol] 4.6 10*3/uL Normal 4.1-10.5 [facility] Comment on above: Performed By: #### C MP, CBC #### [address] Comprehensive Metabolic Pane robert 03-09-2022 Albumin [Mass/Vol] 4.0 g/dL Normal 3.2-5.5 [facility] Comment on above: Performed By: #### C MP, CBC #### [address] Albumin/Globulin [Mass ratio] 1.5 {ratio} Normal [facility] Comment on above: Performed By: #### C MP, CBC #### [address] ALP [Catalytic activity/Vol] 51 U/L Normal 32-92 [facility] Comment on above: Result Comment: PERF ORMED BY: [place] [address] PATHOLOGIST SAP FUNCTIONAL ANALYST KELLY CID M.D. Performed By: #### C MP, CBC #### [address] ALT [Catalytic activity/Vol] 15 U/L Normal 10-60 [facility] Comment on above: Performed By: #### C MP, CBC #### [address] Anion gap [Moles/Vol] 10.3 mmol/L Normal 6.0-15.0 [facility] Comment on above: Performed By: #### C MP, CBC #### [facility] [address] [place] [id number] [place] AST [Catalytic activity/Vol] 18 U/L Normal 10-42 [facility] Comment on above: Performed By: #### C MP, CBC #### [facility] [address] [place] [id number] [facility] Bilirubin [Mass/Vol] 0.7 mg/dL Normal 0.3-1.2 [facility] Comment on above: Performed By: #### C MP, CBC #### [facility] [address] Calcium [Mass/Vol] 9.2 mg/dL Normal 8.2-10.2 [facility] Comment on above: Performed By: #### C MP, CBC #### [address] Chloride [Moles/Vol] 102 mmol/L Normal 95-114 [facility] Comment on above: Performed By: #### C MP, CBC #### [facility] [address] [place] [address] [place] CO2 [Moles/Vol] 28.8 mmol/L Normal 22.0-30.0 [facility] Comment on above: Performed By: #### C MP, CBC #### [address] Creatinine [Mass/Vol] 0.85 mg/dL Normal 0.64-1.27 [facility] Comment on above: Performed By: #### C MP, CBC #### [facility] [address] [place] [address] [place] Estimated GFR ( Sherri > 60 Normal [facility] Comment on above: Result Comment: GFR estimated reference range: According to KDOQI guidelines, <60 ml/min/1.73m2 is sufficient to diagnose a patient with chronic kidney disease. Performed By: #### C MP, CBC #### [place] [address] [place] Estimated GFR (Non- Am > 60 Normal [facility] Comment on above: Performed By: #### C MP, CBC #### [address] Globulin (S) [Mass/Vol] 2.6 g/dL Normal [facility] Comment on above: Performed By: #### C MP, CBC #### [address] Glucose [Mass/Vol] 91 mg/dL Normal 70-100 [facility] Comment on above: Result Comment: [place] Glucose Reference Range is dependent on time and content of last meal. Glucose of more than 200 mg/dL in a nonstressed, ambulatory subject supports the diagnosis of Diabetes Mellitus. ADA recommended reference range Performed By: #### C MP, CBC #### [address] Potassium [Moles/Vol] 4.1 mmol/L Normal 3.5-5.1 [facility] Comment on above: Performed By: #### C MP, CBC #### [address] Protein [Mass/Vol] 6.6 g/dL Normal 6.1-7.9 [facility] Comment on above: Performed By: #### C MP, CBC #### [address] Sodium [Moles/Vol] 137 mmol/L Normal 136-146 [facility] Comment on above: Performed By: #### C MP, CBC #### [place] [address] [place] Urea nitrogen [Mass/Vol] 10 mg/dL Normal 9-23 [facility] Comment on above: Performed By: #### C MP, CBC #### [place] [address] [place] Creatinine and Glomerular fi ltration rate.predicted panel (S/P/Bld)Ordered By: Jose Turk on 03-09-2022 Creatinine [Mass/Vol] 0.85 mg/dL 0.64-1.27 [facility] ECG 12 lead ECGon 03-09-2022 ECG 12 lead ECG [facility] [place] [address] Electrocardiograph Report Signed Patient: Amanda Davies MR#: [id number] [birth year] : 1970 Acct:[id number] Age/Sex: 51 / M ADM Date: 03/09/22 Loc: PS Room: Type: [facility] Attending Dr: Jose Turk DO [...] ECGs available Confirmed by CARLOS WINTERS MD ([facility]) on 03/09/2022 3:28:54 PM Referred By: JONATHAN Electronically Signed By:CARLOS WINTERS MD Transcribed By: MUS Signed By Carlos Winters MD 0 03/09/22 1528 Normal [facility] Eosinophils Auto (Bld) [#/Vo l]Ordered By: Jose Turk on 03-09-2022 Eosinophils (Bld) [#/Vol] 0.0 10*3/uL 0.0-0.45 [facility] Eosinophils/100 WBC Auto (Bl d)Ordered By: Jose Turk on 03-09-2022 Eosinophils/100 WBC (Bld) 0.9 % . [facility] Erythrocyte distribution wid th Auto (RBC) [Ratio]Ordered By: Jose Turk on 03-09-2022 Erythrocyte distribution width (RBC) [Ratio] 13.1 % 12.0-14.8 [facility] Estimated glomerular filtrat ion rate (GFR) non- AmericanOrdered By: Jose Turk on 03-09-2022 GFR/1.73 sq M.predicted among non-blacks MDRD (S/P/Bld) [Vol rate/Area] > 60 mL/Min [facility] Globulin Calc (S) [Mass/Vol] Ordered By: Jose Turk on 03-09-2022 Globulin (S) [Mass/Vol] 2.6 g/dL [facility] Hematocrit Auto (Bld) [Volum e fraction]Ordered By: Jose Turk on 03-09-2022 Hematocrit (Bld) [Volume fraction] 43.5 % 38.8-50.0 [facility] Hemoglobin [Mass/volume] in BloodOrdered By: Jose Turk on 03-09-2022 Hemoglobin (Bld) [Mass/Vol] 14.8 g/dL 13.0-17.0 [facility] Leukocytes [#/volume] correc catilyn for nucleated erythrocytes in Blood by Automated counOrdered By: Jose Turk on 03-09-2022 WBC corrected for nucl RBC Auto (Bld) [#/Vol] 4.6 10*3/uL 4.1-10.5 [facility] Lymphocytes Auto (Bld) [#/Vo l]Ordered By: Jose Turk on 03-09-2022 Lymphocytes (Bld) [#/Vol] 1.1 10*3/uL 1.00-4.8 [facility] Lymphocytes/100 WBC Auto (Bl d)Ordered By: Jose Turk on 03-09-2022 Lymphocytes/100 WBC (Bld) 24.5 % . [facility] MCH Auto (RBC) [Entitic mass ]Ordered By: Jose Turk on 03-09-2022 MCH (RBC) [Entitic mass] 29.2 pg 27.5-35.2 [facility] MCHC Auto (RBC) [Mass/Vol]Or dered By: Jose Turk on 03-09-2022 MCHC (RBC) [Mass/Vol] 34.0 g/dL 32.5-35.6 [facility] MCV Auto (RBC) [Entitic vol] Ordered By: Jose Turk on 03-09-2022 MCV (RBC) [Entitic vol] 85.8 fL 83.5-101 [facility] Monocytes Auto (Bld) [#/Vol] Ordered By: Jose Turk on 03-09-2022 Monocytes (Bld) [#/Vol] 0.5 10*3/uL 0.0-0.8 [facility] Monocytes/100 WBC Auto (Bld) Ordered By: Jose Turk on 03-09-2022 Monocytes/100 WBC (Bld) 10.5 % . [facility] Neutrophils Auto (Bld) [#/Vo l]Ordered By: Jose Turk on 03-09-2022 Neutrophils (Bld) [#/Vol] 2.9 10*3/uL 1.8-7.7 [facility] Neutrophils/100 WBC Auto (Bl d)Ordered By: Jose Turk on 03-09-2022 Neutrophils/100 WBC (Bld) 63.4 % . [facility] No Panel InformationOrdered By: Jose Turk on 03-09-2022 Estimated GFR () > 60 mL/Min [facility] Comment on above: GFR estimated refere nce range: According to KDOQI guidelines, <60 ml/min/1.73m2 is sufficient to diagnose a patient with chronic kidney disease. Pharmacy Creatinine Clearance (Chem N/A [facility] Nucleated erythrocytes [Pres ence] in Blood by Automated countOrdered By: Jose Turk on 03-09-2022 Nucleated RBC Auto Ql (Bld) 0.1 /100{WBC} 0-0.5 [facility] Platelet mean volume Auto (B ld) [Entitic vol]Ordered By: Jose Turk on 03-09-2022 Platelet mean volume (Bld) [Entitic vol] 7.9 fL 6.6-10.1 [facility] Platelets Auto (Bld) [#/Vol] Ordered By: Jose Turk on 03-09-2022 Platelets (Bld) [#/Vol] 247 10*3/uL 150-450 [facility] Protein [Mass/volume] in Ser um or PlasmaOrdered By: Jose Turk on 03-09-2022 Protein [Mass/Vol] 6.6 g/dL 6.1-7.9 [facility] RBC Auto (Bld) [#/Vol]Ordere d By: Jose Turk on 03-09-2022 RBC (Bld) [#/Vol] 5.07 10*6/uL 3.90-5.60 [facility] Serum or plasma alanine wall otransferase measurement without P-5'-P (enzymatic activiOrdered By: Jose Turk on 03-09-2022 ALT No additional P-5'-P [Catalytic activity/Vol] 15 U/L 10-60 [facility] Serum or plasma albumin/glob ulin mass ratioOrdered By: Jose Turk on 03-09-2022 Albumin/Globulin [Mass ratio] 1.5 {ratio} [facility] Serum or plasma alkaline ovidio sphatase measurement (enzymatic activity/volume)Ordered By: Jose Turk on 03-09-2022 ALP [Catalytic activity/Vol] 51 U/L 32-92 [facility] Serum or plasma anion gap de terminationOrdered By: Jose Turk on 03-09-2022 Anion gap [Moles/Vol] 10.3 mmol/L 6.0-15.0 [facility] Serum or plasma aspartate am inotransferase measurement (enzymatic activity/volume)Ordered By: Jose Turk on 03-09-2022 AST [Catalytic activity/Vol] 18 U/L 10-42 [facility] Serum or plasma calcium tray urement (mass/volume)Ordered By: Jose Turk on 03-09-2022 Calcium [Mass/Vol] 9.2 mg/dL 8.2-10.2 [facility] Serum or plasma chloride johanna surement (moles/volume)Ordered By: Jose Turk on 03-09-2022 Chloride [Moles/Vol] 102 mmol/L 95-114 [facility] Serum or plasma glucose tray urement (mass/volume)Ordered By: Jose Turk on 03-09-2022 Glucose [Mass/Vol] 91 mg/dL 70-100 [facility] Comment on above: ADA recommended refe rence rangeRandom Glucose Reference Range is dependent on time and content of last meal. Glucose of more than 200 mg/dL in a nonstressed, ambulatory subject supports the diagnosis of Diabetes Mellitus. Serum or plasma potassium me asurement (moles/volume)Ordered By: Jose Turk on 03-09-2022 Potassium [Moles/Vol] 4.1 mmol/L 3.5-5.1 [facility] Serum or plasma sodium measu rement (moles/volume)Ordered By: Jose Turk on 03-09-2022 Sodium [Moles/Vol] 137 mmol/L 136-146 [facility] Serum or plasma total biliru bin measurement (mass/volume)Ordered By: Jose Turk on 03-09-2022 Bilirubin [Mass/Vol] 0.7 mg/dL 0.3-1.2 [facility] Serum or plasma total carbon dioxide measurement (moles/volume)Ordered By: Jose Turk on 03-09-2022 CO2 [Moles/Vol] 28.8 mmol/L 22.0-30.0 [facility] Serum or plasma urea nitroge n measurement (mass/volume)Ordered By: Jose Turk on 03-09-2022 Urea nitrogen [Mass/Vol] 10 mg/dL - [facility] WBC Auto (Bld) [#/Vol]Ordere d By: Jose Turk on 03-09-2022 WBC (Bld) [#/Vol] 4.6 10*3/uL 4.1-10.5 [facility] MR knee LT wo conon 11-16-19 [place] [address] MRI Report Signed Patient: Amanda Davies MR#: [id number] 88 : 1970 Acct:[id number] Age/Sex: 51 / M ADM Date: 11/15/21 Loc: [facility] Room: Type: [facility] Attending Dr: Jose Turk DO Copies [...] Bautista Rodriguez M.D.11/15/2021 5:48 PM Dictation Location: [place] [address] Transcribed By: [facility] 11/15/211747 Dictated By: Bautista Rodriguez DO 11/15/211741 Signed By: 11/15/211747 [facility] MR knee LT wo con [facility] [employer] Other MR knee LT wo con [facility] N [facility] [employer] Other MR knee LT wo con [address] [facility] [employer] Other [place] [address] [employer] Other MR knee LT wo con MRI Report [employer] Other MR knee LT wo con Signed [employer] Other MR knee LT wo con Patient: Amanda Davies MR#: [id number] [employer] Other MR knee LT wo con 87 [employer] Other MR knee LT wo con : 1970 Acct:[id number] [employer] Other MR knee LT wo con Age/Sex: 51 / M ADM Date: 11/15/21 [employer] Other MR knee LT wo con [facility] Type : [facility] [employer] Other MR knee LT wo con Attending Dr: Jose Turk DO [employer] Other MR knee LT wo con Copies to: Jose Turk DO [employer] Other MR knee LT wo con Ordering Provider: Jose Turk DO [employer] Other MR knee LT wo con Date of Service: 11/15/21 [employer] Other MR knee LT wo con MR/MR knee LT wo con: Internal derangement of left knee [employer] Other MR knee LT wo con MRI the LEFTknee without contrast [employer] Other MR knee LT wo con TECHNIQUE: Multiplanar T1 and T2-weighted imaging of the knee obtained without contrast [employer] Other MR knee LT wo con HISTORY: LEFT knee injury November 04. LEFT knee effusion drained. Continued LEFT knee pain. [employer] Other MR knee LT wo con The large joint effusion identified. [employer] Other MR knee LT wo con Anterior and posterior cruciate ligaments are intact.. [employer] Other MR knee LT wo con Vertical tear of the inner portion of the body of the lateral meniscus identified.. [employer] Other MR knee LT wo con No articular defect of the cartilage identified.. [employer] Other MR knee LT wo con No osteochondral defect identified. [employer] Other MR knee LT wo con Focal bone marrow edema of the subarticular region of the medial tibial plateau identified. [employer] Other MR knee LT wo con Patellar ligament an d quadriceps tendon are intact. [employer] Other MR knee LT wo con Spine/partial tear o f the medial collateral ligament complex with adjacent edema present. [employer] Other MR knee LT wo con No signal abnormalit y of the musculature or subcutaneous tissues identified. [employer] Other MR knee LT wo con MR/MR knee LT wo con [employer] Other MR knee LT wo con IMPRESSION: Large joint effusion. Vertical tear of the inner portion of the body of the lateral [employer] Other MR knee LT wo con meniscus. Intact ACL and medial meniscus. [employer] Other MR knee LT wo con Impression dictated by: Bautista Rodriguez M.D.11/15/2021 5:48 PM [employer] Other MR knee LT wo con Dictation Location: [place] [address] [employer] Other MR knee LT wo con Transcribed By: PWS 11/15/21 [facility] [employer] Other MR knee LT wo con Dictated By: Bautista Rodriguez DO 11/15/21 [facility] [employer] Other MR knee LT wo con Signed By: [employer] Other MR knee LT wo con 11/15/21 [facility] Heidi Shaulis [employer] Other XR knee LT 3Von 11-08-2021 XR knee LT 3V [facility] [employer] Other XR knee LT 3V [facility] [employer] Other XR knee LT 3V [address] [place] [address] [employer] Other XR knee LT 3V [address] [employer] Other XR knee LT 3V XRay Report [employer] Other XR knee LT 3V Signed [employer] Other XR knee LT 3V Patient: Amanda Davies MR#: [id number] [employer] Other XR knee LT 3V 88 [employer] Other XR knee LT 3V : 1970 Acct:[id number] [employer] Other XR knee LT 3V Age/Sex: 51 / M ADM Date: 11/08/21 [employer] Other XR knee LT 3V Loc: [facility] Room: Type : [facility] [employer] Other XR knee LT 3V Attending Dr: Jose Turk DO [employer] Other XR knee LT 3V Copies to: Jose Turk DO [employer] Other XR knee LT 3V Ordering Provider: Jose Turk DO [employer] Other XR knee LT 3V Date of Service: 11/08/21 [employer] Other XR knee LT 3V XR/XR knee LT 3V - NOT FOR ER USE: Injury of left knee, initial encounter [employer] Other XR knee LT 3V LEFT KNEE - 3 views No [employer] Other XR knee LT 3V CLINICAL HISTORY: Left knee pain, patient was running and fell. [employer] Other XR knee LT 3V COMPARISON: Left kne e series 10/16/2021 [employer] Other XR knee LT 3V FINDINGS: [employer] Other XR knee LT 3V Knee joint effusion. No acute bony process. Joint spaces are maintained. [employer] Other XR knee LT 3V XR/XR knee LT 3V - NOT FOR ER USE [employer] Other XR knee LT 3V IMPRESSION: [employer] Other XR knee LT 3V KNEE JOINT EFFUSION WITHOUT ACUTE BONY PROCESS OR SIGNIFICANT DEGENERATIVE CHANGE. [employer] Other XR knee LT 3V Impression dictated by: Sudeep Plummer Jr., D.O.11/08/2021 12:23 PM [employer] Other XR knee LT 3V Dictation Location: RADIO-PC-09 [place] [employer] Other XR knee LT 3V Transcribed By: ERIC 11/08/21 1223 [employer] Other XR knee LT 3V Dictated By: Sudeep Plummer Jr, DO 11/08/21 122 [employer] Other XR knee LT 3V Signed By: [employer] Other XR knee LT 3V 11/08/21 1223 [employer] Other XR knee LT 3V - NOT FOR ER U Serge 11-08-2021 XR knee LT 3V - NOT FOR ER USE [facility] Main [place] [address] [place] [address] XRay Report Signed Patient: Amanda Davies MR#: [id number] : 1970 Acct:[id number] Age/Sex: 51 / M ADM Date: 11/08/21 Loc: [facility] Room: Type: [facility] Attending Dr: Jose Turk DO Copies [...] 11/08/21 1222 Signed By: 11/08/21 1223 [facility] ED Note-Physicianon 01-23-20 ED Note-Physician Basic [...] Appropriate mood & affect. Integumentary: Warm, Dry, [place] Medical Decision Making Plain film x-rays of the lumbar spine showed no acute bony abnormality, patient will be started on naproxen, Taberg and Robaxin. He is to return should new problems develop other problems arise, otherwise follow-up with his PCP for recheck. Assessment/Plan 1. Lumbosacral pain (M54.5: Low back pain) Orders: XR Spine Lumbosacral 2 or 3 Views Disposition Plan Patient Discharge Condition Stable Discharge Disposition Discharge home Discharge Prescription List Prescriptions naproxen 500 mg Tab, 500 mg= 1 tab(s), Oral, BID Taberg 325 mg-5 mg oral tablet, 1 tab(s), Oral, q6hr, PRN Robaxin-750 oral tablet, 750 mg= 1 tab(s), Oral, TID Follow-up With When Contact Information Riley Link In 3 days 01/21/2020 EST [address] [place] [address]- Business (1) Additional Instructions: Patient Education Back [...] Tab, 500 mg= 1 tab(s), Oral, BID Taberg 325 mg-5 mg oral tablet, 1 tab(s), [...] changes Read By: Eric Brannon PA-C [facility] Comment on above: Result Comment: Elec tronically Signed By: Eric Brannon PA-C\.br\Date and Time Signed: 01/19/20 22:46 EST\.br\Electronically Co-Signed By: Pedro Mcbride DO\.br\Date and Time Co-Signed: 01/22/20 23:32 EST Coding Summary.on 01-20-2020 Coding Summary. CODING DATE: 01/20/2020 FINAL [facility] STATUS: Home (Routine DC) PAYOR: Hedy APC [...] Grecia Bocanegra Date Saved: 01/20/2020 02:23 pm [facility] Discharge Instructionson Discharge Instructions [id number] 1.00CD:127 [facility] XR Spine Lumbosacral 2 or 3 [...] M.D. Transcribed by: RADHA Technologist: LUCIUS [facility] Consent for Treatmenton Consent for Treatment [id number] .00CD:127 [facility] ED Clinical Summaryon 2019 ED Clinical Summary [place] [id number] ED Clinical Summary Person Information Name: AMANDA DAVIES [facility] Age: 49 Years : 1970 Sex: Male Language: Yemeni PCP: Riley Daley DO Marital Status: Visit [...] 01/18/2020 19:32:12 01/18/2020 19:32:12 ADDRESS: [address] [facility] [phone] PHYS DOC NOTES: MEDICAL INFORMATION: Prescriptions Given: New Medications Printed Prescriptions acetaminophen-hydroco done (Taberg 325 mg-5 mg oral tablet) 1 Tablets [...] Address: When: Riley Link [address] [facility] [address] [place] [address] Business (1) In 3 days 01/21/2020 DIAGNOSIS: 1:Lumbosacral pain [facility] ED Note-Nursingon 01-18-2020 ED Note-Nursing Report recvd from ELLIS Han, care assumed at this time. 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 Do not sit, drive, or manufacturing project engineer one place for more than 30 [...] pillow under your knees. ? Only take bozm-kge-ffeqefv or prescription medicines as directed by your caregiver. Czrc-ppe-liqnrxu medicines to reduce pain and inflammation are [...] Document Reviewed: 06/01/2014 ExitCare? Patient Information ?2015 [employer]. This information is not intended to replace advice given to you by your health care provider. Make sure you discuss any questions you have with your health care provider. [facility] ED Patient Summaryon 020 ED Patient Summary [place] [id number] Patient Discharge Instructions Person Information Name: AMANDA DAVIES Age: 49 Years Arrival Date: 01/18/2020 17:34:38 Discharge Diagnosis: 1:Lumbosacral pain Primary Care Physician: Riley Daley DO Provider Information Primary Provider: Pedro Mcbride DO Advanced Process Designer:Eric Brannon PA-C The exam and treatment you received in the Emergency Department were for an urgent problem and are not intended as complete care. It is important that you follow up with a doctor, nurse practitioner, or physician?s sales office assistant for ongoing care. If your symptoms [...] Address: When: Riley Link [address], [facility] [address] [facility] [place] [address] Baby Blendy (1) In 3 days 01/21/2020 In the event that this physician does not participate in your insurance network, please consult with your insurance company to find a nearby participating provider. Patient Education Materials: Back Pain, Adult A MESSAGE TO ALL PATIENTS REGARDING OPIOIDS PRESCRIPTION OPIOIDS: WHAT YOU NEED TO KNOW Prescription opioids can be used to help relieve cpamemgo-ei-tasruv pain and are often prescribed following a [...] be struggling with addiction, tell your health manager intensive care unit and ask for guidance or call [facility] National Helpline at 1-067-852-PWXP. v Source: US Department of Health and Human Services/Center for Disease Control & Prevention [facility] Medications Given: Medication Dose Route No medications found. 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 Do not sit, drive, or manufacturing project engineer one place for more than 30 [...] pillow under your knees. ? Only take yduv-bkq-xijjdib or prescription medicines as directed by your caregiver. Xmhc-lto-ampieks medicines to reduce pain and inflammation are [...] Document Reviewed: 06/01/2014 ExitCare? Patient Information ?2014 [employer] Search. This information is not intended to replace advice given to you by your health care provider. Make sure you discuss any questions you have with your health care provider. IKEKE GARY L , have received the following patient education materials/instruction s and have verbalized understanding: Patient Education Materials: Back Pain, Adult Follow-up Instructions: With: Address: When: Riley Link [address] [facility] [place] [address] Business (1) In 3 days 01/21/2020 Patient Signature Date Clinician/Nurse Signature Date 01/18/2020 19:32:14 [facility] Vital Signs Date Time Vital Sign Value Performing Clinician Facility 05-02-2022 16:15-0400 Body height 172.72 cm Jose Turk Other [employer] Other 05-02-2022 16:15-0400 Body mass index (BMI) [Ratio] 24.33 kg/m2 Jose Turk Other [employer] Other 05-02-2022 16:15-0400 Body weight 72.58 kg Jose Turk Other [employer] Other 03-28-2022 15:15-0500 Body height 172.72 cm Jose Turk Other [employer] Other 03-28-2022 15:15-0500 Body mass index (BMI) [Ratio] 24.33 kg/m2 Jose Turk Other [employer] Other 03-28-2022 15:15-0500 Body weight 72.58 kg Jose Turk Other [facility] [employer] Other 03-20-2022 16:47-0500 Diastolic blood pressure 93 mm[Hg] DO Shelby Ivette Work Phone: [facility] 03-20-2022 16:47-0500 Heart rate 69 /min DO Shelby Ivette Work Phone: [facility] 03-20-2022 16:47-0500 Respiratory rate 16 /min DO Shelby Ivette Work Phone: [facility] 03-20-2022 16:47-0500 SaO2% (BldA) [Mass fraction] 98 % DO Shelby Ivette Work Phone: [facility] 03-20-2022 16:47-0500 Systolic blood pressure 154 mm[Hg] DO Shelby Ivette Work Phone: [facility] 03-20-2022 15:34-0500 Body temperature 98 [degF] DO Shelby Ivette Work Phone: [facility] 03-20-2022 15:34-0500 Inhaled oxygen flow rate 8 L/min DO Shelby Ivette Work Phone: [facility] 03-20-2022 13:26-0500 Body height 171.45 cm DO Shelby Ivette Work Phone: [facility] 03-20-2022 13:26-0500 Body mass index (BMI) [Ratio] 24.8 kg/m2 DO Shelby Ivette Work Phone: [facility] 03-20-2022 13:26-0500 Body weight 73 kg DO Shelby Ivette Work Phone: [facility] 11-08-2021 10:30-0400 Body height 172.72 cm Jose Turk Other [employer] Other 11-08-2021 10:30-0400 Body mass index (BMI) [Ratio] 24.33 kg/m2 Jose Turk Other [employer] Other 11-08-2021 10:30-040 Body weight 72.58 kg Jose Turk Other [employer] Other Encounters Encounter Date Encounter Type Care Provider Facility Start: 07-14-2024 End: 07-14-2024 ambulatory JOSE R [facility] Start: 05-26-2024 End: 05-26-2024 ambulatory [facility] Start: 05-21-2024 Evaluation and management of inpatient GREGDELBERT JUDD [facility] Start: 05-20-2024 Evaluation and management of inpatient MEREDITH [facility] Start: 05-20-2024 Evaluation and management of inpatient MEREDITH [facility] Start: 05-19-2024 End: 05-21-2024 Evaluation and management of inpatient BEAU DEWITT [facility] Start: 05-02-2022 End: 05-02-2022 ambulatory Jose Turk Other [employer] Other Start: 05-02-2022 Postop follow up vis it related to original px Jose Turk [facility] Start: 04-17-2022 End: 04-17-2022 ambulatory Jose Turk Other [employer] Other Start: 04-17-2022 Postop follow up vis it related to original px Teri Lares [facility] Start: 04-17-2022 Telephone encounter Jose GREEN G [facility] Start: 03-28-2022 End: 03-28-2022 ambulatory Jose Turk Other [employer] Other Start: 03-28-2022 Postop follow up vis it related to original px Jose Turk [facility] Start: 03-20-2022 End: 03-20-2022 ambulatory Jose Turk Facility:[facility] Start: 03-20-2022 End: 03-20-2022 Admission to same day surgery center DO Shelby Ivette Work Phone: [facility] Main [place] Start: 03-20-2022 End: 03-20-2022 ambulatory DO Shelby C Ivette Work Phone: [facility] Work Phone: Start: 03-09-2022 End: 03-09-2022 ambulatory Jose Turk Facility:[facility] Start: 03-09-2022 End: 03-09-2022 Patient encounter procedure DO Shelby Ivette Work Phone: [facility] Work Phone: Start: 11-20-2021 End: 11-20-2021 ambulatory Jose Turk Other [employer] Other Start: 11-20-2021 Office outpatient visit 25 minutes Jose Turk [facility] Start: 11-15-2021 End: 11-15-2021 ambulatory Jose Turk Facility:[facility] Start: 11-15-2021 End: 11-15-2021 ambulatory PHYSICIAN NO [facility] Work Phone: Start: 11-15-2021 End: 11-15-2021 Patient encounter procedure PHYSICIAN NO [facility] [address] Start: 11-13-2021 End: 11-13-2021 ambulatory Jose Turk Other [employer] Other Start: 11-13-2021 Telephone encounter Jose Jonathan [facility] Start: 11-08-2021 Office outpatient ne w 45 minutes [facility] Start: 11-08-2021 End: 11-08-2021 ambulatory Jose Turk Facility:[facility] Start: 11-08-2021 End: 11-08-2021 ambulatory PHYSICIAN NO [facility] Work Phone: Start: 11-08-2021 End: 11-08-2021 Patient encounter procedure PHYSICIAN NO [facility] Procedures Date Procedure Procedure Detail Performing Clinician Start: 03-20-2022 Arthroscopy of knee DO Shelby Steele Work Phone: Start: 11-15-2021 MRI of left knee PHYSIC JES NO FAMILY Start: 11-08-2021 X-ray of left knee PHYS ICIAN NO FAMILY Plan of Treatment Date Care Activity Detail Author Start: 03-20-2022 [facility] Start: 03-20-2022 [facility] Patient referral [facility] Work Phone: Immunizations Immunization Date Immunization Notes Care Provider Fa [facility] 12-30-2020 COVID-19 Ad26.COV2.S (Michelle) DO Shelby Steele Work Phone: [facility] Payers Date Payer Category Payer Private Health Insurance [id number] 2021 Self-pay 2021 Unknown [id number] Private Health Insurance [employer] [id number] Unknown [id number] Unknown [id number] Unknown [id number] Unknown [id number] Social History Date Type Detail Facility Tobacco smoking status NHIS Unknown if ever smoked [facility] Work Phone: Start: 1970 Sex Assigned At Male F [facility] Sex Assigned At Sex Assigned At Bir th [facility] [employer] Other Goals Date Patient Goal Desired Activity /State Clinical Notes 11-08-2021 to 07-14-2024 Note Date & Type Note Facility 07-14-2024 Note NE Electrophysiology Consult Note [facility] - [facility] Reason for visit: Atrial fibrillation HPI: Amanda Davies Neha is a 54 y.o. year old with past medical history of CAD with a history of non-STEMI with cath revealing no obstructive lesions, hypertension, hyperlipidemia who was recently admitted from [facility] to [facility] with a history of atrial fibrillation. He does report a previous history of cardioversion on 09/05/2015 at [facility]. It is unclear as to why he was not on any blood thinners. When I reviewed the records it appeared that his initial presentation to the [place] ED showed sinus tachycardia but given there was troponin elevation he was transferred to [facility]. EKG on presentation at [facility] was sinus. He did complain of occasional palpitations and following his discharge from [facility] was placed on a 30-day event monitor [...] Year: No Utilities: Not At Risk (05/20/2024) [facility] Utilities Threatened with loss of utilities: No [...] 05/20/2024 LDL KIMBERLEE (more content not included)... [facility] 05-26-2024 Note Cardiovascular Medic ine [facility] SUBJECTIVE Chief Complaint Patient presents with Hospital [...] fibrillation presents as a direct admission from [facility] with a chief complaint of palpitations [...] in troponin concerning for a non-ST elevation DC Final Impression: 1) Normal coronary arteries Procedures [...] infiltrated over the right radial artery. A 6-Portuguese Terumo Glidesheath slender was placed in right radial artery. Radial anti-vasospasm cocktail of verapamil 2.5 mg was administered through the sheath. All catheter exchanges were made over the Vidaao guidewire. Coronary angiogram was performed with a [...] Problem List Diagnosis Chest pain Paroxysmal A-fib (CMS/[facility]) NSTEMI (non-ST elevated myocardial infarction) (CMS/[facility]) Arthritis of foot Closed fracture of calcaneus [...] orthopnea, palpitations, paroxysmal (more content not included)... [facility] 05-26-2024 Note Patient here for a 4 days follow up from [facility] for A-Fib. Patient states it was undetermined if he had an DC. Per patient no one really spoke to [...] monitor on. Review of Systems Constitutional: Negative. [facility] 05-21-2024 Note Hospital Medicine Discharge Summary Final Discharge Diagnosis: NSTEMI type 1 Paroxsymal atrial fibrillation Admission Diagnosis: Chest pain [R07.9] Hospital course: History of Present Illness Amanda Davies is an 53 y.o. male who came from home with past medical history of atrial fibrillation presents as a direct admission from [facility] with a chief complaint of palpitations [...] in troponin concerning for a non-ST elevation DC Final Impression: 1) Normal coronary arteries Procedures [...] infiltrated over the right radial artery. A 6-Portuguese Terumo Glidesheath slender was placed in right radial artery. Radial anti-vasospasm cocktail of verapamil 2.5 mg was administered through the sheath. All catheter exchanges were made over the Vidaao guidewire. Coronary angiogram was performed with a [...] Center 05/29/2024 3:40 PM Behzad Holguin MD [facility] Your medication list START [...] Medications These medications were sent to [facility] [place] [address] [address] [place] [address] [place] [address], [facility] [address] apixaban 5 mg tablet atorvastatin 80 mg [...] 0556 05/20/24 0016 (more content not included)... [facility] 05-20-2024 Note - cards consulted - cardiac cath today - currently on heparin drip [facility] 05-20-2024 Note - Patient reports hi story of A-fib s/p cardioversion, no longer on anticoagulation [facility] 05-20-2024 Note Hospital Medicine Daily Progress Note - 05/20/2024 1:09 PM; Room: [address] [place] [address] Admission: 05/19/2024 8:00 PM; Length of stay: 1 days THE HOSPITALIST TEAM PREFERS TO USE [employer] FOR NON-URGENT COMMUNICATION 7AM-7PM. IF I DO NOT RESPOND WITHIN 20 MINUTES OR URGENT MATTERS, PLEASE CALL THROUGH THE CLASSROOM COORDINATOR. FROM 7PM-7AM, PLEASE PAGE [phone](COVR). Code Status: Full Code Barriers to Discharge: cardiac cath Expected Discharge Date: 1 - 2 days Discharge Destination: home Overview Amanda Davies is an 53 y.o. male who came from home with past medical history of atrial fibrillation presents as a direct admission from [facility] with a chief complaint of palpitations [...] & Plan NSTEMI (non-ST elevated myocardial infarction) ([facility]) - cards consulted - cardiac cath today - currently on heparin drip Paroxysmal A-fib ([facility]) - Patient reports history of A-fib [...] LDL 115 05/20/2024 No results found for: [id number] , IRON , TIBC , C3 , [...] Self Care () Signed Meredith Donis DO [facility] Medicine 05/20/2024 1:09 PM [facility] 05-20-2024 Note Case was discussed w Datamolino the CARLITO on 05/19/2024. I agree with the history, physical, assessment, and plan of care. I discussed the findings and therapeutic plan. I agree with the documentation, except for any updates below. Emily Bustillo MD [facility] 05-19-2024 Note Hospital Medicine History and Physical 05/20/2024 12:00 AM THE HOSPITALIST TEAM PREFERS TO USE [email or web address] FOR NON-URGENT COMMUNICATION 7AM-7PM. IF I DO NOT RESPOND WITHIN 20 MINUTES OR URGENT MATTERS, PLEASE CALL THROUGH THE CLASSROOM COORDINATOR. FROM 7PM-7AM, PLEASE PAGE [phone](COVR). Chief Complaint Direct admission from [facility] with CP History of Present Illness Amanda Davies is an 53 y.o. male who came from home with past medical history of atrial fibrillation presents as a direct admission from [facility] with a chief complaint of palpitations [...] this hospital stay by a member of [facility] Medicine. Past Medical History No [...] and Sexual Activ (more content not included)... [facility] 05-02-2022 Evaluation note Encounter Date Diagnosis Assessment [...] Other specified postprocedural states (ICD-10 - Z98.890) [employer] Other 03-07-2023 Evaluation note* Encounter Date Diagnosis [...] reviewed with patient. Call with questions/concern s. [employer] Other 02-15-2023 Evaluation note* Encounter Date Diagnosis [...] as documented in the electronic medical record. [employer] Other 02-07-2023 History general Narrative - Reported* Type Description Date Surgical History Foot Surgery Surgical History Arthroscopic partial left media l meniscectomy 03/20/2022 [employer] Other 10-10-2022 Evaluation note* Encounter Date Diagnosis [...] as documented in the electronic medical record. [employer] Other 09-28-2022 Evaluation note* Encounter Date Diagnosis [...] as documented in the electronic medical record. [employer] Other Evaluation noteNo assessment information available [facility] Work Phone: [facility]No [facility] [employer] Other History general Narrative - Reported* Type Description Date Surgical History Foot Surgery [facility] [employer] Other Hospital Discharge instructions Additional Instructions Orthopedic [...] prescribed. You may take Tylenol or ibuprofen otdh-uwd-lqqkhse as instructed. You should take aspirin 81 mg twice daily for 3 weeks for DVT prophylaxis. If you have any increasing pain, fever chills, or abnormal drainage or surgical wound problems you should call the office. Your follow-up should be scheduled with Dr. Turk's office at [facility]. Please call to confirm your follow-up appointment. Dr. Jose Turk [facility] [address] [place] [address] [facility] Work Phone: Summary Purpose Family [...] content) DATE CREATED AUTHOR 01/24/2020 [facility] DATE CREATED AUTHOR AUTHOR'S ORGANIZ ATION 04/12/2022 [facility] DATE CREATED AUTHOR AUTHOR'S ORGANIZ ATION 07/17/2024 [facility] Care Teams (unrecognized sec tion and content) [...] BE BASED ON THE PRIMARY CLINICAL RECORDS. [employer] provides no warranty or guarantee of the accuracy or completeness of information in this document.
== END 2024-07-24 13:31 | disposition home or self-care (01) ==
LOC: RAD 13:36
PROVIDERS: Visit Provider Internal Medicine Cardiovascular Disease
DX: R07.9 Chest pain, unspecified (principal); Z95.0 Presence of cardiac pacemaker
CPT/HCPCS: 71046

== ENCOUNTER 2024-12-21 15:44 | Outpatient (OUT) | payer OTHER, SELFPAY ==
--- OUTSIDE RECORDS SUMMARY | 2024-12-21 15:48 | XMS_ITS | Encounter Summary ---
Author Organization [facility] Address [address] [place] [address] Care Team Providers Care Payroll Services Analyst Name Role Phone Unavailable Primary Care Provider Unavailabl e Reason for Visit * ReasonCommentsMed Refill Encounter Details DateTypeDepartmentCare Team (Latest Contact Info)Eqnfmipvzws16/27/2025Refill [facility] [address] [place] [address] Sandra Bynum, JOSE [address] [place] [phone] Paroxysmal A-fib ([facility]) Social History Tobacco UseTypesPacks/DayYears UsedDateSmoking Tobacco: NeverSmokeless Tobacco: Never Comments:chew Alcohol UseStandard Drinks/WeekCommentsYes0 (1 standard drink = 0.6 oz pure alcohol)occasionalAHC UtilitiesAnswerDate RecordedIn the past 12 months has the Cloudy Days, gas, oil, or water [employer] threatened to shut off services in your home?05/20/2024Humiliation, Afraid, Rape, and Kick questionnaireAnswerDate RecordedWithin the last year, have you been afraid of your partner or ex-partner?No05/20/2024Emotionally AbusedNot on file05/20/2024Physically Abused Not on file05/20/2024Sexually AbusedNot on file05/20/2024Overall Financial Resource Strain (CARDIA)AnswerDate RecordedHow hard is it for you to pay for the very basics like food, housing, medical care, and heating?Not hard at all 05/20/2024TransportationAnswerDate RecordedIn the past 12 months, has lack of transportation kept you from medical appointments or from getting medications?No 05/20/2024Lack of Transportation (Non-Medical)Not on file05/20/2024Housing Stability Vital SignAnswerDate RecordedIn the last 12 months, was there a time when you were not able to pay the mortgage or rent on time?No05/20/2024Number of Times Moved in the Last YearNot on file05/20/2024t any time in the past 12 months, were you homeless or living in a long-term (including now)?No05/20/2024 Hunger Vital SignAnswerDate RecordedWithin the past 12 months, you worried that your food would run out before you got the money to buymore.Never true05/20/2024 Ran Out of Food in the Last YearNot on file05/20/2024Sex and Gender Information ValueDate RecordedSex Assigned at YvjqhUmto62/09/2025 12:53 PM EDTLegal SexMale 08/09/2021 10:43 PM EDTGender QaavdnslVkkk58/09/2025 12:53 PM EDTSexual OrientationHeterosexual or Yxzullnl81/09/2025 3:04 PM EDTdocumented as of this encounter Plan of Treatment Not on file documented as of this encounter Visit Diagnoses Diagnosis Paroxysmal A-fib (CMS/HCC) documented in this encounter
--- OUTSIDE RECORDS SUMMARY | 2024-12-21 15:48 | XMS_ITS | Clinical Summary ---
Author Organization [facility] Address [address] [place] [address] Care Team Providers Care Registered Route Associate Name Role Phone Unavailable Primary Care Provider Unavailabl e Social History Tobacco UseTypesPacks/DayYears UsedDateSmoking Tobacco: Never AssessedSex and Gender InformationValueDate RecordedSex Assigned at BirthNot on fileLegal Sex Male04/25/2022 7:11 PM EDTGender IdentityNot on fileSexual OrientationNot on file Plan of Treatment Not on file
--- OUTSIDE RECORDS SUMMARY | 2024-12-21 15:48 | XMS_ITS | Clinical Summary ---
Author Organization [facility] Address [address] [place] [address] Care Team Providers Care Environmental Engineering Aide Name Role Phone Unavailable Primary Care Provider Unavailabl e Allergies No known active allergies Medications MedicationSigDispense QuantityRefillsLast FilledStart DateEnd DateStatus atorvastatin (Lipitor) 40 mg tablet Indications:Mixed hyperlipidemiaTake 1 tablet (40 mg) by mouth in the morning. 90 tablet 304//[id number]/ctive apixaban (Eliquis) 5 mg tablet Indications:Paroxysmal A-fib (CMS/HCC)Take 1 tablet (5 mg) by mouth two times daily. 180 tablet /[id number]/ctive metoprolol succinate XL (Toprol-XL) 25 mg 24 hr tablet Indications:Essential hypertension,Palpitations,PAF (paroxysmal atrial fibrillation) (CMS/HCC)Take 1 tablet (25 mg) by mouth once daily as directed. In addition to 50mg tablets = 75mg daily 90 tablet 306//[id number]/6Active metoprolol succinate XL (Toprol-XL) 50 mg 24 hr tablet Indications:Paroxysmal A-fib (CMS/HCC)TAKE 1 TABLET BY MOUTH IN THE MORNING DO NOT CRUSH OR CHEW 90 tablet 310/27/540868/6Active metoprolol succinate XL (Toprol-XL) 50 mg 24 hr tablet Indications:Paroxysmal A-fib (CMS/HCC)Take 1 tablet (50 mg) by mouth in the morning. Do not crush or chew. 90 tablet 104///Discontinued Active Problems ProblemNoted DateDiagnosed DateSinus pause07/14/2024urrent imexhd0105/26/2024 Overview (05/26/2024): Added secondary to documentation in Social History. Chest pain05/19/2024Paroxysmal A-fib05/19/2024 Assessment & Plan (05/20/2024 1:39 PM EDT): - Patient reports history of A-fib s/p cardioversion, no longer on anticoagulation NSTEMI (non-ST elevated myocardial infarction)05/19/2024 Assessment & Plan (05/20/2024 1:39 PM EDT): - cards consulted - cardiac cath today - currently on heparin drip Closed fracture of hovuorfkv84/01/2012rthritis of foot02/21/2010 Encounters DateTypeDepartmentCare JynrZncmiqekqgi82/27/2025Refill [place] [address] [place] [phone] Sandra Bynum CNP Paroxysmal A-fib (CMS/HCC)11/23/2024 2:30 PM EDTAncillary Procedure [facility] [address] [place] [address] Adjustment and management of cardiac fqmpxehzg40/12/2025Orders Only [facility] [address] [place] [address] Behzad Holguin MD 10/13/2024 3:45 PM EDTOffice Visit [facility] [address] [place] [phone] Blayne Chase MD Sinus pause (Primary Dx); Cardiac pacemaker in situfrom Last 3 Months Family History Medical HistoryRelationNameCommentsStrokeBrotherCancerFatherCOPDMotherRelation NameStatusCommentsBrotherAliveFatherDeceasedMotherDeceasedSisterAlive Social History Tobacco UseTypesPacks/DayYears UsedDateSmoking Tobacco: NeverSmokeless Tobacco: Never Tobacco Cessation:Counseling Given: Not Answered Comments:chew Alcohol UseStandard Drinks/WeekCommentsYes0 (1 standard drink = 0.6 oz pure alcohol)occasionalAHC UtilitiesAnswerDate RecordedIn the past 12 months has the electric, gas, oil, or water [employer] threatened to shut off services in your home?No05/20/2024Humiliation, Afraid, Rape, and Kick questionnaireAnswerDate RecordedWithin the [...] were you homeless or living in a jail (including now)?No05/20/2024 Hunger Vital SignAnswerDate RecordedWithin the past 12 months, you worried that your food would run out before you got the money to buymore.Never true05/20/2024 Ran Out of Food in the Last YearNot on file05/20/2024Sex and Gender Information ValueDate RecordedSex Assigned at FkpljKisp43/09/2025 12:53 PM EDTLegal SexMale 08/09/2021 10:43 PM EDTGender KydyvhwhKafk35/09/2025 12:53 PM EDTSexual OrientationHeterosexual or Khnaszmx61/09/2025 3:04 PM EDT Last Filed Vital Signs Vital SignReadingTime TakenCommentsBlood Lprgzbew480/7809/03/2024 4:15 PM EDT Nttag780510/13/2024 4:15 PM IDOFzpihtgurdv49.9 ??C (98.4 ??F)05/21/2024 11:46 AM EDTRespiratory Kyre105907/23/2024 1:15 PM EDTOxygen Mvtuojsbbc76%10/13/2024 4:15 PM EDTInhaled Oxygen Concentration--Krjbax38.6 kg (171 lb)10/13/2024 4:15 PM EDT Zrcdkv034.2 cm (5' 7 )10/13/2024 4:15 PM EDTBody Mass Index26.78010/13/2024 4:15 PM EDT Plan of Treatment Health MaintenanceDue DateLast DoneCommentsCT Smxkamigpmml88/14/1970Colonoscopy 1969Colorectal Cancer Zzyqfsbet93/14/1970FIT-DNA1969FIT1969 FOBT1969 7400Ltupdorginlnx18/14/1970Depression Hnrrmouny97/14/1982Hepatitis B Vaccines (1 of 3 - 19+ 3-dose series)1988Pneumococcal Vaccine: Pediatrics (0 to 5 Years) and At-Risk Patients (6 to 64 Years) (1 of 2 - PCV)1988 02/06/2011dult Bkdcmcw3005/26/1991Zoster Vaccines (1 of 2)05/26/2019Influenza Vaccine (#1)511/05/2014HIB VaccinesAged OutNo longer eligible based on patient's age to complete this topicHPV VaccinesAged OutNo longer eligible based on patient's age to complete this topicIPV VaccinesAged OutNo longer eligible based on patient's age to complete this topicMeningococcal B VaccineAged OutNo longer eligible based on patient's age to complete this topicMeningococcal VaccineAged OutNo longer eligible based on patient's age to complete this topic Rotavirus VaccinesAged OutNo longer eligible based on patient's age to complete this topic Medical Devices ImplantedTypeAreaManufacturerDevice IdentifierShelf Expiration DateModel / Serial / LotIngevity+ Is-1 Bi Positive Fix Ra/Rv 59cm Implanted:Qty: 1 on 07/23/2024 by Bl[facility]ne Chase [facility]: [facility] [id number] / [id number] / Ingevity+ Is-1 Bi Positive Fix Ra/Rv 52cm Implanted:Qty: 1 on 07/23/2024 by Blayne Chase [facility]/A: [facility] [id number] / [id number] / Pacer,Accolade,Mri Dr Romero - [id number] - [id number] Implanted:Qty: 1 on 07/23/2024 by Blayne Chase MD [facility]PacemakerN/A: [facility] [id number] / [id number] / Procedures Procedure NamePriorityDate/TimeAssociated DiagnosisCommentsCARDIAC DEVICE CHECK CHECK - SGQLHHTpsbnzj29/17/2025 10:32 AM EDT Adjustment and management of cardiac pacemaker CARDIAC DEVICE CHECK - REMOTE - HUMSGWZWEPlqygmm16/12/2025 12:00 AM EDTfrom Last 3 Months Results * CARDIAC DEVICE CHECK - REMOTE - PACEMAKER (11/27/2024 10:32 AM EDT)Specimen (Source)Anatomical Location / LateralityCollection Method / VolumeCollection TimeReceived Time Narrative Authorizing ProviderResult TypeResult StatusPazena SalvatoreGrandview Medical Center IMPLANTABLE CARDIAC DEVICE PROCEDURESFinal ResultPerforming OrganizationAddressCity/State/ZIP Code Phone Number CPACS * Cardiac device check - Remote pacemaker (11/22/2024 12:00 AM EDT)Anatomical RegionLateralityModalityOtherSpecimen (Source)Anatomical Location / Laterality Collection Method / VolumeCollection TimeReceived Time11/22/2024 Narrative Authorizing ProviderResult TypeResult StatusAbhishedanyell Holguin MDCV IMPLANTABLE CARDIAC DEVICE PROCEDURESFinal Result from Last 3 Months Insurance Advance Directives * Full Code (Latest Code Status on File) Date ActivatedDate InactivatedComments05/19/2024 11:57 PM05/21/2024 3:26 PM
--- OUTSIDE RECORDS SUMMARY | 2024-12-21 15:51 | XMS_ITS | CCD ---
Author Organization [facility] Care Team Providers Care Supervisor Treating And Pumping Name Role Phone NO FAMILY, PHYSICIAN Primary Care Provider Unava ilable DO Jose Turk Attending Provider DO Shelby Steele Primary Care Provider Jose Turk Unavailable DO Shelby Steele Primary Care Provider [phone] DO Jose Turk Attending Provider Jose Turk Admitting Unavailable Shelby Steele Primary Care Unavailable Jose Turk Attending Unavailable Jose Turk Admitting Unavailable NO FAMILY, PHYSICIAN Primary Care Unavailable Jose Turk Attending Unavailable Jose Turk Admitting Unavailable Shelby Steele Primary Care Unavailable Jose Turk Attending Unavailable Jose Turk Attending Unavailable Shelby Steele Primary Care Unavailable Jose Turk Admitting Unavailable Teri Lares Unavailable JORGE WHALEY Referring Unavailable MEREDITH DONIS Referring Unavailable MEREDITH DONIS Referring Unavailable ANGELI CONTRERAS Referring Unavailable BLAYNE CHASE Referring Unavailable PEDRO BOYD Attending Unavailable BLAYNE CHASE Attending Unavailable LESLIE RODNEY Attending Unavailable BLAYNE CHASE Attending Unavailable BLAYNE CHASE Referring Unavailable BLAYNE CHASE Referring Unavailable BLAYNE CHASE Referring Unavailable BLAYNE CHASE Referring Unavailable BLAYNE CHASE Attending Unavailable BLAYNE CHASE Admitting Unavailable BEAU DEWITT Referring Unavailable MEREDITH DONIS Consulting Unavailable MEREDIHT DONIS Attending Unavailable SKYE SANCHEZ Admitting Unavailable Arian BURNS Attending Unavailable Medications Current Medications MedicationDrug Class(es)DatesSig (Normalized)Sig (Original)oxyCODONE hydrochloride 5 mg oral capsule (1 source)Opioid AgonistStart: 51-14-6890tzrq 5 mg by mouth every four to six hoursOxycodone Active 5 MG PO EVERY 4-6 HOURS 09 09March 20, 2022 Completed/Discontinued Medications MedicationDrug Class(es)DatesSig (Normalized)Sig (Original)naproxen 500 mg oral tablet (7 sources)Nonsteroidal Anti-inflammatory Drugtake 1 tablet by mouth twice daily Naproxen 500 MG take 1 tablet Oral Twice a day for 30 Days Not-Taking triamcinolone acetonide 40 mg/ml injectable suspension (6 sources)CorticosteroidStart: 04-96-4456Aynbxgc-40 Nov, 40 mg Problems Active Problems Problem ClassificationProblemDateDocumented DateEpisodic/ChronicAcute myocardial infarction (2 sources)Non-ST elevation (NSTEMI) myocardial infarction; Translations: [Non- ST elevation (NSTEMI) myocardial infarction]Onset: 64-88-3487YyysyntGbuqmla dysrhythmias (2 sources)Paroxysmal atrial fibrillation; Translations: [Paroxysmal atrial fibrillation]Onset: 19-00-5390ErwwzdgFqzhzqwzqs disorders (6 sources)Encounter for adjustment and management of other part of cardiac pacemaker; Translations: [Encounter for adjustment and management of automatic implantable cardiac defibrillator]Onset: 94-98-8457QnyvtvsVaovhfjvn of lipid metabolism (2 sources)Mixed hyperlipidemia; Translations: [Mixed hyperlipidemia]Onset: 07-91-2935SkzieawMnbcm disorders and dislocations; trauma-related (12 sources)Derangement of left knee; Translations: [Unspecified internal derangement of left knee]ChronicJoint disorders and dislocations; trauma-related (4 sources)Other tear of lateral meniscus, current injury, left knee, initial encounterEpisodicOther injuries and conditions due to external causes (5 sources)Unspecified injury of left lower leg, initial encounterEpisodicOther screening for suspected conditions (not mental disorders or infectious disease) (4 sources)Abnormal findings on diagnostic imaging of other parts of musculoskeletal systemEpisodicResidual codes; unclassified (1 source)History of arthroscopy of knee joint; Translations: [Other specified postprocedural states]73-16-1263WiicppnmRkbuvner codes; unclassified (4 sources)Other specified postprocedural states; Translations: [Other specified postprocedural states]Onset: 26-56-3524TracuepaBnhlyairrupk (1 source)Other tear of medial meniscus, current injury, left knee, initial encounter; Translations: [Other tear of medial meniscus, current injury, left knee, initial encounter]Onset: 17-45-8607Mnvurcypsbmg (1 source)Encounter for preprocedural laboratory examination; Translations: [Encounter for preprocedural laboratory examination]Onset: 03-09-2022 Unclassified (1 source)Unspecified internal derangement of left knee; Translations: [Unspecified internal derangement of left knee]Onset: 70-94-2363Gphwtgmpjauu (1 source)Unspecified injury of left lower leg, initial encounter; Translations: [Unspecified injury of left lower leg, initial encounter]Onset: 11-08-2021 Past or Other Problems Problem ClassificationProblemDateDocumented DateEpisodic/ChronicNonspecific chest pain (2 sources)Chest pain, unspecified; Translations: [Chest pain, unspecified] Onset: 03-08-1634Hcwbljrg Results Test NameValueInterpretationReference RangeFacilityOrders Onlyon 11-22-2024 Orders [id number] Fer Davies Sr. 1970 M Date Provider Department Center 11/22/2024 BEHZAD RYAN [facility]ARD [facility] Family History Problem Relation Age of Onset COPD Mother Cancer Father Stroke Brother Family Status - Relation Status Age at Mother Father Sister Alive Brother AliveNormalUniversity of [facility] And ClinicsOffice Vis[facility] 10-13-2024 Follow-up [id number] Fer Davies Sr. 1970 M Date Provider Department Center 10/13/2024 BLAYNE FOSTER CARD [facility] Family History Problem Relation Age of Onset COPD Mother Cancer Father Stroke Brother Family Status - Relation Status Age at Mother Father Sister Alive Brother Alive Level of Service:20161 [place] OFFICE/OUTPATIENT ESTABLISHED LOW MDM 20 MINNormal [facility] CenterOffice Visiton 04-08-9840Aqsipw-up visit [id number] Fer Davies Sr. 1970 M Date Provider Department Center 08/03/2024 PEDRO NIXON [facility] Family History Problem Relation Age of Onset COPD Mother Cancer Father Stroke Brother Family Status - Relation Status Age at Mother Father Sister Alive Brother Alive Level of Service:75214 [place] OFFICE/OUTPATIENT ESTABLISHED SF [facility]DM [address] [facility] Only[facility] 32-95-1029Emncsr [id number] Fer Davies Sr. 1970 M Date Provider Department Center 07/24/2024 BLAYNE FOSTER [facility] Family History Problem Relation Age of Onset COPD Mother Cancer Father Stroke Brother Family Status - Relation Status Age at Mother Father Sister Alive Brother AliveNoalUniSumma Health Akron CampusHPon 50-70-7423AMNO Electrophysiology Consult Note [place] [facility] - [facility] Reason for visit: Atrial fibrillation HPI: Fer Davies Sr. is a 54 y.o. year old with past medical history of CAD with a history of non-STEMI with cath revealing no obstructive lesions, hypertension, hyperlipidemia who was recently admitted from [facility] to [facility] with a history of atrial fibrillation. He does report a previous history of cardioversion on 09/05/2015 at [facility]. It is unclear as to why he was not on any blood thinners. When I reviewed the records it appeared that his initial presentation to the [facility] showed sinus tachycardia but given there was troponin elevation he was transferred to [facility]. EKG on presentation at [facility] was sinus. He did complain of occasional palpitations and following his discharge from [facility] was placed on a 30-day event monitor [...] Year: No Utilities: Not At Risk (05/20/2024) [facility] Utilities Threatened with loss of utilities: No [...] 12 lead Result Value Ventricular Rate 50 (more content not included)...[facility] CenterNURSNOTEon 32-84-4119EWGXLOIPLS educated pt on d/c instructions. This included: [...] wheeled off of unit with all of belongings.[facility] CenterNURSNOTECHG wipes and betadine nasal swabs completed.Normal [facility] Onlyon 44-13-3654Wtonsa [id number] Fer Davies Sr. 1970 M Date Provider Department Center 07/20/2024 PEDRO NIXON MIRANDA Abreu Family History Problem Relation Age of Onset COPD Mother Cancer Father Stroke Brother Family Status - Relation Status Age at Mother Father Sister Alive Brother AliveUpper Valley Medical CenterOffice Visiton 07-14-2024 Follow-up [id number] Lauro Daviesmilton Kulkarni Sr. 1970 M Date Provider Department Center 07/14/2024 BLAYNE FOSTER [facility] Family History Problem Relation Age of Onset COPD Mother Cancer Father Stroke Brother Family Status - Relation Status Age at Mother Father Sister Alive Brother Alive Level of Service:91371 [place] OFFICE/OUTPATIENT NEW MODERATE MDM 45 MINUTESFitzgibbon Hospitalal [facility]Orders Onlyon 16-25-8012Pkyuru [id number] VasiliyFer block Sr. 1970 M Date Provider Department Center 07/14/2024 DAMI CRAWFORD MIRANDA [facility] Family History Problem Relation Age of Onset COPD Mother Cancer Father Stroke Brother Family Status - Relation Status Age at Mother Father Sister Alive Brother AliveUpper Valley Medical [id number] lab results from 06/30/2024: JOSE Yee MA Please let him know his labs look good. Normal kidney and liver function. Cholesterol levels are well controlled. Continue atorvastatin at 40mg daily. Thanks! Jovita WILLS on his VM.[facility]37on *Cut atorvastatin down to 40mg daily. You can cut your current prescription of 80mg in half. When this is used up, start the new prescription. *Increase metoprolol to 50mg daily. You can take 2 tablets of your current 25mg prescription until this is used up. *Have follow-up labs in 6-8 weeks.[facility] Office Visiton 11-74-5816Zownmv-up [id number] Fer Davies Sr. 1970 Date Provider Department Center 05/26/2024 LESLIE MCFADDEN [facility]IRANDA [facility] Family History Problem Relation Age of Onset COPD Mother Cancer Father Stroke Brother Family Status - Relation Status Age at Mother Father Sister Alive Brother Alive Level of Service:59247 [place] OFFICE/OUTPATIENT ESTABLISHED MOD MDM 30 MIN Reason for Visit and Comments: Hospital Follow-up [832] Atrial Fibrillation [80]NormalUnRegency Hospital Cleveland East30on 05-21-2024 30The patient is Moderately Stable - Low risk [...] or other facility with appropriate resources Outcome: ProgressingNormalUniversMetroHealth Parma Medical CenterBASIC METABOLIC PANELon 73-71-3377Djgam gap [Moles/Vol]7 mmol/LNormal7-20UnRegency Hospital Cleveland EastComment on above:Performed By: #### [id number] ####[facility] ([facility])[address] [place], [place] [address]Eqpsocd [Mass/Vol]8.7 mg/dLNormal 8.6-10.3UnRegency Hospital Cleveland EastComment on above:Performed By: #### [id number] ####[facility] ([facility])[address] [place], [place] [address]Zqvnlymv [Moles/Vol]105 mmol/SHjauec98-096LrplrzrkjdRegency Hospital Cleveland EastComment on above:Performed By: #### [id number] ####[facility] ([facility])[address] [place], [place] [address]SN8 [Moles/Vol]29 mmol/AXpejgp88-51UczqpvonlaRegency Hospital Cleveland EastComment on above:Performed By: #### [id number] ####[facility] ([facility])[address] [place], [place] [address]Pezapekepo [Mass/Vol]1.14 mg/dLNormal 0.70-1.30UnRegency Hospital Cleveland EastComment on above:Performed By: #### [id number] ####[facility] ([facility])[address] [place] [address]PQQSRVMUPR FILTRATION RATE ML/MIN/1.73 SQ M.BJTHESFBO60.4 mL/min/1.73m*2Normal>60.0 [facility] ColumbusComment on above:Result Comment: The [facility]???s estimated glomerular filtration rate (eG FR) will no longer include consideration of race [...] potential consequences that do not disproportionately affect anyone group of individuals. Performed By: #### [id number] ####[facility] ([facility])[address] [place] [address]Sepkjiv [Mass/Vol]79 mg/dQKzqfuk77-318WdrodrjgzeRegency Hospital Cleveland EastComment on above:Performed By: #### [id number] ####[facility] ([facility])[address] [place], [place] [address]Nmrwmnsfu [Moles/Vol]4.1 mmol/LNormal 3.5-5.1UnRegency Hospital Cleveland EastComment on above:Performed By: #### [id number] ####[facility] ([facility])[address] [place], [place] [address]Iryyuz [Moles/Vol]137 mmol/EHzskde330-740YwtvxnhvvyRegency Hospital Cleveland EastComment on above:Performed By: #### [id number] ####[facility] ([facility])[address] [place], [place] [address]Iadw nitrogen [Mass/Vol]17 mg/dLNormal7-25UnRegency Hospital Cleveland EastComment on above:Performed By: #### [id number] ####[facility] ([facility])[address] [facility]IR[facility], [place] [address]THCW NITROGEN/CREATININE (MASS RATIO) IN SER/PLAS14.9NormalUniversMetroHealth Parma Medical CenterComment on above: Performed By: #### [id number] ####[facility] ([facility])[address] [place] [address]KUQZNSBTXsj 80-90-6165Fkdvohjys [Mass/Vol]1.9 mg/dLNormal1.9-2.7 [facility] ColumbusComment on above:Performed By: #### [id number] #### [facility] ([facility]) [address] [place] [address]yz 48-17-474032Lol patient is Moderately Stable - Low risk [...] antiarrhythmia medication and electrolyte replacement as ordered NormalUnRegency Hospital Cleveland EastANESon 01-36-1028EHTF Attestation signed by Jorge Whaley MD at 05/20/2024 7:16 PM Mr. Davies was seen and evaluated by me. I agree with above with the addition that he has upper and lower dentures in place and Blu's test nl R. I have discussed with him the expected risks and he understands and consents to proceed. Patient: Fer Davies Procedure Information Date/Time: 05/20/241655 Procedure: Coronary angiography Location: [facility] BED OPERATOR 3 / [facility] (Cath) Providers: Jorge Whaley MD Clinical information reviewed: [employer] Physical Exam Airway Mallampati: III Cardiovascular Rhythm: regular Rate: normal (-) murmur Dental Pulmonary (-) decreased breath sounds Abdominal (-) obese Anesthesia Plan ASA 3 other (Conscious Sedation) intravenous induction Anesthetic plan and risks discussed with patient. Use of blood products discussed with patient who consented to blood products. Plan discussed with attending. Additional Equipment RequestsNormalUniversMetroHealth Parma Medical CenterANTI-XA (HEPARIN LEVEL)on 51-07-0165CFCTRSE UNFRACTIONATED (U/ML) IN PPP BY CHROMOGENIC METHOD0.41 IU/mLNormal0.3-0.7UnRegency Hospital Cleveland EastComment on above:Order Comment: Check anti-Xa level every 6 hours while on heparin infusion, or per protocol.Result Comment: Rivaroxaban and Apixaban will interfere with the anti Xa assay used to monitor UFH and LMWH.Performed By: #### [id number] ####[facility] (BEAKER)[address] [place], [place] [address]AURGZCR UNFRACTIONATED (U/ML) IN PPP BY CHROMOGENIC METHOD0.28 IU/mLLow0.3-0.7UnRegency Hospital Cleveland EastComment on above:Order Comment: Check anti-Xa level every 6 hours while on heparin infusion, or per protocol.Result Comment: Rivaroxaban and Apixaban will interfere with the anti Xa assay used to monitor UFH and LMWH.Performed By: #### [id number] ####[facility] (BEAKER)[address] [place], [place] [address]TPPQEDX UNFRACTIONATED (U/ML) IN PPP BY CHROMOGENIC METHOD0.23 IU/mLLow0.3-0.7UnRegency Hospital Cleveland EastComment on above: Order Comment: Check anti-Xa level every 6 hours while on heparin infusion, or per protocol.Result Comment: Rivaroxaban and Apixaban will interfere with the anti Xa assay used to monitor UFH and LMWH.Performed By: #### [id number] #### [facility] ([facility] [address] [place] [address]YAUPtu 77-32-2269SLBZPOIRY PARTIAL THROMBOPLASTIN TIME IN PPP BY COAGULATION ASSAY40.8 RrlslxiSwtv49.0-35.0UnRegency Hospital [facility] Comment on above:Order Comment: Baseline aPTT before initiating heparin infusion.Result Comment: Clinical significance of the APTT is questionable in the presence of heparin.Performed By: #### [id number] #### [facility] ([facility]) [address] [place] [address]BEKYL METABOLIC PANELon 73-63-6267Qiktl gap [Moles/Vol]7 mmol/L Normal7-20UnRegency Hospital Cleveland EastComment on above:Performed By: #### [id number] ####[facility] (BEAKER)[address] [place] [address]Vebyruk [Mass/Vol]8.5 mg/dLLow8.6-10.3UnRegency Hospital Cleveland EastComment on above:Performed By: #### [id number] ####[facility] (BE[facility]ER)[address] [place] [address]Dsbrhzvh [Moles/Vol]109 mmol/IZwaa61-586UcdpaugrowRegency Hospital Cleveland EastComment on above:Performed By: #### [id number] ####[facility] (BEAKER)[address] [place] [address]IR8 [Moles/Vol]28 mmol/DYxtzvw46-48 [facility] ColumbusComment on above:Performed By: #### [id number] ####[facility] (BE[facility]ER)[address] [place], [place] [address]Mcxikdkzvy [Mass/Vol]0.93 mg/dLNormal0.70-1.30UnRegency Hospital Cleveland EastComment on above:Performed By: #### [id number] ####[facility] ([facility])[address] [facility]UTHIRIVERVIEW [facility] [place] [address]DOICRWPOTK FILTRATION RATE ML/MIN/1.73 SQ M.PMUEVDZGN99.6 mL/min/1.73m*2Normal>60.0UnRegency Hospital Cleveland EastComment on above: Result Comment: The [facility]???s estimated glomerular filtration rate (eGFR) will no [...] potential consequences that do not disproportionately affect anyone group of individuals.Performed By: #### [id number] ####[facility] ([facility])[address] [place], [place] [address]Ffjohsw [Mass/Vol]94 mg/wLQfluws27-987IknllaswmuRegency Hospital Cleveland EastComment on above:Performed By: #### [id number] ####[facility] ([facility])[address] [place], [place] [address]Mdkocediz [Moles/Vol]4.0 mmol/LNormal3.5-5.1UnRegency Hospital Cleveland EastComment on above:Performed By: #### [id number] ####[facility] ([facility])[address] [place] [address] Sodium [Moles/Vol]140 mmol/NLqwzyu384-446ZuxpmnpjcoRegency Hospital Cleveland East Comment on above:Performed By: #### [id number] ####[facility] ([facility])[address] [place], [place] [address]Bmpe nitrogen [Mass/Vol]17 mg/dLNormal7-25 [facility] ColumbusComment on above:Performed By: #### [id number] ####[facility] ([facility])[address], [place] [address]BLEF NITROGEN/CREATININE (MASS RATIO) IN SER/PLAS18.3NormalUniversMetroHealth Parma Medical CenterComment on above:Performed By: #### [id number] ####[facility] ([facility])[address] [place] [address]JVPcd 41-47-1528Vprrhdyxmhg distribution width (RBC) [Ratio]12.3 %Hmfsdh87.5-15.0UnRegency Hospital Cleveland EastComment on above:Performed By: #### [id number] #### [facility] ([facility]) [address] [place], [place] [address]LPBWCTKKGVJ MEAN CORPUSCULAR HEMOGLOBIN CONCENTRATION (G/DL) BY POABFSCQS26.7 g/aSKlprbu15.0-35.0UnRegency Hospital Cleveland EastComment on above:Performed By: #### [id number] #### [facility] ([facility]) [address] [place], [place] [address]Pmegyuqnai (Bld) [Volume fraction]43.9 %Zfnsxo32.0-50.0 [facility] ColumbusComment on above:Performed By: #### [id number] #### [facility] ([facility]) [address] [place], [place] [address]Aslovtgueu (Bld) [Mass/Vol]14.8 g/rLMvnzuc30.0-17.0UnRegency Hospital Cleveland EastComment on above:Performed By: #### [id number] #### [facility] ([facility]) [address] [place], [place] [address]FCX (RBC) [Entitic mass]29.1 zfTtoiot13.0-33.0UnRegency Hospital Cleveland EastComment on above:Performed By: #### [id number] #### [facility] ([facility]) [address] [place], [place] [address]UQP (RBC) [Entitic vol]86.2 jFQdmprc04.0-98.0UnRegency Hospital Cleveland EastComment on above:Performed By: #### [id number] #### [facility] ([facility]) [address] [place] [address]ILAVIUJVS (10*3/UL) IN BLOOD AUTOMATED AQOAS644 10*3/uLNormal 150-400UnRegency Hospital Cleveland EastComment on above:Performed By: #### [id number] #### [facility] ([facility]) [address] [place] [address]KNB (Bld) [#/Vol]5.09 10*6/uLNormal4.20-5.70UnRegency Hospital Cleveland EastComment on above:Performed By: #### [id number] #### [facility] ([facility]) [address] [place] [address]GRG (Bld) [#/Vol]4.96 10*3/uLNormal4.00-10.60UnRegency Hospital Cleveland EastComment on above:Performed By: #### [id number] #### [facility] ([facility]) [address] [place] [address]PVH WITH AUTO DIFFERENTIALon 31-18-7317Otejdqcqj (Bld) [#/Vol] 0.04 10*3/uLNormal0.00-0.20UnRegency Hospital Cleveland EastComment on above: Performed By: #### [id number] #### [facility] ([facility]) [address] [place] [address]Cbrtwnnju/100 WBC (Bld)0.7 %Normal0.0-1.0UnRegency Hospital Cleveland EastComment on above:Performed By: #### [id number] #### [facility] ([facility]) [address] [place] [address]Wrstjwhywtn (Bld) [#/Vol]0.16 10*3/uLNormal0.00-0.50UnRegency Hospital Cleveland EastComment on above:Performed By: #### [id number] #### [facility] ([facility]) [address] [place] [address]Ttsnkbcfiuh/100 WBC (Bld)2.7 %Normal0.0-6.0UnRegency Hospital Cleveland EastComment on above:Performed By: #### [id number] #### [facility] ([facility]) [address] [place] [address]Ptlmnjapbsv distribution width (RBC) [Ratio]12.4 %Normal 11.5-15.0UnRegency Hospital Cleveland EastComment on above:Performed By: #### [id number] #### [facility] ([facility]) [address] [place] [address]TCCFBIOFAGQ MEAN CORPUSCULAR HEMOGLOBIN CONCENTRATION (G/DL) BY ZKQEJHTXC76.5 g/nLPylptq71.0-35.0UnRegency Hospital Cleveland EastComment on above:Performed By: #### [id number] #### [facility] ([facility]) [address] [place] [address]Qsfcvsvcty (Bld) [Volume fraction]42.3 %Dgyzix08.0-50.0 [facility] ColumbusComment on above:Performed By: #### [id number] #### [facility] ([facility]) [address] [place], [place] [address]Ppddcuiuzu (Bld) [Mass/Vol]14.6 g/qZZlicaj60.0-17.0UnRegency Hospital Cleveland EastComment on above:Performed By: #### [id number] #### [facility] ([facility]) [address] [place], [place] [address]Weexmvlw granulocytes (Bld) [#/Vol]0.01 10*3/uLNormal0.00-0.20 [facility] ColumbusComment on above:Performed By: #### [id number] #### [facility] ([facility]) [address] [place], [place] [address]Afaetmef granulocytes/100 WBC (Bld)0.2 %Normal0.0-1.0UnRegency Hospital Cleveland EastComment on above:Performed By: #### [id number] #### [facility] ([facility]) [address] [place], [place] [address]Jihtgrxrbzm (Bld) [#/Vol]2.03 10*3/uLNormal1.20-4.00UnRegency Hospital Cleveland EastComment on above:Performed By: #### [id number] #### [facility] ([facility]) [address] [place] [address]Rlbfnodyrxp/100 WBC (Bld)34.8 %Uhpyho58.0-45.0UnRegency Hospital Cleveland EastComment on above:Performed By: #### [id number] #### [facility] ([facility]) [address] [place] [address]XQX (RBC) [Entitic mass]29.4 teZlwjej50.0-33.0UnRegency Hospital Cleveland EastComment on above:Performed By: #### [id number] #### [facility] ([facility]) [address] [place] [address]PUM (RBC) [Entitic vol]85.3 cVDxpoqj42.0-98.0UnRegency Hospital Cleveland EastComment on above:Performed By: #### [id number] #### [facility] ([facility]) [address] [place] [address]Epvisinqx (Bld) [#/Vol]0.56 10*3/uLNormal0.10-1.00UnRegency Hospital Cleveland EastComment on above:Performed By: #### [id number] #### [facility] ([facility]) [address] [place] [address]Ddybtkjex/100 WBC (Bld)9.6 %Normal5.0-12.0UnRegency Hospital Cleveland EastComment on above:Performed By: #### [id number] #### [facility] ([facility]) [address] [place] [address]Brjbvvkayhp (Bld) [#/Vol]3.04 10*3/uLNormal1.60-7.60UnRegency Hospital Cleveland EastComment on above:Performed By: #### [id number] #### [facility] ([facility]) [address] [place] [address]Zbfzhzcliuu/100 WBC (Bld)52.0 %Qdsxra10.0-72.0UnRegency Hospital Cleveland EastComment on above:Performed By: #### [id number] #### [facility] ([facility]) [address] [place] [address]FDPN (PER 100 WBCS) BY AUTOMATED COUNT0.0 %Llzzgx0XscyofzhtcRegency Hospital Cleveland EastComment on above:Performed By: #### [id number] #### [facility] ([facility]) [address] [place] [address]KMOFTRALS (10*3/UL) IN BLOOD AUTOMATED XOOPP466 10*3/uLNormal 150-400UnRegency Hospital Cleveland EastComment on above:Performed By: #### [id number] #### [facility] ([facility]) [address] [place] [address]VWT (Bld) [#/Vol]4.96 10*6/uLNormal4.20-5.70UnRegency Hospital Cleveland EastComment on above:Performed By: #### [id number] #### [facility] ([facility]) [address] [place] [address]ZGK (Bld) [#/Vol]5.84 10*3/uLNormal4.00-10.60UnRegency Hospital Cleveland EastComment on above:Performed By: #### [id number] #### [facility] ([facility]) [address] [place] [place] [address]ZXQKBGWFTTXGR METABOLIC PANELon 08-74-2916Ceuvbti [Mass/Vol]4.0 g/dLNormal3.5-5.7UnRegency Hospital Cleveland EastComment on above:Performed By: #### [id number] #### [facility] ([facility]) [address] [place] [address]QYE [Catalytic activity/Vol]56 U/ECyiqml82-107GrqymqzbpqRegency Hospital Cleveland EastComment on above:Performed By: #### [id number] #### [facility] ([facility] [address] [place], [place] [address]FQV [Catalytic activity/Vol]21 U/LNormal7-52UnRegency Hospital Cleveland EastComment on above:Performed By: #### [id number] #### [facility] ([facility]) [address] [place], [place] [address]Nxfgu gap [Moles/Vol]11 mmol/LNormal7-20UnRegency Hospital Cleveland EastComment on above:Performed By: #### [id number] #### [facility] ([facility]) [address] [place], [place] [address]QCR [Catalytic activity/Vol]22 U/FVmgbfp29-56KepzfrgzgfRegency Hospital Cleveland EastComment on above:Performed By: #### [id number] #### [facility] ([facility]) [address] [place], [place] [address]Bqzatbbey [Mass/Vol]0.3 mg/dLNormal0.3-1.0UnRegency Hospital Cleveland EastComment on above:Performed By: #### [id number] #### [facility] ([facility]) [address] [place], [place] [address]Kbzcnxf [Mass/Vol]8.9 mg/dLNormal8.6-10.3UnRegency Hospital Cleveland EastComment on above:Performed By: #### [id number] #### [facility] ([facility]) [address] [place], [place] [address]Svczqscc [Moles/Vol]106 mmol/QQwcivr55-774KhqmjyelbmRegency Hospital Cleveland EastComment on above:Performed By: #### [id number] #### [facility] ([facility] [address] [place], [place] [address]JU0 [Moles/Vol]27 mmol/FPisqoj34-28UrunoykxnxRegency Hospital Cleveland EastComment on above:Performed By: #### [id number] #### [facility] ([facility] [address] [place], [place] [address]Qxzspdahto [Mass/Vol]0.95 mg/dLNormal0.70-1.30UnRegency Hospital Cleveland EastComment on above:Performed By: #### [id number] #### [facility] ([facility]) [address] [place] [address]PRZRNRNIPP FILTRATION RATE ML/MIN/1.73 SQ M.WVURGWNMQ61.1 mL/min/1.73m*2Normal>60.0UnRegency Hospital Cleveland EastComment on above: Result Comment: The [facility]???s estimated glomerular filtration rate (eGFR) will no [...] potential consequences that do not disproportionately affect anyone group of individuals.Performed By: #### [id number] #### [facility] ([facility]) [address] [place] [address]Ehwoouh [Mass/Vol]94 mg/vFNswdnv53-216OzjgjaxccmRegency Hospital Cleveland EastComment on above:Performed By: #### [id number] #### [facility] ([facility]) [address] [place] [address]Ofywjzykm [Moles/Vol]3.7 mmol/LNormal3.5-5.1UnRegency Hospital Cleveland EastComment on above:Performed By: #### [id number] #### [facility] ([facility]) [address] [place] [address]Snjmqdl [Mass/Vol]6.4 g/dLNormal6.0-8.3UnRegency Hospital Cleveland EastComment on above:Performed By: #### [id number] #### [facility] ([facility]) [address] [place] [address]Syzubv [Moles/Vol]140 mmol/NNwzrjj123-865YssmumkqpsRegency Hospital Cleveland EastComment on above:Performed By: #### [id number] #### [facility] (BEAKER) [address], [place] [address]Tbsa nitrogen [Mass/Vol]16 mg/dLNormal7-25UnRegency Hospital Cleveland EastComment on above:Performed By: #### [id number] #### [facility] (BEAKER) [address] [facility] [place], [place] [address]CETD NITROGEN/CREATININE (MASS RATIO) IN SER/PLAS16.8Normal [facility] ColumbusComment on above:Performed By: #### [id number] #### [facility] (BEAKER) [address] [facility] [address] [place], [place] [address]LWLWMHYyc [id number] Attestation signed by Wally Benson MD at [...] documentation from me. Additional Comments: Transferred from [facility] due to chest pain and palpitations Elevated high-sensitivity troponin concerning for NSTEMI Uncontrolled Hypertension as well Will proceed with coronary angiogram for CAD evaluation Given palpitations, will plan to discharge with 30-day event monitor and outpatient follow-up with [place] cardiology labs including CBC, CMP, troponin all personally reviewed EKG personally reviewed Cardiology Consult Note Reason for Consult: heart palpitation HPI: Fer Davies is a 53 y.o. male with [...] problem and myalgias. Neurological: Negative for numbness. Psychiatric/Behavioral: Negative for behavioral problems. Past Medical History [...] Value Ventricular Rate 78 Atrial Rate 78 TN Interval 176 QRS DURATION 88 QT Interval 372 QTC CALCULATION(BAZETT) 424 P [place] 66 R-[place] 28 T Wave [place] 37 Impression Normal sinus rhythm Normal ECG [...] it recurrent, underwent Cardioversion (more content not included)...Normal [facility] ColumbusHIGH SENSITIVITY TROPONIN Ion 71-01-4805SK TROPONIN I (NG/L)64 ng/LCritically high<20UnReg[facility] Hospital [facility] East Comment on above:Performed By: #### [id number] #### [facility] (BEAKER) [address] [place], [place] [address]ML TROPONIN I (NG/L)91 ng/LCritically high<20UnRegency Hospital Cleveland EastComment on above:Performed By: #### [id number] #### [facility] (BEAKER) [address] [place], [place] [address]IF TROPONIN I (NG/L)138 ng/LCritically high<20UnRegency Hospital Cleveland EastComment on above:Performed By: #### [id number] #### [facility] (BEAKER) [address] [place] [address]UV TROPONIN I (NG/L)220 ng/LCritically high<20UnRegency Hospital Cleveland EastComment on above:Performed By: #### [id number] #### [facility] (BEAKER) [address] [place] [address]FRic 21-86-7558GKR&P reviewed. The patient was examined and there are no changes to the H&P. Proceed with CORS for NSTEMI. Hernán Cedeño MD PGY-5 Ware Cleaner [facility] Pager # [phone] Hospital Medicine History and Physical 05/20/2024 12:00 AM THE HOSPITALIST TEAM PREFERS TO USE Team[employer] FOR NON-URGENT COMMUNICATION 7AM-7PM. IF I DO NOT RESPOND WITHIN 20 MINUTES OR URGENT MATTERS, PLEASE CALL THROUGH THE LEASE PURCHASE DRIVER. FROM 7PM-7AM, PLEASE PAGE [phone](COVR). Chief Complaint Direct admission from [facility] with CP History of Present Illness Fer Davies is an 53 y.o. male who came from home with past medical history of atrial fibrillation presents as a direct admission from [facility] with a chief complaint of palpitations [...] on a heparin drip and transferred to [facility] for higher level of care. Patient does [...] Assessment & Plan Chest pain Paroxysmal A-fib (CMS/[facility]) -Troponin at outside hospital 57-> [...] this hospital stay by a member of [facility]. Past Medical History Medical History No past medical history on file. Past Surgical History Surgical History No past surgical history on file. Social History Social History Socioeconomic History Marital status: Spouse name: Not on f (more content not included)...NormalUnRegency Hospital Cleveland EastLIPID PANELon 14-56-2248NEZU/HDL4.1 mg/dLNormalUniversMetroHealth Parma Medical CenterComment on above:Performed By: #### [id number] #### [facility] ([employer]) [address] [place], [place] [address]Oxwiggtrgje [Mass/Vol]152 mg/sDHfitno299-688VcnhkwzshiRegency Hospital Cleveland EastComment on above:Performed By: #### [id number] #### [facility] ([facility]) [address] [place], [place] [address]Vvajhypou [Mass/Vol]72 mg/dLNormal<150UnRegency Hospital Cleveland EastComment on above:Result Comment: TRIGLYCERIDE REFERENCE RANGE: 20 YEARS AND OLDER CARDIOVASCULAR RISK LESS THAN 150 mg/dL LOW RISK 150 TO 199 mg/dL BORDERLINE RISK 200 mg/dL AND GREATER HIGH RISKPerformed By: #### [id number] #### [facility] (BEAKER) [address] [place], [place] [address]Tvopkasju [Mass/Vol]101 mg/dLNormal0-160UnRegency Hospital Cleveland EastComment on above:Performed By: #### [id number] #### [facility] ([facility]) [address] [place] [address]Rrzzvrvmc [Mass/Vol]37 mg/vYWpvaxo15-57FfqotyblacRegency Hospital Cleveland EastComment on above:Performed By: #### [id number] #### [facility] ([facility]) [address] [place] [address]MZT HDL CHOL. (LDL+VLDL)115NormalUniversMetroHealth Parma Medical CenterComment on above:Performed By: #### [id number] #### [facility] ([facility]) [address] [address] [place], [place] [address]SYAVE VLDL-C14 mg/dLNormal0-40UnRegency Hospital Cleveland EastComment on above:Performed By: #### [id number] #### [facility] ([facility]) [address] [place] [address]GEEGGBCASuo 95-11-9552Yvobrepcm [Mass/Vol]2.0 mg/dLNormal1.9-2.7 [facility] - ColumbusComment on above:Performed By: #### [id number] #### [facility] ([facility]) [address] [place], [place] [address]Urlrzlarq [Mass/Vol]2.0 mg/dLNormal1.9-2.7UnRegency Hospital Cleveland EastComment on above:Performed By: #### [id number] #### [facility] ([facility]) [address] [place], [place] [address]ERZWEKJEXUil 06-47-6228Hadgnjwhs [Mass/Vol]4.3 mg/dLNormal 2.5-5.0UnRegency Hospital Cleveland EastComment on above:Performed By: #### [id number] #### [facility] ([facility]) [address] [place], [place] [address]OEWBYZV-XARat 20-33-7105QCA IN PPP BY COAGULATION ASSAY0.92 Normal0.90-1.10UnRegency Hospital Cleveland EastComment on above:Result Comment: ACCCP RECOMMENDED INR FOR WARFARIN THERAPY CONDITION INR PROPHYLAXIS OF VENOUS THROMBOSIS 2-3 (HIGH-RISK SURGERY) TREATMENT OF VENOUS THROMBOSIS 2-3 TREATMENT OF PULMONARY EMBOLISM 2-3 PREVENTION OF SYSTEMIC EMBOLISM: 2-3 ACUTE MYOCARDIAL INFARCTION TISSUE HEART VALVES VALVULAR HEART DISEASE ATRIAL FIBRILLATION RECURRENT SYSTEMIC EMBOLISM MECHANICAL HEART VALVE 2.5-3.5 FROM: ORAL ANTICOAGULANTS. MECHANISM OF ACTION, CLINICAL EFFECTIVENESS, AND OPTIMAL THERAPEUTIC RANGE. CHEST 1995;108:231S-246S.Performed By: #### [id number] #### [facility] ([facility]) [address] [place], [place] [address]CFAJEXRMRPG TIME (PT) IN PPP BY COAGULATION ASSAY12.4 Seconds Knusuy59.3-14.8UnRegency Hospital Cleveland EastComment on above:Performed By: #### [id number] #### [facility] ([facility]) [address] [place], [place] [address]YTB6 REFLEX TO FT4on 82-95-7023AMVCWXIXBMU (MIU/L) IN SER/PLAS BY DETECTION LIMIT <= 0.05 MIU/L2.41 mIU/LNormal0.34-5.60UnRegency Hospital Cleveland EastComment on above:Performed By: #### [id number] ####[facility] ([facility])[address] [place], [place] [address]DKEPFOBRiu 05-57-2763OUQZJDSIOre selling underwriter received a call from Marcia (ER nurse in [facility]) at [phone]. The patient arrived at their ER at 4PM today ambulating with complaints of SOB and was tachy at 117-120 bpm. The patient has a history of Afib and cardiac ablation. Troponin was at 57.7 and was then rechecked- 175.4. ASA 324mg was given, hep gtt was started at 900 units/hr, 18 mL/hr. The patient has the ff VS: TN-86, O2 Sat-96-98% RA, T-98.0, RR-14-20. The patient stated no home meds. A&O X4. IV site at RA-20g. Patient will be picked up at around 2200.NormalSelect Medical Specialty Hospital - ColumbusAlbumin [Mass/volume] in Serum or PlasmaOrdered By: Jose Turk on 70-48-1869Poqszrt [Mass/Vol]4.0 g/dL3.2-5.5FSelect Medical Specialty Hospital - YoungstownBasophils Auto (Bld) [#/Vol]Ordered By: Jose Turk on 51-28-9405Iqlnpdivf (Bld) [#/Vol]0.0 10*3/uL0.0-0.2FSelect Medical Specialty Hospital - YoungstownBasophils/100 WBC Auto (Bld)Ordered By: Jose Turk on 03-09-2022 Basophils/100 WBC (Bld)0.7 %.Ohio[facility] HospitalComplete Blood Count Auto Diffon 27-01-7757Flmfkraxn (Bld) [#/Vol]0.0 10*3/uLNormal0.0-0.2 [facility] HospitalComment on above:Result Comment: PERFORMED BY: [place] [address] PATHOLOGIST INDUSTRIAL MAINTENANCE TECHNICIAN KELLY CID M.D.Performed By: #### CMP, CBC #### [facility] [address] [place] [address] USABasophils/100 WBC (Bld)0.7 %Normal.Ohiohealth Mansfield HospitalComment on above:Performed By: #### CMP, CBC #### [facility] [address] [place] [address] USAEosinophils (Bld) [#/Vol]0.0 10*3/uLNormal0.0-0.45 [facility] Mans[facility] HospitalComment on above:Performed By: #### CMP, CBC #### [facility] [address] [place] [address] USAEosinophils/100 WBC (Bld)0.9 %Normal.Ohiohealth Mansfield HospitalComment on above:Performed By: #### CMP, CBC #### [facility] [address] [place] [address] USAErythrocyte distribution width (RBC) [Ratio]13.1 %Normal 12.0-14.8Ohiohealth Mansfield HospitalComment on above:Performed By: #### CMP, CBC #### [facility] [address] [place] [address] USAHematocrit (Bld) [Volume fraction]43.5 %Nhngyz31.8-50.0 [facility] HospitalCommymichigan medical center west branch on above:Performed By: #### CMP, CBC #### [place] [address] USAHemoglobin (Bld) [Mass/Vol]14.8 g/eOBuzemn57.0-17.0 [facility] HospitalCommymichigan medical center west branch on above:Performed By: #### CMP, CBC #### [place] [address] USALymphocytes (Bld) [#/Vol]1.1 10*3/uLNormal1.00-4.8 [facility] HospitalCommymichigan medical center west branch on above:Performed By: #### CMP, CBC #### [facility] [address] [place] [id number] USALymphocytes/100 WBC (Bld)24.5 %Normal.Ohio[facility] Mansfield HospitalComment on above:Performed By: #### CMP, CBC #### [facility] [address] [place] [address] USAMCH (RBC) [Entitic mass]29.2 mtEkxxib32.5-35.2FSelect Medical Specialty Hospital - YoungstownComment on above:Performed By: #### CMP, CBC #### [place] [address] USAMCV (RBC) [Entitic vol]85.8 bMSxjnkz03.5-101Ohiohealth Mansfield HospitalComment on above:Performed By: #### CMP, CBC #### [facility] [address] [place] [address] USAMean Corpuscular HGB Conc34.0 g/jMGlgkzf80.5-35.6FSelect Medical Specialty Hospital - YoungstownComment on above:Performed By: #### CMP, CBC #### [facility] [address] [place] [address] USAMonocytes (Bld) [#/Vol]0.5 10*3/uLNormal0.0-0.8Ohiohealth Mansfield HospitalCommymichigan medical center west branch on above:Performed By: #### CMP, CBC #### [facility] [address] [place] [address] USAMonocytes/100 WBC (Bld)10.5 %Normal.Ohiohealth Mansfield HospitalComment on above:Performed By: #### CMP, CBC #### [place] [address] USANeutrophils (Bld) [#/Vol]2.9 10*3/uLNormal1.8-7.7FSelect Medical Specialty Hospital - YoungstownComment on above:Performed By: #### CMP, CBC #### [place] [address] USANeutrophils/100 WBC (Bld)63.4 %Normal.Ohiohealth Mansfield HospitalCommymichigan medical center west branch on above:Performed By: #### CMP, CBC #### [place] [address] USANRBC%0.1 /100{WBC}Normal0-0.5FSelect Medical Specialty Hospital - YoungstownCommymichigan medical center west branch on above:Performed By: #### CMP, CBC #### [facility] [address] [place] [address] USAPlatelet mean volume (Bld) [Entitic vol]7.9 fLNormal 6.6-10.1FSelect Medical Specialty Hospital - YoungstownComment on above:Performed By: #### CMP, CBC #### [place] [address] USAPlatelets (Bld) [#/Vol]247 10*3/fDAzupae754-772BwpfdisxpOhiohealth Mansfield HospitalComment on above:Performed By: #### CMP, CBC #### [facility] [address] [place] [address] USARBC (Bld) [#/Vol]5.07 10*6/uLNormal3.90-5.60Ohio[facility] Mansfield HospitalComment on above:Performed By: #### CMP, CBC #### [place] [address] USAWBC (Bld) [#/Vol]4.6 10*3/uLNormal4.1-10.5FSelect Medical Specialty Hospital - YoungstownComment on above:Performed By: #### CMP, CBC #### [place] [address] USAComprehensive Metabolic Panelon 28-22-8350Cszpvyw [Mass/Vol]4.0 g/dLNormal3.2-5.5FSelect Medical Specialty Hospital - YoungstownComment on above:Performed By: #### CMP, CBC #### [place] [address] USAAlbumin/Globulin [Mass ratio]1.5 {ratio}NormalOhiohealth Mansfield HospitalComment on above:Performed By: #### CMP, CBC #### [place] [address] USAALP [Catalytic activity/Vol]51 U/FPfuook31-40GgsqcnecnOhiohealth Mansfield HospitalComment on above:Result Comment: PERFORMED BY: [place] [address] PATHOLOGIST INDUSTRIAL MAINTENANCE TECHNICIAN KELLY CID M.D.Performed By: #### CMP, CBC #### [place] [address] USAALT [Catalytic activity/Vol]15 U/JNegwxz74-85BsrkipobmOhiohealth Mansfield HospitalComment on above:Performed By: #### CMP, CBC #### [place] [address] USAAnion gap [Moles/Vol]10.3 mmol/LNormal6.0-15.0Ohiohealth Mansfield HospitalComment on above:Performed By: #### CMP, CBC #### [facility] [address] [place] [address] USAAST [Catalytic activity/Vol]18 U/HEfhmcc51-61FxmhbwhicOhiohealth Mansfield HospitalComment on above:Performed By: #### CMP, CBC #### [facility] [address] [place] [address] USABilirubin [Mass/Vol]0.7 mg/dLNormal0.3-1.2FSelect Medical Specialty Hospital - YoungstownComment on above:Performed By: #### CMP, CBC #### [facility] [address] [place] [address] USACalcium [Mass/Vol]9.2 mg/dLNormal8.2-10.2FSelect Medical Specialty Hospital - YoungstownComment on above:Performed By: #### CMP, CBC #### [facility] [address] [place] [address] USAChloride [Moles/Vol]102 mmol/OCxvlky19-205UstefmdgnOhiohealth Mansfield HospitalComment on above:Performed By: #### CMP, CBC #### [facility] [address] [place] [address] USACO2 [Moles/Vol]28.8 mmol/HCpienz68.0-30.0Ohiohealth Mansfield HospitalComment on above:Performed By: #### CMP, CBC #### [facility] [address] [place] [address] USACreatinine [Mass/Vol]0.85 mg/dLNormal0.64-1.27Ohiohealth Mansfield HospitalComment on above:Performed By: #### CMP, CBC #### [facility] [address] [place] [id number] USAEstimated GFR ( Sherri> 60NormalOhiohealth Mansfield HospitalComment on above:Result Comment: GFR estimated reference range: According to KDOQI guidelines, <60 ml/min/1.73m2 is sufficient to diagnose a patient with chronic kidney disease.Performed By: #### CMP, CBC #### [facility] [address] [place] [address] USAEstimated GFR (Non- Am> 60NormalOhiohealth Mansfield HospitalComment on above:Performed By: #### CMP, CBC #### [place] [address] USAGlobulin (S) [Mass/Vol]2.6 g/dLNormalOhiohealth Mansfield HospitalComment on above:Performed By: #### CMP, CBC #### [place] [address] USAGlucose [Mass/Vol]91 mg/jBGexpor61-239EsrzmhntgOhiohealth Mansfield HospitalComment on above:Result Comment: Random Glucose Reference Range is dependent on time and content of last meal. Glucose of more than 200 mg/dL in a nonstressed, ambulatory subject supports the diagnosis of Diabetes Mellitus. ADA recommended reference rangePerformed By: #### CMP, CBC #### [place] [address] USAPotassium [Moles/Vol]4.1 mmol/LNormal3.5-5.1FSelect Medical Specialty Hospital - YoungstownComment on above:Performed By: #### CMP, CBC #### [place] [address] USAProtein [Mass/Vol]6.6 g/dLNormal6.1-7.9Ohio[facility] Mansfield HospitalComment on above:Performed By: #### CMP, CBC #### [place] [address] USASodium [Moles/Vol]137 mmol/ARfkfpv980-434JhmzxzszgOhiohealth Mansfield HospitalComment on above:Performed By: #### CMP, CBC #### [place] [address] USAUrea nitrogen [Mass/Vol]10 mg/dLNormal9-23Ohiohealth Mansfield HospitalComment on above:Performed By: #### CMP, CBC #### [place] [address] USACreatinine and Glomerular filtration rate.predicted panel (S/P/Bld)Ordered By: Jose Turk on 27-13-7681Uyioiopljz [Mass/Vol]0.85 mg/dL 0.64-1.27Ohiohealth Mansfield HospitalECG 12 lead ECGon 75-70-4790KTG 12 [address] ECGST[address] [place] [address] Electrocardiograph Report Signed Patient: Fer Davies MR#: [id number] [birth year] : 1970 Acct:[id number] Age/Sex: 51 / M ADM Date: 03/09/22 Loc: PS Room: Type: [facility] Attending Dr: Jose Turk DO [...] Electronically Signed By:CARLOS WINTERS MD Transcribed By: [facility] Signed By Carlos Winters MD 0 03/09/22 1528NormalOhiohealth Mansfield HospitalEosinophils Auto (Bld) [#/Vol]Ordered By: Jose Turk on 77-98-0506Rrqepnecqjg (Bld) [#/Vol]0.0 10*3/uL0.0-0.45[facility]health Mansfield HospitalEosinophils/100 WBC Auto (Bld) Ordered By: Jose Turk on 77-72-3655Llindufafpw/100 WBC (Bld)0.9 %.[facility]field HospitalErythrocyte distribution width Auto (RBC) [Ratio]Ordered By: Jose Turk on 00-90-6711Dugbsozjsaj distribution width (RBC) [Ratio]13.1 %12.0-14.8Ohio[facility] Mansfield HospitalEstimated glomerular filtration rate (GFR) non- AmericanOrdered By: Jose Turk on 63-13-2721SUB/1.73 sq M.predicted among non-blacks MDRD (S/P/Bld) [Vol rate/Area]> 60 mL/MinOhiohealth Mansfield HospitalGlobulin Calc (S) [Mass/Vol]Ordered By: Jose Turk on 13-97-9969Ypbgtema (S) [Mass/Vol]2.6 g/dLOhiohealth Mansfield Hospital Hematocrit Auto (Bld) [Volume fraction]Ordered By: Jose Turk on 03-09-2022 Hematocrit (Bld) [Volume fraction]43.5 %38.8-50.0[facility] HospitalHemoglobin [Mass/volume] in BloodOrdered By: Jose Turk on 03-09-2022 Hemoglobin (Bld) [Mass/Vol]14.8 g/dL13.0-17.0[facility] Leukocytes [#/volume] corrected for nucleated erythrocytes in Blood by Automated counOrdered By: Jose Turk on 93-70-9157QSS corrected for nucl RBC Auto (Bld) [#/Vol]4.6 10*3/uL4.1-10.5FSelect Medical Specialty Hospital - YoungstownLymphocytes Auto (Bld) [#/Vol]Ordered By: Jose Turk on 20-42-1767Hohamdtvxab (Bld) [#/Vol]1.1 10*3/uL1.00-4.8Ohio[facility] Mansfield HospitalLymphocytes/100 WBC Auto (Bld)Ordered By: Jose Turk on 24-22-2752Fgupedzphwo/100 WBC (Bld)24.5 % .[facility] Mansfield HospitalMCH Auto (RBC) [Entitic mass]Ordered By: Jose Turk on 59-34-7436RAU (RBC) [Entitic mass]29.2 pg27.5-35.2FSelect Medical Specialty Hospital - YoungstownMCHC Auto (RBC) [Mass/Vol]Ordered By: Jose Turk on 71-71-9826YRCG (RBC) [Mass/Vol]34.0 g/dL32.5-35.6FSelect Medical Specialty Hospital - YoungstownMCV Auto (RBC) [Entitic vol]Ordered By: Jose Turk on 11-00-1912HLA (RBC) [Entitic vol]85.8 fL83.5-101Ohiohealth Mansfield HospitalMonocytes Auto (Bld) [#/Vol]Ordered By: Jose Turk on 50-29-0025Tskswdqnl (Bld) [#/Vol] 0.5 10*3/uL0.0-0.8Ohio[facility] Mansfield HospitalMonocytes/100 WBC Auto (Bld) Ordered By: Jose Turk on 99-18-3853Palxpqadf/100 WBC (Bld)10.5 %.[facility] HospitalNeutrophils Auto (Bld) [#/Vol]Ordered By: Jose Turk on 41-65-0772Xpjcdnvcswu (Bld) [#/Vol]2.9 10*3/uL1.8-7.7FSelect Medical Specialty Hospital - YoungstownNeutrophils/100 WBC Auto (Bld)Ordered By: Jose Turk on 23-02-9920Ymkrndwdvbe/100 WBC (Bld)63.4 %.[facility] HospitalNo Panel InformationOrdered By: Jose Turk on 20-12-4192Mydbosdrr GFR ()> 60 mL/MinOhiohealth Mansfield HospitalComment on above:GFR estimated reference range: According to KDOQI guidelines, <60 ml/min/1.73m2 is sufficient todiagnose a patient with chronic kidney disease.Pharmacy Creatinine Clearance (ChemN/OhioHealthNucleated erythrocytes [Presence] in Blood by Automated countOrdered By: Jose Turk on 03-09-2022 Nucleated RBC Auto Ql (Bld)0.1 /100{WBC}0-0.5FSelect Medical Specialty Hospital - Youngstown Platelet mean volume Auto (Bld) [Entitic vol]Ordered By: Jose Turk on 53-73-4084Oacibgvl mean volume (Bld) [Entitic vol]7.9 fL6.6-10.1FSelect Medical Specialty Hospital - YoungstownPlatelets Auto (Bld) [#/Vol]Ordered By: Jose Turk on 32-61-0669Kyvnjrvld (Bld) [#/Vol]247 10*3/mC807-128EqagqknkwOhiohealth Mansfield HospitalProtein [Mass/volume] in Serum or PlasmaOrdered By: Jose Turk on 30-48-0212Mgbfzzt [Mass/Vol]6.6 g/dL6.1-7.9Ohio[facility] Mansfield HospitalRBC Auto (Bld) [#/Vol]Ordered By: Jose Turk on 43-42-0793BJE (Bld) [#/Vol]5.07 10*6/uL3.90-5.60Berger Hospitalerum or plasma alanine aminotransferase measurement without P-5'-P (enzymatic activiOrdered By: Jose Turk on 80-91-3137GHO No additional P-5'-P [Catalytic activity/Vol]15 U/L10-60 Berger Hospitalerum or plasma albumin/globulin mass ratio Ordered By: Jose Turk on 18-34-8101Hnjkhis/Globulin [Mass ratio]1.5 {ratio} Berger Hospitalerum or plasma alkaline phosphatase measurement (enzymatic activity/volume)Ordered By: Jose Turk on 03-09-2022 ALP [Catalytic activity/Vol]51 U/S19-66ZvveilphfBerger Hospitalerum or plasma anion gap determinationOrdered By: Jose Turk on 98-62-9955Yteji gap [Moles/Vol]10.3 mmol/L6.0-15.0Berger Hospitalerum or plasma aspartate aminotransferase measurement (enzymatic activity/volume)Ordered By: Jose Turk on 65-21-0225KWO [Catalytic activity/Vol]18 U/J03-38UgwdmuzeaBerger Hospitalerum or plasma calcium measurement (mass/volume)Ordered By: Jose Turk on 35-14-6926Gppmymy [Mass/Vol]9.2 mg/dL8.2-10.2FUpper Valley Medical Centererum or plasma chloride measurement (moles/volume) Ordered By: Jose Turk on 28-65-5407Osolvfos [Moles/Vol]102 mmol/L95-114 Berger Hospitalerum or plasma glucose measurement (mass/volume)Ordered By: Jose Turk on 10-57-1247Azkeyym [Mass/Vol]91 mg/dL 70-100Ohiohealth Mansfield HospitalComment on above:ADA recommended reference rangeRandom Glucose Reference Range is dependent on time and content of last meal. Glucose of more than 200 mg/dL in a nonstressed, ambulatory subject supports the diagnosisof Diabetes Mellitus.Serum or plasma potassium measurement (moles/volume)Ordered By: Jose Turk on 76-48-0371Azpfbicpc [Moles/Vol]4.1 mmol/L3.5-5.1FUpper Valley Medical Centererum or plasma sodium measurement (moles/volume)Ordered By: Jose Turk on 24-71-3877Pasxkh [Moles/Vol]137 mmol/I898-891UyaqkxureBerger Hospitalerum or plasma total bilirubin measurement (mass/volume)Ordered By: Jose Turk on 03-09-2022 Bilirubin [Mass/Vol]0.7 mg/dL0.3-1.2FUpper Valley Medical Centererum or plasma total carbon dioxide measurement (moles/volume)Ordered By: Jose Turk on 38-06-6547AD3 [Moles/Vol]28.8 mmol/L22.0-30.0Berger Hospitalerum or plasma urea nitrogen measurement (mass/volume)Ordered By: Jose Turk on 11-08-7575Sucp nitrogen [Mass/Vol]10 mg/dL9-23Ohiohealth Mansfield HospitalWBC Auto (Bld) [#/Vol]Ordered By: Jose Turk on 96-90-1566HJF (Bld) [#/Vol]4.6 10*3/uL4.1-10.5FSelect Medical Specialty Hospital - YoungstownMR knee LT wo conon 00-77-3614[place] [address] MRI Report Signed Patient: Fer Davies MR#: [id number] 88 : 1970 Acct:[id number] Age/Sex: 51 / M ADM Date: 11/15/21 Loc: [facility] Room: Type: [facility] Attending Dr: Jose Turk DO Copies to: [...] Bautista Rodriguez M.D.11/15/2021 5:48 PM Dictation Location: [place] [address] Transcribed By: [facility] 11/15/211747 Dictated By: Bautista Rodriguez DO 11/15/211741 Signed By: 11/15/21 174OhioHealth Doctors HospitalMR knee LT wo [facility] [employer] Other MR knee LT wo conFMarymount Hospital [employer] Other MR knee LT wo [id number] [facility] [employer] Other MR [place] LT wo [place], [place] [address]MucllGroup [facility] [employer] Other MR knee LT wo conMRI ReportGroup Health Eastside Hospital [employer] Other MR knee LT wo [facility] [employer] Other MR knee LT wo conPatient: Fer Davies MR#: [id number] [facility] [employer] Other MR knee LT wo [id number] [employer] Other MR knee LT wo conDOB: 1970 Acct:[id number] [employer] Other mr knee LT wo conAge/Sex: 51 / M ADM Date: 11/15/21 writewith Other mr knee LT wo conLoc: ICMR Room: Type: [facility] [employer] Other mr knee LT wo conAttending Dr: Jose Turk [facility] [employer] Other mr knee LT wo conCopies to: Jose Turk [employer] Other mr knee LT wo conOrdering Provider: Jose TurkDumbstruck Other mr knee LT wo conDate of Service: 11/15/21[place] Other mr knee LT wo conAccession #: ([id number]) MR/MR knee LT wo con: Internal derangement of left kneeNosaint luke's east hospital [employer] Other mr knee LT wo conMRI the LEFTknee without contrast writewith Other mr knee LT wo conTECHNIQUE: Multiplanar T1 and T2- weighted imaging of the knee obtained without contrastBuffalo Quixby Other mr knee LT wo conHISTORY: LEFT knee injury November 04. LEFT knee effusion drained. Continued LEFT knee pain.writewith Other mr knee LT wo conThe large joint effusion identified. writewith Other mr knee LT wo conAnterior and posterior cruciate ligaments are intact..writewith Other mr knee LT wo conVertical tear of the inner portion of the body of the lateral meniscus identified..writewith Other mr knee LT wo conNo articular defect of the cartilage identified..writewith Other mr knee LT wo conNo osteochondral defect identified. writewith Other mr knee LT wo conFocal bone marrow edema of the subarticular region of the medial tibial plateau identified.writewith Other mr knee LT wo conPatellar ligament and quadriceps tendon are intact.writewith Other MR knee LT wo conSpine/partial tear of the medial collateral ligament complex with adjacent edema present.writewith Other MR knee LT wo conNo signal abnormality of the musculature or subcutaneous tissues identified.writewith Other MR knee LT wo conORDER #: [id number] MR/MR knee LT wo [facility] [employer] Other MR knee LT wo conIMPRESSION: Large joint effusion. Vertical tear of the inner portion of the body of the lateralArchevos Other MR knee LT wo conmeniscus. Intact ACL and medial meniscus.writewith Other mr knee LT wo conImpression dictated by: Bautista Rodriguez M.D.11/15/2021 5:48 [facility] [employer] Other mr knee LT wo conDictation Location: WVOAX-[id number] Quix[employer] Other MR knee LT wo conTranscribed By: PWS 11/15/21 [facility] writewith Other MR knee LT wo conDictated By: Bautista Rodriguez DO 11/15/[address] [place] [address] [employer] Other MR knee LT wo conSigned By:writewith Other MR knee LT wo con11/15/[address] [place] [address] [employer] Other XR knee LT 3Von 91-51-9105SO [facility] Other [facility] 3V[facility] [employer] Other XR knee LT [address] [place] [address] [employer] Other XR knee LT 3VSandMICHEAL reed [address]12[address]Iaxmo [employer] Other XR knee LT 3VXRay ReportBuffalo [employer]ix[employer] Other XR knee LT 3VSignedBuffalo Quixby Other XR knee LT 3VPatient: Fer Davies MR#: [id number] [place] [employer] Other XR knee LT 2J34Xykfx [employer] Other XR knee LT 3VDOB: 1970 Acct:[id number] [employer] Other XR knee LT 3VAge/Sex: 51 / M ADM Date: 11/08/21[place] Other XR knee LT 3VLoc: SOX Room: Type: [facility] [employer] Other XR knee LT 3VAttending Dr: Jose Turk [facility] [employer] Other XR knee LT 3VCopies to: Jose Turk, Polatis [employer] Other XR knee LT 3VOrdering Provider: Jose Turk, writewith Other XR knee LT 3VDate of Service: 11/08/21[place] Other XR knee LT 3VAccession #: ([id number]) XR/XR knee LT 3V - NOT FOR ER USE: Injury of left knee, initial encounterBuffalo Quixby Other XR knee LT 3VLEFT KNEE - 3 viewsBuffalo Quixby Other XR knee LT 3VCLINICAL HISTORY: Left knee pain, patient was running and fell.writewith Other XR knee LT 3VCOMPARISON: Left knee series 10/16/2021 writewith Other XR knee LT 3VFINDINGS:writewith Other XR knee LT 3VKnee joint effusion. No acute bony process. Joint spaces are maintained.writewith Other XR knee LT 3VORDER #: [id number] XR/XR knee LT 3V - NOT FOR ER USEBuffalo Quixby Other XR knee LT 3VIMPRESSION:writewith Other XR knee LT 3VKNEE JOINT EFFUSION WITHOUT ACUTE BONY PROCESS OR SIGNIFICANT DEGENERATIVE CHANGE.writewith Other XR knee LT 3VImpression dictated by: Sudeep Plummer Jr., D.ONeha11/08/2021 12:23 PMNgeneral leonard [facility] [employer] Other XR knee LT 3VDictation Location: [address] [employer] Other XR knee LT 3VTranscribed By: PWS 11/08/[address] [place] [address] [employer] Other XR knee LT 3VDictated By: Sudeep Plummer Jr, DO 11/08/21 [facility]Neronote [facility] Other XR knee LT 3VSigned By:writewith Other XR knee LT 3V11/08/21 [facility] SpringfieldArchevos Other XR knee LT 3V - NOT FOR ER USEon 54-30-0625UR knee LT 3V - NOT FOR ER USEST. [facility] [place] [address] [place] [address] XRay Report Signed Patient: Fer Davies MR#: [id number] 88 : 1970 Acct:[id number] Age/Sex: 51 / M ADM Date: 11/08/21 [facility] Room: Type: [facility] Attending Dr: Jose Turk DO Copies to: [...] CHANGE. Impression dictated by: Sudeep Plummer Jr., DNehaONeha11/08/2021 12:23 PM Dictation Location: [place] [address] Transcribed By: [facility] 11/08/21 1223 Dictated By: Sudeep Plummer Jr, DO 11/08/21 1222 Signed By: 11/08/21 1223[facility] Vital Signs Date TimeVital SignValuePerforming OfnhriiljTtwuclkz88-42-4192 16:15-0400Body kvokak691.72 cmJustin Jonathan Other writewith Other 03-22-2023 16:15-0400Body mass index (BMI) [Ratio] 24.33 kg/l3Yhslzi Jonathan Other writewith Other 03-22-2023 16:15-0400Body vmflhe05.58 kgJustin Jonathan Other writewith Other 02-15-2023 15:15-0500Body .72 cmJustin Jonathan Other writewith Other 02-15-2023 15:15-0500Body mass index (BMI) [Ratio] 24.33 kg/f9Tjvrzu Jonathan Other writewith Other 02-15-2023 15:15-0500Body tzchup67.58 kgJustin Jonathan Other writewith Other 02-07-2023 16:47-0500Diastolic blood rhhhracu89 mm[Hg] DO Shelby Ivette Work Phone: [phone] [place], [place] 5312802-07-2023 16:47-0500 Heart rate69 /minDO Shelby Ivette Work Phone: [phone] [place], [place] 5312802-07-2023 16:47-0500 Respiratory rate16 /minDO Shelby Ivette Work Phone: [phone] [place], [place] 5312802-07-2023 16:47-0500 SaO2% (BldA) [Mass fraction]98 %DO Sehlby Ivette Work Phone: [phone] [place], [place] 5312802-07-2023 16:47-0500 Systolic blood mm[Hg]DO Shelby Ivette Work Phone: [phone]02-07-2023 15:34-0500 Body osomuwpqhka49 [degF]DO Shelby Ivette Work Phone: [phone] [place], [place] 5312802-07-2023 15:34-0500 Inhaled oxygen flow rate8 L/minDO Shelby Ivette Work Phone: [phone] [place], [place] 5312802-07-2023 13:26-0500 Body eqgpkp032.45 cmDO Shelby Ivette Work Phone: [phone] [place], [place] 5312802-07-2023 13:26-0500 Body mass index (BMI) [Ratio]24.8 kg/m2DO Shelby Ivette Work Phone: [phone] [place], [place] 5312802-07-2023 13:26-0500 Body vkunqf24 kgDO Shelby Ivette Work Phone: [phone]09-28-2022 10:30-0400 Body hamjkn423.72 cmJusaad Turk Other [place] [employer] Other 09-28-2022 10:30-0400Body mass index (BMI) [Ratio] 24.33 kg/b1Ppxqkysaad Turk Other [place] Other 09-28-2022 10:30-0400Body eikvvs80.58 kgJusaad Turk Other noArchevos Other Encounters Encounter DateEncounter TypeCare ProviderFacilityStart: 84-10-7995gnxjqlnxwp Arian BURNSFacility:MERCEDES BooueStart: 14-21-5109aapnvlumncXswkpzu WATERS Facility:MERCEDES ChaconSelect Medical Specialty Hospital - Columbustart: 22-14-4458svfkswuxcjEYAGSt. Vincent Hospitaltart: 10-13-2024 End: 65-02-7698aynopqaxqoZOHBSt. Vincent Hospitaltart: 80-59-2183iubftjxsisQTOOSt. Vincent Hospitaltart: 08-18-2024 End: 07-20-5449xqxrxdkkqxHVKRSt. Vincent Hospitaltart: 08-03-2024 End: 99-87-1487wxfsddkbteLIQUNQ MOUKASumma Health [facility] Start: 11-41-9089gwreoynolxFYHUSt. Vincent Hospitaltart: 07-23-2024 End: 54-17-6240bffekrdwszPLCESt. Vincent Hospitaltart: 07-14-2024 End: 40-26-8039gnlpezymkvLQUWSt. Vincent Hospitaltart: 05-26-2024 End: 46-78-5552duxptqeobiYHWVCPN FELICleveland Clinic Children's Hospital for Rehabilitationtart: 01-77-7777Ljndtqximf and management of inpatientCHRISTOPHER [facility] Centertart: 40-35-4814Nfoyoqohyd and management of inpatient MEREDITH SCHWARZUniversity Covenant Children's Hospitaltart: 96-09-2424Jmjkazffyx and management of inpatientSTEPHANIE SCHWARZUniversity of Vences Medical Center Start: 05-19-2024 End: 04-23-5364Xskdlxfwuq and management of inpatientANDSalem Regional Medical Centertart: 05-02-2022 End: 54-93-9182sitqtuallkCjuwvc Jonathan Other noArchevos Other Start: 41-87-0305Fzslof follow up visit related to original pxJustin KelleyFPG [facility] OrthopedicsStart: 04-17-2022 End: 32-81-1865aflxhejqlpPzpdcu Jonathan Other noArchevos Other Start: 78-74-5518Jilzcw follow up visit related to original pxJennifer KearneyFPG [facility] OrthopedicsStart: 89-17-6790Kysrzlnfh encounterJustin KelleyFPG [facility]opedicsStart: 03-28-2022 End: 57-99-3783eekuixksuuNfhmip Jonathan Other writewith Other Start: 85-74-0348Byfynm follow up visit related to original pxJustin JonathanFPG [facility] OrthopedicsStart: 03-20-2022 End: 11-76-6028nmwcdubnsaRqykcp A TimboleyFacility:[facility] Hospitaltart: 03-20-2022 End: 42-87-5643Qyhncuciq to same day surgery Kathy Steele Work Phone: [facility] Main CampusStart: 03-20-2022 End: 63-43-6625wqucudzuieKW Elyse C Tinker Work Phone: [facility] Work Phone: Start: 03-09-2022 End: 30-45-6851hmhbgcgvmgGwzebp A TimboleyFacility:[facility] Hospitaltart: 03-09-2022 End: 53-27-7381Aomiulz encounter procedureDO Shelby Steele Work Phone: [facility] Lwc-Ovc-Zlbpovdx Testing Work Phone: Start: 11-20-2021 End: 43-22-5060pqpizzsbthNmpjee Jonathan Other noNeronote Quixby Other Start: 88-83-3872Jituem outpatient visit 25 minutes Jose KennedyG [facility] OrthopedicsStart: 11-15-2021 End: 20-05-8437awolbbvtqkIboqec A KelleyFacility:[facility] Hospitaltart: 11-15-2021 End: 64-33-5861uswdxzyirzKYWKHDQZA NO [facility] Work Phone: Start: 11-15-2021 End: 78-83-7439Lijrecw encounter procedurePHYSICIAN NO [facility]-MRI Strub RdStart: 11-13-2021 End: 12-10-0927haiqwbnimwKnukrl Jonathan Other [facility] [employer] Other Start: 49-50-3317Jrydghhfa encounterJustin KelannikaFPG [facility] OrthopedicsStart: 33-93-8264Dhzire outpatient new 45 minutesJustin KelleyFPG [facility] OrthopedicsStart: 11-08-2021 End: 23-18-3831zccqesagroUnfyyk A KelleyFacility:[facility] Hospitaltart: 11-08-2021 End: 88-32-0091viutdklxwuRAENPWKCI NO [facility] Work Phone: Start: 11-08-2021 End: 56-39-2047Cyjgapq encounter procedurePHYSICIAN NO [facility]-XRay [facility] Procedures DateProcedureProcedure DetailPerforming ClinicianStart: 69-17-0118Mzagnzwwbru of kneeDO Shelby Steele Work Phone: start: 22-66-8410UGX of left kneePHYSICIAN NO FAMILY Start: 96-02-2303J-ray of left kneePHYSICIAN NO FAMILY Plan of Treatment DateCare ActivityDetailAuthorStart: 62-88-7737PwstcxzywOhiohealth Mansfield Hospital Start: 24-61-3213BglrstcprOhiohealth Mansfield HospitalPatient referralKettering [facility] Work Phone: Immunizations Immunization DateImmunizationNotesCare XuebqnbjDoglosev34-57-4946TNELW-64 Ad26.COV2.S ([place])DO Shelby Steele Work Phone: [facility] Payers DatePayer CategoryPayerPolicy [id number] Health [id number] [id number]-[id number] Health InsuranceAetna Insurance Co [id number] Social History DateTypeDetailFacilityTobacco smoking status NHISUnknown if ever smokedKettering Health [facility] Ctr Work Phone: Start: 28-09-6660Itt Assigned At [facility] Hospitalex Assigned At BirthSex Assigned At [facility] Quixby Other Goals DatePatient GoalDesired Activity/State Clinical Notes 11-08-2021 to 10-13-2024 Note Date & TvkuWcigIhkxdetm07-69-9237 NoteUT Electrophysiology Consult Note [place] [facility] - [facility] Reason for visit: Atrial fibrillation 10/13/24 Patient is here today per Dr. Boyd for A-fib management. Patient state he still feels palpitations/racing heart, with lightheaded/dizziness, patient states he is having these every day or 2. Patient denies, fatigue, SOB, ROMO, or leg swelling. Patient is questioning if the loop recorder is working, due to no lights flashing, or information being given to him. He underwent PPM on 07/23/24 and device check performed by me today reveals no AF. Review of Systems Cardiovascular: Positive for irregular heartbeat and palpitations. Neurological: Positive for dizziness and light-headedness. HPI: Fer Kulkarni Hattie Paez is a 54 y.o. year old with past medical history of CAD with a history of non-STEMI with cath revealing no obstructive lesions, hypertension, hyperlipidemia who was recently admitted from [facility] to [facility] with a history of atrial fibrillation. He does report a previous history of cardioversion on 09/05/2015 at [facility]. It is unclear as to why he was not on any blood thinners. When I reviewed the records it appeared that his initial presentation to the [place] ED showed sinus tachycardia but given there was troponin elevation he was transferred to [facility]. EKG on presentation at [facility] was sinus. He did complain of occasional palpitations and following his discharge from [facility] was placed on a 30-day event monitor [...] Drivers of Health Tobacco Use: Low Risk (10/13/2024) Patient History Smoking Tobacco Use: Never Smokeless [...] Year: No Utilities: Not At Risk (05/20/2024) [facility] Utilities Threatened with loss of utilities: No Health Literacy: Not on file Allergies: No Known Allergies Weight: 77.6kg Visit Vitals BP 139/78 (BP Location: Right arm, Patient Position: Sitting) Pulse 56 Ht 1.702 m (5' 7 ) Wt 77.6 kg (171 lb) SpO2 96% BMI 26.78 kg/m??? Smoking Status Never BSA 1.92 m??? Meds: Current Outpatient Medications on File Prior to Visit Medication Sig Dispense Refill apixaban (Eliquis) 5 mg tablet Take 1 tablet (5 mg) by mouth two times daily. 180 tablet 3 atorvastatin (Lipitor) 40 mg tablet Take 1 tablet (40 mg) by mouth in the morning. 90 tablet 3 metoprolol succinate XL (Toprol-XL) 25 mg 24 hr tablet Take 1 tablet (25 mg) by mouth once daily as directed. In addition to 50mg tablets = 75mg daily 90 tablet 3 metoprolol succinate XL (Toprol-XL) 50 mg 24 hr tablet Take 1 tablet (50 mg) by mouth in the morning. Do not crush or chew. 90 tablet 1 No current facility-administered medications on file prior to visit. ROS: Review of Systems Cardiovascular: Positive for palpitations. Neurological: Positive for dizziness. Physical Exam: Constitutional General Appearance: well-nourished, well-developed, appears stated age Level of Distress: comfortable Eyes FANY Neck Neck: supple, trachea midline Carotid Kelly (more content not included)...[facility] 08-03-2024 NoteUT Cardiology - [facility] Subjective Fer Davies is a 54 y.o. year old male patient being seen for wound check s/p PPM implant on 07/23/2024. Patient Active Problem List Diagnosis Chest pain Paroxysmal A-fib (CMS/HCC) NSTEMI (non-ST elevated myocardial infarction) (CMS/HCC) Arthritis of foot Closed fracture of calcaneus Current smoker Sinus pause Family History Problem Relation Name Age of Onset COPD Mother Cancer Father Stroke Brother Social History Tobacco Use Smoking status: Never Smokeless tobacco: Never Tobacco comments: chew Substance Use Topics Drug use: Never WEST Fer is seen in follow-up for the purpose of pacemaker incision site check. On 07/23/2024 he underwent dual chamber pacemaker placement for sinus pauses. He has a prior history of paroxysmal atrial fibrillation maintained on anticoagulation therapy with Eliquis. He resumed Eliquis few days after the procedure. He has been taking it for 3 to 4 days now. Prior coronary angiography in May 2024 was normal. Today he reports that he has been doing well. He denies fever and chills. He has mild tenderness around the pacemaker site. He reports frequent palpitations that happen without any clear etiological factor. Review of Systems Cardiovascular: Positive for palpitations. Objective Visit Vitals BP 136/88 (BP Location: Left arm, Patient Position: Sitting) Pulse 83 Ht 1.702 m (5' 7 ) Wt 76.2 kg (168 lb) SpO2 97% BMI 26.31 kg/m??? Smoking Status Never BSA 1.9 m??? Physical Exam Constitutional: Appearance: He is well-developed. He is not ill-appearing. HENT: Head: Normocephalic and atraumatic. Nose: Nose normal. Eyes: General: No scleral icterus. Pupils: Pupils are equal, round, and reactive to light. Neck: Thyroid: No thyromegaly. Vascular: No JVD. Cardiovascular: Rate and Rhythm: Normal rate and regular rhythm. Pulses: Radial pulses are 2+ on the right side and 2+ on the left side. Heart sounds: Normal heart sounds. No murmur heard. No friction rub. No gallop. Pulmonary: Effort: Pulmonary effort is normal. No respiratory distress. Breath sounds: Normal breath sounds. No wheezing or rales. Chest: Chest wall: No tenderness. Comments: pacemaker site had occlusive dressing on it. This was removed. Minor serous fluid was dried carefully with sterile 4 x 4 gauze. A large Band-Aid was applied. No evidence of hematoma or erythema. Abdominal: General: Bowel sounds are normal. There is no distension. Palpations: Abdomen is soft. Tenderness: There is no abdominal tenderness. Musculoskeletal: General: No swelling. Cervical back: Neck supple. Skin: General: Skin is warm and dry. Neurological: General: No focal deficit present. Mental Status: He is alert and oriented to person, place, and time. Psychiatric: Mood and Affect: Mood normal. Behavior: Behavior is cooperative. Judgment: Judgment normal. Allergies No Known Allergies Medications Current Outpatient Medications: apixaban (Eliquis) 5 mg tablet, Take 1 tablet (5 mg) by mouth two times daily., Disp: 180 tablet, Rfl: 3 atorvastatin (Lipitor) 40 mg tablet, Take 1 tablet (40 mg) by mouth in the morning., Disp: 90 tablet, Rfl: 3 metoprolol succinate XL (Toprol-XL) 50 mg 24 hr tablet, Take 1 tablet (50 mg) by mouth in the morning. Do not crush or chew., Disp: 90 tablet, Rfl: 1 metoprolol succinate XL (Toprol-XL) 25 mg 24 hr tablet, Take 1 tablet (25 mg) by mouth once daily as directed. In addition to 50mg tablets = 75mg daily, Disp: 90 tablet, Rfl: 3 Recent Labs Admission on 07/23/2024, Discharged on 07/23/2024 Component Date Value Ventricular Rate 07/23/2024 50 Atrial Rate 07/23/2024 50 TN Interval 07/23/2024 188 QRS DURATION 07/23/2024 88 QT Interval 07/23/2024 420 QTC CALCULATION(BAZETT) 07/23/2024 382 P [place] 07/23/2024 55 R-[place] 07/23/2024 30 T Wave [place] 07/23/2024 26 Ventricular Rate 07/23/2024 57 Atrial Rate 07/23/2024 57 TN Interval 07/23/2024 164 QRS DURATION 07/23/2024 108 QT Interval 07/23/2024 414 QTC CALCULATION(BAZETT) 07/23/2024 402 P [place] 07/23/2024 49 R-[place] 07/23/2024 -16 T Wave [place] 07/23/2024 51 Admission on 05/19/2024, Discharged on 05/21/2024 Component Date Value Sodium 05/20/2024 140 Potassium 05/20/2024 3.7 Chloride 05/20/2024 106 CO2 05/20/2024 27 Anion Gap 05/20/2024 11 BUN 05/20/2024 16 Creatinine 05/20/2024 0.95 BUN/Creatinine Ratio 05/20/2024 16.8 Glucose 05/20/2024 94 Calcium 05/20/2024 8.9 AST 05/20/2024 22 ALT (SGPT) 05/20/2024 21 Alkaline Phosphatase 05/20/2024 56 Total Protein 05/20/2024 6.4 Albumin 05/20/2024 4.0 Total Bilirubin 05/20/2024 0.3 eGFR 05/20/2024 95.1 Magnesium 05/20/2024 2.0 Phosphorus 05/20/2024 4.3 High Sensitivity Troponi* 05/20/2024 220 (HH) Protime 05/20/2024 12.4 INR 05/20/2024 0.92 aPTT 05/20/2024 40.8 (H) Auto WBC 05/20/2024 5.84 RBC (more content not included)...[facility] 07-23-2024 NoteDUAL CHAMBER PACEMAKER IMPLANT PROCEDURE NOTE DATE OF PROCEDURE: 07/23/24 PERFORMING PHYSICIAN: Dr. Blayne Chase CONSENT: Patient LOCATION: EP Lab PROCEDURE PERFORMED: 1. Implantation of pacemaker ([employer]) 2. Ultrasound guided venous access INDICATIONS: [...] hypertension, hyperlipidemia who was recently admitted from [facility] to [facility] with a history of atrial fibrillation. He does report a previous history of cardioversion on 09/05/2015 at [facility]. 30d event monitor shows evidence of [...] using modified seldinger technique using a 5 Mosotho micro-puncture needle on two occasions and 0.35 [...] for the device below the muscle. 9 Mosotho Safesheaths were placed over the wire. An active fixation [employer] pacing lead was then delivered through the 9Fsheath via the SPCC sheath to the right ventricle. After confirmation of lead position on orthogonal views (WOODS and ALYSSA) to confirm septal position, the screw was [...] 1-0 Silk sutures. Then an active fixation [employer] lead was delivered through the 6Fsheath to the right atrial appendage. Patient was noted to go into Afib and after a 15min wait, the patient was cardioverted to sinus with 360J. After confirmation of lead position on orthogonal views (RAOand ALYSSA), the screw was activated. Good sensing parameters, [...] to the short stay room for post proceduralobservation. No immediate procedural complications were noted. POST [...] for any concerns. Blayne Chase MD [facility]iologyUnReg[facility]06-12-[facility] Note Patient: Fer Davies Sr. Procedure Information Date/Time: 07/23/24 0830 Procedure: Implant PPM Location: [facility] BED OPERATOR 1 / [facility] (Cath) Providers: Blayne Chase MD Clinical information reviewed: Allergies Meds Physical Exam Airway Mallampati: II TM distance: >3 FB Neck ROM: full Cardiovascular Dental Pulmonary Neurological Abdominal Anesthesia Plan ASA 3 CSE Anesthetic plan and risks discussed with patient. Use of blood products discussed with patient who. Additional Equipment RequestsUnRegency Hospital [facility]06-03-2025 Note [place] Electrophysiology Consult Note [place] Cardiology - [facility] Reason for visit: Atrial fibrillation HPI: Fer Davies Sr. is a 54 y.o. year old with past medical history of CAD with a history of non-STEMI with cath revealing no obstructive lesions, hypertension, hyperlipidemia who was recently admitted from [facility] to [facility] with a history of atrial fibrillation. He does report a previous history of cardioversion on 09/05/2015 at [facility]. It is unclear as to why he was not on any blood thinners. When I reviewed the records it appeared that his initial presentation to the [facility] showed sinus tachycardia but given there was troponin elevation he was transferred to [facility]. EKG on presentation at [facility] was sinus. He did complain of occasional palpitations and following his discharge from [facility] was placed on a 30-day event monitor [...] Year: No Utilities: Not At Risk (05/20/2024) [facility] Utilities Threatened with loss of utilities: No [...] 37 05/20/2024 LDL KIMBERLEE (more content not included)...[facility] 05-26-2024 NotePatient here for a 4 days follow up from [facility] for A-Fib. Patient states it was undetermined [...] day monitor on. Review of Systems Constitutional: Negative.[facility]04-15-2025 Note Cardiovascular Medicine [facility] SUBJECTIVE Chief Complaint Patient presents with Hospital Follow-up Atrial Fibrillation Fer Davies Sr. is a 54 y.o. male here for follow-up after his recent admission to [facility]. HPI PMHx: a.fib with hx of cardioversion, [...] Hospital course: History of Present Illness Fer Davies is an 53 y.o. male who came from home with past medical history of atrial fibrillation presents as a direct admission from [facility] with a chief complaint of palpitations [...] on a heparin drip and transferred to [facility] for higher level of care. Patient does [...] infiltrated over the right radial artery. A 6-Mosotho Terum[employer] Glidesheath slender was placed in right radial artery. Radial anti-vasospasm cocktail of verapamil 2.5 mg was administered through the sheath. All catheter exchanges were made over the [employer] guidewire. Coronary angiogram was performed with a [...] near-syncope, orthopnea, palpitations, paroxysmal (more content not included)...[facility]04-10-2025 Note Hospital Medicine Discharge Summary Final Discharge Diagnosis: NSTEMI type 1 Paroxsymal atrial fibrillation Admission Diagnosis: Chest pain [R07.9] Hospital course: History of Present Illness Fer Davies is an 53 y.o. male who came from home with past medical history of atrial fibrillation presents as a direct admission from [facility] with a chief complaint of palpitations [...] on a heparin drip and transferred to [facility] for higher level of care. Patient does [...] infiltrated over the right radial artery. A 6-Mosotho Terumo Glidesheath slender was placed in right [...] Cardiology Dear No primary care provider on file.Fer is advised to follow up with you within 1-2 weeks. Items to follow up in ambulatory setting: None Follow-up with: Cardiology Scheduled appointments: Future Appointments Date Time Provider Department Center 05/29/2024 3:40 PM Behzad Holguin MD [facility] Your medication [...] Medications These medications were sent to [facility] - [place], [place] - [address] [place] [address] [employer] [place] [address], [facility] [address] apixaban 5 mg tablet atorvastatin 80 mg [...] 05/20/24 0556 05/20/24 0016 (more content not included)...[facility]04-09-2025 Note- Patient reports history of A-fib s/p cardioversion, no longer on anticoagulationUnRegency [facility]04-09-2025 Note- cards consulted - cardiac cath today - currently on heparin dripUnRegency Hospital [facility]04-09-2025 Note Hospital Medicine Daily Progress Note - 05/20/2024 1:09 PM; Room: [address] [place] [address]- Admission: 05/19/2024 8:00 PM; Length of stay: 1 days THE HOSPITALIST TEAM PREFERS TO USE [employer] FOR NON-URGENT COMMUNICATION 7AM-7PM. IF I DO NOT RESPOND WITHIN 20 MINUTES OR URGENT MATTERS, PLEASE CALL THROUGH THE LEASE PURCHASE DRIVER. FROM 7PM-7AM, PLEASE PAGE [phone](COVR). Code Status: Full Code Barriers to Discharge: cardiac cath Expected Discharge Date: 1 - 2 days Discharge Destination: home Overview Fer Davies is an 53 y.o. male who came from home with past medical history of atrial fibrillation presents as a direct admission from [facility] with a chief complaint of palpitations [...] on a heparin drip and transferred to [facility] for higher level of care. Patient does [...] & Plan NSTEMI (non-ST elevated myocardial infarction) ([facility]) - cards consulted - cardiac cath today - currently on heparin drip Paroxysmal A-fib ([facility]) - Patient reports history of [...] LDL 115 05/20/2024 No results found for: [id number] , IRON , TIBC , C3 , [...] Expected Discharge Disposition: Home or Self Care (01) Signed Meredith Donis [facility] Medicine 05/20/2024 1:09 PM[facility]25 NoteCase was discussed with the CARLITO on 05/19/2024. I agree with the history, physical, assessment, and plan of care. I discussed the findings and therapeutic plan. I agree with the documentation, except for any updates below. Emily Bustillo MDSelect [facility]04-08-2025 NoteHospital Medicine History and Physical 05/20/2024 12:00 AM THE HOSPITALIST TEAM PREFERS TO USE [employer] FOR NON-URGENT COMMUNICATION 7AM-7PM. IF I DO NOT RESPOND WITHIN 20 MINUTES OR URGENT MATTERS, PLEASE CALL THROUGH THE LEASE PURCHASE DRIVER. FROM 7PM-7AM, PLEASE PAGE [phone](COVR). Chief Complaint Direct admission from [facility] with CP History of Present Illness Fer Davies is an 53 y.o. male who came from home with past medical history of atrial fibrillation presents as a direct admission from [facility] with a chief complaint of palpitations [...] on a heparin drip and transferred to [facility] for higher level of care. Patient does [...] this hospital stay by a member of [facility]. Past Medical History No past [...] Substance and Sexual Activ (more content not included)...[facility]03-22-2023 Evaluation note* Encounter Date Diagnosis Assessment Notes Treatment Notes Treatment Clinical Notes Apr, Injury of left knee, initial enc ounter (ICD-10 - S89.92XA) Apr,Internal derangement of left knee (ICD-10 - M23.92)Fer is here now about 6 week s/p [...] Instructed patient to progress activity as tolerated Apr,one marrow edema (ICD-10 - R93.7) Apr,Other tear of lateral meniscus of left knee as current injury, initial encounter (ICD-10 - S83.282A) Apr,Other specified postprocedural states (ICD-10 - Z98.890) [employer]with Other 03-07-2023 Evaluation note* Encounter Date Diagnosis Assessment Notes Treatment Notes Treatment Clinical Notes Apr, Injury of left knee, initial enc ounter (ICD-10 - S89.92XA) Apr,Internal derangement of left knee (ICD-10 - M23.92) Apr,one marrow edema (ICD-10 - R93.7) Apr,Other tear of lateral meniscus of left knee as current injury, initial encounter (ICD-10 - S83.282A) Apr,Other specified postprocedural states (ICD-10 - Z98.890)Patient appears to be progressing well. Instructed on use of NSAID and LORETA wrap today. Continue to monitor for signs of infection, signs and symptoms reviewed with patient. Call with questions/concerns. writewith Other 02-15-2023 Evaluation note* Encounter Date Diagnosis Assessment Notes Treatment Notes Treatment Clinical Notes Mar, Injury of left knee, initial enc ounter (ICD-10 - S89.92XA) Mar,Internal derangement of left knee (ICD-10 - M23.92)Fer is here now 1 week s/p left knee arthroscopy. Partial medial meniscectomy and chondroplasty. ACL tear was noted. Doing well today and sutures were removed. Physical exam is benign. Would continue to advance activities as tolerated. He can take anti- inflammatories as needed. PT offered but declined. Recommended limiting any pivoting activities to the left knee as he is ACL deficient. Follow-up as needed if he has any issues Mar,one marrow edema (ICD-10 - R93.7) Mar,Other tear of lateral meniscus of left knee as current injury, initial encounter (ICD-10 - S83.282A) Instructed on application of Neosporin to incision to help dryness. Sutures removed today under sterile conditions. Patient tolerated well with no adverse reactions. May allow incision to get wet in clean running water, no lovelace/garcia/streams. Discussed with patient to progress activity as tolerated. Mar,Other specified postprocedural states (ICD-10 - Z98.890) Mar,OtherSee orders for this visit as documented in the electronic medical record. writewith Other 02-07-2023 History general Narrative - Reported* Type Description Date Surgical History Foot Surgery Surgical HistoryArthroscopic partial left medial meniscectomy03/20/2022 writewith Other 10-10-2022 Evaluation note* Encounter Date Diagnosis Assessment Notes Treatment Notes Treatment Clinical Notes Nov, Injury of left knee, initial enc ounter (ICD-10 - S89.92XA) Nov,Internal derangement of left knee (ICD-10 - M23.92)Fer presents with left knee pain and recurrent [...] Prescription for naproxen sent into patients pharmacy Nov,one marrow edema (ICD-10 - R93.7) Nov,ther tear of lateral meniscus of left knee as current injury, initial encounter (ICD-10 - S83.282A) Nov,therSee orders for this visit as documented in the electronic medical record. [facility] [employer] Other 09-28-2022 Evaluation note* Encounter Date Diagnosis Assessment Notes Treatment Notes Treatment Clinical Notes Oct, Injury of left knee, initial enc ounter (ICD-10 - S89.92XA) Oct,Internal derangement of left knee (ICD-10 - M23.92)Fer presents with left knee pain after twisting injury with concern for medial meniscus tear. At this juncture we have discussed the findings and diagnosis as well as personally reviewed appropriateimaging and performed interpretation of related testing and examination with the patient in office today. Prior medical notes from the ED and history have been reviewed. We discussed his effusion today and possible aspiration which she agrees to. Under sterile technique the patient's left knee was aspirated via the superolateral portal revealing approximately 50 cc of normal-appearing joint fluidand then injected with 5 cc of lidocaine [...] history of this condition and physical exam findings.This condition could require surgical treatment. An MRI will be necessary to plan futher treatment. Patient was prepped and knee was aspirated of approximately 52 mls of normal appearing joint fluid under sterile conditions. 5 ml of lidocane was injected into the knee joint. Dressing was applied toknee. Instructed in application of icing. Call with questions/concerns. Oct,therSee orders for this visit as documented in the electronic medical record. writewith Other Evaluation noteNo assessment information available [facility] Work Phone: Evaluation noteNo InformationNort Quix[employer] Other History general Narrative - Reported* Type Description Date Surgical History Foot Surgery [facility] [employer] Other Hospital Discharge instructions Additional Instructions Orthopedic [...] prescribed. You may take Tylenol or ibuprofen [id number] as instructed. You should take aspirin 81 mg twice daily for 3 weeks for DVT prophylaxis. If you have any increasing pain, fever chills, or abnormal drainage or surgical wound problems you should call the office. Your follow-up should be scheduled with Dr. Turk's office at [facility]. Please call to confirm your follow-up appointment. Dr. Jose Turk [place] [address] [facility] Work Phone: Chief Complaint and Reason for Visit Chief Complaint S89.92XA internal derangement lt knee Chief Complaint Knee Pain Knee Pain Advance Directives No Advanced Directives Records Found Advance Directive Response Recorded Date/ Time Advance Directives No November 13, 2021 3:05pm Advance Directive Response Recorded Date/ Time Advance Directives No November 13, 2021 2:05pm Family History No Family History Records Found Relationship Condition Age at Onset Recorded Date/T cecy Not Specified Chronic obstructive pulmonary disease Un known ArthritisUnknownfatherMalignant neoplasmUnknown Summary Purpose Additional Source Comments Care Teams (unrecognized sec tion and content) Team Status: Inactive Member Role Status Dates PHYSICIAN NO FAMILY Primary Care Provider Active Jose Turk DOAttending ProviderActive Team Status: Active Member Role Status Dates PHYSICIAN NO FAMILY Primary Care Provider Active Team Status: Inactive Member Role Status Dates Jose Turk DO Attending Provider Active Shannon Orourke Care ProviderActive Team Status: Active Member Role Status Dates Shelby Steele DO Primary Care Provider Active Team Status: Inactive Member Role Status Dates Shelby C Ivette , DO Primary Care Provider Active Jose Turk , DOAttending ProviderActive Goals (unrecognized section and content) Goals may be documented in a n alternate sectionGoals may be documented in an alternate sectionNo InformationNo InformationNo InformationNo InformationNo InformationNo InformationNo Information REASON FOR VISIT (unrecogniz ed section and content) knee swellingRecheck Left Kn eeReview MRI ResultsLeft Knee Injury- order xrays if patient didnt bring (unrecognized sect ion and content) No Status Records FoundNo Status Records FoundNo Status Records Found INFORMATION SOURCE (unrecogn ized section and content) DATE CREATED AUTHOR 04/12/2022 [facility] DATE CREATED AUTHOR AUTHOR'S ORGANIZ ATION 11/30/2024 [facility] DATE CREATED AUTHOR AUTHOR'S ORGANIZ ATION 12/20/2024 [facility] FOR RECORDS PERTAINING TO PATIENTS WHO ARE [...] BE BASED ON THE PRIMARY CLINICAL RECORDS. [employer] provides no warranty or guarantee of the accuracy or completeness of information in this document.
== END 2024-12-21 15:45 | disposition home or self-care (01) ==
LOC: LAB 15:45
PROVIDERS: Visit Provider Urology
DX: N40.1 Benign prostatic hyperplasia with lower urinary tract symptoms (principal); Z12.5 Encounter for screening for malignant neoplasm of prostate
CPT/HCPCS: 36415; G0103